=== PATIENT | female | born 1995 | race Caucasian/White ===

== ENCOUNTER → 2019-05-01 09:00 | Outpatient (BNVA) | payer MEDICAID, SELFPAY | PROVIDERS: Family Provider Family Medicine; PCP Family Medicine; Visit Provider Obstetrics & Gynecology | DX: O23.40 Unspecified infection of urinary tract in pregnancy, unspecified trimester (principal) | CPT/HCPCS: 36415; 81000; 82950; 87491; 87591 ==

== ENCOUNTER 2019-05-19 13:45 | Emergency (ER) | payer MEDICAID, SELFPAY ==
[2019-05-19 13:57] VITALS: BP 114/57; RESP 16; TEMP 36.9; O2SAT 99; BMI 22.6
--- NOTE | 2019-05-19 14:04 | ED_ITS ---
Entered by Donna Somers, acting as scribe for May 19, 2019 13:45 HPI - General: Chief complaint: OB/Uterine Contractions Stated complaint: 13 weeks preg and cramping Time Seen by Provider: 05/19/19 14:04 History of Present Illness: HPI Narrative: 23 yo female presents with abdomen cramping. Pt states that she has some discharge but nothing out of the normal. Pt states that she isn't really sure how far along she is. Pt states that she saw Dr. Darling about 2 weeks ago. Complaint: abdominal pain Onset (ago): day(s) Pain Consistency: constant Location: abdomen Severity: moderate Quality: Cramping Relieving factors: none Exacerbating factors: none Vaginal bleeding: none Date of Last Menstrual Period: 02/03/19 Associated symptoms: Reports abdominal pain; Deny dysuria, headache(s), malaise or syncope Review of Systems Const: Denies: fever, chills, body aches, fatigue, malaise or night sweats Eyes: Denies: change in vision or blurry vision ENMT: Denies: throat pain, oral sores/lesions, dental pain, nasal discharge or nasal congestion Card: Denies: chest pain, palpitations, irregular heart rhythm, edema, syncope, shortness of breath on exertion, shortness of breath when lying down or leg pain with exertion Resp: Denies: shortness of breath, productive cough, non-productive cough or wheezing GI: Reports: abdominal pain : Denies: flank pain, painful urination, urinary frequency, urinary urgency, urinary incontinence or blood in urine Musc: Denies: neck pain, back pain, extremity pain, extremity swelling, joint pain or joint swelling Skin/Breast: Denies: rash, itching or redness Neuro: Denies: headache, numbness in extremities, weakness in extremities, allison nges in sensation, lack of coordination, difficulty walking, frequent falls, dizziness, vertigo or confusion Psych: Denies: anxiety, depression, loss of interest, visual hallucinations, auditory hallucinations, suicidal ideation or homicidal ideation Endo: Denies: excessive urination, excessive thirst, tired all the time or cold intolerance Joni/Lymph: Denies: easy bruising, easy bleeding, petechiae, enlarged lymph nodes or tender lymph nodes PFSH ED PFSH: Statuses (acute, chronic, etc) shown below reflect problem list status as previously entered and may not be historically accurate Surgical History History of breast lump/mass excision (Acute) not cancer, left - 03/20/2014--patient states it was a fibroadenoma. Preformed by Dr. Bashir. Previous back surgery (Acute) 2018--Pt reports blood clot in her spine [facility] Family History Mother Diabetes Grandfather Diabetes Maternal Grandmother Diabetes Maternal Uterine cancer Maternal great grandmother Leukemia maternal grandmother Sister Thyroid condition Uterine cancer Endometriosis Family/Other Patient denies medical problems Denies history of: heart disease, diabetes, asthma, hypertension, kidney, thyroid, seizures, DVT/PE,herpes partner denies hx of herpes PCP: Cong Social History Smoking and tobacco status: former smoker Quit status (tobacco): has quit using tobacco Year quit tobacco: 04/16/2019 Alcohol intake: never Additional social history: poorly balanced diet Female Reproductive History: Date of last menstrual period: 02/03/19 Physical Exam Const: COMMON NORMALS: average body habitus, oriented x3 and alert GENERAL APPEARANCE: cooperative, comfortable, well kempt and well developed NUTRITIONAL APPEARANCE: not obese ORIENTATION/CONSCIOUSNESS: Yes awake, Yes oriented to person and Yes oriented to place HENMT: COMMON NORMALS: normocephalic, head/scalp atraumatic, EAC's normal, TM's normal bilaterally, external nose normal, moist oral mucous membranes and oropharynx normal HEAD & SCALP: normocephalic and atraumatic NOSE: external nose normal EXTERNAL AUDITORY CANAL: EAC's normal TYMPANIC MEMBRANE: TM's normal bilaterally MOUTH: oral and palatal mucosa normal, lip normal and tongue normal THROAT: posterior oropharynx normal and tonsils normal Eye: COMMON NORMALS: PERRL, EOMs intact bilaterally, conjunctivae normal and no scleral icterus CONJUNCTIVA: Yes conjunctivae normal PUPIL: Yes PERRL Neck/C-Spine: COMMON NORMALS: full ROM, no lymphadenopathy, supple, no meningeal signs and thyroid normal THYROID: thyroid normal and asymmetrical Lymph: LYMPHATIC: no lymphadenopathy noted Resp: COMMON NORMALS: normal respiratory effort, no retractions, no use of accessory muscles and clear to auscultation bilaterally AUSCULTATION: clear to auscultation bilaterally Cardio: COMMON NORMALS: regular rate and regular rhythm RATE: regular rate RHYTHM: regular rhythm HEART SOUNDS: no murmurs GI: COMMON NORMALS: normal to inspection, nondistended, normoactive bowel sounds, soft to palpation and no hepatosplenomegaly PALPATION: Yes soft and Yes no hepatosplenomegaly : COMMON NORMALS: Yes no CVA tenderness BLADDER/KIDNEY EXAM: Yes no CVA tenderness Back/Pelvis: COMMON NORMALS: no CVA tenderness LUMBAR SPINE/LOWER BACK: Yes normal to inspection Extremity: COMMON NORMALS: no clubbing, cyanosis or edema, no calf tenderness and no pedal edema Neuro: COMMON NORMALS: oriented x3 SENSORIUM/ORIENTATION: Yes alert, Yes oriented to person and Yes oriented to place MENINGEAL SIGNS: Yes no meningeal signs Psych: APPEARANCE: Yes well kempt Skin: COMMON NORMALS: no rashes or lesions noted and skin turgor normal GENERAL SKIN EXAM: no rashes or lesions noted and turgor normal Course ED course: Bedside Doppler Doppler heart tones at 163. Patient has no vaginal bleeding or discharge. Labs reviewed refer back to her [employer]PAT[facility] [employer]. Vital Signs: Vital signs: Vital Signs Temperature 98.4 F 05/19/19 13:57 Respiratory Rate 16 05/19/19 13:57 Blood Pressure 114/57 05/19/19 13:57 Pulse Oximetry 99 05/19/19 13:57 MDM - OB/Uterine Contractions Lab Data: Labs: Lab Results 05/19/19 05/19/19 05/19/19 Range/Units 13:55 14:20 14:20 WBC 9.0 (4.0-10.0) 10^3/ uL RBC 3.77 L (4.1-5.3) 10^6/u L Hgb 10.5 L (11.5-15.3) g/dL Hct 32.2 L (37.0-47.0) % MCV 85.4 (81-99) fL MCH 27.9 L (28.0-34.0) pg MCHC 32.6 (30.0-36.0) g/dL RDW 13.6 (12.1-15.1) % Plt Count 230 (130-400) 10^3/c mm MPV 10.2 (7.4-10.4) fL Neut % (Auto) 70.4 % Lymph % (Auto) 17.7 % [place] % (Auto) 10.2 % Eos % (Auto) 0.8 % Baso % (Auto) 0.2 % Neut # (Auto) 6.3 (1.8-7.7) 10^3/u L Lymph # (Auto) 1.6 (0.8-4.8) 10^3/u L [place] # (Auto) 0.9 (0.2-0.9) 10^3/u L Eos # (Auto) 0.1 (0.0-0.8) 10^3/u L Baso # (Auto) 0.0 (0.0-0.1) 10^3/u L Nucleated RBC % (a uto) 0 % Nucleated RBCs # 0.0 /100WBC Sodium 139 (136-145) mmol/L Potassium 3.4 L (3.5-5.1) mmol/L Chloride 105 (98-107) mmol/L Carbon Dioxide 24 (22-29) mmol/L Anion Gap 13.4 (5-19) BUN 9 (6-20) mg/dL Creatinine 0.4 L (0.5-0.9) mg/dL GFR Calculation 201.5 H (90-130) mL/min Glucose 100 (74-109) mg/dL Calcium 9.4 (8.5-10.5) mg/dL Total Bilirubin 0.2 (0.15-1.2) mg/dL AST 9 (0-32) U/L ALT 9 (0-33) U/L Alkaline Phosphata se 54 (35-105) IU/L Total Protein 6.1 L (6.6-8.7) g/dL Albumin 3.8 (3.5-5.2) g/dL Globulin 2.3 (1.3-4.6) g/dL Urine Color Yellow (Yellow) Urine Appearance Sl hazy (CLEAR) Urine pH 6.5 (5-7) Ur Specific Gravit y 1.020 (1.005-1.030) Urine Protein Neg (Negative) Urine Glucose (UA) Norm (Normal) Urine Ketones 1+ H (Negative) Urine Occult Blood Neg (Negative) Urine Nitrate Negative (Negative) Urine Bilirubin Neg (NEGATIVE) Urine Urobilinogen Norm (Negative) mg/dL Ur Leukocyte Kristin ase Negative (Negative) Urine RBC 0-4 H (0-2) /hpf Urine WBC 10-15 H (0-5) /hpf Ur Squamous Epith Cells 10-15 H (0-5) Amorphous Sediment 1+ Urine Bacteria 1+ H (NONE) Hyaline Casts Rare Urine Mucus 1+ Discharge Plan Discharge Patient Disposition: Home, Self-Care Clinical Impression: Discomfort during , First trimester Condition: Stable Prescriptions: No Action prenat.vits,jaclyn,[id number] Tablet 1 tab PO DAILY RF: 0 Referrals: Otoniel Gar MD [Primary Care Provider] - Discharge Diet: Usual diet Discharge Activity: Increase activity as tolerated Activity Restrictions/Additional Instructions: Follow up with your hairspring vibrator. Minimal exertional activity. Return if you have difficulty with urination pain with urination or vaginal bleeding. Coding Level of Care Code ED Tubing Mill Setter for Chg Fwd Exam Problem Focused The documentation recorded by the Yonis evans Kialy, accurately reflects the service I personally performed and the decisions made by , Aldo Garrison DO May 19, 2019 13:45
[2019-05-19 14:29] LABS: Basophils % 0.2 %; Eosinophils # 0.1 10^3/uL (0.0-0.8); Eosinophils % 0.8 %; Hematocrit 32.2 % (37.0-47.0); Hemoglobin 10.5 g/dL (11.5-15.3); Lymphocytes # 1.6 10^3/uL (0.8-4.8); Lymphocytes % 17.7 %; Mean Corpuscular HGB Conc 32.6 g/dL (30.0-36.0); Mean Corpuscular Hemoglobin 27.9 pg (28.0-34.0); Mean Corpuscular Volume 85.4 fL (81-99); Mean Platelet Volume 10.2 fL (7.4-10.4); Monocytes # 0.9 10^3/uL (0.2-0.9); Monocytes % 10.2 %; Neutrophils # 6.3 10^3/uL (1.8-7.7); Neutrophils % 70.4 %; Nucleated Red Blood Cells % 0 %; Platelet Count 230 10^3/cmm (130-400); Red Blood Count 3.77 10^6/uL (4.1-5.3); Red Cell Distribution Width 13.6 % (12.1-15.1)
[2019-05-19 14:48] LABS: Alanine Aminotransferase 9 U/L (0-33); Albumin Level 3.8 g/dL (3.5-5.2); Alkaline Phosphatase 54 IU/L (35-105); Anion Gap 13.4 (5-19); Aspartate Amino Transferase 9 U/L (0-32); Blood Urea Nitrogen 9 mg/dL (6-20); Calcium 9.4 mg/dL (8.5-10.5); Carbon Dioxide 24 mmol/L (22-29); Chloride 105 mmol/L (98-107); Globulin 2.3 g/dL (1.3-4.6); Glomerular Filtration Rate 201.5 mL/min (90-130); Glucose 100 mg/dL (74-109); Potassium 3.4 mmol/L (3.5-5.1); Sodium 139 mmol/L (136-145); Total Bilirubin 0.2 mg/dL (0.15-1.2); Total Protein 6.1 g/dL (6.6-8.7)
[2019-05-19 14:53] LABS: Add Urine Microscopic? YES; Bilirubin Urine Neg (NEGATIVE); Blood Urine Neg (Negative); Glucose Urine UA Norm (Normal); Ketones Urine 1+ (Negative); Leukocyte Esterase Urine Negative (Negative); Nitrate Urine Negative (Negative); Protein Urine Neg (Negative); Urine Appearance SL Hazy (CLEAR); Urine Color Yellow (Yellow); Urobilinogen Urine Norm (Negative); pH Urine 6.5 (5-7)
[2019-05-19 14:55] LABS: Hyaline Casts Urine RARE; Mucus Urine 1+
[2019-05-19 14:56] LABS: Bacteria Urine 1+; RBC Urine 0-4 /hpf (0-2)
[2019-05-19 14:57] LABS: Amorphous Sediment Urine 1+
[2019-05-19 14:58] LABS: Add Urine Culture? No
[2019-05-19 16:09] VITALS: BP 118/82; PULSE 91; RESP 16; O2SAT 96
== END 2019-05-19 16:10 | disposition home or self-care (01) ==
PROVIDERS: Emergency Provider Family Medicine; Family Provider Family Medicine; PCP Family Medicine
DX: O26.891 Other specified pregnancy related conditions, first trimester (principal); R10.9 Unspecified abdominal pain; Z3A.13 13 weeks gestation of pregnancy; Z87.891 Personal history of nicotine dependence
CPT/HCPCS: 36415; 80053; 81001; 85025; 99282

== ENCOUNTER → 2019-05-30 13:30 | Outpatient (BNVA) | payer MEDICAID, SELFPAY | PROVIDERS: Family Provider Family Medicine; PCP Family Medicine; Visit Provider Nurse Practitioner Women's Health | DX: O23.40 Unspecified infection of urinary tract in pregnancy, unspecified trimester (principal); N89.8 Other specified noninflammatory disorders of vagina; O21.9 Vomiting of pregnancy, unspecified; O99.331 Smoking (tobacco) complicating pregnancy, first trimester; Z3A.14 14 weeks gestation of pregnancy | CPT/HCPCS: 81000; 84315; 87077; 87086; 87186; 87491; 87591; 87661 ==

== ENCOUNTER 2019-05-31 21:23 | Emergency (ER) | payer MEDICAID, SELFPAY ==
[2019-05-31 21:25] VITALS: BP 133/73; PULSE 84; RESP 14; TEMP 36.9; O2SAT 100; BMI 23.0
--- NOTE | 2019-05-31 21:38 | ED_ITS ---
Entered by Ly Crowder, acting as scribe for Dennis Menchaca MD May 31, 2019 21:23 HPI - Female Genitourinary General: Chief complaint: Vaginal Bleeding Stated complaint: 14 weeks preg/poss miscarriage Time Seen by Provider: 05/31/19 21:28 Source: patient Mode of arrival: ambulatory Limitations: no limitations History of Present Illness: HPI Narrative: 23 yo f came to the er for cramping and pt is 14 weeks. Onset was today. Pt states that this is her 2nd and pt has had some light headedness, nausea and diarrhea. Pt has problems with the first . MD elicited complaint: vaginal bleeding Quality of pain: cramping Consistency: constant Vaginal discharge: none Vaginal bleeding: scant Exacerbating factors: none Relieving factors: none Associated symptoms: Reports nausea Treatment prior to arrival: none Patient : Yes Possible : other (14 weeks ) Date of Last Menstrual Period: 02/03/19 Review of Systems General: Reports: other (negative unless marked) Const: Denies: fever, chills, body aches or change in appetite Eyes: Denies: blurry vision or eye discomfort ENMT: Denies: throat pain or dental pain Card: Denies: chest pain Resp: Denies: shortness of breath GI: Reports: nausea and diarrhea : Reports: vaginal bleeding; Denies: painful urination Musc: Denies: neck pain or back pain Skin/Breast: Denies: rash Neuro: Reports: dizziness Psych: Denies: depression Joni/Lymph: Denies: easy bruising All/Imm: Denies: hives PFSH ED PFSH: Statuses (acute, chronic, etc) shown below reflect problem list status as previously entered and may not be historically accurate Medical History (Updated 05/31/19 @ 22:53 by Dennis Menchaca MD) Encounter for supervision of other normal , first trimester (Inactive) Maternal tobacco use in first trimester (Acute) Nausea and vomiting during prior to 22 weeks gestation (Acute) Surgical History (Updated 05/30/19 @ 13:39 by Miriam Harrell APN, SHAHID) History of breast lump/mass excision (Acute ~02/28/14) -patient states it was a fibroadenoma. Preformed by Dr. Bashir. Previous back surgery (Acute ~2018) 2018--Pt reports blood clot in her spine [facility] Social History Smoking and tobacco status: former smoker Quit status (tobacco): has quit using tobacco Year quit tobacco: 04/16/2019 Alcohol intake: never Additional social history: poorly balanced diet Female Reproductive History: Date of last menstrual period: 02/03/19 Physical Exam Const: COMMON NORMALS: no apparent distress, oriented x3 and healthy appearing HENMT: COMMON NORMALS: normocephalic and head/scalp atraumatic HEAD & SCALP: normocephalic and atraumatic Eye: COMMON NORMALS: PERRL and EOMs intact bilaterally PUPIL: Yes PERRL Neck/C-Spine: COMMON NORMALS: full ROM and supple Chest: COMMONS NORMALS: inspection of chest normal and palpation of chest normal Resp: COMMON NORMALS: normal respiratory effort, no retractions, no use of accessory muscles and clear to auscultation bilaterally AUSCULTATION: clear to auscultation bilaterally Cardio: COMMON NORMALS: regular rate, regular rhythm and no murmurs RATE: regular rate RHYTHM: regular rhythm GI: COMMON NORMALS: normal to inspection, nondistended, normoactive bowel sounds, soft to palpation, non-tender and no masses PALPATION: Yes soft Extremity: COMMON NORMALS: normal to inspection and full ROM Neuro: COMMON NORMALS: oriented x3, moves all extremities and no focal motor deficits Psych: COMMON NORMALS: mental status grossly normal, thought process normal and cooperative THOUGHT PROCESS: normal thought process Skin: COMMON NORMALS: no rashes or lesions noted and no wounds GENERAL SKIN EXAM: no rashes or lesions noted Course Vital Signs: Vital signs: Vital Signs Temperature 98.5 F 05/31/19 21:25 Pulse Rate 86 05/31/19 23:11 Respiratory Rate 16 05/31/19 23:11 Blood Pressure 107/49 05/31/19 23:11 Pulse Oximetry 100 05/31/19 23:11 MDM - Female MDM Narrative: Medical decision making narrative: Patient presents here with vaginal bleeding and threatened miscarriage. Patient's bedside ultrasound showed an IUP with heart rate in the 140s. Patient's blood work here is all normal. UA is normal as well. Patient has an appointment tomorrow with her OB and is to follow then. Patient is to return if worsening. Lab Data: Labs: Lab Results 05/31/19 05/31/19 05/31/19 Range/Units 21:36 21:40 22:17 WBC 9.4 (4.0-10.0) 10^3/ uL RBC 3.79 L (4.1-5.3) 10^6/u L Hgb 10.7 L (11.5-15.3) g/dL Hct 32.5 L (37.0-47.0) % MCV 85.8 (81-99) fL MCH 28.2 (28.0-34.0) pg MCHC 32.9 (30.0-36.0) g/dL RDW 13.3 (12.1-15.1) % Plt Count 213 (130-400) 10^3/c mm MPV 9.8 (7.4-10.4) fL Neut % (Auto) 67.6 % Lymph % (Auto) 20.3 % [place] % (Auto) 10.2 % Eos % (Auto) 0.9 % Baso % (Auto) 0.3 % Neut # (Auto) 6.4 (1.8-7.7) 10^3/u L Lymph # (Auto) 1.9 (0.8-4.8) 10^3/u L [place] # (Auto) 1.0 H (0.2-0.9) 10^3/u L Eos # (Auto) 0.1 (0.0-0.8) 10^3/u L Baso # (Auto) 0.0 (0.0-0.1) 10^3/u L Nucleated RBC % (a uto) 0 % Nucleated RBCs # 0.0 /100WBC POC Glucose 108 (70-110) mg/dL Urine Color Yellow (Yellow) Urine Appearance Cloudy (CLEAR) Urine pH 7 (5-7) Ur Specific Gravit y 1.020 (1.005-1.030) Urine Protein Neg (Negative) Urine Glucose (UA) Norm (Normal) Urine Ketones Negative (Negative) Urine Occult Blood Neg (Negative) Urine Nitrate Negative (Negative) Urine Bilirubin Neg (NEGATIVE) Urine Urobilinogen Norm (Negative) mg/dL Ur Leukocyte Kristin ase Negative (Negative) Urine RBC None (0-2) /hpf Urine WBC None (0-5) /hpf Ur Squamous Epith Cells 0-4 H (0-5) Amorphous Sediment 3+ Urine Bacteria Trace (NONE) Discharge Plan Discharge Patient Disposition: Home, Self-Care Clinical Impression: Threatened miscarriage Condition: Stable Prescriptions: No Action prenat.vits,jaclyn,[id number] Tablet 1 tab PO DAILY RF: 0 metronidazole 500 mg tablet 500 mg PO BID Qty: 14 RF: 0 Discharge Orders: Discharge Order (Routine); Ordered 05/31/19 Ordered By: Dennis Menchaca Referrals: Otoniel Gar MD [Primary Care Provider] - 4-7 days Discharge Diet: Advance as tolerated Discharge Activity: Resume usual activity Patient Instructions: Threatened Miscarriage (ED) Discharge Date/Time: 05/31/19 23:13 Coding Level of Care Code ED Metal Sash Setter for Chg Marie The documentation recorded by the Vel evans Stephanie Lyn, accurately reflects the service I personally performed and the decisions made by Bernarda bhandari Korby, MD May 31, 2019 21:23
[2019-05-31 21:39] LABS: Glucose Point of Care 108 mg/dL (70-110)
--- NOTE | 2019-05-31 21:41 | PC.NURSE ---
PATIENT STATES SHE STARTED HAVING CRAMPING 1 HOUR AGO PRIOR TO ARRIVAL. PATIENT STATES SHE HAS HAD LIGHT CRAMPING AND SPOTTING THROUGHOUT THE .
[2019-05-31 21:44] VITALS: BP 125/67; PULSE 83; RESP 16; O2SAT 100
[2019-05-31 21:52] LABS: Basophils % 0.3 %; Eosinophils # 0.1 10^3/uL (0.0-0.8); Eosinophils % 0.9 %; Hematocrit 32.5 % (37.0-47.0); Hemoglobin 10.7 g/dL (11.5-15.3); Lymphocytes # 1.9 10^3/uL (0.8-4.8); Lymphocytes % 20.3 %; Mean Corpuscular HGB Conc 32.9 g/dL (30.0-36.0); Mean Corpuscular Hemoglobin 28.2 pg (28.0-34.0); Mean Corpuscular Volume 85.8 fL (81-99); Mean Platelet Volume 9.8 fL (7.4-10.4); Monocytes % 10.2 %; Neutrophils # 6.4 10^3/uL (1.8-7.7); Neutrophils % 67.6 %; Nucleated Red Blood Cells % 0 %; Platelet Count 213 10^3/cmm (130-400); Red Blood Count 3.79 10^6/uL (4.1-5.3); Red Cell Distribution Width 13.3 % (12.1-15.1); White Blood Count 9.4 10^3/uL (4.0-10.0)
[2019-05-31] MEDS: sodium chloride 0.9% 1,000 ML 999 ML IV (22:00)
[2019-05-31] MEDS: diphenhydrAMINE 50 mg/mL SDV 1mL 25 MG IVP (22:00)
[2019-05-31] MEDS: metoclopramide 5 mg/mL SDV 2 mL IVP (22:00)
[2019-05-31 22:04] VITALS: BP 123/64; PULSE 92; RESP 16; O2SAT 100
[2019-05-31 22:37] LABS: Bilirubin Urine Neg (NEGATIVE); Blood Urine Neg (Negative); Glucose Urine UA Norm (Normal); Ketones Urine Negative (Negative); Leukocyte Esterase Urine Negative (Negative); Nitrate Urine Negative (Negative); Protein Urine Neg (Negative); Urine Appearance Cloudy (CLEAR); Urine Color Yellow (Yellow); Urobilinogen Urine Norm (Negative); pH Urine 7 (5-7)
[2019-05-31 22:40] VITALS: BP 112/49; PULSE 83; O2SAT 100
[2019-05-31 22:41] LABS: Add Urine Culture? No; Amorphous Sediment Urine 3+; Bacteria Urine TRACE; Squamous Epithelial Cell Urine 0-4 (0-5)
[2019-05-31 23:06] VITALS: BP 100/46; PULSE 84; O2SAT 100
[2019-05-31 23:11] VITALS: BP 107/49; PULSE 86; RESP 16; O2SAT 100
== END 2019-05-31 23:13 | disposition home or self-care (01) ==
PROVIDERS: Emergency Provider Emergency Medicine; Family Provider Family Medicine; PCP Family Medicine
DX: O20.0 Threatened abortion (principal); Z3A.14 14 weeks gestation of pregnancy; Z87.891 Personal history of nicotine dependence
CPT/HCPCS: 36416; 81001; 82962; 85025; 96361; 96374; 96375; 99283; J1200; J2765; J7030

== ENCOUNTER → 2019-06-01 09:00 | Outpatient (BNVA) | payer MEDICAID, SELFPAY | PROVIDERS: Family Provider Family Medicine; PCP Family Medicine; Visit Provider Nurse Practitioner Women's Health | DX: O23.40 Unspecified infection of urinary tract in pregnancy, unspecified trimester (principal); N89.8 Other specified noninflammatory disorders of vagina; O21.9 Vomiting of pregnancy, unspecified; O99.331 Smoking (tobacco) complicating pregnancy, first trimester; O26.92 Pregnancy related conditions, unspecified, second trimester; Z3A.14 14 weeks gestation of pregnancy | CPT/HCPCS: 82951; 82952; 87806 ==

== ENCOUNTER 2019-06-08 11:02 | Outpatient (CLI) | payer MEDICAID, SELFPAY ==
[2019-06-08 11:02] VITALS: BMI 23.0
--- NOTE | 2019-06-08 11:15 | US_ITS ---
WS: [id number] OB ultrasound, 06/08/2019 Clinical Data: Severe abdominal pain Comparison: None. Findings: There is a single intrauterine in a variable lie. The placenta is on the left posterior and grade 0. There is a normal amount of amnionic fluid. The heart rate is 147 beats per minute. Measurements of growth and development: BPD: 3.2 cm HC: 11.5 cm AC: 9.7 cm FL: 1.7 cm The estimated weight is 125 or approximately 4 ounces The estimated gestational age is 15w4d wi th an EMELIA of approximately 11/26/2019. US/ OB limited 20000 Impression: 1. Single intrauterine in a variable lie. 2. Estimated gestational age 15w4d with an EMELIA of 11/26/2019. 3. heart rate 147 beats per minute.
[2019-06-08 11:33] VITALS: BP 100/50; PULSE 68; RESP 17; TEMP 36.7
[2019-06-08 11:42] LABS: Bilirubin Urine Neg (NEGATIVE); Blood Urine Neg (Negative); Glucose Urine UA Norm (Normal); Ketones Urine Negative (Negative); Leukocyte Esterase Urine Negative (Negative); Nitrate Urine Negative (Negative); Protein Urine Neg (Negative); Urine Appearance Clear (CLEAR); Urine Color Yellow (Yellow); Urobilinogen Urine Norm (Negative)
[2019-06-08 11:57] LABS: Add Urine Culture? No; Bacteria Urine 1+; Calcium Oxalate Crystals Urine 0-4 /hpf; Mucus Urine 1+; WBC Urine 0-4 /hpf (0-5)
[2019-06-08 12:21] VITALS: BP 103/55; PULSE 70
[2019-06-08 12:36] VITALS: BP 98/54; PULSE 73
[2019-06-08 12:45] VITALS: BP 98/54; PULSE 69; RESP 16; TEMP 36.7
--- NOTE | 2019-06-08 13:20 | PC.NURSE ---
Pt here with complaints of severe abdominal pain since 729. She states that with her last she had a placental tear and this feels like that. When asked more about her pain she says that it does not feel like contractions but that it will be more constant for 2-3hours and then will go away for a day or two then will come back and that she has felt this a lot during this so far. This time was different and more severe and was making it difficult for her to get up and walk.
== END 2019-06-08 12:45 | disposition home or self-care (01) ==
LOC: OPOB 11:13 → OBGYN 12:36 → OPOB 06-11 07:38
PROVIDERS: Family Provider Family Medicine; PCP Family Medicine; Visit Provider Obstetrics & Gynecology
DX: O26.899 Other specified pregnancy related conditions, unspecified trimester (principal); Z3A.00 Weeks of gestation of pregnancy not specified; R10.9 Unspecified abdominal pain
CPT/HCPCS: 76815; 81001; 99211; A9270

== ENCOUNTER 2019-07-01 16:52 | Emergency (ER) | payer MEDICAID, SELFPAY ==
[2019-07-01] VITALS (9 sets, daily range): BP systolic 119–141; BP diastolic 47–69; PULSE 90–106; RESP 16–18; TEMP 36.9; O2SAT 94–100; BMI 23.7
--- NOTE | 2019-07-01 17:46 | PC.NURSE ---
Patient presents to OB from ER at 1657. Patient reporting that she is feeling light headed and weak, c/o left upper chest pain that is intermittent. Patient rating pain at a 5/10. Patient states this all started one hour ago. Patient reports she is having good movement and had an ultrasound over a month ago when she was having vaginal spotting earlier in the . Patient also states she had some spotting on her toilet paper when she wiped approx 10 minutes prior to arrival. Patient is also complaining of pain with urination. Patient assessed in room at 1715. EMELIA: 11/26/2019. heart tones Doppler at 150s, increases present, no decreases noted. Patient abdomen is non tender and soft. Call placed to Dr. Abbasi at 1724 and above findings discussed with Dr. Abbasi who states she would like the patient to be sent back to the ER at this time. Patient informed of Dr. Abbasi's decision and states she would like to get dressed to walk down there. Heavy Equipment Operator/Paver back to room to escort patient to ER at 1730 and patient is gone.
--- NOTE | 2019-07-01 18:07 | ED_ITS ---
Entered by Katie Schwartz, acting as scribe for Diane Norwood Renetta Jul 01, 2019 16:52 HPI - Chest Pain General: Chief Complaint: Chest Pain Stated Complaint: NOT FEELING WELL Time Seen by Provider: 07/01/19 18:06 Source: patient Mode of arrival: ambulatory Limitations: no limitations History of Present Illness: HPI narrative: 23 yo Female presents to ED with complaint of chest pain that started last night. Pt is 20 weeks and was sent to OB for evaluation and then sent back down to the ED for further evaluation. Pt states that the pain is more toward her left shoulder. Pt states that she started having pain worse today. Pt's caregiver states that the patient had an episode so bad earlier that she turned pale and thought she was going to pass out. Pt states that she has had a blood clot in her spine before. Pt states that they thought it was a tumor and found that it was a blood clot during surgery. 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 This is the patient's second and she is being see by Dr. Darling. complaint: chest pain Onset (ago): day(s) Timing of current episode: episodic and still present Prior episodes: Yes Onset: during rest Pain location: left chest Pain radiation: left shoulder Pain scale (0-10): 8 Quality: sharp Relieving factors: nothing Exacerbating factors: nothing Associated symptoms: Reports diaphoresis and nausea; Deny abdominal pain, dyspnea or vomiting Treatment prior to arrival: none Review of Systems General: Reports: other (negative unless marked) Const: Reports: diaphoresis Eyes: Denies: change in vision or blurry vision ENMT: Denies: throat pain, painful swallowing, hoarseness, ear pain, ear discharge, Change in hearing or nasal discharge Card: Reports: pre-syncope Resp: Denies: shortness of breath, productive cough, non-productive cough, wheezing, coughing up blood or chest congestion GI: Reports: nausea; Denies: abdominal pain or vomiting : Denies: flank pain, painful urination, urinary frequency, urinary urgency, decreased urine ouput, urinary incontinence or blood in urine Musc: Denies: neck pain, back pain, extremity pain, extremity swelling, joint pain, joint swelling, joint warmth or joint stiffness Skin/Breast: Denies: rash, skin tenderness or yellow skin Neuro: Denies: headache, numbness in extremities, weakness in extremities, changes in sensation, lack of coordination, difficulty walking, dizziness, vertigo or confusion Endo: Denies: excessive thirst, tired all the time, cold intolerance, excessive sweating, flushing or hot flashes Joni/Lymph: Denies: easy bruising, easy bleeding, petechiae or enlarged lymph nodes All/Imm: Denies: hives, throat swelling, tongue swelling, facial swelling or acute wheezing PFSH ED PFSH: Medical History Encounter for supervision of other normal , first trimester Maternal tobacco use in first trimester Nausea and vomiting during prior to 22 weeks gestation Surgical History History of breast lump/mass excision (~02/28/14) -patient states it was a fibroadenoma. Preformed by Dr. Bashir. Previous back surgery (~2017) 2018--Pt reports blood clot in her spine [facility] Family History Mother Diabetes Grandfather Diabetes Maternal Grandmother Diabetes Maternal Uterine cancer Maternal great grandmother Leukemia maternal grandmother Sister Thyroid condition Uterine cancer Endometriosis Family/Other Patient denies medical problems Denies history of: heart disease, diabetes, asthma, hypertension, kidney, thyroid, seizures, DVT/PE,herpes partner denies hx of herpes PCP: Cong Social History Smoking and tobacco status: former smoker Quit status (tobacco): has quit using tobacco Year quit tobacco: 04/16/2019 Alcohol intake: never Additional social history: poorly balanced diet Female Reproductive History: Date of last menstrual period: 02/03/19 Physical Exam Const: COMMON NORMALS: no apparent distress, oriented x3, no limitations, healthy appearing and well nourished EXAM LIMITATIONS: no altered mental status GENERAL APPEARANCE: cooperative, well kempt and well developed ORIENTATION/CONSCIOUSNESS: Yes awake HENMT: COMMON NORMALS: normocephalic, head/scalp atraumatic, hearing grossly normal bilaterally, external ears normal, EAC's normal, external nose normal and moist oral mucous membranes HEAD & SCALP: normal to inspection, normocephalic and atraumatic FACE & SINUS: normal facial exam and face symmetric NOSE: external nose normal and nares normal EXTERNAL EAR: Yes external ears normal EXTERNAL AUDITORY CANAL: EAC's normal MOUTH: oral and palatal mucosa normal and tongue normal Eye: COMMON NORMALS: PERRL, EOMs intact bilaterally, conjunctivae normal and no scleral icterus GENERAL EYE: normal appearance of both eyes and normal light reflex CONJUNCTIVA: Yes conjunctivae normal SCLERA: sclerae normal CORNEA: Yes corneas normal PUPIL: Yes PERRL DIRECT OPHTHALMOSCOPY: Yes normal light reflex Neck/C-Spine: COMMON NORMALS: full ROM, no lymphadenopathy, supple, no meningeal signs and no JVD GENERAL: Yes normal visual inspection and Yes trachea midline CERVICAL SPINE: Yes cervical ROM normal Chest: COMMONS NORMALS: inspection of chest normal and palpation of chest normal Resp: COMMON NORMALS: normal respiratory effort, no retractions, no use of accessory muscles and clear to auscultation bilaterally EFFORT & INSPECTION: Yes able to speak in complete sentences AUSCULTATION: clear to auscultation bilaterally Cardio: COMMON NORMALS: no JVD, regular rate, regular rhythm, S1 normal heart sound, S2 normal heart sound, no gallops, no clicks, no murmurs and no rub JUGULAR VENOUS DISTENTION: no JVD RATE: regular rate RHYTHM: regular rhythm HEART SOUNDS: S1 normal and S2 normal GI: COMMON NORMALS: soft to palpation, non-tender, no hepatosplenomegaly and no masses INSPECTION: Yes normal to inspection PALPATION: Yes soft and Yes no hepatosplenomegaly : COMMON NORMALS: Yes no CVA tenderness BLADDER/KIDNEY EXAM: Yes no CVA tenderness Back/Pelvis: COMMON NORMALS: no CVA tenderness, thoracic and lumbar spine norm al to inspection, no thoracic nor lumbar tenderness and thoraco-lumbar ROM normal Extremity: COMMON NORMALS: normal to inspection, full ROM, normal capillary refill, no joint enlargement, no clubbing, cyanosis or edema and no calf tenderness Neuro: COMMON NORMALS: oriented x3, CN's II-XII intact bilaterally, moves all extremities, no focal motor deficits and no sensory deficits noted MENINGEAL SIGNS: Yes no meningeal signs Psych: COMMON NORMALS: mental status grossly normal, thought process normal, cooperative, affect normal, speech normal and activity/motor behavior normal APPEARANCE: Yes well kempt SPEECH: Yes normal speech THOUGHT PROCESS: normal thought process Skin: COMMON NORMALS: no rashes or lesions noted, skin turgor normal, no jaundice, no petechiae and no mottling GENERAL SKIN EXAM: no rashes or lesions noted and turgor normal Course Vital Signs: Vital signs: Vital Signs Temperature 98.4 F 07/01/19 17:36 Pulse Rate 92 07/01/19 22:51 Respiratory Rate 18 07/01/19 22:51 Blood Pressure 120/47 07/01/19 22:51 Pulse Oximetry 99 07/01/19 22:51 MDM - Chest Pain MDM Narrative: Medical decision making narrative: Patient's EKGs are normal and she has had 2 normal troponins. There is no evidence of aortic dissection or pulmonary embolism by CT. She is feeling better with just rest. She agrees to return should her symptoms change or worsen but at this time she is had no chest pain in quite some time. She denies any injury she denies any other complaints. heart tones were normal at 150/min as she has no abdominal pain, vaginal discharge or bleeding. Patient agrees to return should her symptoms change or worsen but at this time she is feeling much better and she is ready to be discharged. Lab Data: Attestation: I reviewed the patient's lab results. Labs: Lab Results 07/01/19 07/01/19 07/01/19 Range/Units 18:03 18:03 18:08 WBC 9.8 (4.0-10.0) 10^3/ uL RBC 3.62 L (4.1-5.3) 10^6/u L Hgb 10.3 L (11.5-15.3) g/dL Hct 32.4 L (37.0-47.0) % MCV 89.5 (81-99) fL MCH 28.5 (28.0-34.0) pg MCHC 31.8 (30.0-36.0) g/dL RDW 13.5 (12.1-15.1) % Plt Count 218 (130-400) 10^3/c mm MPV 10.5 H (7.4-10.4) fL Neut % (Auto) 73.8 % Lymph % (Auto) 15.5 % Alexander % (Auto) 8.8 % Eos % (Auto) 0.6 % Baso % (Auto) 0.4 % Neut # (Auto) 7.2 (1.8-7.7) 10^3/u L Lymph # (Auto) 1.5 (0.8-4.8) 10^3/u L Alexander # (Auto) 0.9 (0.2-0.9) 10^3/u L Eos # (Auto) 0.1 (0.0-0.8) 10^3/u L Baso # (Auto) 0.0 (0.0-0.1) 10^3/u L Nucleated RBC % (a uto) 0 % Nucleated RBCs # 0.0 /100WBC PT 13.30 (10.5-13.3) SECO NDS INR 0.98 (0.8-1.2) APTT 28.0 (23.9-36.7) SECO NDS D-Dimer 0.97 H (0-0.59) ug/mIFE U Sodium 133 L (136-145) mmol/L Potassium 3.6 (3.5-5.1) mmol/L Chloride 99 (98-107) mmol/L Carbon Dioxide 23 (22-29) mmol/L Anion Gap 14.6 (5-19) BUN 7 (6-20) mg/dL Creatinine 0.4 L (0.5-0.9) mg/dL GFR Calculation 201.5 H (90-130) mL/min Glucose 110 (65-115) mg/dL Calculated Osmolal ity 272 L (285-295) mOsm/k g Calcium 9.4 (8.5-10.5) mg/dL Total Bilirubin 0.2 (0.15-1.2) mg/dL AST 9 (0-32) U/L ALT 9 (0-33) U/L Alkaline Phosphata se 47 (35-105) IU/L Troponin T Baselin e (0-10) ng/mL Troponin T 120 Min [place] (0-10) ng/mL Delta Troponin T (0-10) ABS# NT-Pro-B Natriuret Pep 29 (0-125) pg/mL Total Protein 6.2 L (6.6-8.7) g/dL Albumin 3.5 (3.5-5.2) g/dL Globulin 2.7 (1.3-4.6) g/dL Ser , [place] [address].00 mIU/mL Urine Color (Yellow) Urine Appearance (CLEAR) Urine pH (5-7) Ur Specific Gravit y (1.005-1.030) Urine Protein (Negative) Urine Glucose (UA) (Normal) Urine Ketones (Negative) Urine Blood (Negative) Urine Nitrate (Negative) Urine Bilirubin (NEGATIVE) Urine Urobilinogen (Negative) mg/dL Ur Leukocyte Kristin ase (Negative) Urine RBC (0-2) /hpf Urine WBC (0-5) /hpf Ur Squamous Epith Cells (0-5) Amorphous Sediment Urine Bacteria (NONE) Influenza Type A A g (Negative) POC Influenza B Ag (Negative) Blood Type Rho(D) Type 07/01/19 07/01/19 07/01/19 Range/Units 18:08 18:20 18:50 WBC (4.0-10.0) 10^3/ uL RBC (4.1-5.3) 10^6/u L Hgb (11.5-15.3) g/dL Hct (37.0-47.0) % MCV (81-99) fL MCH (28.0-34.0) pg MCHC (30.0-36.0) g/dL RDW (12.1-15.1) % Plt Count (130-400) 10^3/c mm MPV (7.4-10.4) fL Neut % (Auto) % Lymph % (Auto) % Alexander % (Auto) % Eos % (Auto) % Baso % (Auto) % Neut # (Auto) (1.8-7.7) 10^3/u L Lymph # (Auto) (0.8-4.8) 10^3/u L Alexander # (Auto) (0.2-0.9) 10^3/u L Eos # (Auto) (0.0-0.8) 10^3/u L Baso # (Auto) (0.0-0.1) 10^3/u L Nucleated RBC % (a uto) % Nucleated RBCs # /100WBC PT (10.5-13.3) SECO NDS INR (0.8-1.2) APTT (23.9-36.7) SECO NDS D-Dimer (0-0.59) ug/mIFE U Sodium (136-145) mmol/L Potassium (3.5-5.1) mmol/L Chloride (98-107) mmol/L Carbon Dioxide (22-29) mmol/L Anion Gap (5-19) BUN (6-20) mg/dL Creatinine (0.5-0.9) mg/dL GFR Calculation (90-130) mL/min Glucose (65-115) mg/dL Calculated Osmolal ity (285-295) mOsm/k g Calcium (8.5-10.5) mg/dL Total Bilirubin (0.15-1.2) mg/dL AST (0-32) U/L ALT (0-33) U/L Alkaline Phosphata se (35-105) IU/L Troponin T Baselin e 6 (0-10) ng/mL Troponin T 120 Min [place] (0-10) ng/mL Delta Troponin T (0-10) ABS# NT-Pro-B Natriuret Pep (0-125) pg/mL Total Protein (6.6-8.7) g/dL Albumin (3.5-5.2) g/dL Globulin (1.3-4.6) g/dL Ser , Meenu i-Qnt mIU/mL Urine Color (Yellow) Urine Appearance (CLEAR) Urine pH (5-7) Ur Specific Gravit y (1.005-1.030) Urine Protein (Negative) Urine Glucose (UA) (Normal) Urine Ketones (Negative) Urine Blood (Negative) Urine Nitrate (Negative) Urine Bilirubin (NEGATIVE) Urine Urobilinogen (Negative) mg/dL Ur Leukocyte Kristin ase (Negative) Urine RBC (0-2) /hpf Urine WBC (0-5) /hpf Ur Squamous Epith Cells (0-5) Amorphous Sediment Urine Bacteria (NONE) Influenza Type A A g Negative (Negative) POC Influenza B Ag Negative (Negative) Blood Type O Positive Rho(D) Type Positive 07/01/19 07/01/19 Range/Units 19:35 20:15 WBC (4.0-10.0) 10^3/ uL RBC (4.1-5.3) 10^6/u L Hgb (11.5-15.3) g/dL Hct (37.0-47.0) % MCV (81-99) fL MCH (28.0-34.0) pg MCHC (30.0-36.0) g/dL RDW (12.1-15.1) % Plt Count (130-400) 10^3/c mm MPV (7.4-10.4) fL Neut % (Auto) % Lymph % (Auto) % Alexander % (Auto) % Eos % (Auto) % Baso % (Auto) % Neut # (Auto) (1.8-7.7) 10^3/u L Lymph # (Auto) (0.8-4.8) 10^3/u L Alexander # (Auto) (0.2-0.9) 10^3/u L Eos # (Auto) (0.0-0.8) 10^3/u L Baso # (Auto) (0.0-0.1) 10^3/u L Nucleated RBC % (a uto) % Nucleated RBCs # /100WBC PT (10.5-13.3) SECO NDS INR (0.8-1.2) APTT (23.9-36.7) SECO NDS D-Dimer (0-0.59) ug/mIFE U Sodium (136-145) mmol/L Potassium (3.5-5.1) mmol/L Chloride (98-107) mmol/L Carbon Dioxide (22-29) mmol/L Anion Gap (5-19) BUN (6-20) mg/dL Creatinine (0.5-0.9) mg/dL GFR Calculation (90-130) mL/min Glucose (65-115) mg/dL Calculated Osmolal ity (285-295) mOsm/k g Calcium (8.5-10.5) mg/dL Total Bilirubin (0.15-1.2) mg/dL AST (0-32) U/L ALT (0-33) U/L Alkaline Phosphata se (35-105) IU/L Troponin T Baselin e (0-10) ng/mL Troponin T 120 Min [place] 6.00 (0-10) ng/mL Delta Troponin T 0 (0-10) ABS# NT-Pro-B Natriuret Pep (0-125) pg/mL Total Protein (6.6-8.7) g/dL Albumin (3.5-5.2) g/dL Globulin (1.3-4.6) g/dL Ser , Meenu i-Qnt mIU/mL Urine Color Yellow (Yellow) Urine Appearance Cloudy (CLEAR) Urine pH 7 (5-7) Ur Specific Gravit y 1.015 (1.005-1.030) Urine Protein Neg (Negative) Urine Glucose (UA) Norm (Normal) Urine Ketones Negative (Negative) Urine Blood Neg (Negative) Urine Nitrate Negative (Negative) Urine Bilirubin Neg (NEGATIVE) Urine Urobilinogen Norm (Negative) mg/dL Ur Leukocyte Kristin ase Negative (Negative) Urine RBC 0-4 H (0-2) /hpf Urine WBC 0-4 H (0-5) /hpf Ur Squamous Epith Cells 0-4 H (0-5) Amorphous Sediment 2+ Urine Bacteria 2+ H (NONE) Influenza Type A A g (Negative) POC Influenza B Ag (Negative) Blood Type Rho(D) Type Imaging Data^: CXR: Radiologist's impression: [place] [address] XRay Report Signed Patient: Gris Garcia #: [id number] : 1995Acct#:[id number] Age/Sex: Date: 07/01/19 Loc: ERRoom/Bed: Attending Dr: Ordering Provider/Ordering MD: Diane Norwood DO Date of Service: 07/01/19 Procedure(s): XR chest 1V portable [id number] Accession Number(s): [id number] Report Number: [id number] PROCEDURE INFORMATION: Exam: XR Chest, 1 View Exam date and time: 07/01/2019 6:46 PM Age: 23 years old Clinical indication: Type not specified; Patient HX: New onset chest pain, PT is approx 18 wks , PT was shielded TECHNIQUE: Imaging protocol: XR of the chest Views: 1 view. COMPARISON: CR Chest 2 views* [id number] 12/27/2017 4:20 AM FINDINGS: Lungs: Unremarkable. No consolidation. Pleural space: Unremarkable. No pleural effusion. No pneumothorax. Heart/Mediastinum: Unremarkable. No cardiomegaly. Bones/joints: Unremarkable. Soft tissues: Nipple rings. XR/XR chest 1V portable [id number] IMPRESSION: Nonacute. Dictated By:Akhil Resendez Signed By:Judy Resendez Date/Time:07/01/191902 DD/ 00 US Vascular: Radiologist's impression: Bilateral lower extremity venous Doppler, tech interpretation. -No evidence of DVT. [address] [address] Ultrasound Report Signed Patient: Gris Garcia #: [id number] : 1995Acct#:[id number] Age/Sex: 23 / FADM Date: 07/01/19 Loc: ERRoom/Bed: Attending Dr: Ordering Provider/Ordering MD: Diane Norwood DO Date of Service: 07/01/19 Procedure(s): [place] [id number] Accession Number(s): [id number] Report Number: [id number] PROCEDURE INFORMATION: Exam: US Duplex Lower Extremity Veins Exam date and time: 07/01/2019 6:39 PM Age: 23 years old Clinical indication: Abnormal findings; Abnormal lab test; Elevated d-dimer; Patient HX: PT states had blood clot in spine in her past. Can add no more; Additional info: Pain TECHNIQUE: Imaging protocol: Real-time duplex ultrasound of the Lower Extremities with 2-D champagne scale, color Doppler flow and spectral waveform analysis with image documentation. Complete exam focused on the bilateral lower extremity veins. COMPARISON: No relevant prior studies available. FINDINGS: Right deep veins: Unremarkable. The common femoral, femoral, proximal profunda femoral and popliteal veins are patent without thrombus. Normal Doppler waveforms. Normal compressibility and/or augmentation response. Right superficial veins: Saphenofemoral junction is patent without thrombus. Left deep veins: Unremarkable. The common femoral, femoral, proximal profunda femoral and popliteal veins are patent without thrombus. Normal Doppler waveforms. Normal compressibility and/or augmentation response. Left superficial veins: Saphenofemoral junction is patent without thrombus. Soft tissues: Unremarkable. US/[place] [address] IMPRESSION: No acute findings. No evidence of deep vein thrombosis. Dictated By:Akhil Resendez Signed By:Judy Resendez Date/Time:07/01/192051 DD/ 48 CTA Chest: Radiologist's impression: [address] [place] [address] CT Scan Report Signed Patient: Gris Garcia #: [id number] : 1995Acct#:[id number] Age/Sex: 23 / FADM Date: 07/01/19 Loc: ERRoom/Bed: Attending Dr: Ordering Provider/Ordering MD: Diane Norwood DO Date of Service: 07/01/19 Procedure(s): CT angio chest PE protcl [id number] Accession Number(s): [id number] Report Number: [id number] PROCEDURE INFORMATION: Exam: CT Angiography Chest With Contrast Exam date and time: 07/01/2019 8:40 PM Age: 23 years old Clinical indication: Left-sided chest pain; Patient HX: 20 weeks C/O intermittent L upper chest pain; Additional info: Chest pain, positive d-dimer TECHNIQUE: Imaging protocol: Computed tomographic angiography of the chest with intravenous contrast. 3D rendering: MIP and/or 3D reconstructed images were created by the technologist. Total DLP: 438.19 mGy-cm Radiation optimization: All CT scans at this facility use at least one of these dose optimization techniques: automated exposure control; mA and/or kV adjustment per patient size (includes targeted exams where dose is matched to clinical indication); or iterative reconstruction. Contrast material: VISI 320; Contrast volume: 75 ml; Contrast route: 18G; COMPARISON: CR XR chest 1V portable [id number] 07/01/2019 6:37 PM FINDINGS: Pulmonary arteries: Normal. No pulmonary emboli. Aorta: Unremarkable. No aortic aneurysm. No aortic dissection. Lungs: Unremarkable. No consolidation. No masses. Pleural space: Unremarkable. No pneumothorax. No pleural effusion. Heart: Unremarkable. No cardiomegaly. No pericardial effusion. Lymph nodes: Unremarkable. No enlarged lymph nodes. Bones/joints: Unremarkable. No acute fracture. Soft tissues: Unremarkable. CT/CT angio chest PE protcl [id number] IMPRESSION: No acute findings. Radiation Dose CTDIVOL = (mGy): DLP = 438.19 (mGy-cm) Dictated By:Akhil Resendez Signed By:Judy Resendez Date/Time:07/01/192125 DD/ 24 Discharge Plan Discharge Patient Disposition: Home, Self-Care Clinical Impression: Bacteriuria during Chest pain Qualifiers: Chest pain type: unspecified Qualified Code(s): R07.9 - Chest pain, unspecified Condition: Stable Prescriptions: New Keflex 500 mg capsule 500 mg PO QID 10 Days Qty: 40 RF: 0 No Action prenat.vits,jaclyn,yhx-dtob-geihh Tablet 1 tab PO DAILY RF: 0 Discharge Orders: Discharge Order (Routine); Ordered 07/01/19 Ordered By: Diane Norwood Referrals: Natalio Darling MD [Physician] - 1-3 days Otoniel Gra MD [Primary Care Provider] - 1-3 days Discharge Diet: Advance as tolerated Discharge Activity: Increase activity as tolerated Patient Instructions: Chest Pain (ED) Activity Restrictions/Additional Instructions: Please return to the ER immediately for any of the signs or symptoms listed on your discharge instruction sheets, worsening/changing of your symptoms, you are not getting better as quickly as expected, or for ANY other cause or concerns. Discharge Date/Time: 07/01/19 22:52 Coding Level of Care Code ED Car Dryer for Chg Fwd Exam Comprehensive The documentation recorded by the Lana evans Carmen, accurately reflects the service I personally performed and the decisions made by Enma bhandari Eli N Jul 01, 2019 16:52
--- NOTE | 2019-07-01 18:08 | ECG_ITS ---
Measurements Intervals [place] Rate: 79 P: 56 WI: 133 QRS: 57 QRSD: 94 T: 50 QT: 343 QTc: 395 SINUS RHYTHM WITH SINUS ARRHYTHMIA POSSIBLE RIGHT VENTRICULAR CONDUCTION DELAY [RSR (QR) IN V1/V2] Compared to ECG 12/16/2016 12:15:55 No significant changes Electronically Signed On 07-01-2019 19:51:17 CDT by Annetta Dan M.D. [email or web address]
[2019-07-01 18:15] LABS: Basophils % 0.4 %; Eosinophils # 0.1 10^3/uL (0.0-0.8); Eosinophils % 0.6 %; Hematocrit 32.4 % (37.0-47.0); Hemoglobin 10.3 g/dL (11.5-15.3); Lymphocytes # 1.5 10^3/uL (0.8-4.8); Lymphocytes % 15.5 %; Mean Corpuscular HGB Conc 31.8 g/dL (30.0-36.0); Mean Corpuscular Hemoglobin 28.5 pg (28.0-34.0); Mean Corpuscular Volume 89.5 fL (81-99); Mean Platelet Volume 10.5 fL (7.4-10.4); Monocytes # 0.9 10^3/uL (0.2-0.9); Monocytes % 8.8 %; Neutrophils # 7.2 10^3/uL (1.8-7.7); Neutrophils % 73.8 %; Nucleated Red Blood Cells % 0 %; Platelet Count 218 10^3/cmm (130-400); Red Blood Count 3.62 10^6/uL (4.1-5.3); Red Cell Distribution Width 13.5 % (12.1-15.1); White Blood Count 9.8 10^3/uL (4.0-10.0)
--- NOTE | 2019-07-01 18:15 | USR_ITS ---
PROCEDURE INFORMATION: Exam: US Duplex Lower Extremity Veins Exam date and time: 07/01/2019 6:39 PM Age: 23 years old Clinical indication: Abnormal findings; Abnormal lab test; Elevated d-dimer; Patient HX: PT states had blood clot in spine in her past. Can add no more; Additional info: Pain TECHNIQUE: Imaging protocol: Real-time duplex ultrasound of the Lower Extremities with 2-D champagne scale, color Doppler flow and spectral waveform analysis with image documentation. Complete exam focused on the bilateral lower extremity veins. COMPARISON: No relevant prior studies available. FINDINGS: Right deep veins: Unremarkable. The common femoral, femoral, proximal profunda femoral and popliteal veins are patent without thrombus. Normal Doppler waveforms. Normal compressibility and/or augmentation response. Right superficial veins: Saphenofemoral junction is patent without thrombus. Left deep veins: Unremarkable. The common femoral, femoral, proximal profunda femoral and popliteal veins are patent without thrombus. Normal Doppler waveforms. Normal compressibility and/or augmentation response. Left superficial veins: Saphenofemoral junction is patent without thrombus. Soft tissues: Unremarkable. US/CV venous duplex [facility] [id number] IMPRESSION: No acute findings. No evidence of deep vein thrombosis.
[2019-07-01 18:30] LABS: INR 0.98 (0.8-1.2)
[2019-07-01 18:34] LABS: D Dimer 0.97 ug/mIFEU (0-0.59)
[2019-07-01 18:45] LABS: NT Pro B Type Natriuretic Pept 29 pg/mL (0-125)
[2019-07-01 18:58] LABS: Alanine Aminotransferase 9 U/L (0-33); Albumin Level 3.5 g/dL (3.5-5.2); Alkaline Phosphatase 47 IU/L (35-105); Anion Gap 14.6 (5-19); Aspartate Amino Transferase 9 U/L (0-32); Blood Urea Nitrogen 7 mg/dL (6-20); Calcium 9.4 mg/dL (8.5-10.5); Carbon Dioxide 23 mmol/L (22-29); Chloride 99 mmol/L (98-107); Globulin 2.7 g/dL (1.3-4.6); Glomerular Filtration Rate 201.5 mL/min (90-130); Glucose 110 mg/dL (65-115); Osmolality Calculated 272 mOsm/kg (285-295); Potassium 3.6 mmol/L (3.5-5.1); Sodium 133 mmol/L (136-145); Total Bilirubin 0.2 mg/dL (0.15-1.2); Total Protein 6.2 g/dL (6.6-8.7)
[2019-07-01 19:10] LABS: Troponin(5th) Baseline 6 ng/mL (0-10)
[2019-07-01 19:46] LABS: Influenza A by IFA Negative (Negative); Influenza B by IFA Negative (Negative)
[2019-07-01 19:50] LABS: Add Urine Culture? Yes; Add Urine Microscopic? YES; Amorphous Sediment Urine 2+; Bacteria Urine 2+; Bilirubin Urine Neg (NEGATIVE); Blood Urine Neg (Negative); Glucose Urine UA Norm (Normal); Ketones Urine Negative (Negative); Leukocyte Esterase Urine Negative (Negative); Nitrate Urine Negative (Negative); Protein Urine Neg (Negative); RBC Urine 0-4 /hpf (0-2); Specific Gravity, Urine 1.015 (1.005-1.030); Squamous Epithelial Cell Urine 0-4 (0-5); Urine Appearance Cloudy (CLEAR); Urine Color Yellow (Yellow); Urobilinogen Urine Norm (Negative); WBC Urine 0-4 /hpf (0-5); pH Urine 7 (5-7)
--- NOTE | 2019-07-01 19:52 | CTR_ITS ---
PROCEDURE INFORMATION: Exam: CT Angiography Chest With Contrast Exam date and time: 07/01/2019 8:40 PM Age: 23 years old Clinical indication: Left-sided chest pain; Patient HX: 20 weeks C/O intermittent L upper chest pain; Additional info: Chest pain, positive d-dimer TECHNIQUE: Imaging protocol: Computed tomographic angiography of the chest with intravenous contrast. 3D rendering: MIP and/or 3D reconstructed images were created by the technologist. Total DLP: 438.19 mGy-cm Radiation optimization: All CT scans at this facility use at least one of these dose optimization techniques: automated exposure control; mA and/or kV adjustment per patient size (includes targeted exams where dose is matched to clinical indication); or iterative reconstruction. Contrast material: VISI 320; Contrast volume: 75 ml; Contrast route: 18G; COMPARISON: CR XR chest 1V portable [id number] 07/01/2019 6:37 PM FINDINGS: Pulmonary arteries: Normal. No pulmonary emboli. Aorta: Unremarkable. No aortic aneurysm. No aortic dissection. Lungs: Unremarkable. No consolidation. No masses. Pleural space: Unremarkable. No pneumothorax. No pleural effusion. Heart: Unremarkable. No cardiomegaly. No pericardial effusion. Lymph nodes: Unremarkable. No enlarged lymph nodes. Bones/joints: Unremarkable. No acute fracture. Soft tissues: Unremarkable. CT/CT angio chest PE protcl [id number] IMPRESSION: No acute findings. Radiation Dose CTDIVOL = (mGy): DLP = 438.19 (mGy-cm)
--- NOTE | 2019-07-01 20:08 | ECG_ITS ---
Measurements Intervals [place] Rate: 75 P: 48 WV: 136 QRS: 56 QRSD: 92 T: 43 QT: 347 QTc: 389 SINUS RHYTHM POSSIBLE RIGHT VENTRICULAR CONDUCTION DELAY [RSR (QR) IN V1/V2] Compared to ECG 12/16/2016 12:15:55 Sinus arrhythmia no longer present Electronically Signed On 07-01-2019 19:52:04 CDT by Annetta Dan M.D. [id number]
[2019-07-01 20:43] LABS: Troponin 5 2HR Delta 0 ABS# (0-10)
[2019-07-01] MEDS: iodixanol 320 mg/mL 100mL Btl IV (21:01)
[2019-07-01] MEDS: sodium chloride 0.9% 1,000 ML 999 ML IV (21:48)
[2019-07-01] MEDS: cephALEXin 500 mg Capsule PO (22:48)
--- NOTE | 2019-07-02 15:17 | DCPLANNER ---
call or contact centre manager had message to schedule a follow up appointment for patient with [facility]. call or contact centre manager called [facility], spoke with Su, gave clinic patients information. call or contact centre manager was told that patients information would be printed and reviewed. Clinic will call rehabilitation caseworker and patient with appointment information.
--- NOTE | 2019-07-03 15:36 | DCPLANNER ---
Patient has a follow up appointment scheduled for Wednesday, July 10, 2019 at 3:[address] Darling. Clinic will call patient with appointment information.
--- NOTE | 2019-07-11 10:58 | DCPLANNER ---
Appointment rescheduled for 07.17.[address] Darling.
--- NOTE | 2019-07-24 08:48 | DCPLANNER ---
Patient did not attend appointment scheduled for 07.17.19 with [facility].
== END 2019-07-01 22:52 | disposition home or self-care (01) ==
PROVIDERS: Emergency Provider Emergency Medicine; Family Provider Family Medicine; PCP Family Medicine
DX: O99.89 Other specified diseases and conditions complicating pregnancy, childbirth and the puerperium (principal); R07.9 Chest pain, unspecified; O98.812 Other maternal infectious and parasitic diseases complicating pregnancy, second trimester; R82.71 Bacteriuria; Z3A.20 20 weeks gestation of pregnancy; Z87.891 Personal history of nicotine dependence
CPT/HCPCS: 12345; 71045; 71275; 80053; 81001; 83880; 84484; 84702; 85025; 85378; 85610; 85730; 86900; 87077; 87086; 87186; 87804; 93005; 93970; 96360; 99284; A9270; J7040; Q9967

== ENCOUNTER 2019-07-01 16:57 | Outpatient (CLI) | payer MEDICAID, SELFPAY ==
[2019-07-01 17:15] VITALS: BMI 23.0
== END 2019-07-01 17:30 | disposition home or self-care (01) ==
LOC: OPOB 18:10
PROVIDERS: Family Provider Family Medicine; PCP Family Medicine; Visit Provider Obstetrics & Gynecology
DX: O26.899 Other specified pregnancy related conditions, unspecified trimester (principal); Z3A.00 Weeks of gestation of pregnancy not specified; R10.9 Unspecified abdominal pain
CPT/HCPCS: 99211

== ENCOUNTER 2019-07-05 14:11 | Emergency (ER) | payer MEDICAID, SELFPAY ==
[2019-07-05 14:26] VITALS: BP 118/54; PULSE 86; RESP 18; TEMP 36.8; O2SAT 98; BMI 23.7
== END 2019-07-05 15:00 | disposition left against medical advice (07) ==
LOC: ER 17:46
PROVIDERS: Emergency Provider Emergency Medicine; Family Provider Family Medicine; PCP Family Medicine
DX: O20.9 Hemorrhage in early pregnancy, unspecified (principal); O26.892 Other specified pregnancy related conditions, second trimester; R10.30 Lower abdominal pain, unspecified; O36.8120 Decreased fetal movements, second trimester, not applicable or unspecified; Z3A.19 19 weeks gestation of pregnancy; Z53.21 Procedure and treatment not carried out due to patient leaving prior to being seen by health care provider
CPT/HCPCS: 99281

== ENCOUNTER → 2019-07-13 10:58 | Outpatient (BNVA) | payer MEDICAID, SELFPAY | PROVIDERS: Family Provider Family Medicine; PCP Family Medicine; Visit Provider Obstetrics & Gynecology | DX: Z36.89 Encounter for other specified antenatal screening (principal); Z3A.20 20 weeks gestation of pregnancy; O32.1XX0 Maternal care for breech presentation, not applicable or unspecified | CPT/HCPCS: 76805 ==

== ENCOUNTER → 2019-07-31 12:50 | Outpatient (BNVA) | payer MEDICAID, SELFPAY | PROVIDERS: Family Provider Family Medicine; PCP Family Medicine; Visit Provider Obstetrics & Gynecology Female Pelvic Medicine and Reconstructive Surgery | DX: Z34.90 Encounter for supervision of normal pregnancy, unspecified, unspecified trimester (principal); O23.40 Unspecified infection of urinary tract in pregnancy, unspecified trimester; Z34.82 Encounter for supervision of other normal pregnancy, second trimester | CPT/HCPCS: 81000 ==

== ENCOUNTER → 2019-09-03 12:15 | Outpatient (BNVA) | payer MEDICAID, SELFPAY | PROVIDERS: Family Provider Family Medicine; PCP Family Medicine; Visit Provider Obstetrics & Gynecology | DX: Z34.83 Encounter for supervision of other normal pregnancy, third trimester (principal); N76.0 Acute vaginitis | CPT/HCPCS: 81000; 82950; 85027 ==

== ENCOUNTER 2019-09-09 18:02 | Outpatient (CLI) | payer MEDICAID, SELFPAY ==
[2019-09-09] VITALS (22 sets, daily range): BP systolic 107–131; BP diastolic 50–63; PULSE 75–115; RESP 18; TEMP 36.7; O2SAT 99–100; BMI 25.1
--- NOTE | 2019-09-09 18:43 | US_ITS ---
WS: [id number] OB ultrasound for biophysical profile, 09/09/2019 Clinical Data: Cramping, RUQ pain Comparison: OB ultrasound, 07/13/2019 Findings: There is a single intrauterine in the breech presentation. The heart rate is 144 beat s per minute. The cervical length is 4.44 cm and it is closed. The placenta is posterior. The biophysical profile is 8 of 8 with normal scores for breathing, movement, posture and tone and amniotic fluid volume. US/US OB BPP wo NST [id number] Impression: 1. Single intrauterine in breech presentation. 2. Biophysical profile 8 of 8. 3. heart rate 144 beats per minute.
[2019-09-09] MEDS: terbutaline 1 mg/mL INJ 0.25 MG SUBCUT (19:41)
[2019-09-09 20:02] LABS: Add Urine Microscopic? YES; Bilirubin Urine Neg (NEGATIVE); Blood Urine 3+ (Negative); Glucose Urine UA Norm (Normal); Ketones Urine Negative (Negative); Leukocyte Esterase Urine Trace (Negative); Nitrate Urine Positive (Negative); Protein Urine Neg (Negative); Urine Appearance Cloudy (CLEAR); Urine Color Yellow (Yellow); Urobilinogen Urine Norm (Negative); pH Urine 7 (5-7)
[2019-09-09 20:03] LABS: WBC Urine 15-25 /hpf (0-5)
--- NOTE | 2019-09-09 20:03 | PC.NURSE ---
[facility] BPP 11/30.
[2019-09-09 20:04] LABS: Add Urine Culture? Yes; Amorphous Sediment Urine 2+; Bacteria Urine 3+; Coarse Granular Casts Urine 0-4 /lpf; Mucus Urine 1+
== END 2019-09-09 20:55 | disposition home or self-care (01) ==
LOC: OPOB 18:13 → OBGYN 20:43
PROVIDERS: PCP Family Medicine; Visit Provider Obstetrics & Gynecology
DX: O26.899 Other specified pregnancy related conditions, unspecified trimester (principal); Z3A.00 Weeks of gestation of pregnancy not specified; R10.9 Unspecified abdominal pain
CPT/HCPCS: 76819; 81001; 87077; 87086; 87186; 96372; 99211; J3105

== ENCOUNTER 2019-09-11 09:33 | Inpatient (IN) | payer MEDICAID, SELFPAY ==
[2019-09-11] VITALS (83 sets, daily range): BP systolic 92–131; BP diastolic 35–73; PULSE 87–204; RESP 16–18; TEMP 36.6–37.3; O2SAT 95–99; BMI 25.3
[2019-09-11] MEDS: lactated ringers 1,000 ML 999 ML IV (10:34)
[2019-09-11] MEDS: HYDROcodone-acetaminophen 5-325 mg Tablet 1 TAB PO ×2 (10:34→15:25)
[2019-09-11 11:16] LABS: Basophils % 0.3 %; Eosinophils # 0.1 10^3/uL (0.0-0.8); Eosinophils % 0.4 %; Hematocrit 31.4 % (37.0-47.0); Hemoglobin 10.1 g/dL (11.5-15.3); Lymphocytes # 1.3 10^3/uL (0.8-4.8); Lymphocytes % 10.5 %; Mean Corpuscular HGB Conc 32.2 g/dL (30.0-36.0); Mean Corpuscular Hemoglobin 30.1 pg (28.0-34.0); Mean Corpuscular Volume 93.7 fL (81-99); Mean Platelet Volume 10.7 fL (7.4-10.4); Monocytes # 1.1 10^3/uL (0.2-0.9); Monocytes % 9.1 %; Neutrophils # 9.7 10^3/uL (1.8-7.7); Neutrophils % 78.3 %; Nucleated Red Blood Cells % 0 %; Platelet Count 211 10^3/cmm (130-400); Red Blood Count 3.35 10^6/uL (4.1-5.3); Red Cell Distribution Width 13.3 % (12.1-15.1); White Blood Count 12.5 10^3/uL (4.0-10.0)
[2019-09-11] MEDS: piperacillin-tazobactam 3.375 GM in sodium chloride 0.9% (plus) 50 ML IV ×2 (11:29→19:22)
[2019-09-11 11:33] LABS: Alanine Aminotransferase 8 U/L (0-33); Albumin Level 3.5 g/dL (3.5-5.2); Alkaline Phosphatase 61 IU/L (35-105); Anion Gap 16.6 (5-19); Aspartate Amino Transferase 12 U/L (0-32); Blood Urea Nitrogen 6 mg/dL (6-20); Calcium 8.5 mg/dL (8.5-10.5); Carbon Dioxide 21 mmol/L (22-29); Chloride 105 mmol/L (98-107); Globulin 2.3 g/dL (1.3-4.6); Glomerular Filtration Rate 199.6 mL/min (90-130); Glucose 116 mg/dL (65-115); Osmolality Calculated 285 mOsm/kg (285-295); Potassium 3.6 mmol/L (3.5-5.1); Sodium 139 mmol/L (136-145); Total Bilirubin 0.2 mg/dL (0.15-1.2); Total Protein 5.8 g/dL (6.6-8.7)
[2019-09-11] MEDS: lactated ringers 1,000 ML 150 ML IV ×2 (14:35→20:58)
--- NOTE | 2019-09-11 16:49 | P.PCN_ITS ---
Procedure/Consent Procedure Narrative: NONSTRESS TEST: Place of test: [facility] [place] Indication: 24-year-old 2 para 1-0-0-1 at 29 weeks, pyelonephritis Date and time of test: 09/11/2019, 10 AM Baseline: 135 Variability: Moderate variability Accelerations: Accelerations present Decelerations: No decelerations Tocometry: No contractions, irritability noted INTERPRETATION: NST reactive, continue kick counts, reassuring status, continue monitoring as scheduled
--- NOTE | 2019-09-11 16:52 | P.PCN_ITS ---
Procedure/Consent Procedure Narrative: NONSTRESS TEST: [place] test[place] [facility] [place] Indication: 24-year-old 2 para 1-0-0-1 at 29 weeks and 1 day, acute pyelonephritis Date and time of test: 09/11/2019, 5:30 PM Baseline: 150 Variability: Moderate Accelerations: Accelerations present, appropriate for gestational age Decelerations: None Tocometry: No contractions INTERPRETATION: NST reactive, continue kick counts
[2019-09-11] MEDS: HYDROcodone-acetaminophen 5-325 mg Tablet PO ×2 (19:25→23:25)
[2019-09-12] VITALS (17 sets, daily range): BP systolic 108–135; BP diastolic 39–65; PULSE 94–120; RESP 15–20; TEMP 36.9–37.7; O2SAT 97–98
[2019-09-12] MEDS: lactated ringers 1,000 ML 150 ML IV (02:47)
[2019-09-12] MEDS: piperacillin-tazobactam 3.375 GM in sodium chloride 0.9% (plus) 50 ML IV ×3 (03:27→20:46)
[2019-09-12] MEDS: HYDROcodone-acetaminophen 5-325 mg Tablet PO ×6 (04:29→21:03)
--- NOTE | 2019-09-12 09:27 | P.HP_ITS ---
Providers/Chief Complaint Admitting Physician: Kishor Gates MD Primary Care Provider: Otoniel Gar MD [facility] [employer] History of Present Illness Gris Garcia is a 24 year old female 2, para 1-0-0-1 with an LMP of 02/19/2019 and an EDC of 11/26/2019 based on LMP and consistent with a 15-week ultrasound, which places her at 29-2/7 weeks gestation today. Patient was seen in the office yesterday by Dr. Darling for a follow-up visit due to evaluation in L&D over the weekend with contractions. While in the office, she was noted to have CVA tenderness and had a urine culture from the weekend that was showing greater than 100,000 CFU gram-negative rods. Based upon the symptoms, she was sent to labor and delivery for presumptive diagnosis of pyelonephritis. This morning, patient reports feeling hot at times, but states she had not had a fever prior to admission to the hospital. She denied nausea or vomiting. She denies shortness of breath or chest pains. She stated that she had been having pain with urination prior to admission. She states she has been having right flank pain that prior to admission had moved into the right lower quadrant area as well. She denied any vaginal bleeding. She denied having any blood in the urine. This morning, patient reports the back pain is a little bit better, but still present. She reports having a headache this morning as well. She denied nausea or vomiting. She states the pain medication has been controlling her pain. She reports baby has been moving well. She denied vaginal bleeding or leaking of fluid. LABS 06/22/2016 Cystic fibrosis mutation screening: Negative 04/20/2019 Blood type: O Positive Antibody screen: Negative CBC: 10.7 < 11.3/35.5 > 270 Rubella: Immune Hepatitis B surface antigen: Non-Reactive Hepatitis C antibody: Non-Reactive RPR: Non-Reactive HIV: not collected Drug screen: Negative Urine culture: E.Coli >100,000. 05/01/2019 Pap smear--> 01/04/2019: NILM Gonorrhea: Negative Chlamydia: Negative 05/30/2019 Urine culture: 10-20,000 CFU E. coli 06/01/2019 HIV: non-reactive 3 Hour GTT: fasting 85 1 hour 91 2 hour 88 3 hour 89 07/01/2019 Urine culture: 10-20,000 CFU E. coli 09/03/2019 28 week CBC: WBC 8.5 Hgb 9.5 Hct 29.5 MCV 95.5 Platelet 221 GCT: 117 09/09/2019 Urine culture: >100,000 CFU gram-negative rods OB ULTRASOUND LMP--> 02/19/2019 06/08/2019- ([facility]- abdominal pain) AUA 15 47 EMELIA by sono 11/26/2019 SLIP; variable lie, placenta is left posterior grade 0; normal LUIS FERNANDO; FHR 147 bpm; EFW 125 or 4 oz 07/13/2019 ([facility]- anatomy) [id number] EMELIA by sono 11/27/2019 SLIP; breech; placenta is posterior and fundal grade 0; normal LUIS FERNANDO; EFW 359 or 13 oz; normal anatomy Review of Systems Const: Denies: fever(s), chills or fatigue ENMT: Denies: throat pain or nasal congestion Card: Denies: chest pain, palpitations or lightheadedness Resp: Denies: dyspnea, productive cough, non-productive cough or wheezing GI: Denies: abdominal pain, nausea, vomiting, diarrhea or constipation : Reports: dysuria and urinary frequency; Denies: difficulty voiding, hematuria, genital pruritis, vaginal bleeding or vaginal discharge Musc: Reports: back pain (right) Neuro: Reports: headache(s); Denies: dizziness or seizure-like activity Psych: Denies: anxiety or depression Endo: Denies: polyuria, polydipsia or cold intolerance Joni/Lymph: Denies: easy bruising or easy bleeding Medications/Allergies Home Medications Medication Instructions Recorded Confirmed Last Taken Type prenat.vits,jaclyn,dod-juvo-jtjdp 1 tab PO DAILY tab 04/27/19 09/03/19 07/01/19 History acetaminophen 500 mg tablet 1,000 mg PO Q6H PRN tab 09/11/19 09/11/19 Unknown History Allergies Allergy/AdvReac Type Severity Reaction Status Date / Time No Known Allergies Allergy Verified 09/11/19 08:36 PFSH [employer] V[employer]OR 2 PFSH: Medical History Encounter for supervision of other normal , first trimester Maternal tobacco use in first trimester Nausea and vomiting during prior to 22 weeks gestation Surgical History History of breast lump/mass excision (~02/28/14) -patient states it was a fibroadenoma. Preformed by Dr. Bashir. Previous back surgery (~2017) 2018--Pt reports blood clot in her spine [place] Family History Mother Diabetes Grandfather Diabetes Maternal Grandmother Diabetes Maternal Uterine cancer Maternal great grandmother Leukemia maternal grandmother Sister Thyroid condition Uterine cancer Endometriosis Family/Other Patient denies medical problems Denies history of: heart disease, diabetes, asthma, hypertension, kidney, thyroid, seizures, DVT/PE,herpes partner denies hx of herpes PCP: Cong Social History Smoking and tobacco status: former smoker Quit status (tobacco): has quit using tobacco Year quit tobacco: 04/16/2019 Alcohol intake: never Substance/Drug Use: never Other Female Reproductive History: Hx Age of Menarche: 14 Duration of menses: 3-5 days Date of Last Menstrual Period: 02/19/19 Cycle Length: regular, monthly Menstrual flow: normal/abnormal: heavy History History History 2 Term 1 Miscarriages/Ectopic 0 0 Living Children 1 Past Pregnancies Del. Date GA/Weeks Outcome Route Wt Inf Gender Labor Lgth Comp. Anesth esia Location 01/13/17 39 live - full term Vaginal 9 lb Male Third degree laceration Shoulder dystocia [facility]- Dr. Clau kumar Delivery Date: 01/13/17 [facility] EMELIA Calculator Estimated Delivery Date Method Current WG Current Estimate 11/26/19 LMP (Certain) 29w 2d OB Visit Log Initial Weight: 126 lb Date -?-?-?-?-?-?-?-?-?-?-?-?- EGA Weight BP Albumin -?-?-?-?-?-?-?-?-?-?-?-?- Glucose Nitrate -?-?-?-?-?-?-?-?-?-?-?-?- Blood Fun Ht PRES HR MVMT -?-?-?-?-?-?-?-?-?-?-?-?- Edema Dilation Effacement -?-?-?-?-?-?-?-?-?-?-?-?- Station 05/01/19 -?-?-?-?-?-?-?-?-?-?-?-?- 10w 1d 127 lb (+16 oz) 118/76 Neg (Negative ) -?-?-?-?-?-?-?-?-?-?-?-?- Norm (Normal) Negative (Negat joaquin) -?--?-?-?-?-?-?-?-?-?-?-?- 10 154 -?-?-?-?-?-?-?-?-?-?-?-?- absent -?-?-?-?-?-?-?-?-?-?-?-?- 05/30/19 -?-?-?-?-?-?-?-?-?-?-?-?- 14w 2d 130 lb (+4 lb) 110/70 Neg (Negative ) -?-?-?-?-?-?-?-?-?-?-?-?- Norm (Normal) Negative (Negat joaquin) -?-?-?-?-?-?-?-?-?-?-?-?- 160 -?-?-?-?-?-?-?-?-?-?-?-?- absent -?-?-?-?-?-?-?-?-?-?-?-?- 07/17/19 -?-?-?-?-?-?-?-?-?-?-?-?- 21w 1d -?-?-?-?-?-?-?-?-?-?-?-?- -?-?-?-?-?-?-?-?-?-?-?-?- -?-?-?-?-?-?-?-?-?-?-?-?- -?-?-?-?-?-?-?-?-?-?-?-?- 07/24/19 -?-?-?-?-?-?-?-?-?-?-?-?- 22w 1d -?-?-?-?-?-?-?-?-?-?-?-?- -?-?-?-?-?-?-?-?-?-?-?-?- -?-?-?-?-?-?-?-?-?-?-?-?- -?-?-?-?-?-?-?-?-?-?-?-?- 07/31/19 -?-?-?-?-?-?-?-?-?-?-?-?- 23w 1d 138 lb 6 oz (+12 lb 6 oz) 118/62 Neg (Negat joaquin) -?-?-?-?-?-?-?-?-?-?-?-?- Norm (Normal) Negative (Negat joaquin) -?-?-?-?-?-?-?-?-?-?-?-?- Neg (Negative) 24 Variable 156 active -?-?-?-?-?-?-?-?-?-?-?-?- absent -?-?-?-?-?-?--?-?-?-?-?-?- 09/03/19 -?-?-?-?-?-?-?-?-?-?-?-?- 28w 0d 144 lb (+18 lb) 116/76 Neg (Negative ) -?-?-?-?-?-?-?-?-?-?-?-?- Norm (Normal) Negative (Negat joaquin) -?-?-?-?-?-?-?-?-?-?-?-?- Neg (Negative) 27 148 act joaquin -?-?-?-?-?-?-?-?-?-?-?-?- absent -?-?-?-?-?-?-?-?-?-?-?-?- 09/11/19 -?-?-?-?-?-?-?-?-?-?-?-?- 29w 1d 143 lb (+17 lb) 118/74 1+ (Negative) H -?-?-?-?-?-?-?-?-?-?-?-?- Norm (Normal) Positive (Negat joaquin) H -?-?-?-?-?-?-?-?-?-?-?-?- Trace-inta (Negative) H 142 -?-?-?-?-?-?-?-?-?-?-?-?- -?-?-?-?-?-?-?-?-?-?-?-?- 09/11/19 -?-?-?-?-?-?-?-?-?-?-?-?- 29w 1d 143 lb (+17 lb) 5.044 oz (-125 lb 10.956 oz) 143 lb (+17 lb) 116/73 113/56 121/63 103/46 93/37 104/41 92/35 95/44 110/46 96/36 131/55 131/55 121/64 121/64 125/54 125/54 108/39 -?-?-?-?-?-?-?-?-?-?-?-?- -?-?-?-?-?-?-?-?-?--?-?-?- 135 135 140 135 140 150 150 -?-?-?-?-?-?-?-?-?-?-?-?- -?-?-?-?-?-?-?-?-?-?-?-?- Notes Visit Date: 09/11/19 No visit notes to display Visit Date: 09/11/19 No visit notes to display Visit Date: 09/03/19 JO at 28 week. No complains Natalio Darling MD Visit Date: 07/31/19 Patient presents today 24+ weeks gestation doing well ultrasound reviewed labs reviewed. Recommend follow-up in approximately 4 weeks for 28-week labs. Patient did not do panorama screening and did not do AFP quad marker screen she now is passed gestation for 6 screening. Silas Mulligan DO on 07/31/19 Visit Date: 07/24/19 No visit notes to display Visit Date: 07/17/19 No visit notes to display Visit Date: 05/30/19 No visit notes to display Visit Date: 05/01/19 No visit notes to display Vitals/I&O/Wt Last Vital Signs Temp 99.8 F H 09/12/19 04:50 Pulse 115 H 09/12/19 04:50 Resp 16 09/12/19 04:50 BP 125/54 09/12/19 04:50 Pulse Ox 98 09/12/19 05:04 09/11/19 09/12/19 09/12/19 22:59 06:59 14:59 Intake Total 1583.083 / 3383.083 942.917 / 4326.000 200 / 200 Output Total 1100 / 1550 650 / 2200 Balance 483.083 / 1833.083 292.917 / 2126.000 200 / 200 Weight last 48 hrs Weight 143 lb Weight 5.044 oz Weight 143 lb Physical Exam Const: COMMON NORMALS: no acute distress, average body habitus, alert and well nourished GENERAL APPEARANCE: well developed ORIENTATION/CONSCIOUSNESS: Yes oriented to person, Yes oriented to place and Yes oriented to time Neck/C-Spine: COMMON NORMALS: Thyroid normal GENERAL: Yes trachea midline THYROID: Thyroid normal Resp: COMMON NORMALS: normal respiratory effort and clear to auscultation bilaterally AUSCULTATION: clear to auscultation bilaterally Cardio: COMMON NORMALS: No gallops present (Cardio) and No rub (Cardio) RATE: tachycardic RHYTHM: regular rhythm HEART SOUNDS: Murmur heart sound present (2 out of 6 systolic murmur) GI: COMMON NORMALS: Soft to palpation, non-tender (Except for right flank.), No hepatosplenomegaly present and no masses (Except for nontender gravid uterus) INSPECTION: Yes gravid abdomen AUSCULTATION: Yes normoactive bowel sounds PALPATION: Yes Soft to palpation, No Guarding due to palpation present (GI), Yes No hepatosplenomegaly present and No Hernia present : OTHER: Uterus: Nontender, gravid Back/Pelvis: GENERAL BACK: Yes CVA tenderness CVA tenderness: right Neuro: SENSORIUM/ORIENTATION: Yes alert, Yes oriented to person, Yes oriented to place and Yes oriented to time Psych: COMMON NORMALS: normal affect MOOD & AFFECT: Yes euthymic mood Skin: COMMON NORMALS: no rashes or lesions noted GENERAL SKIN EXAM: no rashes or lesions noted (damp skin) OTHER: Data : 09/11/19 10:15 09/11/19 10:15 Other Labs: 09/09/2019: UA with micro: 3+ blood, positive nitrates, 5-10 RBCs 15- 25 WBCs, 5-10 squamous cells, 3+ bacteria 09/11/2019: Urine dip in office: Trace blood, positive nitrates, 2+ leukocyte esterase Micro: Microbiology 09/11/19 11:00 Urine Culture - Preliminary Urine Catheterized Gram Negative Rods A&P Assessment and plan (1) Pyelonephritis affecting in third trimester: Status: Acute (2) Ureterolithiasis during in third trimester: Status: Acute Additional A&P Information at 29-2/7 weeks gestation today. Patient admitted yesterday with suspected pyelonephritis based upon preliminary urine culture from 09/09/2019 showing greater than 100,000 gram-negative rods and CVA tenderness. She was started on Zosyn and IV hydration yesterday. She had also been treated with oral pain medications as needed. Yesterday evening, patient reported not have CVA pain but was having right flank pain. On my exam I could not elicit any CVA pain either at that time. As a result, I was questioning whether she may actually have ureteral stones. I had instructed the urines to strain her urine and that her next voided sample, multiple large crystals/stones were identified. As a result, I was questioning whether she truly had pyelonephritis and may actually be looking at ureterolithiasis with a simple cystitis. This morning she has definite right CVA pain which I did not elicit yesterday. She has continued to require narcotic pain medications through the night. She reports only mild improvement in her pain since admission. She has not had an actual fever, but did have temperature elevations with a maximum temperature of 99.8. She is also mildly tachycardic. Based upon these findings, I am questioning whether she may have a ureteral obstruction with possible developing pyelonephritis as well. As a result, I am ordering a renal ultrasound to evaluate for evidence of obstruction. Depending upon ultrasound findings, she may require a limited view IVP. Depending upon these findings and how she does through the day, urology consultation may be needed. Continue with IV hydration. Continue with IV Zosyn (antibiotic day 2). Antibiotics was chosen based upon sensitivities related to her prior E. coli bacteriuria. Catheterized urine culture obtained with this admission is showing greater than 100,000 gram-negative rods. monitoring has been reassuring at this time with reactive NSTs. Attestations Medical Necessity Statement*: at 29 weeks with possible pyelonephrit is and/or ureteral lithiasis. Coding Level of Care Code Acute Silica Spray Mixer for g Fwd Exam Comprehensive Diagnoses Pyelonephritis affecting in third trimester O23.03 Ureterolithiasis during in third trimester O99.89; N20.1 NST (Non-Stress Test) NST : 2 Para: 1 Due date: 11/26/19 Gestational age (weeks): 29 Indications: Pyelonephritis and in third trimester at 29-3/7 weeks gestation Test: NST Time: 04:34 Length of test in Minutes: 39 Contractions: None Fetus Fetus 1: Baseline FHR BMP:: 145 Variability: Moderate Accelerations: Present Decelerations: None Reacticity: Reactive Interpretation/Plan Interpretation by: Crescencio Hunter Comments: Reactive NST. Baseline heart rate started in the mid 140s and ended in the mid 150s. No decelerations noted. No contractions noted.
--- NOTE | 2019-09-12 09:43 | US_ITS ---
WS: [id number] ULTRASOUND RENAL TECHNIQUE: Ultrasound examination of both kidneys. CLINICAL INFORMATION: Right CVA pain COMPARISON: None. FINDINGS: RIGHT: Moderate right hydronephrosis which persists post void. Echogenicity: Normal. Hydronephrosis: Moderate Perinephric fluid: None. Right kidney measures: 12.9 cm x 8.4 cm x 7.1 cm. LEFT: Dilated left renal pelvis. Echogenicity: Normal. Hydronephrosis: Mild Perinephric fluid: None. Left kidney measures: 11.8 cm x 5.0 cm x 5.7 cm. Normal visualized aorta. Normal bladder. Left ureteral jet is normal. Right ureteral jet not visualiz ed. US/US renal BI* [id number] IMPRESSION: 1. Moderate right hydronephrosis which persists post void. Right ureteral jet not visualized. 2. Mild left hydronephrosis with dilated renal pelvis. 3. Normal bladder.
[2019-09-12] MEDS: HYDROcodone-acetaminophen 5-325 mg Tablet 1 TAB PO (09:59)
[2019-09-12 12:12] LABS: Basophils % 0.3 %; Eosinophils % 0.1 %; Hematocrit 28.2 % (37.0-47.0); Hemoglobin 9.1 g/dL (11.5-15.3); Lymphocytes # 1.1 10^3/uL (0.8-4.8); Lymphocytes % 9.7 %; Mean Corpuscular HGB Conc 32.3 g/dL (30.0-36.0); Mean Corpuscular Hemoglobin 30.3 pg (28.0-34.0); Mean Platelet Volume 10.6 fL (7.4-10.4); Monocytes # 1.5 10^3/uL (0.2-0.9); Monocytes % 13.3 %; Neutrophils # 8.3 10^3/uL (1.8-7.7); Neutrophils % 75.2 %; Nucleated Red Blood Cells % 0 %; Platelet Count 171 10^3/cmm (130-400); Red Cell Distribution Width 13.2 % (12.1-15.1)
[2019-09-13] VITALS (22 sets, daily range): BP systolic 93–118; BP diastolic 40–70; PULSE 60–124; RESP 16–18; TEMP 36.7–37.4; O2SAT 94–98
[2019-09-13] MEDS: piperacillin-tazobactam 3.375 GM in sodium chloride 0.9% (plus) 50 ML IV ×3 (04:56→20:04)
[2019-09-13] MEDS: HYDROcodone-acetaminophen 5-325 mg Tablet PO ×4 (04:58→21:57)
--- NOTE | 2019-09-13 12:53 | PM.PN ---
Subjective Subjective: Interval history: patient reports the back pain is a little bit better, but still present. She reports having a headache this morning as well. She denied nausea or vomiting. She states the pain medication has been controlling her pain. She reports baby has been moving well. She denied vaginal bleeding or leaking of fluid. Vitals/I&O/Wt Last Vital Signs Temp 97.7 F 09/14/19 03:50 Pulse 82 09/14/19 08:22 Resp 17 09/14/19 03:50 BP 103/54 09/14/19 08:22 Pulse Ox 97 09/14/19 04:06 Physical Exam Const: COMMON NORMALS: no acute distress, average body habitus, alert and well nourished GENERAL APPEARANCE: well developed ORIENTATION/CONSCIOUSNESS: Yes oriented to person, Yes oriented to place and Yes oriented to time GI: COMMON NORMALS: Soft to palpation, non-tender, No hepatosplenomegaly present and no masses (except for nontender gravid uterus) AUSCULTATION: Yes normoactive bowel sounds PALPATION: Yes Soft to palpation, Yes No hepatosplenomegaly present and No Hernia present : COMMON NORMALS: Yes no CVA tenderness BLADDER/KIDNEY EXAM: Yes no CVA tenderness EXTERNAL FEMALE EXAM: No Hernia present Back/Pelvis: COMMON NORMALS: no CVA tenderness Neuro: SENSORIUM/ORIENTATION: Yes alert, Yes oriented to person, Yes oriented to place and Yes oriented to time Psych: COMMON NORMALS: normal affect MOOD & AFFECT: Yes euthymic mood Data : 09/14/19 08:08 09/11/19 10:15 A&P Additional A&P Information at 29-2/7 weeks gestation today. Patient admitted yesterday with suspected pyelonephritis based upon preliminary urine culture from 09/09/2019 showing greater than 100,000 gram-negative rods and CVA tenderness. She was started on Zosyn and IV hydration yesterday. She had also been treated with oral pain medications as needed. Continue with IV hydration. Continue with IV Zosyn (antibiotic day 3). Antibiotics was chosen based upon sensitivities related to her prior E. coli bacteriuria. Catheterized urine culture obtained with this admission is showing greater than 100,000 gram-negative rods. monitoring has been reassuring at this time with reactive NSTs. Attestations Medical Necessity Statement*: In my professional opinion per admitting diagnosis Coding Level of Care Code Acute Inventory Coordinator for Yajaira Salazar
[2019-09-13] MEDS: polyethylene glycol 3350 Pkt 17 gm PO (18:11)
[2019-09-14] VITALS (8 sets, daily range): BP systolic 98–104; BP diastolic 46–65; PULSE 82–96; RESP 17–20; TEMP 36.4–36.5; O2SAT 97–98
[2019-09-14] MEDS: piperacillin-tazobactam 3.375 GM in sodium chloride 0.9% (plus) 50 ML IV (03:48)
--- NOTE | 2019-09-14 07:24 | PM.DCS ---
Discharge Providers Date of Admission: 09/11/19 10:07 Date of Discharge: September 14, 2019 Attending Provider at Admission: Kishor Gates MD Attending Provider at Discharge: Kishor Gates MD Primary Care Provider: Otoniel Gar MD Diagnoses at Discharge Discharge Diagnosis (1) Pyelonephritis affecting in third trimester: Status: Acute (2) Ureterolithiasis during in third trimester: Status: Acute Hospital Course Hospital Course: Patient is a 24-year-old white female 2, para 1-0-0-1 with an LMP of 02/19/2019 and an EDC of 11/26/2019 based on LMP and consistent with a 15-week ultrasound. She was at 29-1/7 weeks gestation at the time of admission. She presented to L&D on 09/11/2019 after being seen in the office by Dr. Darling. She was found in the office to have CVA tenderness and a urine culture from over the weekend showing greater than 100,000 gram-negative rods. Based upon her pain in the urine findings Dr. Darling sent her to the hospital for suspected pyelonephritis. In the hospital she was reporting pain with urination, right flank pain that had moved into the right lower quadrant. She denied any fevers. She had been started on Zosyn for suspected pyelonephritis. Because of other symptoms, urine was strained and stones were found as well. This was raising the question of whether she truly had pyelonephritis or if she had ureteral stones with a cystitis. In either situation, she was continued on IV antibiotics and fluid hydration. Pain medication was given as needed. 09/12/2019 (hospital day 2) Patient continues to require pain medication. She has significant right CVA pain. She has continued to pass stones through the night and during the day. She remains afebrile with stable vital signs. Antibiotics and pain medications continued. 09/13/2019 (hospital day 3) Patient reports feeling a little better, but still requiring pain medication. 09/14/2019 (hospital day 4) Reports pain has improved since passing more stones last night. Denies nausea or vomiting. Denies pain with urination. Reports baby has been moving well. Physical Exam: See below Plan: Switch to oral antibiotic (Cephalexin) based on culture sensitivities. Final Culture result showed E. Coli. Discharge to home. Patient instructed to continue with increased fluid intake to continue to flush kidneys in case there are more stones remaining. She is to keep her next scheduled appointment in the office. Physical Exam Const: COMMON NORMALS: no acute distress, average body habitus, alert and well nourished GENERAL APPEARANCE: well developed ORIENTATION/CONSCIOUSNESS: Yes oriented to person, Yes oriented to place and Yes oriented to time GI: COMMON NORMALS: Soft to palpation, non-tender, No hepatosplenomegaly present and no masses (except for nontender gravid uterus) AUSCULTATION: Yes normoactive bowel sounds PALPATION: Yes Soft to palpation, Yes No hepatosplenomegaly present and No Hernia present : COMMON NORMALS: Yes no CVA tenderness BLADDER/KIDNEY EXAM: Yes no CVA tenderness EXTERNAL FEMALE EXAM: No Hernia present Back/Pelvis: COMMON NORMALS: no CVA tenderness Neuro: SENSORIUM/ORIENTATION: Yes alert, Yes oriented to person, Yes oriented to place and Yes oriented to time Psych: COMMON NORMALS: normal affect MOOD & AFFECT: Yes euthymic mood Discharge Data Data Completed and Pending: Completed Studies During Hospitalization Category Date Time Status US renal BI* [id number] Urgent Ultrasound 09/12/19 09:43 Completed Pending at discharge Category Date Time Status Complete Blood Co unt w/Auto Routine Lab 09/14/19 06:00 Ordered Stone Analysis Ro utine Lab 09/12/19 09:00 Received Vitals: Last Vital Signs Temp 97.7 F 09/14/19 03:50 Pulse 94 09/14/19 04:02 Resp 17 09/14/19 03:50 BP 104/54 09/14/19 04:02 Pulse Ox 97 09/14/19 04:06 Discharge Plan Discharge Patient Disposition: Home, Self-Care Condition: Stable Prescriptions: New hydrocodone-acetaminophen 5-325 mg Tablet 1 - 2 tab PO Q6H PRN (Reason: Moderate To Severe Pain) Qty: 30 RF: 0 Continued prenat.vits,jaclyn,[id number] Tablet 1 tab PO DAILY RF: 0 acetaminophen [Tylenol Extra Strength] 500 mg tablet 1,000 mg PO Q6H PRNRF: 0 No Action ferrous sulfate 325 mg (65 mg iron) tablet,delayed release (DR/EC) 325 mg PO DAILY Qty: 30 RF: 2 Discharge Orders: Discharge Order (Routine); Ordered 09/14/19 Ordered By: Crescencio Hunter Referrals: Natalio Darling MD [Physician] - 09/25/19 (Keep next scheduled appointment in the office) Discharge Diet: Advance as tolerated Discharge Activity: Resume usual activity Patient Instructions: Cephalexin (By mouth), Acetaminophen (By mouth), Hydrocodone/Acetaminophen (By mouth), Vitamins (By mouth), Kidney Stones, OB Discharge Report, OB Undelivered Discharge Discharge Date/Time: 09/14/19 09:50 Discharge Attestations Time Spent in Discharge Care*: less than 30 min Quality Metrics Clinical Quality Measures During this hospital stay, did patient experience: None Coding Level of Care Code Acute Transformation Analyst for Chg Fwd Exam Expanded Problem Focused Diagnoses Pyelonephritis affecting in third trimester O23.03 Ureterolithiasis during in third trimester O99.89; N20.1
[2019-09-14 08:20] LABS: Basophils % 0.4 %; Eosinophils # 0.1 10^3/uL (0.0-0.8); Eosinophils % 0.9 %; Hematocrit 27.9 % (37.0-47.0); Hemoglobin 8.8 g/dL (11.5-15.3); Lymphocytes # 1.4 10^3/uL (0.8-4.8); Lymphocytes % 16.8 %; Mean Corpuscular HGB Conc 31.5 g/dL (30.0-36.0); Mean Corpuscular Hemoglobin 29.9 pg (28.0-34.0); Mean Corpuscular Volume 94.9 fL (81-99); Mean Platelet Volume 10.2 fL (7.4-10.4); Monocytes # 1.4 10^3/uL (0.2-0.9); Monocytes % 16.9 %; Neutrophils # 5.4 10^3/uL (1.8-7.7); Neutrophils % 63.3 %; Nucleated Red Blood Cells % 0 %; Platelet Count 156 10^3/cmm (130-400); Red Blood Count 2.94 10^6/uL (4.1-5.3); Red Cell Distribution Width 13.3 % (12.1-15.1); White Blood Count 8.5 10^3/uL (4.0-10.0)
[2019-09-20 20:01] LABS: Stone Source URINE
== END 2019-09-14 09:50 | disposition home or self-care (01) | DRG 832 ==
PROVIDERS: Obstetrics & Gynecology; Admitting Provider Obstetrics & Gynecology; PCP Family Medicine; Visit Provider Obstetrics & Gynecology
DX: O23.03 Infections of kidney in pregnancy, third trimester (principal); N20.1 Calculus of ureter; Z3A.29 29 weeks gestation of pregnancy; B96.20 Unspecified Escherichia coli [E. coli] as the cause of diseases classified elsewhere
CPT/HCPCS: 12345; 36415; 59025; 76770; 80053; 81000; 82365; 85025; 87077; 87086; 87186; G0378; G0379; J2543

== ENCOUNTER → 2019-09-25 14:41 | Outpatient (BNVA) | payer MEDICAID, SELFPAY | PROVIDERS: PCP Family Medicine; Visit Provider Obstetrics & Gynecology | DX: O99.019 Anemia complicating pregnancy, unspecified trimester (principal) | CPT/HCPCS: 81000 ==

== ENCOUNTER → 2019-10-05 12:50 | Outpatient (BNVA) | payer MEDICAID, SELFPAY | PROVIDERS: PCP Family Medicine; Visit Provider Obstetrics & Gynecology | DX: N20.1 Calculus of ureter (principal); O99.89 Other specified diseases and conditions complicating pregnancy, childbirth and the puerperium | CPT/HCPCS: 81000 ==

== ENCOUNTER → 2019-10-15 13:29 | Outpatient (BNVA) | payer MEDICAID, SELFPAY | PROVIDERS: PCP Family Medicine; Visit Provider Obstetrics & Gynecology | DX: O23.40 Unspecified infection of urinary tract in pregnancy, unspecified trimester (principal); O99.89 Other specified diseases and conditions complicating pregnancy, childbirth and the puerperium; N20.1 Calculus of ureter; Z3A.34 34 weeks gestation of pregnancy | CPT/HCPCS: 80053; 81000; 87077; 87086; 87186 ==

== ENCOUNTER → 2019-10-29 11:47 | Outpatient (BNVA) | payer MEDICAID, SELFPAY | PROVIDERS: PCP Family Medicine; Visit Provider Obstetrics & Gynecology | DX: Z34.83 Encounter for supervision of other normal pregnancy, third trimester (principal) | CPT/HCPCS: 81000; 87081 ==

== ENCOUNTER 2019-11-01 14:15 | Observation (INO) | payer MEDICAID, SELFPAY ==
[2019-11-01 14:27] VITALS: BP 124/69; PULSE 105
[2019-11-01 14:30] VITALS: BP 124/69; TEMP 36.9; BMI 25.4
[2019-11-01 14:53] LABS: Nitrazine Paper, PH Negative
[2019-11-01 15:23] VITALS: TEMP 36.9
== END 2019-11-01 15:20 | disposition home or self-care (01) ==
LOC: OBGYN 14:23
PROVIDERS: Admitting Provider Obstetrics & Gynecology; PCP Family Medicine; Visit Provider Obstetrics & Gynecology
DX: O26.899 Other specified pregnancy related conditions, unspecified trimester (principal); Z3A.00 Weeks of gestation of pregnancy not specified; N89.8 Other specified noninflammatory disorders of vagina
CPT/HCPCS: 59025; 83986; 99211; G0378; G0379

== ENCOUNTER → 2019-11-05 11:10 | Outpatient (BNVA) | payer MEDICAID, SELFPAY | PROVIDERS: PCP Family Medicine; Visit Provider Obstetrics & Gynecology | DX: O99.89 Other specified diseases and conditions complicating pregnancy, childbirth and the puerperium; N20.1 Calculus of ureter; O99.013 Anemia complicating pregnancy, third trimester; O99.333 Smoking (tobacco) complicating pregnancy, third trimester; O23.43 Unspecified infection of urinary tract in pregnancy, third trimester; Z3A.37 37 weeks gestation of pregnancy | CPT/HCPCS: 81000 ==

== ENCOUNTER → 2019-11-12 13:24 | Outpatient (BNVA) | payer MEDICAID, SELFPAY | PROVIDERS: PCP Family Medicine; Visit Provider Obstetrics & Gynecology | DX: O23.03 Infections of kidney in pregnancy, third trimester (principal); O99.89 Other specified diseases and conditions complicating pregnancy, childbirth and the puerperium; O99.013 Anemia complicating pregnancy, third trimester; N20.1 Calculus of ureter; Z3A.38 38 weeks gestation of pregnancy | CPT/HCPCS: 81000 ==

== ENCOUNTER 2019-11-14 13:05 | Outpatient (CLI) | payer MEDICAID, SELFPAY ==
[2019-11-14 13:19] VITALS: BP 134/60; PULSE 124
[2019-11-14 13:28] VITALS: RESP 18; TEMP 37
[2019-11-14 13:29] VITALS: BMI 26.9
[2019-11-14 13:47] VITALS: BP 109/59; PULSE 110
[2019-11-14 14:05] VITALS: BP 109/59; PULSE 110; RESP 18
== END 2019-11-14 14:05 | disposition home or self-care (01) ==
LOC: OPOB 13:15 → OBGYN 13:53
PROVIDERS: PCP Family Medicine; Visit Provider Obstetrics & Gynecology
DX: O46.90 Antepartum hemorrhage, unspecified, unspecified trimester (principal); Z3A.00 Weeks of gestation of pregnancy not specified; M54.9 Dorsalgia, unspecified
CPT/HCPCS: 59025; 99211

== ENCOUNTER → 2019-11-19 13:17 | Outpatient (BNVA) | payer MEDICAID, SELFPAY | PROVIDERS: PCP Family Medicine; Visit Provider Obstetrics & Gynecology | DX: Z34.90 Encounter for supervision of normal pregnancy, unspecified, unspecified trimester (principal) | CPT/HCPCS: 81000 ==

== ENCOUNTER 2019-11-24 22:15 | Inpatient (IN) | payer MEDICAID, SELFPAY ==
[2019-11-24 22:37] VITALS: BP 124/73; PULSE 94
[2019-11-24 22:58] VITALS: BMI 26.9
[2019-11-25] VITALS (89 sets, daily range): BP systolic 0–164; BP diastolic 0–81; PULSE 70–135; RESP 16–22; TEMP 36.6–37.1
[2019-11-25 00:35] LABS: Basophils # 0.1 10^3/uL (0.0-0.1); Basophils % 0.4 %; Eosinophils # 0.1 10^3/uL (0.0-0.8); Eosinophils % 0.5 %; Hematocrit 33.8 % (37.0-47.0); Hemoglobin 10.8 g/dL (11.5-15.3); Lymphocytes # 2.5 10^3/uL (0.8-4.8); Lymphocytes % 19.8 %; Mean Corpuscular Volume 93.9 fL (81-99); Mean Platelet Volume 10.9 fL (7.4-10.4); Monocytes # 1.6 10^3/uL (0.2-0.9); Neutrophils # 7.76 10^3/uL (1.8-7.7); Neutrophils % 61.3 %; Nucleated Red Blood Cells % 0 %; Platelet Count 247 10^3/cmm (130-400); Red Cell Distribution Width 14.4 % (12.1-15.1); White Blood Count 12.7 10^3/uL (4.0-10.0)
[2019-11-25] MEDS: miSOPROStol 100 mcg tablet 25 MCG VAGINAL (05:13)
[2019-11-25] MEDS: dextrose 5%-lactated ringers 1,000 ML 125 ML IV ×2 (09:49→17:36)
[2019-11-25] MEDS: oxytocin 30 UNIT/500 ML BAG IV (11:22)
[2019-11-25] MEDS: fentaNYL 50 mcg/mL INJ 2mL IVP ×5 (14:30→18:40)
--- NOTE | 2019-11-25 21:27 | P.PCNOB_ITS ---
Delivery Note: Date of delivery: November 25, 2019 Pre-delivery diagnoses: 1. at 39-6/7 weeks gestation 2. Anemia in in third trimester Post-delivery diagnoses: 1. Term at 39-6/7 weeks gestation - delivered 2. Anemia complicating - delivered Procedure: Spontaneous vaginal delivery Op report anesthesia: None Delivering Physician: Dr. Crescencio Hunter Estimated blood loss (mL): 150 Pre-Delivery Course: Patient is a 24-year-old white female 2, para 1-0-0-1 with an LMP of 02/19/2019 and an EDC of 11/26/2019 based on LMP and consistent with a 15-week ultrasound, which placed her at 39-5/7 weeks gestation at time of admission. care has been mainly provided by Dr. Darling at [facility]. Her was complicated by anemia during , pyelonephritis, and kidney stones. Patient presented to labor and delivery at 22:10 on 11/24/2019 for induction of labor due to term . Her cervix was initially 50% effaced, 3 cm dilated, and a -3 station. She received 1 dose of Cytotec 25 mcg vaginally. She contracted regularly afterwards. By 11:19 she was 65% effaced and 4 to 5 cm dilated. She had made minimal mold insert changer the previous couple of hours. As a result Pitocin was started. She slowly progressed over the afternoon and early evening and was eventually complete at 20:45. Baby was reassuring during the labor course. Delivery: Patient started pushing at 20:53. Just prior to the delivery, as the head was , the head rotated from a occiput posterior to a left occiput anterior presentation. She then delivered at 21:12 as a spontaneous vaginal delivery of a left occiput anterior male infant over an intact perineum under no anesthesia. Following delivery of the infant's head, no loops of nuchal cord were noted. She did have one loop of shoulder cord. The rest the infant delivered atraumatically with the right shoulder anterior. The baby was placed on the mother's abdomen where it was spontaneously crying. It was left in the care of the waiting nurses. Cord was clamped and then cut. Cord blood was obtained. Pitocin bolus was started. Placenta delivered intact by simple expression at 21:17. The cervix and vagina were palpated and noted to be intact. The labia were inspected and noted be intact except for superficial abrasions which required no repair. FINDINGS 1. Viable male infant weighing 8 lbs 15 oz (4060 g) with a length of 22 inches and Apgars of 8 at 1 minute and 9 at 5 minutes. 2. Three-vessel cord with no loops of nuchal cord noted. One loop of shoulder cord was present. 3. Normal-appearing placenta with an eccentric cord insertion. Post-Delivery Status: Mother and infant were left to recover in satisfactory condition. A&P Assessment and plan (1) Term delivered: Status: Acute (2) Anemia during , delivered, current hospitalization: Status: Acute Coding Level of Care Code Acute Direct Service Professional for Chg Fwd Diagnoses Term delivered O80 Anemia during , delivered, current hospitalization O99.02
[2019-11-25] MEDS: ketorolac 30 mg/mL INJ IVP (21:49)
[2019-11-25] MEDS: miSOPROStol 200 mcg Tablet 800 MCG PR (22:28)
[2019-11-26] VITALS (11 sets, daily range): BP systolic 0–122; BP diastolic 0–77; PULSE 82–103; RESP 16–17; TEMP 36.7–37.2; O2SAT 97–99
[2019-11-26] MEDS: lanolin oint 7 gm 1 APPLIC TOPICAL (00:05)
[2019-11-26] MEDS: benzocaine-menthol 78 gm Canister 1 SPRAY TOPICAL (00:05)
[2019-11-26] MEDS: docusate sodium 100 mg Capsule PO ×2 (09:02→17:55)
[2019-11-26] MEDS: prenatal vitamin Capsule 1 CAP PO (09:02)
[2019-11-26 10:55] LABS: Hematocrit 31.2 % (37.0-47.0); Hemoglobin 9.9 g/dL (11.5-15.3); Mean Corpuscular HGB Conc 31.7 g/dL (30.0-36.0); Mean Corpuscular Hemoglobin 29.6 pg (28.0-34.0); Mean Corpuscular Volume 93.4 fL (81-99); Mean Platelet Volume 10.9 fL (7.4-10.4); Platelet Count 227 10^3/cmm (130-400); Red Blood Count 3.34 10^6/uL (4.1-5.3); Red Cell Distribution Width 14.3 % (12.1-15.1); White Blood Count 27.2 10^3/uL (4.0-10.0)
--- NOTE | 2019-11-26 18:49 | PM.OBGYDC ---
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 This placed her at 39-5/7 weeks gestation at the time of admission. Patient presented to labor and delivery on 11/24/2019 at 22:10 for induction of labor due to term . She had a 3 cm dilated cervix at 50% effacement. She received 1 dose of Cytotec 25 mcg vaginally and contracted through the night. By the following morning she was started on Pitocin. She progressed slowly through the afternoon and was eventually found to be completely dilated at 20:45 on 11/24. She started pushing at 20:53 and delivered at 21:12 as a spontaneous vaginal delivery of an left occiput anterior male over an intact perineum under no anesthesia. The baby weighed 8 lbs 15 oz (4060 g) with a length of 22 inches and Apgars of 8 at 1 minute and 9 at 5 minutes. Patient had minimal superficial abrasions which required no repair. Patient did have initially increased bleeding following delivery and received 800 mcg of Cytotec rectally in addition to IV Pitocin which controlled bleeding adequately. Day 1. Patient denies complaints at this time. She reports her pain is been well controlled. She denied any lightheadedness or dizziness with ambulation. She denied any shortness of breath or chest pains. She reported tolerating regular diet without nausea or vomiting. She denied problems with urination. She stated that her bleeding had slowed. She was requesting to go home this evening. Physical exam: See below. Plan Patient had been found to be anemic during and was still anemic following delivery. She was instructed to continue with the oral iron at home as well as vitamins. Discharge to home. Discharge instructions discussed with patient. Patient to follow-up in the office in approximately [address] Darling. Information Peripartum Data: Infant Delivery Method: Vaginal Physical Exam Const: COMMON NORMALS: no acute distress, average body habitus, alert and well nourished GENERAL APPEARANCE: well developed ORIENTATION/CONSCIOUSNESS: Yes oriented to person, Yes oriented to place and Yes oriented to time Resp: COMMON NORMALS: normal respiratory effort and clear to auscultation bilaterally AUSCULTATION: clear to auscultation bilaterally Cardio: COMMON NORMALS: regular rate, regular rhythm, No gallops present (Cardio) and No rub (Cardio) RATE: regular rate RHYTHM: regular rhythm GI: COMMON NORMALS: Soft to palpation, non-tender, No hepatosplenomegaly present and no masses (Except for nontender uterus, approximately 2 fingerbreadths below umbilicus) AUSCULTATION: Yes normoactive bowel sounds PALPATION: Yes Soft to palpation, Yes No hepatosplenomegaly present and No Hernia present : EXTERNAL FEMALE EXAM: No Hernia present Extremity: COMMON NORMALS: no calf tenderness NARRATIVE EXTREMITY EXAM: Trace lower extremity edema bilaterally Neuro: SENSORIUM/ORIENTATION: Yes alert, Yes oriented to person, Yes oriented to place and Yes oriented to time Psych: COMMON NORMALS: normal affect MOOD & AFFECT: Yes euthymic mood Discharge Data Data Completed and Pending: Labs from last 24 hours 11/26/19 10:32 WBC 27.2 H RBC 3.34 L Hgb 9.9 L Hct 31.2 L MCV 93.4 MCH 29.6 MCHC 31.7 RDW 14.3 Plt Count 227 MPV 10.9 H Vitals: Last Vital Signs Temp 98.1 F 11/26/19 15:43 Pulse 103 H 11/26/19 15:43 Resp 17 11/26/19 15:43 BP 103/63 11/26/19 15:43 Pulse Ox 98 11/26/19 15:43 Discharge Plan Discharge Patient Disposition: Home Condition: Stable Prescriptions: Continued prenat.vits,jaclyn,[id number] Tablet 1 tab PO DAILY RF: 0 ferrous sulfate 325 mg (65 mg iron) tablet,delayed release (DR/EC) 325 mg PO DAILY Qty: 30 RF: 2 amoxicillin-pot clavulanate [Augmentin] 875-125 mg tablet 1 tab PO BID 7 Days Qty: 14 RF: 0 acetaminophen [Tylenol Extra Strength] 500 mg tablet 1,000 mg PO Q6H PRNRF: 0 Discontinued nitrofurantoin macrocrystal 100 mg capsule 100 mg PO BID Qty: 60 RF: 1 Discharge Orders: Discharge Order (Routine); Ordered 11/26/19 Ordered By: Crescencio Hunter Referrals: Natalio Darling MD [Physician] - 6 Weeks Discharge Diet: Regular Discharge Activity: Resume usual activity Patient Instructions: OB Vaginal Deliveries - [facility] Activity Restrictions/Additional Instructions: May use [id number] ibuprofen 200 mg, 3 tablets 4 times a day or 4 tablets 3 times a day, as needed for pain Discharge Attestations WIRELESS COMMUNICATIONS ENGINEER Time Spent in Discharge Care*: less than 30 min Coding Level of Care Code Acute Vacation Sales Advisor for Chg Fwd Diagnoses Term delivered O80 Anemia during , delivered, current hospitalization O99.02
--- NOTE | 2019-11-26 22:19 | PC.NURSE ---
Pt. ambulated to private vehicle.
== END 2019-11-26 21:55 | disposition home or self-care (01) | DRG 807 ==
LOC: OPOB 22:18 → OBGYN 22:19 → OPOB 11-25 11:01 → OBGYN 11-25 11:01
PROVIDERS: Admitting Provider Obstetrics & Gynecology; PCP Family Medicine; Visit Provider Obstetrics & Gynecology
DX: O99.02 Anemia complicating childbirth (principal); Z37.0 Single live birth; Z3A.39 39 weeks gestation of pregnancy; D64.9 Anemia, unspecified
CPT/HCPCS: 12345; 36415; 59025; 59409; 85025; 85027; 96374; 96375; 99211; J1885; J3010

== ENCOUNTER 2020-01-17 04:00 | Emergency (ER) | payer MEDICAID, SELFPAY ==
[2020-01-17 04:20] VITALS: BP 137/88; PULSE 100; RESP 16; TEMP 36.6; O2SAT 100; BMI 23.0
--- NOTE | 2020-01-17 04:31 | W.ED.GENADLT ---
Documented by User: Diane Norwood 01/17/20 17:04 HPI - General Adult General: Chief complaint: General Medical Stated complaint: head pain/weakness Time Seen by Provider: 01/17/20 04:23 Source: patient Mode of arrival: ambulatory Limitations: no limitations History of Present Illness: HPI narrative: Pretty is a nice 24-year-old female who comes in complaining of right facial numbness. Patient also states she feels strange throughout her body. She has a mild headache. She states she is had similar symptoms in the past that was due to some type of problem with her spinal cord and spine. Patient denies any injury. Patient denies any ejection drug use, fever, chills or other injuries. Associated symptoms: Deny chest pain, dyspnea, headache(s), nausea, rash, palpitations, syncope or vomiting Review of Systems Const: Denies: fever(s) Eyes: Denies: change in vision or blurry vision ENMT: Denies: throat pain, hoarseness or swelling of lips/tongue Card: Denies: chest pain, palpitations, syncope, pre-syncope or dyspnea on exertion Resp: Denies: dyspnea, productive cough, non-productive cough, wheezing, change in phlegm color or hemoptysis GI: Denies: abdominal pain, nausea, vomiting or diarrhea : Denies: flank pain, dysuria, urinary frequency or urinary urgency Musc: Denies: neck pain, back pain or extremity pain Skin/Breast: Denies: rash or pruritus Neuro: Denies: headache(s), numbness in extremities, weakness in extremities or dizziness Joni/Lymph: Denies: easy bruising, easy bleeding, petechiae or purpura All/Imm: Denies: urticaria or throat swelling PFSH ED PFSH: Medical History No pertinent past medical history Denies diabetes, asthma, hypertension, seizures, DVT/PE. Surgical History History of breast lump/mass excision (~02/28/14) -patient states it was a fibroadenoma. Preformed by Dr. Bashir. Previous back surgery (~2017) 2018--Pt reports blood clot in her spine [facility] Family History Mother Diabetes Grandfather Diabetes Maternal Grandmother Diabetes Maternal Uterine cancer Maternal great grandmother Leukemia maternal grandmother Sister Thyroid condition Uterine cancer Endometriosis Social History Smoking and tobacco status: former smoker Quit status (tobacco): has quit using tobacco Year quit tobacco: 04/16/2019 Alcohol intake: never Physical Exam Const: COMMON NORMALS: no acute distress, patient oriented x3, no limitations and alert GENERAL APPEARANCE: cooperative HENMT: COMMON NORMALS: normocephalic, atraumatic, external ears normal, EAC's normal and Normal external nose present HEAD & SCALP: normal to inspection, normocephalic and atraumatic FACE & SINUS: normal facial exam and face symmetric NOSE: Normal external nose present and Normal nares present EXTERNAL EAR: Yes external ears normal EXTERNAL AUDITORY CANAL: EAC's normal MOUTH: Normal oral and palatal mucosa present, lip normal and tongue normal Eye: COMMON NORMALS: Equal, round and reactive pupils present and conjunctivae normal GENERAL EYE: appearance normal, both eyes and all related structures ALIGNMENT: Yes alignment normal PERIORBITAL: periorbital findings normal EYELID: eyelids normal CONJUNCTIVA: Yes conjunctivae normal SCLERA: sclerae normal PUPIL: Yes Equal, round and reactive pupils present Neck/C-Spine: COMMON NORMALS: full ROM, no lymphadenopathy, supple, no meningeal signs and no JVD GENERAL: Yes normal visual inspection and Yes trachea midline Chest: COMMONS NORMALS: normal inspection of the chest and normal palpation of entire chest wall Resp: COMMON NORMALS: normal respiratory effort, No retractions, No use of accessory muscles and clear to auscultation bilaterally EFFORT & INSPECTION: Yes able to speak in complete sentences and Yes symmetric chest movement AUSCULTATION: clear to auscultation bilaterally, no crackles, no rales, no rhonchi and no wheezes Cardio: COMMON NORMALS: no JVD, regular rate, regular rhythm, S1 normal heart sound present and S2 normal heart sound present RATE: regular rate RHYTHM: regular rhythm HEART SOUNDS: S1 normal heart sound present, S2 normal heart sound present, no click, no gallops, no murmurs and no rubs GI: COMMON NORMALS: Soft to palpation and No hepatosplenomegaly present PALPATION: Yes Soft to palpation, No Tenderness to palpation present (GI), No Guarding due to palpation present (GI), No Rigid due to palpation, Yes No hepatosplenomegaly present, No Hernia present, No Palpable mass present and No Pulsatile mass present : COMMON NORMALS: Yes no CVA tenderness BLADDER/KIDNEY EXAM: Yes no CVA tenderness EXTERNAL FEMALE EXAM: No Hernia present Back/Pelvis: COMMON NORMALS: no CVA tenderness, thoracic and lumbar spine normal to inspection, no thoracic nor lumbar tenderness and thoraco-lumbar ROM normal Extremity: COMMON NORMALS: normal to inspection, full ROM, capillary refill normal, no joint enlargement, no clubbing, cyanosis or edema and no calf tenderness Neuro: COMMON NORMALS: patient oriented x3, CN's II-XII intact bilaterally, moves all extremities, no focal motor deficits and no sensory deficits noted SENSORIUM/ORIENTATION: Yes alert MENINGEAL SIGNS: Yes no meningeal signs SPEECH: speech normal SENSORY EXAM: Yes other (Mild decrease sensation to the right side of the face.) MOTOR EXAM: 5/5 motor strength present throughout Psych: COMMON NORMALS: mental status grossly normal, Normal thought process present, cooperative, normal affect, speech normal and activity/motor behavior normal SPEECH: Yes normal speech THOUGHT PROCESS: Normal thought process present Skin: COMMON NORMALS: no rashes or lesions noted, turgor normal, no jaundice, no petechiae and no mottling GENERAL SKIN EXAM: no rashes or lesions noted and turgor normal Course Vital Signs: Vital signs: Vital Signs Temperature 97.9 F 01/17/20 04:20 Pulse Rate 55 L 01/17/20 10:12 Respiratory Rate 14 01/17/20 10:12 Blood Pressure 95/56 01/17/20 10:12 Pulse Oximetry 98 01/17/20 10:12 MDM - General Adult MDM Narrative: Medical decision making narrative: Per review of the chart 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 CTs and labs are pending and the patient very well may need MRI. There is no definitive sign of neurologic deficit at this time. Case was turned over to Dr. Menchaca at change of shift. Lab Data: Labs: Lab Results 01/17/20 01/17/20 01/17/20 Range/Units 04:46 04:46 04:46 WBC 9.6 (4.0-10.0) 10^3/ uL RBC 4.40 (4.1-5.3) 10^6/u L Hgb 12.6 (11.5-15.3) g/dL Hct 39.7 (37.0-47.0) % MCV 90.2 (81-99) fL MCH 28.6 (28.0-34.0) pg MCHC 31.7 (30.0-36.0) g/dL RDW 13.4 (12.1-15.1) % Plt Count 381 (130-400) 10^3/c mm MPV 10.3 (7.4-10.4) fL Neut % (Auto) 52.6 % Lymph % (Auto) 34.3 % [place] % (Auto) 10.7 % Eos % (Auto) 1.5 % Baso % (Auto) 0.6 % Neut # (Auto) 5.05 (1.8-7.7) 10^3/u L Lymph # (Auto) 3.3 (0.8-4.8) 10^3/u L [place] # (Auto) 1.0 H (0.2-0.9) 10^3/u L Eos # (Auto) 0.1 (0.0-0.8) 10^3/u L Baso # (Auto) 0.1 (0.0-0.1) 10^3/u L Nucleated RBC % (a uto) 0 % Nucleated RBCs # 0.0 /100WBC PT 12.30 (12.1-14.9) SECO NDS INR 0.89 (0.8-1.2) APTT 26.9 (23.9-36.7) SECO NDS Sodium 139 (136-145) mmol/L Potassium 3.1 L (3.5-5.1) mmol/L Chloride 104 (98-107) mmol/L Carbon Dioxide 24 (22-29) mmol/L Anion Gap 14.1 (5-19) BUN 13 (6-20) mg/dL Creatinine 0.6 (0.5-0.9) mg/dL GFR Calculation 125.0 (90-130) mL/min Glucose 116 H (65-115) mg/dL Calculated Osmolal ity 289 (285-295) mOsm/k g Calcium 9.8 (8.5-10.5) mg/dL Total Bilirubin 0.3 (0.15-1.2) mg/dL AST 11 (0-32) U/L ALT 9 (0-33) U/L Alkaline Phosphata se 81 (35-105) IU/L Total Protein 6.9 (6.6-8.7) g/dL Albumin 4.4 (3.5-5.2) g/dL Globulin 2.5 (1.3-4.6) g/dL HCG, Qual (Negative) Urine Color (Yellow) Urine Appearance (CLEAR) Urine pH (5-7) Ur Specific Gravit y (1.005-1.030) Urine Protein (Negative) Urine Glucose (UA) (Normal) Urine Ketones (Negative) Urine Blood (Negative) Urine Nitrate (Negative) Urine Bilirubin (Negative) Urine Urobilinogen (Negative) mg/dL Ur Leukocyte Kristin ase (Negative) Urine RBC (0-2) /hpf Urine WBC (0-5) /hpf Ur Squamous Epith Cells (0-5) /hpf Amorphous Sediment Urine Bacteria (NONE) /hpf 01/17/20 01/17/20 Range/Units 04:46 04:46 WBC (4.0-10.0) 10^3/ uL RBC (4.1-5.3) 10^6/u L Hgb (11.5-15.3) g/dL Hct (37.0-47.0) % MCV (81-99) fL MCH (28.0-34.0) pg MCHC (30.0-36.0) g/dL RDW (12.1-15.1) % Plt Count (130-400) 10^3/c mm MPV (7.4-10.4) fL Neut % (Auto) % Lymph % (Auto) % [place] % (Auto) % Eos % (Auto) % Baso % (Auto) % Neut # (Auto) (1.8-7.7) 10^3/u L Lymph # (Auto) (0.8-4.8) 10^3/u L [place] # (Auto) (0.2-0.9) 10^3/u L Eos # (Auto) (0.0-0.8) 10^3/u L Baso # (Auto) (0.0-0.1) 10^3/u L Nucleated RBC % (a uto) % Nucleated RBCs # /100WBC PT (12.1-14.9) SECO NDS INR (0.8-1.2) APTT (23.9-36.7) SECO NDS Sodium (136-145) mmol/L Potassium (3.5-5.1) mmol/L Chloride (98-107) mmol/L Carbon Dioxide (22-29) mmol/L Anion Gap (5-19) BUN (6-20) mg/dL Creatinine (0.5-0.9) mg/dL GFR Calculation (90-130) mL/min Glucose (65-115) mg/dL Calculated Osmolal ity (285-295) mOsm/k g Calcium (8.5-10.5) mg/dL Total Bilirubin (0.15-1.2) mg/dL AST (0-32) U/L ALT (0-33) U/L Alkaline Phosphata se (35-105) IU/L Total Protein (6.6-8.7) g/dL Albumin (3.5-5.2) g/dL Globulin (1.3-4.6) g/dL HCG, Qual Negative (Negative) Urine Color Yellow (Yellow) Urine Appearance Cloudy (CLEAR) Urine pH 6.5 (5-7) Ur Specific Gravit y 1.010 (1.005-1.030) Urine Protein Neg (Negative) Urine Glucose (UA) Norm (Normal) Urine Ketones Negative (Negative) Urine Blood Neg (Negative) Urine Nitrate Negative (Negative) Urine Bilirubin Neg (Negative) Urine Urobilinogen Norm (Negative) mg/dL Ur Leukocyte Kristin ase 1+ H (Negative) Urine RBC 0-4 H (0-2) /hpf Urine WBC 25-40 H (0-5) /hpf Ur Squamous Epith Cells 0-4 H (0-5) /hpf Amorphous Sediment Not Reportable Urine Bacteria 1+ H (NONE) /hpf Discharge Plan Discharge Patient Disposition: Home Clinical Impression: Paresthesia Headache Qualifiers: Headache type: unspecified Headache chronicity pattern: acute headache Intractability: not intractable Qualified Code(s): R51 - Headache Condition: Stable Prescriptions: New Naprosyn 500 mg tablet 500 mg PO BID PRN (Reason: pain) Qty: 20 RF: 0 No Action prenat.vits,jaclyn,[id number] Tablet 1 tab PO DAILY RF: 0 ferrous sulfate 325 mg (65 mg iron) tablet,delayed release (DR/EC) 325 mg PO DAILY Qty: 30 RF: 2 amoxicillin-pot clavulanate [Augmentin] 875-125 mg tablet 1 tab PO BID 7 Days Qty: 14 RF: 0 acetaminophen [Tylenol Extra Strength] 500 mg tablet 1,000 mg PO Q6H PRNRF: 0 Discharge Orders: Discharge Order (Routine); Ordered 01/17/20 Ordered By: Dennis Menchaca Referrals: Otoniel Gar MD [Primary Care Provider] - 1-3 days Discharge Diet: Advance as tolerated Discharge Activity: Resume usual activity Patient Instructions: Acute Headache (ED) Discharge Date/Time: 01/17/20 10:13 Coding Level of Care Code 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 Documented by User: Dennis Menchaca MD 01/17/20 10:09 HPI - General Adult General: Chief complaint: General Medical Stated complaint: head pain/weakness Time Seen by Provider: 01/17/20 04:23 PFSH ED PFSH: Medical History No pertinent past medical history Denies diabetes, asthma, hypertension, seizures, DVT/PE. Surgical History History of breast lump/mass excision (~02/28/14) -patient states it was a fibroadenoma. Preformed by Dr. Bashir. Previous back surgery (~2017) 2018--Pt reports blood clot in her spine [facility] Family History Mother Diabetes Grandfather Diabetes Maternal Grandmother Diabetes Maternal Uterine cancer Maternal great grandmother Leukemia maternal grandmother Sister Thyroid condition Uterine cancer Endometriosis Social History (Reviewed 01/17/20 @ 04:58 by Diane Ross Smoking and tobacco status: former smoker Quit status (tobacco): has quit using tobacco Year quit tobacco: 04/16/2019 Alcohol intake: never Course Vital Signs: Vital signs: Vital Signs Temperature 97.9 F 01/17/20 04:20 Pulse Rate 55 L 01/17/20 10:12 Respiratory Rate 14 01/17/20 10:12 Blood Pressure 95/56 01/17/20 10:12 Pulse Oximetry 98 01/17/20 10:12 MDM - General Adult MDM Narrative: Medical decision making narrative: Patient presents here with headache along with paresthesias. Patient's MRI here is negative and CTs are normal as well. Patient likely having a migraine. She is well-appearing here and is stable for discharge. Her headache has resolved. Lab Data: Labs: Lab Results 01/17/20 01/17/20 01/17/20 Range/Units 04:46 04:46 04:46 WBC 9.6 (4.0-10.0) 10^3/ uL RBC 4.40 (4.1-5.3) 10^6/u L Hgb 12.6 (11.5-15.3) g/dL Hct 39.7 (37.0-47.0) % MCV 90.2 (81-99) fL MCH 28.6 (28.0-34.0) pg MCHC 31.7 (30.0-36.0) g/dL RDW 13.4 (12.1-15.1) % Plt Count 381 (130-400) 10^3/c mm MPV 10.3 (7.4-10.4) fL Neut % (Auto) 52.6 % Lymph % (Auto) 34.3 % [place] % (Auto) 10.7 % Eos % (Auto) 1.5 % Baso % (Auto) 0.6 % Neut # (Auto) 5.05 (1.8-7.7) 10^3/u L Lymph # (Auto) 3.3 (0.8-4.8) 10^3/u L [place] # (Auto) 1.0 H (0.2-0.9) 10^3/u L Eos # (Auto) 0.1 (0.0-0.8) 10^3/u L Baso # (Auto) 0.1 (0.0-0.1) 10^3/u L Nucleated RBC % (a uto) 0 % Nucleated RBCs # 0.0 /100WBC PT 12.30 (12.1-14.9) SECO NDS INR 0.89 (0.8-1.2) APTT 26.9 (23.9-36.7) SECO NDS Sodium 139 (136-145) mmol/L Potassium 3.1 L (3.5-5.1) mmol/L Chloride 104 (98-107) mmol/L Carbon Dioxide 24 (22-29) mmol/L Anion Gap 14.1 (5-19) BUN 13 (6-20) mg/dL Creatinine 0.6 (0.5-0.9) mg/dL GFR Calculation 125.0 (90-130) mL/min Glucose 116 H (65-115) mg/dL Calculated Osmolal ity 289 (285-295) mOsm/k g Calcium 9.8 (8.5-10.5) mg/dL Total Bilirubin 0.3 (0.15-1.2) mg/dL AST 11 (0-32) U/L ALT 9 (0-33) U/L Alkaline Phosphata se 81 (35-105) IU/L Total Protein 6.9 (6.6-8.7) g/dL Albumin 4.4 (3.5-5.2) g/dL Globulin 2.5 (1.3-4.6) g/dL HCG, Qual (Negative) Urine Color (Yellow) Urine Appearance (CLEAR) Urine pH (5-7) Ur Specific Gravit y (1.005-1.030) Urine Protein (Negative) Urine Glucose (UA) (Normal) Urine Ketones (Negative) Urine Blood (Negative) Urine Nitrate (Negative) Urine Bilirubin (Negative) Urine Urobilinogen (Negative) mg/dL Ur Leukocyte Kristin ase (Negative) Urine RBC (0-2) /hpf Urine WBC (0-5) /hpf Ur Squamous Epith Cells (0-5) /hpf Amorphous Sediment Urine Bacteria (NONE) /hpf 01/17/20 01/17/20 Range/Units 04:46 04:46 WBC (4.0-10.0) 10^3/ uL RBC (4.1-5.3) 10^6/u L Hgb (11.5-15.3) g/dL Hct (37.0-47.0) % MCV (81-99) fL MCH (28.0-34.0) pg MCHC (30.0-36.0) g/dL RDW (12.1-15.1) % Plt Count (130-400) 10^3/c mm MPV (7.4-10.4) fL Neut % (Auto) % Lymph % (Auto) % [place] % (Auto) % Eos % (Auto) % Baso % (Auto) % Neut # (Auto) (1.8-7.7) 10^3/u L Lymph # (Auto) (0.8-4.8) 10^3/u L [place] # (Auto) (0.2-0.9) 10^3/u L Eos # (Auto) (0.0-0.8) 10^3/u L Baso # (Auto) (0.0-0.1) 10^3/u L Nucleated RBC % (a uto) % Nucleated RBCs # /100WBC PT (12.1-14.9) SECO NDS INR (0.8-1.2) APTT (23.9-36.7) SECO NDS Sodium (136-145) mmol/L Potassium (3.5-5.1) mmol/L Chloride (98-107) mmol/L Carbon Dioxide (22-29) mmol/L Anion Gap (5-19) BUN (6-20) mg/dL Creatinine (0.5-0.9) mg/dL GFR Calculation (90-130) mL/min Glucose (65-115) mg/dL Calculated Osmolal ity (285-295) mOsm/k g Calcium (8.5-10.5) mg/dL Total Bilirubin (0.15-1.2) mg/dL AST (0-32) U/L ALT (0-33) U/L Alkaline Phosphata se (35-105) IU/L Total Protein (6.6-8.7) g/dL Albumin (3.5-5.2) g/dL Globulin (1.3-4.6) g/dL HCG, Qual Negative (Negative) Urine Color Yellow (Yellow) Urine Appearance Cloudy (CLEAR) Urine pH 6.5 (5-7) Ur Specific Gravit y 1.010 (1.005-1.030) Urine Protein Neg (Negative) Urine Glucose (UA) Norm (Normal) Urine Ketones Negative (Negative) Urine Blood Neg (Negative) Urine Nitrate Negative (Negative) Urine Bilirubin Neg (Negative) Urine Urobilinogen Norm (Negative) mg/dL Ur Leukocyte Kristin ase 1+ H (Negative) Urine RBC 0-4 H (0-2) /hpf Urine WBC 25-40 H (0-5) /hpf Ur Squamous Epith Cells 0-4 H (0-5) /hpf Amorphous Sediment Not Reportable Urine Bacteria 1+ H (NONE) /hpf Imaging Data^: CT Head: Radiologist's impression: [place] [address] CT Scan Report Signed Patient: Gris Garcia Unit #: [id number] : 1995 Age/Sex: 24 / F ADM Date: 01/17/20 Loc: ER Room/Bed: Attending Dr: Ordering Provider/Ordering MD: Diane Norwood DO Date of Service: 01/17/20 Procedure(s): CT head wo con* [id number] Accession Number(s): [id number] Report Number: [id number] PROCEDURE INFORMATION: Exam: CT Head Without Contrast Exam date and time: 01/17/2020 4:37 AM Age: 24 years old Clinical indication: Pain; Headache not specified; Additional info: Facial numbness TECHNIQUE: Imaging protocol: Computed tomography of the head without contrast. Radiation optimization: All CT scans at this facility use at least one of these dose optimization techniques: automated exposure control; mA and/or kV adjustment per patient size (includes targeted exams where dose is matched to clinical indication); or iterative reconstruction. COMPARISON: CT head wo con* [id number] 12/13/2018 8:00 PM RADIATION DOSE METRICS: Total DLP (mGy-cm): 819.94 FINDINGS: Brain: Normal. No hemorrhage. Unremarkable white matter. No mass effect. Cerebral ventricles: No ventriculomegaly. Bones/joints: Unremarkable. No acute fracture. Paranasal sinuses: Visualized sinuses are unremarkable. No fluid levels. Mastoid air cells: Visualized mastoid air cells are well aerated. Soft tissues: Unremarkable. CT/CT head wo con* [id number] IMPRESSION: No acute intracranial abnormality. CT cervical spine: Radiologist's impression: [place] [address] CT Scan Report Signed Patient: Gris Garcia Unit #: [id number] : 1995 Age/Sex: 24 / F ADM Date: 01/17/20 Loc: ER Room/Bed: Attending Dr: Ordering Provider/Ordering MD: Diane Norwood DO Date of Service: 01/17/20 Procedure(s): CT cervical spin wo con* [id number] Accession Number(s): [id number] Report Number: [id number] PROCEDURE INFORMATION: Exam: CT Cervical Spine Without Contrast Exam date and time: 01/17/2020 4:37 AM Age: 24 years old Clinical indication: Neck pain; Prior surgery TECHNIQUE: Imaging protocol: Computed tomography images of the cervical spine without contrast. Radiation optimization: All CT scans at this facility use at least one of these dose optimization techniques: automated exposure control; mA and/or kV adjustment per patient size (includes targeted exams where dose is matched to clinical indication); or iterative reconstruction. COMPARISON: No relevant prior studies available. RADIATION DOSE METRICS: Total DLP (mGy-cm): 687.86 FINDINGS: Vertebrae: There is straightening of the normal cervical lordosis. No acute fracture. Normal alignment. Discs/Spinal canal/Neural foramina: No significant disc protrusion. No severe spinal canal stenosis. No significant neural foraminal narrowing. Soft tissues: Unremarkable. Lungs: Lung apices are normal. CT/CT cervical spin wo con* [id number] IMPRESSION: No acute fracture or listhesis. Radiation Dose CTDIVOL = (mGy): DLP = 687.86 (mGy-cm) CT thoracic spine: Radiologist's impression: [address] [address] [address] Scan Report Signed Patient: Gris Garcia Unit #: [id number] : 1995 Age/Sex: 24 / F ADM Date: 01/17/20 Loc: ER Room/Bed: Attending Dr: Ordering Provider/Ordering MD: Diane Norwood DO Date of Service: 01/17/20 Procedure(s): CT thoracic spin wo con* [id number] Accession Number(s): [id number] Report Number: [id number] PROCEDURE INFORMATION: Exam: CT Thoracic Spine Without Contrast Exam date and time: 01/17/2020 4:37 AM Age: 24 years old Clinical indication: Pain in thoracic spine; Prior surgery TECHNIQUE: Imaging protocol: Computed tomography images of the thoracic spine without contrast. Radiation optimization: All CT scans at this facility use at least one of these dose optimization techniques: automated exposure control; mA and/or kV adjustment per patient size (includes targeted exams where dose is matched to clinical indication); or iterative reconstruction. COMPARISON: No relevant prior studies available. RADIATION DOSE METRICS: Total DLP (mGy-cm): 824.88 FINDINGS: Vertebrae: There are right hemilaminectomy changes at T2. No acute fracture. Normal alignment. Discs/Spinal canal/Neural foramina: No significant disc protrusion. No severe spinal canal stenosis. No significant neural foraminal narrowing. Soft tissues: Unremarkable. Kidneys and ureters: There is a nonobstructing left renal calculus. CT/CT thoracic spin wo con* [id number] IMPRESSION: No acute abnormality or advanced degenerative change. MRI C-spine: Radiologist's impression: [place] [address] Magnetic Resonance Report Signed Patient: Gris Garcia Unit #: [id number] : 1995 Age/Sex: 24 / F ADM Date: 01/17/20 Loc: ER Room/Bed: Attending Dr: Ordering Provider/Ordering MD: Dennis Menchaca MD Date of Service: 01/17/20 Procedure(s): MR cervical spin wo con* [id number] Accession Number(s): [id number] Report Number: [id number] WS: [id number] MRI CERVICAL SPINE NONCONTRAST TECHNIQUE: Sagittal T1, T2 and STIR imaging. Axial T2, gradient, and fiesta imaging. CLINICAL INFORMATION: paresthesia COMPARISON: Multiple prior examinations including CT February 16, 2020 MRI . FINDINGS: Straightening of the normal cervical lordosis. Cord signal is normal. 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 Cord signal is normal today. Evidence of postoperative changes in the dorsal subcutaneous soft tissues. C2-C3: Normal. C3-C4: Normal. C4-C5: No significant disc bulging. Spinal canal and foramen are patent. C5-C6: No significant disc bulging. Mild facet arthropathy. Spinal canal and foramen are patent. C6-C7: No significant disc bulging. Mild facet arthropathy. Spinal canal and foramen are patent. C7-T1: Normal. T1-T2: Normal. Visualized brain stem structures: Normal. Prevertebral soft tissues: Normal. MR/MR cervical spin wo con* [id number] IMPRESSION: 1. 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 Dorsal subcutaneous postoperative changes. 2. Cord signal is normal. 3. No significant spinal canal or foraminal narrowing. MRI T-spine: Radiologist's impression: [address] [address] Magnetic Resonance Report Signed Patient: Gris Garcia Unit #: [id number] : 1995 Age/Sex: 24 / F ADM Date: 01/17/20 Loc: ER Room/Bed: Attending Dr: Ordering Provider/Ordering MD: Dennis Menchaca MD Date of Service: 01/17/20 Procedure(s): MR thoracic spin wo con* [id number] Accession Number(s): [id number] Report Number: [id number] WS: [id number] MRI THORACIC SPINE WITHOUT CONTRAST TECHNIQUE: Sagittal T1, T2 and STIR imaging. Axial T2 imaging. Noncontrast imaging obtained. CLINICAL INFORMATION: paresthesia COMPARISON: MRI FINDINGS: Previously described T2 hyperintense lesion at the T1-2 level has been resected in the interim. No evidence of residual or recurrent tumor considering lack of IV contrast. Cord signal is normal. No significant central canal stenosis. Disc space heights and vertebral body heights well-preserved. No acute compression fractures. No significant spinal canal narrowing. Normal visualized thoracic aorta. Adrenal glands are normal. MR/MR thoracic spin wo con* [id number] IMPRESSION: 1. 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 2. Cord signal is normal. 3. Postoperative changes in the dorsal subcutaneous soft tissues T1-2 4. Thoracic spine is otherwise normal. Discharge Plan Discharge Patient Disposition: Home Clinical Impression: Paresthesia Headache Qualifiers: Headache type: unspecified Headache chronicity pattern: acute headache Intractability: not intractable Qualified Code(s): R51 - Headache Condition: Stable Prescriptions: New Naprosyn 500 mg tablet 500 mg PO BID PRN (Reason: pain) Qty: 20 RF: 0 No Action prenat.vits,jaclyn,[id number] Tablet 1 tab PO DAILY RF: 0 ferrous sulfate 325 mg (65 mg iron) tablet,delayed release (DR/EC) 325 mg PO DAILY Qty: 30 RF: 2 amoxicillin-pot clavulanate [Augmentin] 875-125 mg tablet 1 tab PO BID 7 Days Qty: 14 RF: 0 acetaminophen [Tylenol Extra Strength] 500 mg tablet 1,000 mg PO Q6H PRNRF: 0 Discharge Orders: Discharge Order (Routine); Ordered 01/17/20 Ordered By: Dennis Menchaca Referrals: Otoniel Gar MD [Primary Care Provider] - 1-3 days Discharge Diet: Advance as tolerated Discharge Activity: Resume usual activity Patient Instructions: Acute Headache (ED) Discharge Date/Time: 01/17/20 10:13 Coding Level of Care Code 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
[2020-01-17 05:15] LABS: Basophils # 0.1 10^3/uL (0.0-0.1); Basophils % 0.6 %; Eosinophils # 0.1 10^3/uL (0.0-0.8); Eosinophils % 1.5 %; Hematocrit 39.7 % (37.0-47.0); Hemoglobin 12.6 g/dL (11.5-15.3); Lymphocytes # 3.3 10^3/uL (0.8-4.8); Lymphocytes % 34.3 %; Mean Corpuscular HGB Conc 31.7 g/dL (30.0-36.0); Mean Corpuscular Hemoglobin 28.6 pg (28.0-34.0); Mean Corpuscular Volume 90.2 fL (81-99); Mean Platelet Volume 10.3 fL (7.4-10.4); Monocytes % 10.7 %; Neutrophils # 5.05 10^3/uL (1.8-7.7); Neutrophils % 52.6 %; Nucleated Red Blood Cells % 0 %; Platelet Count 381 10^3/cmm (130-400); Red Cell Distribution Width 13.4 % (12.1-15.1); White Blood Count 9.6 10^3/uL (4.0-10.0)
[2020-01-17 05:22] LABS: HCG, Serum Qual Negative (Negative)
[2020-01-17] MEDS: sodium chloride 0.9% 1,000 ML 100 ML IV (05:22)
[2020-01-17 05:27] LABS: INR 0.89 (0.8-1.2)
[2020-01-17 05:28] LABS: Partial Thromboplastin Time 26.9 SECONDS (23.9-36.7)
[2020-01-17 05:29] LABS: Alanine Aminotransferase 9 U/L (0-33); Albumin Level 4.4 g/dL (3.5-5.2); Alkaline Phosphatase 81 IU/L (35-105); Anion Gap 14.1 (5-19); Aspartate Amino Transferase 11 U/L (0-32); Blood Urea Nitrogen 13 mg/dL (6-20); Calcium 9.8 mg/dL (8.5-10.5); Carbon Dioxide 24 mmol/L (22-29); Chloride 104 mmol/L (98-107); Globulin 2.5 g/dL (1.3-4.6); Glucose 116 mg/dL (65-115); Osmolality Calculated 289 mOsm/kg (285-295); Potassium 3.1 mmol/L (3.5-5.1); Sodium 139 mmol/L (136-145); Total Bilirubin 0.3 mg/dL (0.15-1.2); Total Protein 6.9 g/dL (6.6-8.7)
[2020-01-17 05:44] VITALS: BP 108/54; PULSE 60; RESP 16; O2SAT 100; O2SAT 98
[2020-01-17 06:00] LABS: Add Urine Culture? Yes; Add Urine Microscopic? YES; Bacteria Urine 1+ /hpf; Bilirubin Urine Neg (Negative); Blood Urine Neg (Negative); Glucose Urine UA Norm (Normal); Ketones Urine Negative (Negative); Leukocyte Esterase Urine 1+ (Negative); Nitrate Urine Negative (Negative); Protein Urine Neg (Negative); RBC Urine 0-4 /hpf (0-2); Squamous Epithelial Cell Urine 0-4 /hpf (0-5); Urine Appearance Cloudy (CLEAR); Urine Color Yellow (Yellow); Urobilinogen Urine Norm (Negative); WBC Urine 25-40 /hpf (0-5); pH Urine 6.5 (5-7)
[2020-01-17] MEDS: ondansetron 2 mg/ML SDV 2 mL 4 MG IVP (06:16)
[2020-01-17] MEDS: ketorolac 30 mg/mL INJ IVP (06:16)
--- NOTE | 2020-01-17 06:31 | MR_ITS ---
WS: [id number] MRI THORACIC SPINE WITHOUT CONTRAST TECHNIQUE: Sagittal T1, T2 and STIR imaging. Axial T2 imaging. Noncontrast imaging obtained. CLINICAL INFORMATION: paresthesia COMPARISON: MRI 9 FINDINGS: Previously described T2 hyperintense lesion at the T1-2 level has been resected in the interim. No ev idence of residual or recurrent tumor considering lack of IV contrast. Cord signal is normal. No sign ificant central canal stenosis. Disc space heights and vertebral body heights well-preserved. No acute compression fractures. No sign ificant spinal canal narrowing. Normal visualized thoracic aorta. Adrenal glands are normal. MR/MR thoracic spin wo con* [id number] IMPRESSION: 1. 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 2. Cord signal is normal. 3. Postoperative changes in the dorsal subcutaneous soft tissues T1-2 4. Thoracic spine is otherwise normal.
--- NOTE | 2020-01-17 06:31 | MR_ITS ---
WS: [id number] MRI CERVICAL SPINE NONCONTRAST TECHNIQUE: Sagittal T1, T2 and STIR imaging. Axial T2, gradient, and fiesta imaging. CLINICAL INFORMATION: paresthesia COMPARISON: Multiple prior examinations including CT February 16, 2020 MRI . FINDINGS: Straightening of the normal cervical lordosis. Cord signal is normal. Previously described extra medu llary intraspinal lesion at T1-T2 previously described has been resected. Cord signal is normal today . Evidence of postoperative changes in the dorsal subcutaneous soft tissues. C2-C3: Normal. C3-C4: Normal. C4-C5: No significant disc bulging. Spinal canal and foramen are patent. C5-C6: No significant disc bulging. Mild facet arthropathy. Spinal canal and foramen are patent. C6-C7: No significant disc bulging. Mild facet arthropathy. Spinal canal and foramen are patent. C7-T1: Normal. T1-T2: Normal. Visualized brain stem structures: Normal. Prevertebral soft tissues: Normal. MR/MR cervical spin wo con* [id number] IMPRESSION: 1. 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 Dorsal subcutaneous postoperative changes. 2. Cord signal is normal. 3. No significant spinal canal or foraminal narrowing.
[2020-01-17 07:00] VITALS: BP 124/78; PULSE 88; RESP 18; O2SAT 99
--- NOTE | 2020-01-17 07:28 | PC.NURSE ---
Pt to MRI
--- NOTE | 2020-01-17 07:45 | PC.NURSE ---
Pt is at [facility], [place] for MRI.
--- NOTE | 2020-01-17 08:38 | PC.NURSE ---
Pt back in room from MRI.
[2020-01-17 09:00] VITALS: BP 130/81; PULSE 58; RESP 14; O2SAT 98
[2020-01-17 10:12] VITALS: BP 95/56; PULSE 55; RESP 14; O2SAT 98
== END 2020-01-17 10:13 | disposition home or self-care (01) ==
PROVIDERS: Emergency Medicine; Emergency Provider Emergency Medicine; PCP Family Medicine
DX: R20.2 Paresthesia of skin (principal); R51 Headache; Z87.891 Personal history of nicotine dependence
CPT/HCPCS: 12345; 70450; 72125; 72128; 72141; 72146; 80053; 81001; 84703; 85025; 85610; 85730; 87077; 87086; 87186; 96361; 96374; 96375; 99283; 99284; J1885; J2405; J7030

== ENCOUNTER 2020-04-30 01:49 | Emergency (ER) | payer MEDICAID, SELFPAY ==
[2020-04-30 01:55] VITALS: BP 117/76; PULSE 96; RESP 16; TEMP 36.8; O2SAT 98; BMI 22.3
--- NOTE | 2020-04-30 02:22 | ED_ITS ---
HPI - General Adult General: Chief complaint: General Medical Stated complaint: Lower abdominal and leg pain Time Seen by Provider: 04/30/20 02:18 Source: patient Mode of arrival: ambulatory Limitations: no limitations History of Present Illness: HPI narrative: Pretty is a 24-year-old female states she been having right-sided flank pain over the last 4 to 5 days. She states she had a history of kidney stones along with kidney infections. States his pain is been episodic in nature currently is a 3 out of 10. States she also has a knot on her anterior left hill. She denies any fever. Denies dysuria. Denies any vaginal bleeding. Associated symptoms: Deny chest pain, dyspnea, headache(s), nausea, rash or vo miting Review of Systems Const: Denies: fever(s), chills, body aches or change in appetite Eyes: Denies: blurry vision or eye discomfort ENMT: Denies: throat pain or dental pain Card: Denies: chest pain Resp: Denies: dyspnea GI: Denies: abdominal pain, nausea, vomiting or diarrhea : Reports: flank pain Musc: Denies: neck pain or back pain Skin/Breast: Denies: rash Neuro: Denies: headache(s) Psych: Denies: depression Joni/Lymph: Denies: easy bruising All/Imm: Denies: urticaria PFSH ED PFSH: Medical History (Updated 04/30/20 @ 03:23 by Dennis Menchaca MD) No pertinent past medical history Denies diabetes, asthma, hypertension, seizures, DVT/PE. Surgical History History of breast lump/mass excision (~02/28/14) -patient states it was a fibroadenoma. Preformed by Dr. Bashir. Previous back surgery (~2017) 2018--Pt reports blood clot in her spine [facility] Family History Mother Diabetes Grandfather Diabetes Maternal Grandmother Diabetes Maternal Uterine cancer Maternal great grandmother Leukemia maternal grandmother Sister Thyroid condition Uterine cancer Endometriosis Social History Smoking and tobacco status: former smoker Quit status (tobacco): has quit using tobacco Year quit tobacco: 04/16/2019 Alcohol intake: never Physical Exam Const: COMMON NORMALS: no acute distress, patient oriented x3 and healthy appearing HENMT: COMMON NORMALS: normocephalic and atraumatic HEAD & SCALP: normocephalic and atraumatic Eye: COMMON NORMALS: Equal, round and reactive pupils present and EOMs intact bilaterally PUPIL: Yes Equal, round and reactive pupils present Neck/C-Spine: COMMON NORMALS: full ROM and supple Chest: COMMONS NORMALS: normal inspection of the chest and normal palpation of entire chest wall Resp: COMMON NORMALS: normal respiratory effort, No retractions, No use of accessory muscles and clear to auscultation bilaterally AUSCULTATION: clear to auscultation bilaterally Cardio: COMMON NORMALS: regular rate, regular rhythm and No murmurs present (Cardio) RATE: regular rate RHYTHM: regular rhythm GI: COMMON NORMALS: Normal to inspection, nondistended, normoactive bowel sounds present, Soft to palpation, non-tender and no masses PALPATION: Yes Soft to palpation OTHER: No abdominal or flank tenderness Extremity: COMMON NORMALS: normal to inspection and full ROM OTHER: Small knot over left anterior hill nontender no signs of blood clot Neuro: COMMON NORMALS: patient oriented x3, moves all extremities and no focal motor deficits Psych: COMMON NORMALS: mental status grossly normal, Normal thought process present and cooperative THOUGHT PROCESS: Normal thought process present Skin: COMMON NORMALS: no rashes or lesions noted and no wounds GENERAL SKIN EXAM: no rashes or lesions noted Course Vital Signs: Vital signs: Vital Signs Temperature 98.2 F 04/30/20 01:55 Pulse Rate 96 04/30/20 01:55 Respiratory Rate 16 04/30/20 01:55 Blood Pressure 117/76 04/30/20 01:55 Pulse Oximetry 98 04/30/20 01:55 MDM - General Adult MDM Narrative: Medical decision making narrative: Patient presents with flank pain along with abdominal pain is since resolved. Her initial repeat abdominal exam here is benign and she has no tenderness on exam. She has no tenderness in the right lower quadrant no signs of appendicitis. She has no signs of acute surgical cause of her pain. Patient's blood work here is all normal and she has no signs of kidney stone urinary tract infection. Patient stable for discharge and return in 1 to 2 days for repeat exam if she has any pain. She is to follow-up with PCP. She understands and agrees to plan. Lab Data: Labs: Lab Results 04/30/20 04/30/20 04/30/20 Range/Units 02:38 02:38 02:51 WBC 6.5 (4.0-10.0) 10^3/ uL RBC 4.46 (4.1-5.3) 10^6/u L Hgb 12.4 (11.5-15.3) g/dL Hct 39.3 (37.0-47.0) % MCV 88.1 (81-99) fL MCH 27.8 L (28.0-34.0) pg MCHC 31.6 (30.0-36.0) g/dL RDW 12.6 (12.1-15.1) % Plt Count 322 (130-400) 10^3/c mm MPV 10.5 H (7.4-10.4) fL Neut % (Auto) 52.0 % Lymph % (Auto) 34.8 % [place] % (Auto) 11.2 % Eos % (Auto) 1.2 % Baso % (Auto) 0.6 % Neut # (Auto) 3.40 (1.8-7.7) 10^3/u L Lymph # (Auto) 2.3 (0.8-4.8) 10^3/u L [place] # (Auto) 0.7 (0.2-0.9) 10^3/u L Eos # (Auto) 0.1 (0.0-0.8) 10^3/u L Baso # (Auto) 0.0 (0.0-0.1) 10^3/u L Nucleated RBC % (a uto) 0 % Nucleated RBCs # 0.0 /100WBC Sodium 136 (136-145) mmol/L Potassium 3.4 L (3.5-5.1) mmol/L Chloride 103 (98-107) mmol/L Carbon Dioxide 26 (22-29) mmol/L Anion Gap 10.4 (5-19) BUN 13 (6-20) mg/dL Creatinine 0.5 (0.5-0.9) mg/dL GFR Calculation 154.3 H (90-130) mL/min Glucose 131 H (65-115) mg/dL Calculated Osmolal ity 284 L (285-295) mOsm/k g Calcium 9.2 (8.5-10.5) mg/dL Total Bilirubin 0.2 (0.15-1.2) mg/dL AST 10 (0-32) U/L ALT 9 (0-33) U/L Alkaline Phosphata se 68 (35-105) IU/L Total Protein 6.6 (6.6-8.7) g/dL Albumin 4.2 (3.5-5.2) g/dL Globulin 2.4 (1.3-4.6) g/dL Lipase 28 (13-60) U/L HCG, Qual Negative (Negative) Urine Color (Yellow) Urine Appearance (CLEAR) Urine pH (5-7) Ur Specific Gravit y (1.005-1.030) Urine Protein (Negative) Urine Glucose (UA) (Normal) Urine Ketones (Negative) Urine Blood (Negative) Urine Nitrate (Negative) Urine Bilirubin (Negative) Urine Urobilinogen (Negative) mg/dL Ur Leukocyte Kristin ase (Negative) 04/30/20 Range/Units 02:51 WBC (4.0-10.0) 10^3/ uL RBC (4.1-5.3) 10^6/u L Hgb (11.5-15.3) g/dL Hct (37.0-47.0) % MCV (81-99) fL MCH (28.0-34.0) pg MCHC (30.0-36.0) g/dL RDW (12.1-15.1) % Plt Count (130-400) 10^3/c mm MPV (7.4-10.4) fL Neut % (Auto) % Lymph % (Auto) % [place] % (Auto) % Eos % (Auto) % Baso % (Auto) % Neut # (Auto) (1.8-7.7) 10^3/u L Lymph # (Auto) (0.8-4.8) 10^3/u L [place] # (Auto) (0.2-0.9) 10^3/u L Eos # (Auto) (0.0-0.8) 10^3/u L Baso # (Auto) (0.0-0.1) 10^3/u L Nucleated RBC % (a uto) % Nucleated RBCs # /100WBC Sodium (136-145) mmol/L Potassium (3.5-5.1) mmol/L Chloride (98-107) mmol/L Carbon Dioxide (22-29) mmol/L Anion Gap (5-19) BUN (6-20) mg/dL Creatinine (0.5-0.9) mg/dL GFR Calculation (90-130) mL/min Glucose (65-115) mg/dL Calculated Osmolal ity (285-295) mOsm/k g Calcium (8.5-10.5) mg/dL Total Bilirubin (0.15-1.2) mg/dL AST (0-32) U/L ALT (0-33) U/L Alkaline Phosphata se (35-105) IU/L Total Protein (6.6-8.7) g/dL Albumin (3.5-5.2) g/dL Globulin (1.3-4.6) g/dL Lipase (13-60) U/L HCG, Qual (Negative) Urine Color Yellow (Yellow) Urine Appearance Clear (CLEAR) Urine pH 6.0 (5-7) Ur Specific Gravit y 1.020 (1.005-1.030) Urine Protein Neg (Negative) Urine Glucose (UA) Norm (Normal) Urine Ketones Negative (Negative) Urine Blood Neg (Negative) Urine Nitrate Negative (Negative) Urine Bilirubin Neg (Negative) Urine Urobilinogen Norm (Negative) mg/dL Ur Leukocyte Kristin ase Negative (Negative) Discharge Plan Discharge Patient Disposition: Home Clinical Impression: Abdominal pain Condition: Stable Prescriptions: New ondansetron 4 mg tablet,disintegrating 4 mg PO Q6H PRN (Reason: nausea and vomiting) Qty: 14 RF: 0 Naprosyn 500 mg tablet 500 mg PO BID PRN (Reason: pain) Qty: 20 RF: 0 No Action prenat.vits,jaclyn,[id number] Tablet 1 tab PO DAILY RF: 0 acetaminophen [Tylenol Extra Strength] 500 mg tablet 1,000 mg PO Q6H PRNRF: 0 mupirocin 2 % ointment 1 applic TOPICAL TID 7 Days Qty: 15 RF: 0 Naprosyn 500 mg tablet 500 mg PO BID PRN (Reason: pain) Qty: 20 RF: 0 Discharge Orders: Discharge ED (Routine); Ordered 04/30/20 Ordered By: Dennis Menchaca Referrals: Otoniel Gar MD [Primary Care Provider] - 1-3 days Discharge Diet: Advance as tolerated Discharge Activity: Resume usual activity Patient Instructions: Abdominal Pain (ED) Coding Level of Care Code 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
[2020-04-30 02:52] LABS: Basophils % 0.6 %; Eosinophils # 0.1 10^3/uL (0.0-0.8); Eosinophils % 1.2 %; Hematocrit 39.3 % (37.0-47.0); Hemoglobin 12.4 g/dL (11.5-15.3); Lymphocytes # 2.3 10^3/uL (0.8-4.8); Lymphocytes % 34.8 %; Mean Corpuscular HGB Conc 31.6 g/dL (30.0-36.0); Mean Corpuscular Hemoglobin 27.8 pg (28.0-34.0); Mean Corpuscular Volume 88.1 fL (81-99); Mean Platelet Volume 10.5 fL (7.4-10.4); Monocytes # 0.7 10^3/uL (0.2-0.9); Monocytes % 11.2 %; Nucleated Red Blood Cells % 0 %; Platelet Count 322 10^3/cmm (130-400); Red Blood Count 4.46 10^6/uL (4.1-5.3); Red Cell Distribution Width 12.6 % (12.1-15.1); White Blood Count 6.5 10^3/uL (4.0-10.0)
[2020-04-30 03:06] LABS: Add Urine Microscopic? NO; Bilirubin Urine Neg (Negative); Blood Urine Neg (Negative); Glucose Urine UA Norm (Normal); Ketones Urine Negative (Negative); Leukocyte Esterase Urine Negative (Negative); Nitrate Urine Negative (Negative); Protein Urine Neg (Negative); Urine Appearance Clear (CLEAR); Urine Color Yellow (Yellow); Urobilinogen Urine Norm (Negative)
[2020-04-30 03:09] LABS: HCG Qualitative Urine. Negative (Negative)
[2020-04-30 03:09] LABS: Alanine Aminotransferase 9 U/L (0-33); Albumin Level 4.2 g/dL (3.5-5.2); Alkaline Phosphatase 68 IU/L (35-105); Anion Gap 10.4 (5-19); Aspartate Amino Transferase 10 U/L (0-32); Blood Urea Nitrogen 13 mg/dL (6-20); Calcium 9.2 mg/dL (8.5-10.5); Carbon Dioxide 26 mmol/L (22-29); Chloride 103 mmol/L (98-107); Creatinine Clr Calc Pharmacy 151.2892; Globulin 2.4 g/dL (1.3-4.6); Glomerular Filtration Rate 154.3 mL/min (90-130); Glucose 131 mg/dL (65-115); Lipase 28 U/L (13-60); Osmolality Calculated 284 mOsm/kg (285-295); Potassium 3.4 mmol/L (3.5-5.1); Sodium 136 mmol/L (136-145); Total Bilirubin 0.2 mg/dL (0.15-1.2); Total Protein 6.6 g/dL (6.6-8.7)
[2020-04-30 03:44] VITALS: BP 115/71; PULSE 94; RESP 16; TEMP 36.6; O2SAT 98
== END 2020-04-30 03:44 | disposition home or self-care (01) ==
PROVIDERS: Emergency Provider Emergency Medicine; PCP Family Medicine
DX: R10.9 Unspecified abdominal pain (principal); Z87.891 Personal history of nicotine dependence
CPT/HCPCS: 12345; 80053; 81003; 81025; 83690; 85025; 99282

== ENCOUNTER 2020-06-03 18:06 | Emergency (ER) | payer MEDICAID, OTHER, SELFPAY ==
[2020-06-03 18:11] VITALS: TEMP 36.4; BMI 22.3
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
[2020-06-03 18:21] VITALS: BP 136/72; PULSE 76; RESP 18; O2SAT 96
[2020-06-03] MEDS: HYDROcodone-acetaminophen 5-325 mg Tablet 1 TAB PO (18:27)
[2020-06-03] MEDS: ondansetron 4 MG Tablet PO (18:28)
[2020-06-03 19:11] LABS: HCG Qualitative Urine. Negative (Negative)
[2020-06-03 19:24] VITALS: BP 130/74; PULSE 72; RESP 18; O2SAT 96
== END 2020-06-03 19:25 | disposition home or self-care (01) ==
PROVIDERS: Emergency Provider Emergency Medicine; PCP Family Medicine
DX: S13.4XXA Sprain of ligaments of cervical spine, initial encounter (principal); V89.2XXA Person injured in unspecified motor-vehicle accident, traffic, initial encounter
CPT/HCPCS: 12345; 70450; 72125; 81025; 99281; 99283; Q0162

== ENCOUNTER 2020-07-16 15:02 | Emergency (ER) | payer MEDICAID, SELFPAY ==
[2020-07-16 15:23] VITALS: BP 119/77; PULSE 90; RESP 16; TEMP 36.7; O2SAT 98; BMI 24.4
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
[2020-07-16 16:27] VITALS: BP 114/77; RESP 16; O2SAT 98
== END 2020-07-16 16:34 | disposition home or self-care (01) ==
PROVIDERS: Emergency Provider Physician Assistant; PCP Family Medicine
DX: S16.1XXA Strain of muscle, fascia and tendon at neck level, initial encounter (principal); Z87.891 Personal history of nicotine dependence; X58.XXXA Exposure to other specified factors, initial encounter
CPT/HCPCS: 99282

== ENCOUNTER 2020-08-08 15:03 | Emergency (ER) | payer MEDICAID, SELFPAY ==
[2020-08-08 15:27] VITALS: BP 112/72; PULSE 83; RESP 16; TEMP 36.7; O2SAT 99; BMI 24.7
--- NOTE | 2020-08-08 16:09 | XRR_ITS ---
PROCEDURE INFORMATION: Exam: XR Abdomen Exam date and time: 08/08/2020 4:24 PM Age: 25 years old Clinical indication: Abdominal pain; Localized; Left; Additional info: Rule out kidney stone TECHNIQUE: Imaging protocol: XR of the abdomen. Views: Frontal supine view of the abdomen. 1 View. COMPARISON: CT abdomen pelvis w con* [id number] 12/24/2014 10:51 AM FINDINGS: Gastrointestinal tract: Normal. No bowel dilation. Bones/joints: Unremarkable. XR/XR KUB [id number] IMPRESSION: No acute findings.
[2020-08-08 16:17] LABS: Add Urine Microscopic? NO; Charge for UA Resulting for Rev
[2020-08-08 16:29] LABS: Bilirubin Urine Neg (Negative); Blood Urine Neg (Negative); Glucose Urine UA Norm (Normal); HCG Qualitative Urine. Negative (Negative); Ketones Urine Negative (Negative); Leukocyte Esterase Urine Negative (Negative); Nitrate Urine Negative (Negative); Protein Urine Neg (Negative); Sulfosalicylic Acid Urine Negative (Negative); Urine Appearance Clear (CLEAR); Urine Color Yellow (Yellow); Urobilinogen Urine Norm (Negative); pH Urine 8 (5-7)
[2020-08-08] MEDS: ketorolac 30 mg/mL INJ IVP (16:31)
[2020-08-08] MEDS: sodium chloride 0.9% 500 ML IV (16:32)
--- NOTE | 2020-08-08 16:32 | ED_ITS ---
HPI - Female Genitourinary General: Chief complaint: Urogenital-Female Stated complaint: suspects kidney stone, back pain Time Seen by Provider: 08/08/20 16:09 Source: patient Mode of arrival: ambulatory Limitations: no limitations History of Present Illness: HPI Narrative: left flank pain since this am, hx of kidney stones Female Urogenital Radiation: L Flank Severity scale (1-10): 5 Quality of pain: cramping, stabbing and aching Consistency: intermittent Vaginal discharge: none Associated symptoms: Deny abdominal pain or nausea Date of Last Menstrual Period: 07/09/20 Review of Systems General: Reports: 10 or more systems reviewed and unremarkable except in HPI and below Const: Denies: fever(s), chills or body aches GI: Denies: abdominal pain, nausea or vomiting : Reports: flank pain; Denies: difficulty voiding or dysuria PFS ED PFSH: Medical History No pertinent past medical history Denies diabetes, asthma, hypertension, seizures, DVT/PE. Surgical History History of breast lump/mass excision (~02/28/14) -patient states it was a fibroadenoma. Preformed by Dr. Bashir. Previous back surgery (~2017) 2018--Pt reports blood clot in her spine [facility] Family History Mother Diabetes Grandfather Diabetes Maternal Grandmother Diabetes Maternal Uterine cancer Maternal great grandmother Leukemia maternal grandmother Sister Thyroid condition Uterine cancer Endometriosis Social History Smoking and tobacco status: former smoker Quit status (tobacco): has quit using tobacco Year quit tobacco: 04/16/2019 Alcohol intake: never Female Reproductive History: Date of last menstrual period: 07/09/20 Physical Exam Const: COMMON NORMALS: no acute distress, patient oriented x3, no limitations and alert GENERAL APPEARANCE: cooperative and comfortable ORIENTATION/CONSCIOUSNESS: Yes awake, Yes oriented to person, Yes oriented to place and Yes oriented to time HENMT: COMMON NORMALS: normocephalic, atraumatic, external ears normal, EAC's normal, TM's normal bilaterally and Normal external nose present HEAD & SCALP: normal to inspection, normocephalic and atraumatic FACE & SINUS: normal facial exam, sinuses nontender and face symmetric NOSE: Normal external nose present, Normal nares present and No nasal discharge present EXTERNAL EAR: Yes external ears normal EXTERNAL AUDITORY CANAL: EAC's normal TYMPANIC MEMBRANE: TM's normal bilaterally MOUTH: Normal oral and palatal mucosa present, lip normal and tongue normal THROAT: posterior oropharynx normal, tonsils normal and uvula midline Eye: COMMON NORMALS: Equal, round and reactive pupils present, EOMs intact bilaterally and conjunctivae normal GENERAL EYE: appearance normal, both eyes and all related structures and normal light reflex EYELID: eyelids normal CONJUNCTIVA: Yes conjunctivae normal PUPIL: Yes Equal, round and reactive pupils present EOM: Yes EOM abnormal DIRECT OPHTHALMOSCOPY: Yes normal lig ht reflex Neck/C-Spine: COMMON NORMALS: full ROM, no lymphadenopathy, supple, no meningeal signs, no JVD and Thyroid normal GENERAL: Yes normal visual inspection THYROID: Thyroid normal CERVICAL SPINE: Yes cervical ROM normal and Yes normal cervical lordosis Lymph: LYMPHATIC: no lymphadenopathy noted Chest: COMMONS NORMALS: normal inspection of the chest and normal palpation of entire chest wall Resp: COMMON NORMALS: normal respiratory effort, No retractions and clear to auscultation bilaterally AUSCULTATION: clear to auscultation bilaterally Cardio: COMMON NORMALS: no JVD, regular rate, regular rhythm, S1 normal heart sound present, S2 normal heart sound present, No gallops present (Cardio), No clicks present (Cardio), No murmurs present (Cardio), No rub (Cardio) and Peripheral pulses 2+ throughout RATE: regular rate RHYTHM: regular rhythm HEART SOUNDS: S1 normal heart sound present and S2 normal heart sound present PERIPHERAL PULSES: Peripheral pulses 2+ throughout GI: COMMON NORMALS: Normal to inspection, nondistended, normoactive bowel sounds present, Soft to palpation, non-tender and no masses PALPATION: Yes Soft to palpation : COMMON NORMALS: Yes no CVA tenderness and Yes normal external appearance BLADDER/KIDNEY EXAM: Yes no CVA tenderness Back/Pelvis: COMMON NORMALS: no CVA tenderness, thoracic and lumbar spine normal to inspection, no thoracic nor lumbar tenderness and thoraco-lumbar ROM normal Extremity: COMMON NORMALS: normal to inspection, full ROM, capillary refill normal, no joint enlargement, no clubbing, cyanosis or edema, no calf tenderness and no pedal edema GENERAL: Yes normal exam except as noted Neuro: COMMON NORMALS: patient oriented x3, moves all extremities, no focal motor deficits, no sensory deficits noted and gait normal SENSORIUM/ORIENTATION: Yes alert, Yes oriented to person, Yes oriented to place and Yes oriented to time MENINGEAL SIGNS: Yes no meningeal signs Psych: COMMON NORMALS: mental status grossly normal, Normal thought process present, cooperative, normal affect, speech normal and activity/motor behavior normal SPEECH: Yes normal speech THOUGHT PROCESS: Normal thought process present Skin: COMMON NORMALS: no rashes or lesions noted, no wounds and turgor normal GENERAL SKIN EXAM: no rashes or lesions noted and turgor normal Course ED course: Pt presents with left flank pain that is non reproducible. She awoke this morning with discomfort that appears to be somewhat positional per her explanation. She has a hx of kidney stones and kidney infection and was hospitalized for this. UA and hcg ordered. Labs and IV ns and toradol. KUB pending negative hcg. Vital Signs: Vital signs: Vital Signs Temperature 98.1 F 08/08/20 15:27 Pulse Rate 83 08/08/20 15:27 Respiratory Rate 16 08/08/20 15:27 Blood Pressure 112/72 08/08/20 15:27 Pulse Oximetry 99 08/08/20 15:27 MDM - Female Lab Data: Labs: Lab Results 08/08/20 08/08/20 Range/Units 16:10 16:10 HCG, Qual Negative (Negative) Urine Color Yellow (Yellow) Urine Appearance Clear (CLEAR) Urine pH 8 H (5-7) Ur Specific Gravit y 1.020 (1.005-1.030) Urine Protein Neg (Negative) Urine Glucose (UA) Norm (Normal) Urine Ketones Negative (Negative) Urine Blood Neg (Negative) Urine Nitrate Negative (Negative) Urine Bilirubin Neg (Negative) Prot Sulfosalicyli c Acd Negative (Negative) Urine Urobilinogen Norm (Negative) mg/dL Ur Leukocyte Kristin ase Negative (Negative) Discharge Plan Discharge Prescriptions: No Action No Known Home Medications RF: 0 Coding Level of Care Code ED Disulfurizer Tender for Uzairg Marie
[2020-08-08 16:33] VITALS: BP 116/73; PULSE 88; RESP 18; O2SAT 99
[2020-08-08 16:45] LABS: Basophils # 0.1 10^3/uL (0.0-0.1); Basophils % 0.7 %; Eosinophils # 0.1 10^3/uL (0.0-0.8); Eosinophils % 1.4 %; Hematocrit 40.6 % (37.0-47.0); Hemoglobin 12.2 g/dL (11.5-15.3); Lymphocytes % 22.6 %; Mean Corpuscular Hemoglobin 27.5 pg (28.0-34.0); Mean Corpuscular Volume 91.6 fL (81-99); Mean Platelet Volume 10.3 fL (7.4-10.4); Monocytes % 11.3 %; Neutrophils % 63.6 %; Nucleated Red Blood Cells % 0 %; Platelet Count 324 10^3/cmm (130-400); Red Blood Count 4.43 10^6/uL (4.1-5.3); Red Cell Distribution Width 14.3 % (12.1-15.1)
[2020-08-08 17:05] LABS: Alanine Aminotransferase 9 U/L (0-33); Albumin Level 4.4 g/dL (3.5-5.2); Alkaline Phosphatase 70 IU/L (35-105); Anion Gap 16.2 (5-19); Aspartate Amino Transferase 11 U/L (0-32); Blood Urea Nitrogen 12 mg/dL (6-20); Calcium 8.7 mg/dL (8.5-10.5); Carbon Dioxide 22 mmol/L (22-29); Chloride 105 mmol/L (98-107); Globulin 2.3 g/dL (1.3-4.6); Glomerular Filtration Rate 152.9 mL/min (90-130); Glucose 84 mg/dL (65-115); Osmolality Calculated 287 mOsm/kg (285-295); Potassium 4.2 mmol/L (3.5-5.1); Sodium 139 mmol/L (136-145); Total Bilirubin 0.3 mg/dL (0.15-1.2); Total Protein 6.7 g/dL (6.6-8.7)
--- NOTE | 2020-08-08 17:28 | ED_ITS ---
HPI - Female Genitourinary General: Chief complaint: Urogenital-Female Stated complaint: suspects kidney stone, back pain Time Seen by Provider: 08/08/20 16:09 Source: patient Mode of arrival: ambulatory Limitations: no limitations History of Present Illness: HPI Narrative: Assumed care of this patient on Pretty Velazco, nurse practitioner, end of shift. Date of Last Menstrual Period: 07/09/20 Review of Systems General: Reports: 10 or more systems reviewed and unremarkable except in HPI and below Musc: Reports: other (Low back pain) PFS ED PFSH: Medical History (Updated 08/08/20 @ 17:27 by KIAN Minor) No pertinent past medical history Denies diabetes, asthma, hypertension, seizures, DVT/PE. Surgical History History of breast lump/mass excision (~02/28/14) -patient states it was a fibroadenoma. Preformed by Dr. Bashir. Previous back surgery (~2017) 2018--Pt reports blood clot in her spine [place] Family History Mother Diabetes Grandfather Diabetes Maternal Grandmother Diabetes Maternal Uterine cancer Maternal great grandmother Leukemia maternal grandmother Sister Thyroid condition Uterine cancer Endometriosis Social History Smoking and tobacco status: former smoker Quit status (tobacco): has quit using tobacco Year quit tobacco: 04/16/2019 Alcohol intake: never Female Reproductive History: Date of last menstrual period: 07/09/20 Physical Exam Const: COMMON NORMALS: no acute distress and patient oriented x3 GENERAL APPEARANCE: cooperative HENMT: COMMON NORMALS: normocephalic and Normal external nose present HEAD & SCALP: normal to inspection and normocephalic NOSE: Normal external nose present Eye: GENERAL EYE: appearance normal, both eyes and all related structures Neck/C-Spine: COMMON NORMALS: full ROM Chest: COMMONS NORMALS: normal inspection of the chest Resp: COMMON NORMALS: normal respiratory effort EFFORT & INSPECTION: Yes able to speak in complete sentences Cardio: COMMON NORMALS: regular rate and regular rhythm RATE: regular rate RHYTHM: regular rhythm GI: COMMON NORMALS: non-tender : COMMON NORMALS: Yes no CVA tenderness BLADDER/KIDNEY EXAM: Yes no CVA tenderness Back/Pelvis: COMMON NORMALS: no CVA tenderness LUMBAR SPINE/LOWER BACK: Yes paraspinal muscle spasm Lumbar paraspinal muscle spasm: left Extremity: COMMON NORMALS: normal to inspection Neuro: COMMON NORMALS: patient oriented x3 and moves all extremities Psych: COMMON NORMALS: mental status grossly normal and cooperative Skin: COMMON NORMALS: no rashes or lesions noted GENERAL SKIN EXAM: no rashes or lesions noted Course Vital Signs: Vital signs: Vital Signs Temperature 98.1 F 08/08/20 15:27 Pulse Rate 88 08/08/20 16:33 Respiratory Rate 18 08/08/20 16:33 Blood Pressure 116/73 08/08/20 16:33 Pulse Oximetry 99 08/08/20 16:33 MDM - Female MDM Narrative: Medical decision making narrative: Patient comes in today with complaints of low back pain and concern for possible kidney stone. Patient has had a history of kidney stone before in the past and although the pain today was not similar she was worried that she may have another stone. Exam notes some muscle tenderness in the left low back. Differential diagnosis includes renal calculi, muscle strain, intervertebral disc disease, facet arthropathy. KUB noted no stone. Urinalysis CBC and CMP were all unremarkable. Reviewed exam with patient recommendations for treatment for back pain. Patient reported understanding agreed to plan. Lab Data: Labs: Lab Results 08/08/20 08/08/20 08/08/20 Range/Units 16:10 16:10 16:35 WBC 9.0 (4.0-10.0) 10^3/ uL RBC 4.43 (4.1-5.3) 10^6/u L Hgb 12.2 (11.5-15.3) g/dL Hct 40.6 (37.0-47.0) % MCV 91.6 (81-99) fL MCH 27.5 L (28.0-34.0) pg MCHC 30.0 (30.0-36.0) g/dL RDW 14.3 (12.1-15.1) % Plt Count 324 (130-400) 10^3/c mm MPV 10.3 (7.4-10.4) fL Neut % (Auto) 63.6 % Lymph % (Auto) 22.6 % Levy % (Auto) 11.3 % Eos % (Auto) 1.4 % Baso % (Auto) 0.7 % Neut # (Auto) 5.70 (1.8-7.7) 10^3/u L Lymph # (Auto) 2.0 (0.8-4.8) 10^3/u L Levy # (Auto) 1.0 H (0.2-0.9) 10^3/u L Eos # (Auto) 0.1 (0.0-0.8) 10^3/u L Baso # (Auto) 0.1 (0.0-0.1) 10^3/u L Nucleated RBC % (a uto) 0 % Nucleated RBCs # 0.0 /100WBC Sodium (136-145) mmol/L Potassium (3.5-5.1) mmol/L Chloride (98-107) mmol/L Carbon Dioxide (22-29) mmol/L Anion Gap (5-19) BUN (6-20) mg/dL Creatinine (0.5-0.9) mg/dL GFR Calculation (90-130) mL/min Glucose (65-115) mg/dL Calculated Osmolal ity (285-295) mOsm/k g Calcium (8.5-10.5) mg/dL Total Bilirubin (0.15-1.2) mg/dL AST (0-32) U/L ALT (0-33) U/L Alkaline Phosphata se (35-105) IU/L Total Protein (6.6-8.7) g/dL Albumin (3.5-5.2) g/dL Globulin (1.3-4.6) g/dL HCG, Qual Negative (Negative) Urine Color Yellow (Yellow) Urine Appearance Clear (CLEAR) Urine pH 8 H (5-7) Ur Specific Gravit y 1.020 (1.005-1.030) Urine Protein Neg (Negative) Urine Glucose (UA) Norm (Normal) Urine Ketones Negative (Negative) Urine Blood Neg (Negative) Urine Nitrate Negative (Negative) Urine Bilirubin Neg (Negative) Prot Sulfosalicyli c Acd Negative (Negative) Urine Urobilinogen Norm (Negative) mg/dL Ur Leukocyte Kristin ase Negative (Negative) 08/08/20 Range/Units 16:35 WBC (4.0-10.0) 10^3/ uL RBC (4.1-5.3) 10^6/u L Hgb (11.5-15.3) g/dL Hct (37.0-47.0) % MCV (81-99) fL MCH (28.0-34.0) pg MCHC (30.0-36.0) g/dL RDW (12.1-15.1) % Plt Count (130-400) 10^3/c mm MPV (7.4-10.4) fL Neut % (Auto) % Lymph % (Auto) % Levy % (Auto) % Eos % (Auto) % Baso % (Auto) % Neut # (Auto) (1.8-7.7) 10^3/u L Lymph # (Auto) (0.8-4.8) 10^3/u L Levy # (Auto) (0.2-0.9) 10^3/u L Eos # (Auto) (0.0-0.8) 10^3/u L Baso # (Auto) (0.0-0.1) 10^3/u L Nucleated RBC % (a uto) % Nucleated RBCs # /100WBC Sodium 139 (136-145) mmol/L Potassium 4.2 (3.5-5.1) mmol/L Chloride 105 (98-107) mmol/L Carbon Dioxide 22 (22-29) mmol/L Anion Gap 16.2 (5-19) BUN 12 (6-20) mg/dL Creatinine 0.5 (0.5-0.9) mg/dL GFR Calculation 152.9 H (90-130) mL/min Glucose 84 (65-115) mg/dL Calculated Osmolal ity 287 (285-295) mOsm/k g Calcium 8.7 (8.5-10.5) mg/dL Total Bilirubin 0.3 (0.15-1.2) mg/dL AST 11 (0-32) U/L ALT 9 (0-33) U/L Alkaline Phosphata se 70 (35-105) IU/L Total Protein 6.7 (6.6-8.7) g/dL Albumin 4.4 (3.5-5.2) g/dL Globulin 2.3 (1.3-4.6) g/dL HCG, Qual (Negative) Urine Color (Yellow) Urine Appearance (CLEAR) Urine pH (5-7) Ur Specific Gravit y (1.005-1.030) Urine Protein (Negative) Urine Glucose (UA) (Normal) Urine Ketones (Negative) Urine Blood (Negative) Urine Nitrate (Negative) Urine Bilirubin (Negative) Prot Sulfosalicyli c Acd (Negative) Urine Urobilinogen (Negative) mg/dL Ur Leukocyte Kristin ase (Negative) Discharge Plan Discharge Patient Disposition: Home Clinical Impression: Low back pain Qualifiers: Chronicity: acute Back pain laterality: left Sciatica presence: without sciatica Qualified Code(s): M54.5 - Low back pain Condition: Stable Prescriptions: New diclofenac potassium 50 mg tablet 50 mg PO Q8H PRN (Reason: pain) Qty: 12 RF: 0 tizanidine 4 mg tablet 4 mg PO Q8H PRN (Reason: muscle spasticity) Qty: 12 RF: 0 Discharge Orders: Discharge ED (Routine); Ordered 08/08/20 Ordered By: Srini Miller Referrals: Otoniel Gar MD [Primary Care Provider] - Discharge Diet: Usual diet Discharge Activity: Increase activity as tolerated Patient Instructions: Acute Low Back Pain (ED), Opioid Safety Activity Restrictions/Additional Instructions: Gentle stretching and range of motion exercises. Drink plenty of water with medication. Use medications as directed. Most back pain recover within 7 days. Follow-up with primary care as needed for recheck. Return to the emergency department for blood in urine, high fever, or uncontrolled pain. Sign Out Sign Out Data: Patient Sign Out occurred on 08/08/20 at 17:02. Patient's care was discussed, and care was transferred from to Srini Miller. Coding Level of Care Code ED Wood Heel Flap Inserter for Yajaira Salazar
[2020-08-08 17:35] VITALS: BP 116/73; PULSE 88; RESP 18; O2SAT 99
== END 2020-08-08 17:35 | disposition home or self-care (01) ==
PROVIDERS: Nurse Practitioner Family; Emergency Provider Nurse Practitioner Family; PCP Family Medicine
DX: M54.5 Low back pain (principal); Z87.891 Personal history of nicotine dependence
CPT/HCPCS: 74018; 80053; 81003; 81025; 85025; 96361; 96374; 99283; J1885; J7040

== ENCOUNTER 2020-10-11 23:03 | Emergency (ER) | payer MEDICAID, SELFPAY ==
[2020-10-11 23:08] VITALS: BP 127/78; PULSE 94; RESP 16; TEMP 36.8; O2SAT 99; BMI 24.7
--- NOTE | 2020-10-11 23:18 | XRR_ITS ---
PROCEDURE INFORMATION: Exam: XR Chest Exam date and time: 10/11/2020 11:18 PM Age: 25 years old Clinical indication: Sternal or substernal pain; Additional info: Cp TECHNIQUE: Imaging protocol: XR of the chest. Views: 1 view. COMPARISON: CR XR chest 1V portable [id number] 07/01/2019 6:37 PM FINDINGS: Lungs: Unremarkable. No consolidation. Pleural spaces: Unremarkable. No pleural effusion. No pneumothorax. Heart/Mediastinum: Unremarkable. No cardiomegaly. Bones/joints: Unremarkable. XR/XR chest 1V portable [id number] IMPRESSION: No acute findings.
--- NOTE | 2020-10-11 23:18 | W.ED.GENADLT ---
HPI - General Adult General: Chief complaint: General Medical Stated complaint: feels faint, confused, dizzy, CP, vision blurry Time Seen by Provider: 10/11/20 23:18 History of Present Illness: HPI narrative: 25-year-old female here with multiple complaints consisting of chest discomfort, dizziness, generalized weakness, and muscle aches. Onset 1 to 2 days ago. Onset (ago): day(s) Location: head, chest and lower extremity Radiation: non-radiation Severity: moderate Pain Consistency: intermittent Relieving factors: none Exacerbating factors: none Associated symptoms: Reports chest pain, confusion (??), cough, dyspnea, headache(s), nausea, short of breath and weakness (Generalized); Deny diaphoresis, fevers/chills or vomiting Review of Systems Const: Reports: body aches; Denies: fever(s), chills or diaphoresis Eyes: Reports: blurry vision (Intermittent) Card: Reports: chest pain Resp: Reports: dyspnea GI: Reports: nausea; Denies: vomiting : Denies: flank pain or difficulty voiding Neuro: Reports: headache(s) and confusion (??) PFSH ED PFSH: Medical History (Updated 10/12/20 @ 03:39 by Pablo Urbina DO) No pertinent past medical history Denies diabetes, asthma, hypertension, seizures, DVT/PE. Surgical History History of breast lump/mass excision (~02/28/14) -patient states it was a fibroadenoma. Preformed by Dr. Bashir. Previous back surgery (~2017) 2018--Pt reports blood clot in her spine [facility] Family History Mother Diabetes Grandfather Diabetes Maternal Grandmother Diabetes Maternal Uterine cancer Maternal great grandmother Leukemia maternal grandmother Sister Thyroid condition Uterine cancer Endometriosis Social History Smoking and tobacco status: former smoker Quit status (tobacco): has quit using tobacco Year quit tobacco: 04/16/2019 Alcohol intake: never Female Reproductive History: Date of last menstrual period: 09/11/20 Physical Exam Const: GENERAL APPEARANCE: well developed ORIENTATION/CONSCIOUSNESS: Yes oriented to person, Yes oriented to place and Yes oriented to time HENMT: COMMON NORMALS: normocephalic, external ears normal and Normal external nose present HEAD & SCALP: normocephalic FACE & SINUS: normal facial exam NOSE: Normal external nose present and No nasal discharge present EXTERNAL EAR: Yes external ears normal TYMPANIC MEMBRANE: TM abnormal TM laterality: left Details: bulging, dull and fluid behind TM MOUTH: Normal oral and palatal mucosa present THROAT: posterior oropharynx normal; no peritonsillar mass Eye: COMMON NORMALS: Equal, round and reactive pupils present, EOMs intact bilaterally and conjunctivae normal EYELID: eyelids normal CONJUNCTIVA: Yes conjunctivae normal PUPIL: Yes Equal, round and reactive pupils present Neck/C-Spine: COMMON NORMALS: full ROM GENERAL: No tracheal deviation CERVICAL SPINE: Yes normal cervical lordosis and No Cervical spine tenderness Chest: COMMONS NORMALS: normal inspection of the chest CHEST: No tenderness Resp: COMMON NORMALS: clear to auscultation bilaterally EFFORT & INSPECTION: No tachypneic, No respiratory distress, No retractions, No uses accessory muscles and No tracheal deviation AUSCULTATION: clear to auscultation bilaterally, no rhonchi, no wheezes and lung sounds not diminished Cardio: COMMON NORMALS: regular rate and regular rhythm RATE: regular rate RHYTHM: regular rhythm HEART SOUNDS: no murmurs PERIPHERAL PULSES: radial pulses present GI: INSPECTION: No abdominal distension AUSCULTATION: No Hyperactive bowel sounds present and No Hypoactive bowel sounds present PALPATION: No Guarding due to palpation present (GI) and No Rigid due to palpation PERCUSSION: no dullness to percussion and no tympanic to percussion Neuro: SENSORIUM/ORIENTATION: Yes oriented to person, Yes oriented to place and Yes oriented to time Psych: COMMON NORMALS: mental status grossly normal Skin: COMMON NORMALS: no rashes or lesions noted GENERAL SKIN EXAM: no rashes or lesions noted Course Vital Signs: Vital signs: Vital Signs Temperature 98.2 F 10/11/20 23:08 Pulse Rate 94 10/11/20 23:08 Respiratory Rate 16 10/11/20 23:08 Blood Pressure 127/78 10/11/20 23:08 Pulse Oximetry 99 10/11/20 23:08 MDM - General Adult MDM Narrative: Medical decision making narrative: Laboratory is benign including urine. She feels better after IV fluids. Her troponin is 6. Her EKG is normal. She will be allowed home. She is not tachycardic, not hypoxic. Lab Data: Labs: Lab Results 10/12/20 10/12/20 10/12/20 Range/Units 00:05 01:39 01:39 WBC 7.3 (4.0-10.0) 10^3/ uL RBC 4.22 (4.1-5.3) 10^6/u L Hgb 11.7 (11.5-15.3) g/dL Hct 37.1 (37.0-47.0) % MCV 87.9 (81-99) fL MCH 27.7 L (28.0-34.0) pg MCHC 31.5 (30.0-36.0) g/dL RDW 14.2 (12.1-15.1) % Plt Count 214 (130-400) 10^3/c mm MPV 10.6 H (7.4-10.4) fL Neut % (Auto) 67.7 % Lymph % (Auto) 19.0 % [place] % (Auto) 11.0 % Eos % (Auto) 1.4 % Baso % (Auto) 0.6 % Neut # (Auto) 4.91 (1.8-7.7) 10^3/u L Lymph # (Auto) 1.4 (0.8-4.8) 10^3/u L [place] # (Auto) 0.8 (0.2-0.9) 10^3/u L Eos # (Auto) 0.1 (0.0-0.8) 10^3/u L Baso # (Auto) 0.0 (0.0-0.1) 10^3/u L Nucleated RBC % (a uto) 0 % Nucleated RBCs # 0.0 /100WBC Sodium 138 (136-145) mmol/L Potassium 3.6 (3.5-5.1) mmol/L Chloride 106 (98-107) mmol/L Carbon Dioxide 24 (22-29) mmol/L Anion Gap 11.6 (5-19) BUN 11 (6-20) mg/dL Creatinine 0.5 (0.5-0.9) mg/dL GFR Calculation 152.9 H (90-130) mL/min Glucose 92 (65-115) mg/dL Calculated Osmolal ity 285 (285-295) mOsm/k g Calcium 8.4 L (8.5-10.5) mg/dL Total Bilirubin 0.2 (0.15-1.2) mg/dL AST 11 (0-32) U/L ALT 10 (0-33) U/L Alkaline Phosphata se 61 (35-105) IU/L Creatine Kinase 43 (26-192) U/L Troponin T Gen 5 n g/L (0-10) ng/L Total Protein 6.3 L (6.6-8.7) g/dL Albumin 4.0 (3.5-5.2) g/dL Globulin 2.3 (1.3-4.6) g/dL HCG, Qual (Negative) Urine Color Yellow (Yellow) Urine Appearance Sl hazy (CLEAR) Urine pH 6 (5-7) Ur Specific Gravit y 1.020 (1.005-1.030) Urine Protein Neg (Negative) Urine Glucose (UA) Norm (Normal) Urine Ketones Negative (Negative) Urine Blood Neg (Negative) Urine Nitrate Positive H (Negative) Urine Bilirubin Neg (Negative) Urine Urobilinogen Norm (Negative) mg/dL Ur Leukocyte Kristin ase Negative (Negative) Urine RBC 0-4 H (0-2) /hpf Urine WBC 0-4 H (0-5) /hpf Ur Squamous Epith Cells 15-25 H (0-5) /hpf Amorphous Sediment Not Reportable Urine Bacteria 4+ H (NONE) /hpf SARS-CoV-2 Ag (Rap id) (Negative) 10/12/20 10/12/20 10/12/20 Range/Units 01:39 01:39 01:55 WBC (4.0-10.0) 10^3/ uL RBC (4.1-5.3) 10^6/u L Hgb (11.5-15.3) g/dL Hct (37.0-47.0) % MCV (81-99) fL MCH (28.0-34.0) pg MCHC (30.0-36.0) g/dL RDW (12.1-15.1) % Plt Count (130-400) 10^3/c mm MPV (7.4-10.4) fL Neut % (Auto) % Lymph % (Auto) % [place] % (Auto) % Eos % (Auto) % Baso % (Auto) % Neut # (Auto) (1.8-7.7) 10^3/u L Lymph # (Auto) (0.8-4.8) 10^3/u L [place] # (Auto) (0.2-0.9) 10^3/u L Eos # (Auto) (0.0-0.8) 10^3/u L Baso # (Auto) (0.0-0.1) 10^3/u L Nucleated RBC % (a uto) % Nucleated RBCs # /100WBC Sodium (136-145) mmol/L Potassium (3.5-5.1) mmol/L Chloride (98-107) mmol/L Carbon Dioxide (22-29) mmol/L Anion Gap (5-19) BUN (6-20) mg/dL Creatinine (0.5-0.9) mg/dL GFR Calculation (90-130) mL/min Glucose (65-115) mg/dL Calculated Osmolal ity (285-295) mOsm/k g Calcium (8.5-10.5) mg/dL Total Bilirubin (0.15-1.2) mg/dL AST (0-32) U/L ALT (0-33) U/L Alkaline Phosphata se (35-105) IU/L Creatine Kinase (26-192) U/L Troponin T Gen 5 n g/L 6 (0-10) ng/L Total Protein (6.6-8.7) g/dL Albumin (3.5-5.2) g/dL Globulin (1.3-4.6) g/dL HCG, Qual Negative (Negative) Urine Color (Yellow) Urine Appearance (CLEAR) Urine pH (5-7) Ur Specific Gravit y (1.005-1.030) Urine Protein (Negative) Urine Glucose (UA) (Normal) Urine Ketones (Negative) Urine Blood (Negative) Urine Nitrate (Negative) Urine Bilirubin (Negative) Urine Urobilinogen (Negative) mg/dL Ur Leukocyte Kristin ase (Negative) Urine RBC (0-2) /hpf Urine WBC (0-5) /hpf Ur Squamous Epith Cells (0-5) /hpf Amorphous Sediment Urine Bacteria (NONE) /hpf SARS-CoV-2 Ag (Rap id) Negative (Negative) Discharge Plan Discharge Patient Disposition: Home Clinical Impression: Chest pain Qualifiers: Chest pain type: unspecified Qualified Code(s): R07.9 - Chest pain, unspecified Condition: Stable Prescriptions: No Action diclofenac potassium 50 mg tablet 50 mg PO Q8H PRN (Reason: pain) Qty: 12 RF: 0 tizanidine 4 mg tablet 4 mg PO Q8H PRN (Reason: muscle spasticity) Qty: 12 RF: 0 Discharge Orders: Discharge ED (Routine); Ordered 10/12/20 Ordered By: Pablo Urbina Referrals: Otoniel Gar MD [Primary Care Provider] - 4-7 days Activity Restrictions/Additional Instructions: Return for repeated episodes of chest pain, inability to control fever, worsening cough, shortness of breath, any other concerning symptoms. Coding Level of Care Code ED Soil Conservation Teacher for Yajaira Salazar
--- NOTE | 2020-10-11 23:19 | ECG_ITS ---
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 Measurements Intervals [place] Rate: 74 P: 58 AK: 159 QRS: 45 QRSD: 96 T: 26 QT: 340 QTc: 378 Interpretive Statements SINUS RHYTHM WARNING: DATA QUALITY MAY AFFECT INTERPRETATION Compared to ECG 07/01/2019 18:39:27 No significant changes Electronically Signed On 10-12-2020 19:08:33 CDT by Kallie Chaudhari M.D. [email or web address] mentor [id number]
[2020-10-12 01:13] LABS: Add Urine Microscopic? YES; Bilirubin Urine Neg (Negative); Blood Urine Neg (Negative); Glucose Urine UA Norm (Normal); Ketones Urine Negative (Negative); Leukocyte Esterase Urine Negative (Negative); Nitrate Urine Positive (Negative); Protein Urine Neg (Negative); Urine Appearance SL Hazy (CLEAR); Urine Color Yellow (Yellow); Urobilinogen Urine Norm (Negative); pH Urine 6 (5-7)
[2020-10-12 01:14] LABS: Add Urine Culture? No; Bacteria Urine 4+ /hpf; RBC Urine 0-4 /hpf (0-2); Squamous Epithelial Cell Urine 15-25 /hpf (0-5); WBC Urine 0-4 /hpf (0-5)
[2020-10-12 01:51] LABS: Basophils % 0.6 %; Eosinophils # 0.1 10^3/uL (0.0-0.8); Eosinophils % 1.4 %; Hematocrit 37.1 % (37.0-47.0); Hemoglobin 11.7 g/dL (11.5-15.3); Lymphocytes # 1.4 10^3/uL (0.8-4.8); Mean Corpuscular HGB Conc 31.5 g/dL (30.0-36.0); Mean Corpuscular Hemoglobin 27.7 pg (28.0-34.0); Mean Corpuscular Volume 87.9 fL (81-99); Mean Platelet Volume 10.6 fL (7.4-10.4); Monocytes # 0.8 10^3/uL (0.2-0.9); Neutrophils # 4.91 10^3/uL (1.8-7.7); Neutrophils % 67.7 %; Nucleated Red Blood Cells % 0 %; Platelet Count 214 10^3/cmm (130-400); Red Blood Count 4.22 10^6/uL (4.1-5.3); Red Cell Distribution Width 14.2 % (12.1-15.1); White Blood Count 7.3 10^3/uL (4.0-10.0)
[2020-10-12] MEDS: sodium chloride 0.9% 1,000 ML 999 ML IV (01:57)
[2020-10-12 02:01] LABS: HCG, Serum Qual Negative (Negative)
[2020-10-12 02:09] LABS: Troponin T (5th) Once 6 ng/L (0-10)
[2020-10-12 02:11] LABS: Alanine Aminotransferase 10 U/L (0-33); Alkaline Phosphatase 61 IU/L (35-105); Anion Gap 11.6 (5-19); Aspartate Amino Transferase 11 U/L (0-32); Blood Urea Nitrogen 11 mg/dL (6-20); Calcium 8.4 mg/dL (8.5-10.5); Carbon Dioxide 24 mmol/L (22-29); Chloride 106 mmol/L (98-107); Creatine Phosphokinase 43 U/L (26-192); Globulin 2.3 g/dL (1.3-4.6); Glomerular Filtration Rate 152.9 mL/min (90-130); Glucose 92 mg/dL (65-115); Osmolality Calculated 285 mOsm/kg (285-295); Potassium 3.6 mmol/L (3.5-5.1); Sodium 138 mmol/L (136-145); Total Bilirubin 0.2 mg/dL (0.15-1.2); Total Protein 6.3 g/dL (6.6-8.7)
[2020-10-12 02:42] LABS: SARS Covid-2 Antigen Negative (Negative)
[2020-10-12 04:21] VITALS: BP 126/84; PULSE 84; RESP 16; TEMP 37; O2SAT 98
== END 2020-10-12 04:24 | disposition home or self-care (01) ==
PROVIDERS: Emergency Provider Emergency Medicine; PCP Family Medicine
DX: R07.9 Chest pain, unspecified (principal); Z87.891 Personal history of nicotine dependence
CPT/HCPCS: 71045; 80053; 81001; 82550; 84484; 84703; 85025; 87426; 93005; 96360; 99283; J7030

== ENCOUNTER 2020-10-17 21:52 | Emergency (ER) | payer MEDICAID, SELFPAY ==
[2020-10-17 22:11] VITALS: BP 115/74; PULSE 81; RESP 14; TEMP 36.2; O2SAT 96; BMI 23.0
--- NOTE | 2020-10-17 23:11 | ED_ITS ---
HPI - Headache General: Chief Complaint: Headache Stated Complaint: migraine Time Seen by Provider: 10/17/20 23:04 History of Present Illness: HPI Narrative: 25-year-old female who says she has had a headache for a week. She gets migraines often. She says when they come they last about a week. She vomited a couple of times today, and was not feeling well, so came to the emergency room. She denies vision changes, auras, seizures, syncope, etc. MD elicited complaint: headache and migraine Pertinent past history: other Onset (ago): day(s) Onset description: gradually Location: right, frontal and temporal Quality & Timing: aching and throbbing Exacerbating factors: exertion and light Relieving factors: nothing Context: occurred at rest Associated symptoms: Reports nausea and vomiting; Deny chest pain, confusion, cough, eye pain, fever(s), loss of vision, neck stiffness, rash or short of breath Treatments prior to arrival: acetaminophen Review of Systems Const: Denies: fever(s) Card: Denies: chest pain Resp: Denies: dyspnea, productive cough or non-productive cough GI: Reports: nausea and vomiting Skin/Breast: Denies: rash Neuro: Denies: confusion PFSH ED PFSH: Medical History (Updated 10/18/20 @ 00:40 by Pablo Urbina DO) No pertinent past medical history Denies diabetes, asthma, hypertension, seizures, DVT/PE. Surgical History History of breast lump/mass excision (~02/28/14) -patient states it was a fibroadenoma. Preformed by Dr. Bashir. Previous back surgery (~2017) 2018--[facility] Family [facility] Mother Diabetes Grandfather Diabetes Maternal Grandmother Diabetes Maternal Uterine cancer Maternal great grandmother Leukemia maternal grandmother Sister Thyroid condition Uterine cancer Endometriosis Social History Smoking and tobacco status: former smoker Quit status (tobacco): has quit using tobacco Year quit tobacco: 04/16/2019 Alcohol intake: never Female Reproductive History: Date of last menstrual period: 10/17/20 Physical Exam Const: GENERAL APPEARANCE: well developed ORIENTATION/CONSCIOUSNESS: Yes oriented to person, Yes oriented to place and Yes oriented to time HENMT: COMMON NORMALS: Normal external nose present FACE & SINUS: normal facial exam NOSE: Normal external nose present and No nasal discharge present TEETH & GINGIVA: no abnormal tooth and associated gingiva THROAT: posterior oropharynx normal; no peritonsillar mass Eye: COMMON NORMALS: Equal, round and reactive pupils present, EOMs intact bilaterally and conjunctivae normal EYELID: eyelids normal CONJUNCTIVA: Yes conjunctivae normal PUPIL: Yes Equal, round and reactive pupils present Neck/C-Spine: GENERAL: No tracheal deviation Chest: COMMONS NORMALS: normal inspection of the chest CHEST: No tenderness Resp: COMMON NORMALS: clear to auscultation bilaterally EFFORT & INSPECTION: No tachypneic, No respiratory distress, No retractions, No uses accessory muscles and No tracheal deviation AUSCULTATION: clear to auscultation bilaterally, no rhonchi, no wheezes and lung sounds not diminished Cardio: COMMON NORMALS: regular rate and regular rhythm RATE: regular rate RHYTHM: regular rhythm HEART SOUNDS: no murmurs PERIPHERAL PULSES: radial pulses present Neuro: COMMON NORMALS: CN's II-XII intact bilaterally SENSORIUM/ORIENTATION: Yes oriented to person, Yes oriented to place and Yes oriented to time COORDINATION/BALANCE: [id number] test normal SPEECH: speech normal GAIT: Yes Unable to assess gait SENSORY EXAM: Yes extremities (intact) MOTOR EXAM: Pronator motor function not present and Normal motor muscle tone present throughout COORDINATION: [id number] test normal Psych: COMMON NORMALS: mental status grossly normal Skin: COMMON NORMALS: no rashes or lesions noted GENERAL SKIN EXAM: no rashes or lesions noted Course Vital Signs: Vital signs: Vital Signs Temperature 97.2 F L 10/17/20 22:11 Pulse Rate 81 10/17/20 22:11 Respiratory Rate 14 10/17/20 22:11 Blood Pressure 115/74 10/17/20 22:11 Pulse Oximetry 96 10/17/20 22:11 MDM - Headache MDM Narrative: Medical decision making narrative: Headache improved after Toradol and Zofran. The patient declined valproic acid. Discharge Plan Discharge Patient Disposition: Home Clinical Impression: Migraine Qualifiers: Migraine type: without aura Status migrainosus presence: with status migrainosus Intractability: not intractable Qualified Code(s): G43.001 - Migraine without aura, not intractable, with status migrainosus Condition: Stable Prescriptions: No Action diclofenac potassium 50 mg tablet 50 mg PO Q8H PRN (Reason: pain) Qty: 12 RF: 0 tizanidine 4 mg tablet 4 mg PO Q8H PRN (Reason: muscle spasticity) Qty: 12 RF: 0 Discharge Orders: Discharge ED (Routine); Ordered 10/18/20 Ordered By: Pablo Urbina Referrals: Otoniel Gar MD [Primary Care Provider] - 4-7 days Patient Instructions: Headache - Migraine (Adult) Activity Restrictions/Additional Instructions: Return for worsening headache, mental status changes, vomiting liquids or medications, fever greater than 100, any other concerning symptoms. Coding Level of Care Code ED Credit Risk Review Officer for Yajaira Fwd Exam Comprehensive
[2020-10-17] MEDS: ketorolac 30 mg/mL INJ 15 MG IVP (23:45)
[2020-10-17] MEDS: ondansetron 2 mg/ML SDV 2 mL 4 MG IVP (23:45)
--- NOTE | 2020-10-18 00:02 | PC.NURSE ---
Pt refused order for Valporic Acid
[2020-10-18 00:47] VITALS: BP 120/72; PULSE 88; RESP 16; O2SAT 98
== END 2020-10-18 00:48 | disposition home or self-care (01) ==
PROVIDERS: Emergency Provider Emergency Medicine; PCP Family Medicine
DX: G43.001 Migraine without aura, not intractable, with status migrainosus (principal); Z87.891 Personal history of nicotine dependence
CPT/HCPCS: 96374; 96375; 99284; J1885; J2405

== ENCOUNTER 2020-11-08 22:12 | Emergency (ER) | payer MEDICAID, SELFPAY ==
[2020-11-08 22:29] VITALS: BP 124/80; PULSE 107; RESP 18; TEMP 36.7; O2SAT 98; BMI 23.0
--- NOTE | 2020-11-08 22:41 | XRR_ITS ---
PROCEDURE INFORMATION: Exam: XR Chest Exam date and time: 11/08/2020 10:41 PM Age: 25 years old Clinical indication: Cough TECHNIQUE: Imaging protocol: XR of the chest. Views: 1 view. COMPARISON: CR (CHEST, ) 10/12/2020 12:04 AM FINDINGS: Lungs: Unremarkable. No consolidation. Pleural spaces: Unremarkable. No pleural effusion. No pneumothorax. Heart/Mediastinum: Unremarkable. No cardiomegaly. Bones/joints: Unremarkable. XR/XR chest 1V portable [id number] IMPRESSION: No acute findings.
--- NOTE | 2020-11-08 23:10 | W.ED.ABDPA2 ---
HPI - Abdominal Pain General: Chief Complaint: Abdominal Pain Stated Complaint: Chest Pains Shortness of Breath Time Seen by Provider: 11/08/20 22:37 History of Present Illness: HPI narrative: Patient complains about upper GI pain the last couple weeks. Also says pain goes into her neck at times. Has had lots of problems with reflux recently. MD elicited complaint: abdominal pain Pertinent past history: other (Reflux) Onset (ago): week(s) Pain Consistency: intermittent Location: Epigastric Severity: mild Quality: aching and burning Radiation: other (Right side of neck) Exacerbating factors: eating and other (Breathing and deep) Associated Symptoms: Reports no associated symptoms and heartburn; Denies chills, fever(s), nausea and vomiting Related Data: Date of Last Menstrual Period: 11/08/20 Review of Systems Const: Denies: fever(s), chills or body aches Eyes: Denies: change in vision or blurry vision ENMT: Denies: throat pain or nasal congestion Card: Denies: chest pain or dyspnea on exertion Resp: Reports: other (Pain with inspiration GI area); Denies: dyspnea, productive cough or non-productive cough GI: Reports: heartburn; Denies: abdominal pain, nausea or vomiting Musc: Denies: extremity pain Skin/Breast: Denies: rash Neuro: Denies: headache(s) Psych: Denies: anxiety or depression Joni/Lymph: Denies: easy bruising PFS ED PFSH: Medical History (Updated 11/08/20 @ 23:52 by KIAN Howell) No pertinent past medical history Denies diabetes, asthma, hypertension, seizures, DVT/PE. Surgical History History of breast lump/mass excision (~02/28/14) -patient states it was a fibroadenoma. Preformed by Dr. Bashir. Previous back surgery (~2017) 2018--Pt reports blood clot in her spine [facility] Family History Mother Diabetes Grandfather Diabetes Maternal Grandmother Diabetes Maternal Uterine cancer Maternal great grandmother Leukemia maternal grandmother Sister Thyroid condition Uterine cancer Endometriosis Social History Smoking and tobacco status: former smoker Quit status (tobacco): has quit using tobacco Year quit tobacco: 04/16/2019 Alcohol intake: never Female Reproductive History: Date of last menstrual period: 11/08/20 Physical Exam Const: COMMON NORMALS: no acute distress, average body habitus and patient oriented x3 HENMT: COMMON NORMALS: normocephalic HEAD & SCALP: normal to inspection and normocephalic FACE & SINUS: normal facial exam Eye: COMMON NORMALS: conjunctivae normal GENERAL EYE: appearance normal, both eyes and all related structures CONJUNCTIVA: Yes conjunctivae normal Neck/C-Spine: COMMON NORMALS: no JVD Chest: COMMONS NORMALS: normal inspection of the chest Resp: COMMON NORMALS: normal respiratory effort and clear to auscultation bilaterally AUSCULTATION: clear to auscultation bilaterally Cardio: COMMON NORMALS: no JVD, regular rate and regular rhythm RATE: regular rate RHYTHM: regular rhythm GI: COMMON NORMALS: Normal to inspection, nondistended, normoactive bowel sounds present PALPATION: Yes Tenderness to palpation present (GI) Details: other (Epigastric) Extremity: COMMON NORMALS: normal to inspection and full ROM Neuro: COMMON NORMALS: patient oriented x3 Course Vital Signs: Vital signs: Vital Signs Temperature 98.1 F 11/08/20 22:29 Pulse Rate 107 H 11/08/20 22:29 Respiratory Rate 18 11/08/20 22:29 Blood Pressure 124/80 11/08/20 22:29 Pulse Oximetry 98 11/08/20 22:29 MDM - Abdominal Pain MDM Narrative: Medical decision making narrative: GI cocktail worked well for her chest pain. It was gone after administration.. Patient did relate me she is on a lot of stress and had a lot of muscle tightness in her neck and would like something for anxiety and stress. Labs did show hypokalemia 3.1 potassium. Encourage her to follow-up primary care provider and discuss this with them and also get a recheck potassium. Did discuss stress management, massage, other environmental factors affecting her. I cannot get EKG to go in a section needs to but sinus rhythm normal EKG ventricular rate 91 bpm ME interval 150 ms QRS duration 90 ms QT is 327 ms Lab Data: Labs: Lab Results 11/08/20 11/08/20 11/08/20 Range/Units 23:00 23:00 23:00 WBC 8.7 (4.0-10.0) 10^3/ uL RBC 4.59 (4.1-5.3) 10^6/u L Hgb 13.0 (11.5-15.3) g/dL Hct 39.7 (37.0-47.0) % MCV 86.5 (81-99) fL MCH 28.3 (28.0-34.0) pg MCHC 32.7 (30.0-36.0) g/dL RDW 13.8 (12.1-15.1) % Plt Count 275 (130-400) 10^3/c mm MPV 10.2 (7.4-10.4) fL Neut % (Auto) 69.2 % Lymph % (Auto) 18.8 % [place] % (Auto) 10.9 % Eos % (Auto) 0.3 % Baso % (Auto) 0.5 % Neut # (Auto) 6.05 (1.8-7.7) 10^3/u L Lymph # (Auto) 1.6 (0.8-4.8) 10^3/u L [place] # (Auto) 1.0 H (0.2-0.9) 10^3/u L Eos # (Auto) 0.0 (0.0-0.8) 10^3/u L Baso # (Auto) 0.0 (0.0-0.1) 10^3/u L Nucleated RBC % (a uto) 0 % Nucleated RBCs # 0.0 /100WBC Sodium 135 L (136-145) mmol/L Potassium 3.1 L (3.5-5.1) mmol/L Chloride 102 (98-107) mmol/L Carbon Dioxide 23 (22-29) mmol/L Anion Gap 13.1 (5-19) BUN 11 (6-20) mg/dL Creatinine 0.6 (0.5-0.9) mg/dL GFR Calculation 123.9 (90-130) mL/min Glucose 104 (65-115) mg/dL Calculated Osmolal ity 280 L (285-295) mOsm/k g Calcium 9.4 (8.5-10.5) mg/dL Troponin T Gen 5 n g/L 6 (0-10) ng/L Discharge Plan Discharge Patient Disposition: Home Clinical Impression: Stress, Hypokalemia, Chest pain due to GERD Condition: Stable Prescriptions: New Prilosec OTC 20 mg tablet,delayed release (DR/EC) 20 mg PO DAILY Qty: 20 RF: 0 Vistaril 25 mg capsule 25 mg PO TID PRN (Reason: anxiety) Qty: 14 RF: 0 No Action diclofenac potassium 50 mg tablet 50 mg PO Q8H PRN (Reason: pain) Qty: 12 RF: 0 tizanidine 4 mg tablet 4 mg PO Q8H PRN (Reason: muscle spasticity) Qty: 12 RF: 0 Discharge Orders: Discharge ED (Routine); Ordered 11/09/20 Ordered By: Alejo Swenson Referrals: Otoniel Gar MD [Primary Care Provider] - Discharge Diet: As Directed Discharge Activity: Increase activity as tolerated Patient Instructions: Hypokalemia (ED), Stress (ED), Gastroesophageal Reflux Disease (ED), Opioid Safety Activity Restrictions/Additional Instructions: Follow-up with medical provider as directed. Take medications as prescribed. Return to the ER or your medical provider if condition worsens. Please read and understand discharge instructions. If any questions ask please. Follow-up your primary care provider this coming week and get potassium rechecked. Coding Level of Care Code ED Quartz Mounter for Yajaira Fwsharon Exam Comprehensive
[2020-11-08 23:11] LABS: Basophils % 0.5 %; Eosinophils % 0.3 %; Hematocrit 39.7 % (37.0-47.0); Lymphocytes # 1.6 10^3/uL (0.8-4.8); Lymphocytes % 18.8 %; Mean Corpuscular HGB Conc 32.7 g/dL (30.0-36.0); Mean Corpuscular Hemoglobin 28.3 pg (28.0-34.0); Mean Corpuscular Volume 86.5 fL (81-99); Mean Platelet Volume 10.2 fL (7.4-10.4); Monocytes % 10.9 %; Neutrophils # 6.05 10^3/uL (1.8-7.7); Neutrophils % 69.2 %; Nucleated Red Blood Cells % 0 %; Platelet Count 275 10^3/cmm (130-400); Red Blood Count 4.59 10^6/uL (4.1-5.3); Red Cell Distribution Width 13.8 % (12.1-15.1); White Blood Count 8.7 10^3/uL (4.0-10.0)
[2020-11-08 23:27] LABS: Troponin T (5th) Once 6 ng/L (0-10)
[2020-11-08] MEDS: lidocaine 2% viscous 15 ML, aluminum-mag hydrox-simethicon 30 ML, sucralfate oral liq 1 GM PO (23:28)
[2020-11-08 23:30] LABS: Anion Gap 13.1 (5-19); Blood Urea Nitrogen 11 mg/dL (6-20); Calcium 9.4 mg/dL (8.5-10.5); Carbon Dioxide 23 mmol/L (22-29); Chloride 102 mmol/L (98-107); Creatinine Clr Calc Pharmacy 126.6763; Glomerular Filtration Rate 123.9 mL/min (90-130); Glucose 104 mg/dL (65-115); Osmolality Calculated 280 mOsm/kg (285-295); Potassium 3.1 mmol/L (3.5-5.1); Sodium 135 mmol/L (136-145)
[2020-11-08] MEDS: potassium chloride ER 20 mEq Tablet PO (23:59)
[2020-11-08] MEDS: pantoprazole DR 40 mg Tablet PO (23:59)
[2020-11-09] MEDS: hyDROXYzine 25 mg Capsule PO (00:29)
[2020-11-09 00:44] VITALS: BP 118/69; PULSE 98; RESP 16; TEMP 37; O2SAT 99
== END 2020-11-09 00:47 | disposition home or self-care (01) ==
PROVIDERS: Emergency Provider Nurse Practitioner Family; PCP Family Medicine
DX: K21.9 Gastro-esophageal reflux disease without esophagitis (principal); E87.6 Hypokalemia; F43.9 Reaction to severe stress, unspecified; Z87.891 Personal history of nicotine dependence
CPT/HCPCS: 71045; 80048; 84484; 85025; 99283

== ENCOUNTER 2020-11-19 05:02 | Emergency (ER) | payer MEDICAID, SELFPAY ==
[2020-11-19 05:27] VITALS: PULSE 100; RESP 16; TEMP 36.8; O2SAT 99; BMI 21.2
--- NOTE | 2020-11-19 06:51 | CT_ITS ---
WS: [id number] CT cervical spin wo con* [id number] REASON FOR EXAM: PAIN IV CONTRAST ADMINISTERED: Noncontrast TOTAL EXAM DLP: 748.[address] scans at [facility] use at least one of these dose optimization techniques: automat ed exposure control; mA and/or kV adjustment per patient size (includes targeted exams where dose is matched to clinical indication); or iterative reconstruction. FINDINGS: Normal odontoid and atlantoaxial articulations. Mild straightening of the normal lordosis of cervical spine. No vertebral body abnormality. Intervertebral disc spaces are well preserved. Facet joints are in normal alignment. No focal bony abnormality. CT/CT cervical spin wo con* [id number] IMPRESSION: No significant abnormality.
--- NOTE | 2020-11-19 06:51 | CT_ITS ---
WS: [id number] CT head wo con* [id number] REASON FOR EXAM: Headache IV CONTRAST ADMINISTERED: Noncontrast TOTAL EXAM DLP: 819.[address] scans at [facility] use at least one of these dose optimization techniques: automat ed exposure control; mA and/or kV adjustment per patient size (includes targeted exams where dose is matched to clinical indication); or iterative reconstruction. FINDINGS: No midline shift or other significant mass effect. No findings of intracranial hemorrhage and no extra-axial fluid collection. No acute focal brain parenchymal abnormality in the cerebral hemispheres, brainstem, and cerebellar h emispheres. The ventricular system is normal. The base of the skull and the calvarium are normal. CT/CT head wo con* [id number] IMPRESSION: No acute intracranial abnormality
--- NOTE | 2020-11-19 06:53 | W.ED.HA ---
HPI - Headache General: Chief Complaint: Headache Stated Complaint: Numbness in Neck\Arm Dizzy Time Seen by Provider: 11/19/20 06:35 Source: patient Mode of arrival: ambulatory Limitations: no limitations History of Present Illness: HPI Narrative: Pretty is a very nice 25-year-old female who comes in complaining of headache and left-sided neck pain. Patient states that she had some type of surgery on her spine done at [facility] by Dr. Bernstein 2 years ago. This is her third episode of recurrent pain and headache since that time. She has been seen in the ER both times prior but no definitive diagnosis was made. Patient denies any fevers, chills, visual symptoms, global head pain, left-sided neck pain or upper extremity pain. She states her pain is in the right side of her neck, right side of her head and goes down to her right shoulder and arm. She denies any focal neurologic deficits. She denies any fevers or chills. She had no nausea or vomiting. She states this pain feels the same as the pain that she is had in the past. She is unaware of anything that makes her symptoms better or worse and she is not tried anything yet for this headache prior to arrival today. Associated symptoms: Deny chest pain, confusion, diaphoresis, fever(s), lightheadedness, malaise, nausea, pre-syncope, rash, syncope or vomiting Review of Systems Const: Denies: fever(s), chills, body aches, fatigue, malaise or diaphoresis Eyes: Denies: change in vision, blurry vision, photophobia, eye discomfort, eye discharge, eye redness or yellow eyes ENMT: Denies: throat pain, odynophagia, hoarseness, swelling of lips/tongue, ear or mastoid pain, ear discharge, change in hearing or nasal discharge Card: Denies: chest pain, palpitations, irregular heart rhythm, edema, lightheadedness, syncope, pre-syncope, dyspnea on exertion or orthopnea Resp: Denies: dyspnea, productive cough, non-productive cough, wheezing, hemoptysis or chest congestion GI: Denies: abdominal pain, nausea, vomiting, hematemesis, coffee ground emesis, heartburn, diarrhea, constipation, GI cramping, hematochezia or melena : Denies: flank pain, dysuria, urinary frequency, urinary urgency or hematuria Musc: Reports: neck pain; Denies: back pain, extremity pain, extremity swelling, joint pain, joint swelling, joint redness, joint warmth or joint stiffness Skin/Breast: Denies: rash, pruritus, erythema, skin pain or skin tenderness Neuro: Reports: headache(s); Denies: numbness in extremities, weakness in extremities, sensory changes, lack of coordination, difficulty walking, dizziness, vertigo, confusion, Slurred speech present or seizure-like activity Joni/Lymph: Denies: easy bruising, easy bleeding, petechiae, purpura or enlarged lymph nodes All/Imm: Denies: urticaria, throat swelling, tongue swelling, facial swelling or acute wheezing PFSH ED PFSH: Medical History (Updated 11/19/20 @ 08:24 by Diane Norwood) No pertinent past medical history Denies diabetes, asthma, hypertension, seizures, DVT/PE. Surgical History History of breast lump/mass excision (~02/28/14) -patient states it was a fibroadenoma. Preformed by Dr. Bashir. Previous back surgery (~2017) 2018--Pt reports blood clot in her spine [facility] Family History Mother Diabetes Grandfather Diabetes Maternal Grandmother Diabetes Maternal Uterine cancer Maternal great grandmother Leukemia maternal grandmother Sister Thyroid condition Uterine cancer Endometriosis Social History Smoking and tobacco status: former smoker Quit status (tobacco): has quit using tobacco Year quit tobacco: 04/16/2019 Alcohol intake: never Female Reproductive History: Date of last menstrual period: 10/12/20 Physical Exam Const: COMMON NORMALS: no acute distress, patient oriented x3, no limitations and alert GENERAL APPEARANCE: cooperative HENMT: COMMON NORMALS: normocephalic, atraumatic, external ears normal, EAC's normal and Normal external nose present HEAD & SCALP: normal to inspection, normocephalic and atraumatic FACE & SINUS: normal facial exam and face symmetric NOSE: Normal external nose present and Normal nares present EXTERNAL EAR: Yes external ears normal EXTERNAL AUDITORY CANAL: EAC's normal MOUTH: Normal oral and palatal mucosa present, lip normal and tongue normal Eye: COMMON NORMALS: Equal, round and reactive pupils present and conjunctivae normal GENERAL EYE: appearance normal, both eyes and all related structures ALIGNMENT: Yes alignment normal PERIORBITAL: periorbital findings normal EYELID: eyelids normal CONJUNCTIVA: Yes conjunctivae normal SCLERA: sclerae normal PUPIL: Yes Equal, round and reactive pupils present Neck/C-Spine: COMMON NORMALS: full ROM, no lymphadenopathy, supple, no meningeal signs and no JVD GENERAL: Yes normal visual inspection and Yes trachea midline Chest: COMMONS NORMALS: normal inspection of the chest and normal palpation of entire chest wall Resp: COMMON NORMALS: normal respiratory effort, No retractions, No use of accessory muscles and clear to auscultation bilaterally EFFORT & INSPECTION: Yes able to speak in complete sentences and Yes symmetric chest movement AUSCULTATION: clear to auscultation bilaterally, no crackles, no rales, no rhonchi and no wheezes Cardio: COMMON NORMALS: no JVD, regular rate, regular rhythm, S1 normal heart sound present and S2 normal heart sound present RATE: regular rate RHYTHM: regular rhythm HEART SOUNDS: S1 normal heart sound present, S2 normal heart sound present, no click, no gallops, no murmurs and no rubs GI: COMMON NORMALS: Soft to palpation and No hepatosplenomegaly present PALPATION: Yes Soft to palpation, No Tenderness to palpation present (GI), No Guarding due to palpation present (GI), No Rigid due to palpation, Yes No hepatosplenomegaly present, No Hernia present, No Palpable mass present and No Pulsatile mass present : COMMON NORMALS: Yes no CVA tenderness BLADDER/KIDNEY EXAM: Yes no CVA tenderness EXTERNAL FEMALE EXAM: No Hernia present Back/Pelvis: COMMON NORMALS: no CVA tenderness, thoracic and lumbar spine normal to inspection, no thoracic nor lumbar tenderness and thoraco-lumbar ROM normal Extremity: COMMON NORMALS: normal to inspection, full ROM, capillary refill normal, no joint enlargement, no clubbing, cyanosis or edema and no calf tenderness Neuro: COMMON NORMALS: patient oriented x3, CN's II-XII intact bilaterally, moves all extremities, no focal motor deficits and no sensory deficits noted SENSORIUM/ORIENTATION: Yes alert MENINGEAL SIGNS: Yes no meningeal signs SPEECH: speech normal Psych: COMMON NORMALS: mental status grossly normal, Normal thought process present, cooperative, normal affect, speech normal and activity/motor behavior normal SPEECH: Yes normal speech THOUGHT PROCESS: Normal thought process present Skin: COMMON NORMALS: no rashes or lesions noted, turgor normal, no jaundice, no petechiae and no mottling GENERAL SKIN EXAM: no rashes or lesions noted and turgor normal Course Vital Signs: Vital signs: Vital Signs Temperature 98.2 F 11/19/20 07:05 Pulse Rate 85 11/19/20 07:05 Respiratory Rate 13 11/19/20 07:05 Blood Pressure 149/92 11/19/20 07:05 Pulse Oximetry 100 11/19/20 07:05 MDM - Headache MDM Narrative: Medical decision making narrative: 821 -the patient is feeling much better and her headache is gone. She would like to go home. I have encouraged her to follow-up with her neurosurgeon which performed for surgery to 3 years ago and she does recognize and admit this is important. She agrees to follow-up with that doctor for further evaluation and recheck. This time I see no focal neurologic abnormalities. Patient's primary complaint is headache and neck pain and those have resolved. This problems been recurrent 1 see no acute focal issues. Lab Data: Attestation: I reviewed the patient's lab results. Labs: Lab Results 11/19/20 11/19/20 Range/Units 07:36 07:36 WBC 6.9 (4.0-10.0) 10^3/ uL RBC 4.76 (4.1-5.3) 10^6/u L Hgb 13.2 (11.5-15.3) g/dL Hct 41.2 (37.0-47.0) % MCV 86.6 (81-99) fL MCH 27.7 L (28.0-34.0) pg MCHC 32.0 (30.0-36.0) g/dL RDW 13.3 (12.1-15.1) % Plt Count 322 (130-400) 10^3/c mm MPV 10.4 (7.4-10.4) fL Neut % (Auto) 56.9 % Lymph % (Auto) 32.1 % Mckinley % (Auto) 9.6 % Eos % (Auto) 0.1 % Baso % (Auto) 0.9 % Neut # (Auto) 3.93 (1.8-7.7) 10^3/u L Lymph # (Auto) 2.2 (0.8-4.8) 10^3/u L Mckinley # (Auto) 0.7 (0.2-0.9) 10^3/u L Eos # (Auto) 0.0 (0.0-0.8) 10^3/u L Baso # (Auto) 0.1 (0.0-0.1) 10^3/u L Nucleated RBC % (a uto) 0 % Nucleated RBCs # 0.0 /100WBC Sodium 140 (136-145) mmol/L Potassium 3.4 L (3.5-5.1) mmol/L Chloride 103 (98-107) mmol/L Carbon Dioxide 25 (22-29) mmol/L Anion Gap 15.4 (5-19) BUN 4 L (6-20) mg/dL Creatinine 0.5 (0.5-0.9) mg/dL GFR Calculation 152.9 H (90-130) mL/min Glucose 95 (65-115) mg/dL Calculated Osmolal ity 287 (285-295) mOsm/k g Calcium 9.4 (8.5-10.5) mg/dL Total Bilirubin 0.4 (0.15-1.2) mg/dL AST 12 (0-32) U/L ALT 11 (0-33) U/L Alkaline Phosphata se 70 (35-105) IU/L Total Protein 7.1 (6.6-8.7) g/dL Albumin 4.6 (3.5-5.2) g/dL Globulin 2.5 (1.3-4.6) g/dL Imaging Data^: CT Head: Radiologist's impression: [facility] [address] [place] [address] CT Scan Report Signed Patient: Gris Garcia Unit #: [id number] : 1995 Age/Sex: 25 / F ADM Date: 11/19/20 Loc: ER Room/Bed: Attending Dr: Ordering Provider/Ordering MD: Diane Norwood DO Date of Service: 11/19/20 Procedure(s): CT head wo con* [id number] Accession Number(s): [id number] Report Number: [id number] WS: [id number] CT head wo con* [id number] REASON FOR EXAM: Headache IV CONTRAST ADMINISTERED: Noncontrast TOTAL EXAM DLP: 819.[address] scans at [facility] use at least one of these dose optimization techniques: automated exposure control; mA and/or kV adjustment per patient size (includes targeted exams where dose is matched to clinical indication); or iterative reconstruction. FINDINGS: No midline shift or other significant mass effect. No findings of intracranial hemorrhage and no extra-axial fluid collection. No acute focal brain parenchymal abnormality in the cerebral hemispheres, brainstem, and cerebellar hemispheres. The ventricular system is normal. The base of the skull and the calvarium are normal. CT/CT head wo con* [id number] IMPRESSION: No acute intracranial abnormality Dictated By: Karson Yao Jr, MD Signed By: Karson Yao Jr, MD Signed Date/Time: 11/19/20733 DD/ 0 CT Cervical Spine: Radiologist's impression: [facility] [address] [address] Scan Report Signed Patient: Gris Garcia Unit #: [id number] : 1995 Age/Sex: 25 / F ADM Date: 11/19/20 Loc: ER Room/Bed: Attending Dr: Ordering Provider/Ordering MD: Diane Norwood DO Date of Service: 11/19/20 Procedure(s): CT cervical spin wo con* [id number] Accession Number(s): [id number] Report Number: [id number] WS: [id number] CT cervical spin wo con* [id number] REASON FOR EXAM: PAIN IV CONTRAST ADMINISTERED: Noncontrast TOTAL EXAM DLP: 748.[address] scans at [facility] use at least one of these dose optimization techniques: automated exposure control; mA and/or kV adjustment per patient size (includes targeted exams where dose is matched to clinical indication); or iterative reconstruction. FINDINGS: Normal odontoid and atlantoaxial articulations. Mild straightening of the normal lordosis of cervical spine. No vertebral body abnormality. Intervertebral disc spaces are well preserved. Facet joints are in normal alignment. No focal bony abnormality. CT/CT cervical spin wo con* [id number] IMPRESSION: No significant abnormality. Dictated By: Karson Yao Jr, MD Signed By: Karson Yao Jr, MD Signed Date/Time: 11/19/20 0802 DD/ 0800 Discharge Plan Discharge Patient Disposition: Home Clinical Impression: Migraine Condition: Stable Prescriptions: No Action diclofenac potassium 50 mg tablet 50 mg PO Q8H PRN (Reason: pain) Qty: 12 RF: 0 tizanidine 4 mg tablet 4 mg PO Q8H PRN (Reason: muscle spasticity) Qty: 12 RF: 0 Prilosec OTC 20 mg tablet,delayed release (DR/EC) 20 mg PO DAILY Qty: 20 RF: 0 Vistaril 25 mg capsule 25 mg PO TID PRN (Reason: anxiety) Qty: 14 RF: 0 Discharge Orders: Discharge ED (Routine); Ordered 11/19/20 Ordered By: Diane Norwood Referrals: Otoniel Gar MD [Primary Care Provider] - (1-3) Discharge Diet: Advance as tolerated Discharge Activity: Resume usual activity Patient Instructions: Migraine Headache (ED), Opioid Safety Activity Restrictions/Additional Instructions: Please return to the ER immediately for any of the signs or symptoms listed on your discharge instruction sheets, worsening/changing of your symptoms, you are not getting better as quickly as expected, or for ANY other cause or concerns. Coding Level of Care Code ED Dining Services Manager for Chg Fwd Exam Comprehensive
[2020-11-19 07:05] VITALS: BP 149/92; PULSE 85; RESP 13; TEMP 36.8; O2SAT 100
[2020-11-19] MEDS: metoclopramide 5 mg/mL SDV 2 mL 10 MG IV (07:32)
[2020-11-19] MEDS: sodium chloride 0.9% 1,000 ML 999 ML IV (07:34)
[2020-11-19 07:48] LABS: Basophils # 0.1 10^3/uL (0.0-0.1); Basophils % 0.9 %; Eosinophils % 0.1 %; Hematocrit 41.2 % (37.0-47.0); Hemoglobin 13.2 g/dL (11.5-15.3); Lymphocytes # 2.2 10^3/uL (0.8-4.8); Lymphocytes % 32.1 %; Mean Corpuscular Hemoglobin 27.7 pg (28.0-34.0); Mean Corpuscular Volume 86.6 fL (81-99); Mean Platelet Volume 10.4 fL (7.4-10.4); Monocytes # 0.7 10^3/uL (0.2-0.9); Monocytes % 9.6 %; Neutrophils # 3.93 10^3/uL (1.8-7.7); Neutrophils % 56.9 %; Nucleated Red Blood Cells % 0 %; Platelet Count 322 10^3/cmm (130-400); Red Blood Count 4.76 10^6/uL (4.1-5.3); Red Cell Distribution Width 13.3 % (12.1-15.1); White Blood Count 6.9 10^3/uL (4.0-10.0)
[2020-11-19 08:18] LABS: Alanine Aminotransferase 11 U/L (0-33); Albumin Level 4.6 g/dL (3.5-5.2); Alkaline Phosphatase 70 IU/L (35-105); Anion Gap 15.4 (5-19); Aspartate Amino Transferase 12 U/L (0-32); Blood Urea Nitrogen 4 mg/dL (6-20); Calcium 9.4 mg/dL (8.5-10.5); Carbon Dioxide 25 mmol/L (22-29); Chloride 103 mmol/L (98-107); Globulin 2.5 g/dL (1.3-4.6); Glomerular Filtration Rate 152.9 mL/min (90-130); Glucose 95 mg/dL (65-115); Osmolality Calculated 287 mOsm/kg (285-295); Potassium 3.4 mmol/L (3.5-5.1); Sodium 140 mmol/L (136-145); Total Bilirubin 0.4 mg/dL (0.15-1.2); Total Protein 7.1 g/dL (6.6-8.7)
[2020-11-19] MEDS: potassium chloride ER 20 mEq Tablet PO (08:46)
== END 2020-11-19 08:49 | disposition home or self-care (01) ==
PROVIDERS: Emergency Provider Emergency Medicine; PCP Family Medicine
DX: G43.909 Migraine, unspecified, not intractable, without status migrainosus (principal); Z87.891 Personal history of nicotine dependence
CPT/HCPCS: 70450; 72125; 80053; 85025; 96361; 96374; 99283; J2765; J7030

== ENCOUNTER 2020-11-26 03:58 | Emergency (ER) | payer MEDICAID, SELFPAY ==
[2020-11-26 04:38] VITALS: BP 138/108; PULSE 103; RESP 16; TEMP 36.6; O2SAT 98; BMI 22.4
--- NOTE | 2020-11-26 04:58 | CTR_ITS ---
PROCEDURE INFORMATION: Exam: CT Angiography Head With Contrast, Arteriography Exam date and time: 11/26/2020 4:58 AM Age: 25 years old Clinical indication: Pain; Prior surgery; Surgery type: Patient states hemangioma excised from cervical spine. ; Patient HX: Persistent headaches for last three months. ; Additional info: ALMANZA TECHNIQUE: Imaging protocol: Computed tomography angiography of the head with contrast. Exam focused on the arteries. 3D rendering (Not supervised by radiologist): MIP and/or 3D reconstructed images were created by the technologist. Radiation optimization: All CT scans at this facility use at least one of these dose optimization techniques: automated exposure control; mA and/or kV adjustment per patient size (includes targeted exams where dose is matched to clinical indication); or iterative reconstruction. Contrast material: OMNI 350; Contrast volume: 95 ml; Contrast route: INTRAVENOUS (IV); COMPARISON: CT head wo con* [id number] 11/19/2020 7:07 AM RADIATION DOSE METRICS: Total DLP (mGy-cm): 2470.4 FINDINGS: ANTERIOR CIRCULATION: Right internal carotid artery: Unremarkable. Intracranial segment is patent with no significant stenosis. No aneurysm. Right middle cerebral artery: Unremarkable. No occlusion or significant stenosis. No aneurysm. Right anterior cerebral artery: Unremarkable. No occlusion or significant stenosis. No aneurysm. Left internal carotid artery: Unremarkable. Intracranial segment is patent with no significant stenosis. No aneurysm. Left middle cerebral artery: Unremarkable. No occlusion or significant stenosis. No aneurysm. Left anterior cerebral artery: Unremarkable. No occlusion or significant stenosis. No aneurysm. POSTERIOR CIRCULATION: Right vertebral artery: Unremarkable. No occlusion or significant stenosis. No aneurysm. Left vertebral artery: Unremarkable. No occlusion or significant stenosis. No aneurysm. Basilar artery: Unremarkable. No occlusion or significant stenosis. No aneurysm. Right posterior cerebral artery: Unremarkable. No occlusion or significant stenosis. No aneurysm. Left posterior cerebral artery: Unremarkable. No occlusion or significant stenosis. No aneurysm. Brain: No definite mass, mass effect, or midline shift. Cerebral ventricles: No ventriculomegaly. Bones/joints: Unremarkable. No acute fracture. Soft tissues: Unremarkable. IMPRESSION: No large vessel stenosis or occlusion. PROCEDURE INFORMATION: Exam: CT Angiography Neck With Contrast Exam date and time: 11/26/2020 4:58 AM Age: 25 years old Clinical indication: Pain; Prior surgery; Surgery type: Patient states hemangioma excised from cervical spine. ; Patient HX: Persistent headaches for last three months. ; Additional info: ALMANZA TECHNIQUE: Imaging protocol: Computed tomography angiography of the neck with contrast. 3D rendering (Not supervised by radiologist): MIP and/or 3D reconstructed images were created by the technologist. Radiation optimization: All CT scans at this facility use at least one of these dose optimization techniques: automated exposure control; mA and/or kV adjustment per patient size (includes targeted exams where dose is matched to clinical indication); or iterative reconstruction. Contrast material: OMNI 350; Contrast volume: 95 ml; Contrast route: INTRAVENOUS (IV); COMPARISON: CT head wo con* [id number] 11/19/2020 7:07 AM RADIATION DOSE METRICS: Total DLP (mGy-cm): 2470.4 FINDINGS: Right common carotid artery: No stenosis. No dissection or occlusion. Right internal carotid artery: No stenosis of the extracranial segment. No dissection or occlusion. Right external carotid artery: No occlusion or stenosis of the origin. Left common carotid artery: No stenosis. No dissection or occlusion. Left internal carotid artery: No stenosis of the extracranial segment. No dissection or occlusion. Left external carotid artery: No occlusion or stenosis of the origin. Right vertebral artery: No stenosis. No dissection or occlusion. Left vertebral artery: No stenosis. No dissection or occlusion. Soft tissues: Normal. No significant soft tissue swelling. Bones/joints: No acute fracture. CT/CT angio headneck* [id number] IMPRESSION: No stenosis or occlusion. REFERENCES: NASCET CRITERIA. The degree of internal carotid artery stenosis is based on NASCET criteria. Normal is no stenosis. Mild is less than 50% stenosis. Moderate is 50-69% stenosis. Severe is 70% to 99% stenosis. Total occlusion is no detectable patent lumen. Radiation Dose CTDIVOL = (mGy): DLP = 2470.4~2470.4 (mGy-cm)
--- NOTE | 2020-11-26 04:59 | ED_ITS ---
Documented by User: Dennis Menchaca MD 11/26/20 05:02 HPI - Headache General: Chief Complaint: Headache Stated Complaint: headache/facial numbness Time Seen by Provider: 11/26/20 04:51 Source: patient Mode of arrival: ambulatory Limitations: no limitations History of Present Illness: HPI Narrative: 25-year-old female who has been having headaches for the last 2 to 3 months. Patient has been seen here multiple times for these headaches. She had an unknown neck surgery done at [facility] years ago. States the headache is a pressure type headache on the right side states she has had some slight neck pain as well. Patient was seen here a week ago and had normal blood work with a normal head CT. Denies any photophobia or phonophobia. Denies any vomiting or diarrhea. She rates her headache a 4 out of 10 currently. Associated symptoms: Deny chest pain, fever(s), nausea, rash or vomiting Review of Systems Const: Denies: fever(s), chills, body aches or change in appetite Eyes: Denies: blurry vision or eye discomfort ENMT: Denies: throat pain or dental pain Card: Denies: chest pain Resp: Denies: dyspnea GI: Denies: abdominal pain, nausea, vomiting or diarrhea : Denies: dysuria Musc: Denies: neck pain or back pain Skin/Breast: Denies: rash Neuro: Reports: headache(s) and numbness in extremities Psych: Denies: depression Joni/Lymph: Denies: easy bruising All/Imm: Denies: urticaria PFSH ED PFSH: Medical History (Updated 11/27/20 @ 02:17 by ANTONIO Manuel) No pertinent past medical history Denies diabetes, asthma, hypertension, seizures, DVT/PE. Surgical History History of breast lump/mass excision (~02/28/14) -patient states it was a fibroadenoma. Preformed by Dr. Bashir. Previous back surgery (~2017) 2018--Pt reports blood clot in her spine [place] Family History Mother Diabetes Grandfather Diabetes Maternal Grandmother Diabetes Maternal Uterine cancer Maternal great grandmother Leukemia maternal grandmother Sister Thyroid condition Uterine cancer Endometriosis Social History Smoking and tobacco status: former smoker Quit status (tobacco): has quit using tobacco Year quit tobacco: 04/16/2019 Alcohol intake: never Female Reproductive History: Date of last menstrual period: 11/11/20 Physical Exam Const: COMMON NORMALS: no acute distress, patient oriented x3 and healthy appearing HENMT: COMMON NORMALS: normocephalic and atraumatic HEAD & SCALP: normocephalic and atraumatic Eye: COMMON NORMALS: Equal, round and reactive pupils present and EOMs intact bilaterally PUPIL: Yes Equal, round and reactive pupils present Neck/C-Spine: COMMON NORMALS: full ROM and supple Chest: COMMONS NORMALS: normal inspection of the chest and normal palpation of entire chest wall Resp: COMMON NORMALS: normal respiratory effort, No retractions, No use of accessory muscles and clear to auscultation bilaterally AUSCULTATION: clear to auscultation bilaterally Cardio: COMMON NORMALS: regular rate, regular rhythm and No murmurs present (Cardio) RATE: regular rate RHYTHM: regular rhythm GI: COMMON NORMALS: Normal to inspection, nondistended, normoactive bowel sounds present, Soft to palpation, non-tender and no masses PALPATION: Yes Soft to palpation Extremity: COMMON NORMALS: normal to inspection and full ROM Neuro: COMMON NORMALS: patient oriented x3, moves all extremities and no focal motor deficits Psych: COMMON NORMALS: mental status grossly normal, Normal thought process present and cooperative THOUGHT PROCESS: Normal thought process present Skin: COMMON NORMALS: no rashes or lesions noted and no wounds GENERAL SKIN EXAM: no rashes or lesions noted Course Vital Signs: Vital signs: Vital Signs Temperature 97.9 F 11/26/20 04:38 Pulse Rate 90 11/26/20 08:49 Respiratory Rate 16 11/26/20 08:49 Blood Pressure 112/79 11/26/20 08:49 Pulse Oximetry 100 11/26/20 08:49 Discharge Plan Discharge Patient Disposition: Home Clinical Impression: Migraine Condition: Stable Prescriptions: New Topamax 25 mg tablet 25 mg PO DAILY Qty: 30 RF: 0 promethazine 25 mg tablet 25 mg PO Q6H PRN (Reason: nausea and vomiting, migraine) Qty: 20 RF: 0 Imitrex 50 mg tablet See Rx Instructions .ROUTE .COMPLEX Qty: 20 RF: 0 No Action diclofenac potassium 50 mg tablet 50 mg PO Q8H PRN (Reason: pain) Qty: 12 RF: 0 tizanidine 4 mg tablet 4 mg PO Q8H PRN (Reason: muscle spasticity) Qty: 12 RF: 0 Prilosec OTC 20 mg tablet,delayed release (DR/EC) 20 mg PO DAILY Qty: 20 RF: 0 Vistaril 25 mg capsule 25 mg PO TID PRN (Reason: anxiety) Qty: 14 RF: 0 Discharge Orders: Discharge ED (Routine); Ordered 11/26/20 Ordered By: Aldo Garrison Referrals: Otoniel Gar MD [Primary Care Provider] - Discharge Diet: Usual diet Discharge Activity: Resume usual activity Patient Instructions: Opioid Safety Activity Restrictions/Additional Instructions: Case management will call with an appointment to neurology Sign Out Sign Out Data: Patient Sign Out occurred on 11/26/20 at 06:23. Patient's care was discussed, and care was transferred from to Aldo Garrison DO. Coding Level of Care Code ED Conference Center Manager for Chg Fwd Exam Comprehensive Documented by User: Aldo Garrison DO 11/29/20 07:50 HPI - Headache General: Chief Complaint: Headache Stated Complaint: headache/facial numbness Time Seen by Provider: 11/26/20 04:51 PFSH ED PFSH: Medical History (Updated 11/27/20 @ 02:17 by ANTONIO Manuel) No pertinent past medical history Denies diabetes, asthma, hypertension, seizures, DVT/PE. Surgical History History of breast lump/mass excision (~02/28/14) -patient states it was a fibroadenoma. Preformed by Dr. Bashir. Previous back surgery (~2017) 2018--Pt reports blood clot in her spine [place] Family History Mother Diabetes Grandfather Diabetes Maternal Grandmother Diabetes Maternal Uterine cancer Maternal great grandmother Leukemia maternal grandmother Sister Thyroid condition Uterine cancer Endometriosis Social History Smoking and tobacco status: former smoker Quit status (tobacco): has quit using tobacco Year quit tobacco: 04/16/2019 Alcohol intake: never Course Vital Signs: Vital signs: Vital Signs Temperature 97.9 F 11/26/20 04:38 Pulse Rate 90 11/26/20 08:49 Respiratory Rate 16 11/26/20 08:49 Blood Pressure 112/79 11/26/20 08:49 Pulse Oximetry 100 11/26/20 08:49 MDM - Headache MDM Narrative: Medical decision making narrative: Assumed a change of shift imaging unremarkable. Will discharge patient home on Topamax promethazine and Imitrex to use as needed and follow-up with primary care for possible referral if not improving Discharge Plan Discharge Patient Disposition: Home Clinical Impression: Migraine Condition: Stable Prescriptions: New Topamax 25 mg tablet 25 mg PO DAILY Qty: 30 RF: 0 promethazine 25 mg tablet 25 mg PO Q6H PRN (Reason: nausea and vomiting, migraine) Qty: 20 RF: 0 Imitrex 50 mg tablet See Rx Instructions .ROUTE .COMPLEX Qty: 20 RF: 0 No Action diclofenac potassium 50 mg tablet 50 mg PO Q8H PRN (Reason: pain) Qty: 12 RF: 0 tizanidine 4 mg tablet 4 mg PO Q8H PRN (Reason: muscle spasticity) Qty: 12 RF: 0 Prilosec OTC 20 mg tablet,delayed release (DR/EC) 20 mg PO DAILY Qty: 20 RF: 0 Vistaril 25 mg capsule 25 mg PO TID PRN (Reason: anxiety) Qty: 14 RF: 0 Discharge Orders: Discharge ED (Routine); Ordered 11/26/20 Ordered By: Aldo Garrison Referrals: Otoniel Gar MD [Primary Care Provider] - Discharge Diet: Usual diet Discharge Activity: Resume usual activity Patient Instructions: Opioid Safety Activity Restrictions/Additional Instructions: Case management will call with an appointment to neurology Sign Out Sign Out Data: Patient Sign Out occurred on 11/26/20 at 06:23. Patient's care was discussed, and care was transferred from to Aldo Garrison DO. Coding Level of Care Code ED Conference Center Manager for [employer] Fwd Exam Comprehensive
[2020-11-26] MEDS: iohexol 350 mg/mL 100 mL Btl IV (05:37)
[2020-11-26 05:52] VITALS: BP 134/93
[2020-11-26] MEDS: sodium chloride 0.9% 1,000 ML 999 ML IV (05:52)
[2020-11-26 07:06] VITALS: BP 128/88; PULSE 95; RESP 18; O2SAT 100
--- NOTE | 2020-11-26 07:12 | PC.NURSE ---
patient denied any headache at this time. no acute distress noted.
[2020-11-26 08:49] VITALS: BP 112/79; PULSE 90; RESP 16; O2SAT 100
== END 2020-11-26 08:51 | disposition home or self-care (01) ==
PROVIDERS: Emergency Provider Family Medicine; PCP Family Medicine
DX: G43.909 Migraine, unspecified, not intractable, without status migrainosus (principal); Z87.891 Personal history of nicotine dependence
CPT/HCPCS: 70496; 70498; 96360; 99284; J7030; Q9967

== ENCOUNTER 2020-11-26 22:48 | Emergency (ER) | payer MEDICAID, SELFPAY ==
[2020-11-26 22:59] VITALS: BP 137/86; PULSE 117; RESP 18; TEMP 36.7; O2SAT 99; BMI 22.4
--- NOTE | 2020-11-27 00:15 | ED_ITS ---
HPI - Neuro Symptoms/Deficit General: Chief Complaint: Neuro Symptoms/Deficit Stated Complaint: dizziness, numbness head down Time Seen by Provider: 11/26/20 23:43 Source: patient Mode of arrival: ambulatory Limitations: no limitations History of Present Illness: HPI Narrative: Patient is a 25-year-old female who presents to ED today for complaints of a headache and spinal pain . She tells me she is having pain from her neck all the way down into her back. She is complaining of feeling numb all over . She does seem to be anxious and hyperventilating during assessment. She tells me she is having numbness and loss of sensation to her bilateral legs. She states she feels confused. Patient was just seen here in the ED earlier today and had negative CTA imaging of her head and neck. She has been seen here several times with complaints of migraine headaches as well as neck and back pains. Reports subjective fevers but these have never been documented. States she feels confused. Associated symptoms: Reports chest pain and headache(s); Deny malaise, nausea, syncope or vomiting Review of Systems Const: Reports: fever(s) (subjective); Denies: chills, body aches, fatigue or malaise Eyes: Denies: change in vision, blurry vision, photophobia, floaters or seeing flashes ENMT: Denies: throat pain, odynophagia, nasal discharge or nasal congestion Card: Reports: chest pain, palpitations and lightheadedness; Denies: irregular heart rhythm, edema, swelling of feet/ankles, syncope or pre- syncope Resp: Denies: dyspnea GI: Denies: abdominal pain, nausea, vomiting or diarrhea : Denies: flank pain or dysuria Musc: Reports: neck pain and back pain; Denies: extremity pain or joint pain Skin/Breast: Denies: rash Neuro: Reports: headache(s), numbness in extremities (bilateral legs), difficulty walking and confusion; Denies: dizziness, behavioral changes, Slurred speech present or seizure-like activity [facility], [facility] ED PFSH: Medical History (Updated 11/27/20 @ 02:17 by ANTONIO Manuel) No pertinent past medical history Denies diabetes, asthma, hypertension, seizures, DVT/PE. Surgical History History of breast lump/mass excision (~02/28/14) -patient states it was a fibroadenoma. Preformed by Dr. Bashir. Previous back surgery (~2017) 2018--Pt reports blood clot in her spine [place] Family History Mother Diabetes Grandfather Diabetes Maternal Grandmother Diabetes Maternal Uterine cancer Maternal great grandmother Leukemia maternal grandmother Sister Thyroid condition Uterine cancer Endometriosis Social History Smoking and tobacco status: former smoker Quit status (tobacco): has quit using tobacco Year quit tobacco: 04/16/2019 Alcohol intake: never Female Reproductive History: Date of last menstrual period: 11/11/20 Physical Exam Const: COMMON NORMALS: average body habitus, patient oriented x3, no limitations, healthy appearing, alert and well nourished GENERAL APPEARANCE: cooperative and anxious ORIENTATION/CONSCIOUSNESS: Yes awake, Yes oriented to person, Yes oriented to place and Yes oriented to time HENMT: COMMON NORMALS: normocephalic and atraumatic HEAD & SCALP: normocephalic and atraumatic Eye: COMMON NORMALS: Equal, round and reactive pupils present and EOMs intact bilaterally GENERAL EYE: appearance normal, both eyes and all related structures PUPIL: Yes Equal, round and reactive pupils present Neck/C-Spine: COMMON NORMALS: no lymphadenopathy OTHER: pt does not cooperate with meningeal specialized testing; refuses to even attempt moving neck Resp: COMMON NORMALS: normal respiratory effort and clear to auscultation bilaterally AUSCULTATION: clear to auscultation bilaterally Cardio: COMMON NORMALS: regular rhythm RATE: tachycardic RHYTHM: regular rhythm Back/Pelvis: OTHER: pt reports tenderness throughout spine Extremity: COMMON NORMALS: normal to inspection, full ROM, capillary refill normal, no joint enlargement, no clubbing, cyanosis or edema, no calf tenderness and no pedal edema GENERAL: Yes normal exam except as noted Neuro: KODY COMA SCALE: document GCS findings Kody coma scale eye opening: Spontaneous [place] coma scale verbal response: Orientated Kody coma scale motor response: Obey commands Kody coma scale total score: 15 COMMON NORMALS: patient oriented x3 SENSORIUM/ORIENTATION: Yes alert, Yes oriented to person, Yes oriented to place and Yes oriented to time SPEECH: Other neuro speech findings (reports decreased sensation to bilateral LE) GAIT: Yes Unable to assess gait MOTOR EXAM: Other motor observations present (decreased strength to bilateral LEs) Skin: COMMON NORMALS: no rashes or lesions noted GENERAL SKIN EXAM: no rashes or lesions noted TRAUMA: no lacerations or abrasions Course Vital Signs: Vital signs: Vital Signs Temperature 98.1 F 11/26/20 22:59 Pulse Rate 84 11/27/20 01:37 Respiratory Rate 22 H 11/27/20 01:37 Blood Pressure 106/80 11/27/20 01:37 Pulse Oximetry 22 L 11/27/20 01:37 MDM - Neuro Symptoms/Deficit MDM Narrative: Medical decision making narrative: Patient was seen at our facility on 11/[address] head and CT cervical spine imaging. She was seen again on 11/26 and had negative CTA head/neck imaging. There is no need for these to be repeated today. She has had [address]/MRIs of head/neck/back over the past year. Patient was given IV Ativan as I think there was/is an anxiety component to her symptoms. Upon re-examination she is much more comfortable. Vital signs have improved. She is moving her neck while speaking and looking at her significant other who is in the room. She was able to ambulate without difficulty. Patient's labs including white count, ESR, lactate, CRP are all unremarkable. I discussed with the patient the possibility of performing an LP to definitively rule out other causes for her symptoms but she adamantly refuses this. At this time patient will be discharged home with strict return to ED precautions. Lab Data: Labs: Lab Results 11/27/20 11/27/20 11/27/20 Range/Units 00:55 00:55 00:55 WBC 6.5 (4.0-10.0) 10^3/ uL RBC 4.69 (4.1-5.3) 10^6/u L Hgb 13.1 (11.5-15.3) g/dL Hct 41.3 (37.0-47.0) % MCV 88.1 (81-99) fL MCH 27.9 L (28.0-34.0) pg MCHC 31.7 (30.0-36.0) g/dL RDW 13.2 (12.1-15.1) % Plt Count 404 H (130-400) 10^3/c mm MPV 10.1 (7.4-10.4) fL Neut % (Auto) 58.8 % Lymph % (Auto) 27.0 % [place] % (Auto) 12.7 % Eos % (Auto) 0.2 % Baso % (Auto) 0.8 % Neut # (Auto) 3.85 (1.8-7.7) 10^3/u L Lymph # (Auto) 1.8 (0.8-4.8) 10^3/u L [place] # (Auto) 0.8 (0.2-0.9) 10^3/u L Eos # (Auto) 0.0 (0.0-0.8) 10^3/u L Baso # (Auto) 0.1 (0.0-0.1) 10^3/u L Nucleated RBC % (a uto) 0 % Nucleated RBCs # 0.0 /100WBC Sodium 138 (136-145) mmol/L Potassium 3.7 (3.5-5.1) mmol/L Chloride 104 (98-107) mmol/L Carbon Dioxide 23 (22-29) mmol/L Anion Gap 14.7 (5-19) BUN 4 L (6-20) mg/dL Creatinine 0.5 (0.5-0.9) mg/dL GFR Calculation 152.9 H (90-130) mL/min Glucose 85 (65-115) mg/dL Calculated Osmolal ity 282 L (285-295) mOsm/k g Lactic Acid 0.7 (0.5-2.2) mmol/L Calcium 9.5 (8.5-10.5) mg/dL Total Bilirubin 0.3 (0.15-1.2) mg/dL AST 11 (0-32) U/L ALT 9 (0-33) U/L Alkaline Phosphata se 64 (35-105) IU/L C-Reactive Protein 0.5 (0.0-4.9) mg/L Total Protein 6.6 (6.6-8.7) g/dL Albumin 4.6 (3.5-5.2) g/dL Globulin 2.0 (1.3-4.6) g/dL Discharge Plan Discharge Patient Disposition: Home Clinical Impression: Anxiety, Spinal column pain Condition: Stable Prescriptions: No Action diclofenac potassium 50 mg tablet 50 mg PO Q8H PRN (Reason: pain) Qty: 12 RF: 0 tizanidine 4 mg tablet 4 mg PO Q8H PRN (Reason: muscle spasticity) Qty: 12 RF: 0 Prilosec OTC 20 mg tablet,delayed release (DR/EC) 20 mg PO DAILY Qty: 20 RF: 0 Vistaril 25 mg capsule 25 mg PO TID PRN (Reason: anxiety) Qty: 14 RF: 0 Topamax 25 mg tablet 25 mg PO DAILY Qty: 30 RF: 0 promethazine 25 mg tablet 25 mg PO Q6H PRN (Reason: nausea and vomiting, migraine) Qty: 20 RF: 0 Imitrex 50 mg tablet See Rx Instructions .ROUTE .COMPLEX Qty: 20 RF: 0 Discharge Orders: Discharge ED (Routine); Ordered 11/27/20 Ordered By: Esperanza Cortez Referrals: Otoniel Gar MD [Primary Care Provider] - Coding Level of Care Code ED Revenue Investigator for Chg Fwd Exam Comprehensive
[2020-11-27] MEDS: LORazepam 2 mg/mL INJ 1 mL 1 MG IVP (01:15)
[2020-11-27 01:26] LABS: Basophils # 0.1 10^3/uL (0.0-0.1); Basophils % 0.8 %; Eosinophils % 0.2 %; Hematocrit 41.3 % (37.0-47.0); Hemoglobin 13.1 g/dL (11.5-15.3); Lymphocytes # 1.8 10^3/uL (0.8-4.8); Mean Corpuscular HGB Conc 31.7 g/dL (30.0-36.0); Mean Corpuscular Hemoglobin 27.9 pg (28.0-34.0); Mean Corpuscular Volume 88.1 fL (81-99); Mean Platelet Volume 10.1 fL (7.4-10.4); Monocytes # 0.8 10^3/uL (0.2-0.9); Monocytes % 12.7 %; Neutrophils # 3.85 10^3/uL (1.8-7.7); Neutrophils % 58.8 %; Nucleated Red Blood Cells % 0 %; Platelet Count 404 10^3/cmm (130-400); Red Blood Count 4.69 10^6/uL (4.1-5.3); Red Cell Distribution Width 13.2 % (12.1-15.1); White Blood Count 6.5 10^3/uL (4.0-10.0)
[2020-11-27 01:37] VITALS: BP 106/80; PULSE 84; RESP 22; O2SAT 22
[2020-11-27 01:43] LABS: Alanine Aminotransferase 9 U/L (0-33); Albumin Level 4.6 g/dL (3.5-5.2); Alkaline Phosphatase 64 IU/L (35-105); Anion Gap 14.7 (5-19); Aspartate Amino Transferase 11 U/L (0-32); Blood Urea Nitrogen 4 mg/dL (6-20); C Reactive Protein 0.5 mg/L (0.0-4.9); Calcium 9.5 mg/dL (8.5-10.5); Carbon Dioxide 23 mmol/L (22-29); Chloride 104 mmol/L (98-107); Creatinine Clr Calc Pharmacy 150.5076; Glomerular Filtration Rate 152.9 mL/min (90-130); Glucose 85 mg/dL (65-115); Osmolality Calculated 282 mOsm/kg (285-295); Potassium 3.7 mmol/L (3.5-5.1); Sodium 138 mmol/L (136-145); Total Bilirubin 0.3 mg/dL (0.15-1.2); Total Protein 6.6 g/dL (6.6-8.7)
[2020-11-27 02:15] LABS: Lactic Sepsis W/Reflex 0.7 mmol/L (0.5-2.2)
[2020-11-27 02:43] VITALS: BP 122/78; PULSE 97; RESP 18; O2SAT 100
[2020-11-27 02:50] LABS: Erythrocyte Sedimentation Rate 11 mm/hr (0-15)
== END 2020-11-27 02:35 | disposition home or self-care (01) ==
PROVIDERS: Emergency Provider Physician Assistant; PCP Family Medicine
DX: F41.9 Anxiety disorder, unspecified (principal); M54.9 Dorsalgia, unspecified; Z87.891 Personal history of nicotine dependence
CPT/HCPCS: 80053; 83605; 85025; 85651; 86140; 87040; 96374; 99283; J2060

== ENCOUNTER 2020-12-13 01:26 | Emergency (ER) | payer MEDICAID, SELFPAY ==
[2020-12-13 01:38] VITALS: BP 142/84; PULSE 112; RESP 18; TEMP 36.3; O2SAT 98; BMI 22.1
[2020-12-13 02:16] VITALS: BP 132/81; PULSE 114; TEMP 36.9; O2SAT 100
--- NOTE | 2020-12-13 02:32 | W.ED.HA ---
HPI - Headache General: Chief Complaint: Headache Stated Complaint: headache Time Seen by Provider: 12/13/20 01:54 History of Present Illness: HPI Narrative: 25-year-old female with a history of chronic headaches. She presents with right-sided head pain, neck pain, and shoulder pain for the past several days. She also notes that she has right ear drainage. She relates these 2 things. She has a history of a lower cervical surgery for a blood clot in her spine . MD elicited complaint: headache Pertinent past history: other Onset description: gradually Location: right, frontal, temporal and other Quality & Timing: aching and throbbing Exacerbating factors: movement of head/neck Relieving factors: nothing Context: occurred at rest Associated symptoms: Reports neck stiffness (On the right only ); Deny chest pain, confusion, cough, diaphoresis, eye pain, eye redness, fever(s), loss of vision, nausea, rash or vomiting Review of Systems Const: Denies: fever(s) or diaphoresis Eyes: Denies: change in vision ENMT: Denies: odynophagia, swelling of lips/tongue or post nasal drip Card: Denies: chest pain Resp: Denies: dyspnea, productive cough, non-productive cough or wheezing GI: Denies: abdominal pain, nausea or vomiting : Denies: dysuria or hematuria Musc: Reports: neck pain; Denies: back pain Skin/Breast: Denies: rash or erythema Neuro: Denies: confusion Psych: Denies: anxiety PFS ED PFSH: Medical History (Updated 12/13/20 @ 04:20 by Pablo Urbina DO) No pertinent past medical history Denies diabetes, asthma, hypertension, seizures, DVT/PE. Surgical History History of breast lump/mass excision (~02/28/14) -patient states it was a fibroadenoma. Preformed by Dr. Bashir. Previous back surgery (~2017) 2018--Pt reports blood clot in her spine See [place] Family History Mother Diabetes Grandfather Diabetes Maternal Grandmother Diabetes Maternal Uterine cancer Maternal great grandmother Leukemia maternal grandmother Sister Thyroid condition Uterine cancer Endometriosis Social History Smoking and tobacco status: former smoker Quit status (tobacco): has quit using tobacco Year quit tobacco: 04/16/2019 Alcohol intake: never Female Reproductive History: Date of last menstrual period: 11/11/20 Physical Exam Const: COMMON NORMALS: no acute distress and alert GENERAL APPEARANCE: not ill appearing HENMT: COMMON NORMALS: normocephalic, atraumatic, EAC's normal, TM's normal bilaterally, Normal external nose present and Normal nasal mucous membranes and turbinates present HEAD & SCALP: normocephalic and atraumatic FACE & SINUS: normal facial exam NOSE: Normal external nose present and Normal nasal mucous membranes and turbinates present EXTERNAL AUDITORY CANAL: EAC's normal TYMPANIC MEMBRANE: TM's normal bilaterally MOUTH: Normal oral and palatal mucosa present and tongue normal THROAT: posterior oropharynx normal Chest: COMMONS NORMALS: normal inspection of the chest Resp: COMMON NORMALS: normal respiratory effort, No use of accessory muscles and clear to auscultation bilaterally AUSCULTATION: clear to auscultation bilaterally Cardio: COMMON NORMALS: regular rate and regular rhythm RATE: regular rate RHYTHM: regular rhythm GI: COMMON NORMALS: Normal to inspection, nondistended, normoactive bowel sounds present Neuro: KODY COMA SCALE: document GCS findings [place] coma scale eye opening: Spontaneous [place] coma scale verbal response: Orientated Kody coma scale motor response: Obey commands [place] coma scale total score: 15 COMMON NORMALS: CN's II-XII intact bilaterally SENSORIUM/ORIENTATION: Yes alert CRANIAL NERVES: Yes CN normal except as noted SPEECH: speech normal Course Vital Signs: Vital signs: Vital Signs Temperature 98.4 F 12/13/20 02:16 Pulse Rate 111 H 12/13/20 04:47 Respiratory Rate 18 12/13/20 04:47 Blood Pressure 132/81 12/13/20 02:16 Pulse Oximetry 98 12/13/20 04:47 MDM - Headache MDM Narrative: Medical decision making narrative: Patient has a benign exam. The wrist tightness, and tenderness to her right upper and middle trapezius. I see no signs of otitis externa. I do not palpate any specific lymphadenopathy. Her laboratory including inflammatory markers like CRP and pro calcitonin is not remarkable. Headache improved after medication. She will be discharged on drops for the ear drainage. Lab Data: Labs: Lab Results 12/13/20 12/13/20 Range/Units 02:30 02:30 WBC 8.3 (4.0-10.0) 10^3/ uL RBC 4.57 (4.1-5.3) 10^6/u L Hgb 12.7 (11.5-15.3) g/dL Hct 39.2 (37.0-47.0) % MCV 85.8 (81-99) fl MCH 27.8 L (28.0-34.0) pg MCHC 32.4 (30.0-36.0) g/dL RDW 13.1 (12.1-15.1) % Plt Count 359 (130-400) 10^3/c mm MPV 10.1 (7.4-10.4) fL Neut % (Auto) 67.5 % Lymph % (Auto) 20.4 % [place] % (Auto) 10.9 % Eos % (Auto) 0.5 % Baso % (Auto) 0.5 % Neut # (Auto) 5.61 (1.8-7.7) 10^3/u L Lymph # (Auto) 1.7 (0.8-4.8) 10^3/u L [place] # (Auto) 0.9 (0.2-0.9) 10^3/u L Eos # (Auto) 0.0 (0.0-0.8) 10^3/u L Baso # (Auto) 0.0 (0.0-0.1) 10^3/u L Nucleated RBC % (a uto) 0 % Nucleated RBCs # 0.0 /100WBC Sodium 138 (136-145) mmol/L Potassium 3.4 L (3.5-5.1) mmol/L Chloride 103 (98-107) mmol/L Carbon Dioxide 24 (22-29) mmol/L Anion Gap 14.4 (5-19) BUN 9 (6-20) mg/dL Creatinine 0.4 L (0.5-0.9) mg/dL GFR Calculation 197.8 H (90-130) mL/min Glucose 95 (65-115) mg/dL Calculated Osmolal ity 284 L (285-295) mOsm/k g Calcium 9.4 (8.5-10.5) mg/dL Total Bilirubin 0.4 (0.15-1.2) mg/dL AST 11 (0-32) U/L ALT 10 (0-33) U/L Alkaline Phosphata se 73 (35-105) IU/L C-Reactive Protein 0.7 (0.0-4.9) mg/L Total Protein 7.5 (6.6-8.7) g/dL Albumin 4.5 (3.5-5.2) g/dL Globulin 3.0 (1.3-4.6) g/dL Procalcitonin 0.04 (0-0.5) ng/mL Discharge Plan Discharge Patient Disposition: Home Clinical Impression: Otitis externa Headache Qualifiers: Headache chronicity pattern: acute headache Intractability: not intractable Condition: Stable Prescriptions: New Cortisporin-TC 3.3-3-10-0.5 mg/mL drops,suspension 4 drp otic (ear) QID Qty: 10 RF: 0 No Action diclofenac potassium 50 mg tablet 50 mg PO Q8H PRN (Reason: pain) Qty: 12 RF: 0 tizanidine 4 mg tablet 4 mg PO Q8H PRN (Reason: muscle spasticity) Qty: 12 RF: 0 Prilosec OTC 20 mg tablet,delayed release (DR/EC) 20 mg PO DAILY Qty: 20 RF: 0 Vistaril 25 mg capsule 25 mg PO TID PRN (Reason: anxiety) Qty: 14 RF: 0 Topamax 25 mg tablet 25 mg PO DAILY Qty: 30 RF: 0 promethazine 25 mg tablet 25 mg PO Q6H PRN (Reason: nausea and vomiting, migraine) Qty: 20 RF: 0 Imitrex 50 mg tablet See Rx Instructions .ROUTE .COMPLEX Qty: 20 RF: 0 Discharge Orders: Discharge ED (Routine); Ordered 12/13/20 Ordered By: Pablo Urbina Referrals: Otoniel Gar MD [Primary Care Provider] - 4-7 days Discharge Diet: Advance as tolerated Discharge Activity: Increase activity as tolerated Patient Instructions: Otitis Externa (ED), Acute Headache (ED) Activity Restrictions/Additional Instructions: Please did not have any blood per stain, worsening drainage to the ear despite treatment, any other concerning symptoms. Coding Level of Care Code ED Marine Chronometer Assembler for Chg Fwd Exam Detailed
[2020-12-13] MEDS: ketorolac 30 mg/mL INJ 15 MG IVP (02:40)
[2020-12-13 02:43] LABS: Basophils % 0.5 %; Eosinophils % 0.5 %; Hematocrit 39.2 % (37.0-47.0); Hemoglobin 12.7 g/dL (11.5-15.3); Lymphocytes # 1.7 10^3/uL (0.8-4.8); Lymphocytes % 20.4 %; Mean Corpuscular HGB Conc 32.4 g/dL (30.0-36.0); Mean Corpuscular Hemoglobin 27.8 pg (28.0-34.0); Mean Corpuscular Volume 85.8 fl (81-99); Mean Platelet Volume 10.1 fL (7.4-10.4); Monocytes # 0.9 10^3/uL (0.2-0.9); Monocytes % 10.9 %; Neutrophils # 5.61 10^3/uL (1.8-7.7); Neutrophils % 67.5 %; Nucleated Red Blood Cells % 0 %; Platelet Count 359 10^3/cmm (130-400); Red Blood Count 4.57 10^6/uL (4.1-5.3); Red Cell Distribution Width 13.1 % (12.1-15.1); White Blood Count 8.3 10^3/uL (4.0-10.0)
[2020-12-13] MEDS: dexamethasone 4 mg/mL INJ 8 MG IVP (02:43)
[2020-12-13] MEDS: ondansetron 2 mg/ML SDV 2 mL 4 MG IVP (02:53)
[2020-12-13] MEDS: sodium chloride 0.9% 1,000 ML 999 ML IV (03:09)
[2020-12-13 03:17] LABS: Alanine Aminotransferase 10 U/L (0-33); Albumin Level 4.5 g/dL (3.5-5.2); Alkaline Phosphatase 73 IU/L (35-105); Anion Gap 14.4 (5-19); Aspartate Amino Transferase 11 U/L (0-32); Blood Urea Nitrogen 9 mg/dL (6-20); C Reactive Protein 0.7 mg/L (0.0-4.9); Calcium 9.4 mg/dL (8.5-10.5); Carbon Dioxide 24 mmol/L (22-29); Chloride 103 mmol/L (98-107); Creatinine Clr Calc Pharmacy 186.8817; Glomerular Filtration Rate 197.8 mL/min (90-130); Glucose 95 mg/dL (65-115); Osmolality Calculated 284 mOsm/kg (285-295); Potassium 3.4 mmol/L (3.5-5.1); Sodium 138 mmol/L (136-145); Total Bilirubin 0.4 mg/dL (0.15-1.2); Total Protein 7.5 g/dL (6.6-8.7)
[2020-12-13 03:22] LABS: Procalcitonin 0.04 ng/mL (0-0.5)
[2020-12-13 04:46] VITALS: PULSE 104; RESP 18; O2SAT 98
[2020-12-13 04:47] VITALS: PULSE 111; RESP 18; O2SAT 98
== END 2020-12-13 04:49 | disposition home or self-care (01) ==
PROVIDERS: Emergency Provider Emergency Medicine; PCP Family Medicine
DX: R51.9 Headache, unspecified (principal); H60.90 Unspecified otitis externa, unspecified ear; Z87.891 Personal history of nicotine dependence
CPT/HCPCS: 80053; 84145; 85025; 86140; 96361; 96374; 96375; 99284; J1100; J1885; J2405; J7030

== ENCOUNTER 2021-01-07 03:23 | Emergency (ER) | payer MEDICAID, SELFPAY ==
--- NOTE | 2021-01-07 03:28 | W.ED.GENADLT ---
HPI - General Adult General: Chief complaint: Back Pain/Injury Stated complaint: Pain in Kidney's\Swollen Legs Time Seen by Provider: 01/07/21 03:25 History of Present Illness: HPI narrative: Ms. Garcia is a 25-year-old lady who presents to the emergency department with 2 primary concerns. She had subacute onset of right flank pain starting yesterday. She did note mild associated urinary urgency but no other significant symptoms. Additionally today she noticed bruising and subjective swelling of her right lower extremity. The intensity of symptoms is moderate. The course has persisted. The patient denies abnormal vaginal bleeding or discharge, she is currently on her menstrual period which is normal for her. No other signs of systemic illness or respiratory infectious symptoms. Review of Systems General: Reports: 10 or more systems reviewed and unremarkable except in HPI and below Narrative: CONSTITUTIONAL: denies fever, fatigue, weakness EYES - denies pain, denies loss of vision EARS - denies ear issues. NOSE - denies congestion or rhinorrhea. THROAT - denies sore throat or difficulty swallowing. CARDIOVASCULAR - denies chest pain and palpitations RESPIRATORY - denies shortness of breath and cough GASTROINTESTINAL -see HPI GENITOURINARY - denies dysuria or urinary frequency MUSCULOSKELETAL-see HPI SKIN - denies rashes or new changed skin lesions NEUROLOGIC - denies focal weakness or sensory changes HEMATOLOGIC/LYMPHATIC - denies easy bruising or lymphadenopathy. [facility] ED PFSH: Medical History Anemia affecting in third trimester Anemia during , delivered, current hospitalization Chronic headache with normal neurologic examination Supervision of normal Term delivered Surgical History History of breast lump/mass excision (~02/28/14) -patient states it was a fibroadenoma. Preformed by Dr. Bashir. Previous back surgery (~2018) 2018--Pt reports blood clot in her spine [place] [facility] Family History Mother Diabetes Grandfather Diabetes Maternal Grandmother Diabetes Maternal Uterine cancer Maternal great grandmother Leukemia maternal grandmother Sister Thyroid condition Uterine cancer Endometriosis Social History Smoking and tobacco status: former smoker Quit status (tobacco): has quit using tobacco Year quit tobacco: 04/16/2019 Alcohol intake: never Female Reproductive History: Date of last menstrual period: 11/11/20 Physical Exam Narrative: EXAM NARRATIVE: GENERAL/CONSTITUTIONAL -mildly ill-appearing. No acute distress. Eyes - PERRL, no conjunctival injection ENMT - Atraumatic external nose and ears. Moist mucous membranes NECK - supple. trachea midline CARDIOVASCULAR -tachycardic regular rate and rhythm. Peripheral pulses 2+ and equal RESPIRATORY -clear to auscultation bilaterally. No retractions or accessory muscle use. ABDOMEN/GI - Nontender, Nondistended. No CVA tenderness. MSK - Extremities without obvious deformity or tenderness to palpation. No significant tenderness to palpation of midline lumbar spine. Lower extremities appear symmetric without obvious edema noted on either lower extremity. SKIN - Warm, Dry. Scattered bruising on the right lower extremity NEURO - alert and appropriately oriented. strength and sensation intact. Moves all extremities equally. PSYCH - Appropriate mood and affect Course ED course: - Patient was seen and evaluated by me at bedside - Patient placed on cardiac monitors, IV access obtained - Initial evaluation notable for no acute distress, nontoxic appearance - Labs notable for no evidence of urinary tract infection or hematuria. Normal labs otherwise. - Imaging notable for normal KUB, no calcifications concerning for kidney stones identified. - Upon serial reexamination after treatment the patient was improved with improvement of heart rate. - Based on patient history, evaluation, labs, and imaging as interpreted the most likely cause of the patient's condition is nonspecific back pain - The results of ED evaluation were discussed with the patient including prescriptions and/or symptomatic cares (if applicable) including appropriate and responsible use, followup plan, and return precautions. The patient verbalized understanding and felt safe for discharge. - Patient discharged in satisfactory condition. Vital Signs: Vital signs: Vital Signs Temperature 98.3 F 01/07/21 03:29 Pulse Rate 86 01/07/21 05:45 Respiratory Rate 16 01/07/21 05:45 Blood Pressure 116/61 01/07/21 05:45 Pulse Oximetry 100 01/07/21 05:45 [facility] - General Adult Medical Records: Attestation: I reviewed the patient's medical records. Lab Data: Attestation: I reviewed the patient's lab results. Labs: Lab Results 01/07/21 01/07/21 01/07/21 Range/Units 03:32 03:32 03:35 WBC 7.5 (4.0-10.0) 10^3/ uL RBC 4.83 (4.1-5.3) 10^6/u L Hgb 13.4 (11.5-15.3) g/dL Hct 41.5 (37.0-47.0) % MCV 85.9 (81-99) fl MCH 27.7 L (28.0-34.0) pg MCHC 32.3 (30.0-36.0) g/dL RDW 13.0 (12.1-15.1) % Plt Count 394 (130-400) 10^3/c mm MPV 10.3 (7.4-10.4) fL Neut % (Auto) 58.4 % Lymph % (Auto) 30.1 % [place] % (Auto) 10.2 % Eos % (Auto) 0.5 % Baso % (Auto) 0.5 % Neut # (Auto) 4.36 (1.8-7.7) 10^3/u L Lymph # (Auto) 2.3 (0.8-4.8) 10^3/u L [place] # (Auto) 0.8 (0.2-0.9) 10^3/u L Eos # (Auto) 0.0 (0.0-0.8) 10^3/u L Baso # (Auto) 0.0 (0.0-0.1) 10^3/u L Nucleated RBC % (a uto) 0 % Nucleated RBCs # 0.0 /100WBC Sodium (136-145) mmol/L Potassium (3.5-5.1) mmol/L Chloride (98-107) mmol/L Carbon Dioxide (22-29) mmol/L Anion Gap (5-19) BUN (6-20) mg/dL Creatinine (0.5-0.9) mg/dL GFR Calculation (90-130) mL/min Glucose (65-115) mg/dL Calculated Osmolal ity (285-295) mOsm/k g Calcium (8.5-10.5) mg/dL HCG, Qual Negative (Negative) Urine Color Yellow (Yellow) Urine Appearance Clear (CLEAR) Urine pH 5 (5-7) Ur Specific Gravit y 1.010 (1.005-1.030) Urine Protein Neg (Negative) Urine Glucose (UA) Norm (Normal) Urine Ketones Negative (Negative) Urine Blood Neg (Negative) Urine Nitrate Negative (Negative) Urine Bilirubin Neg (Negative) Urine Urobilinogen Norm (Negative) mg/dL Ur Leukocyte Kristin ase Negative (Negative) 01/07/21 Range/Units 03:35 WBC (4.0-10.0) 10^3/ uL RBC (4.1-5.3) 10^6/u L Hgb (11.5-15.3) g/dL Hct (37.0-47.0) % MCV (81-99) fl MCH (28.0-34.0) pg MCHC (30.0-36.0) g/dL RDW (12.1-15.1) % Plt Count (130-400) 10^3/c mm MPV (7.4-10.4) fL Neut % (Auto) % Lymph % (Auto) % [place] % (Auto) % Eos % (Auto) % Baso % (Auto) % Neut # (Auto) (1.8-7.7) 10^3/u L Lymph # (Auto) (0.8-4.8) 10^3/u L [place] # (Auto) (0.2-0.9) 10^3/u L Eos # (Auto) (0.0-0.8) 10^3/u L Baso # (Auto) (0.0-0.1) 10^3/u L Nucleated RBC % (a uto) % Nucleated RBCs # /100WBC Sodium 137 (136-145) mmol/L Potassium 3.6 (3.5-5.1) mmol/L Chloride 101 (98-107) mmol/L Carbon Dioxide 23 (22-29) mmol/L Anion Gap 16.6 (5-19) BUN 10 (6-20) mg/dL Creatinine 0.5 (0.5-0.9) mg/dL GFR Calculation 152.9 H (90-130) mL/min Glucose 91 (65-115) mg/dL Calculated Osmolal ity 283 L (285-295) mOsm/k g Calcium 9.1 (8.5-10.5) mg/dL HCG, Qual (Negative) Urine Color (Yellow) Urine Appearance (CLEAR) Urine pH (5-7) Ur Specific Gravit y (1.005-1.030) Urine Protein (Negative) Urine Glucose (UA) (Normal) Urine Ketones (Negative) Urine Blood (Negative) Urine Nitrate (Negative) Urine Bilirubin (Negative) Urine Urobilinogen (Negative) mg/dL Ur Leukocyte Kristin ase (Negative) Discharge Plan Discharge Patient Disposition: Home Clinical Impression: Back pain Condition: Stable Prescriptions: No Action diclofenac potassium 50 mg tablet 50 mg PO Q8H PRN (Reason: pain) Qty: 12 RF: 0 tizanidine 4 mg tablet 4 mg PO Q8H PRN (Reason: muscle spasticity) Qty: 12 RF: 0 Cortisporin-TC 3.3-3-10-0.5 mg/mL drops,suspension 4 drp otic (ear) QID Qty: 10 RF: 0 Prilosec OTC 20 mg tablet,delayed release (DR/EC) 20 mg PO DAILY Qty: 20 RF: 0 Vistaril 25 mg capsule 25 mg PO TID PRN (Reason: anxiety) Qty: 14 RF: 0 Topamax 25 mg tablet 25 mg PO DAILY Qty: 30 RF: 0 promethazine 25 mg tablet 25 mg PO Q6H PRN (Reason: nausea and vomiting, migraine) Qty: 20 RF: 0 Imitrex 50 mg tablet See Rx Instructions .ROUTE .COMPLEX Qty: 20 RF: 0 Discharge Orders: Discharge ED (Routine); Ordered 01/07/21 Ordered By: Darrion Flores Discharge Diet: Usual diet Discharge Activity: Resume usual activity Patient Instructions: Flank Pain (ED), Back Pain (ED) Activity Restrictions/Additional Instructions: Thank you for visiting the emergency department. You were seen and evaluated for back and side pain. Your evaluation was unremarkable. You may use [id number] medications for your symptoms. Please follow-up with your primary care provider. Please return the emergency department for anything that you are concerned about and feel needs emergency department evaluation. Coding Level of Care Code ED Product Accountant for Yajaira Salazar
[2021-01-07 03:29] VITALS: BP 137/87; PULSE 117; RESP 18; TEMP 36.8; O2SAT 100; BMI 23.0
[2021-01-07 03:49] LABS: HCG Qualitative Urine. Negative (Negative)
[2021-01-07 04:09] LABS: Add Urine Microscopic? NO; Bilirubin Urine Neg (Negative); Blood Urine Neg (Negative); Charge for UA Resulting for Rev; Glucose Urine UA Norm (Normal); Ketones Urine Negative (Negative); Leukocyte Esterase Urine Negative (Negative); Nitrate Urine Negative (Negative); Protein Urine Neg (Negative); Urine Appearance Clear (CLEAR); Urine Color Yellow (Yellow); Urobilinogen Urine Norm (Negative); pH Urine 5 (5-7)
--- NOTE | 2021-01-07 04:21 | XRR_ITS ---
PROCEDURE INFORMATION: Exam: XR Abdomen Exam date and time: 01/07/2021 4:21 AM Age: 25 years old Clinical indication: Abdominal pain; Right; Patient HX: RT flank pain. History of nephrolithiasis. ; Additional info: Abd pain TECHNIQUE: Imaging protocol: XR of the abdomen. Views: Frontal supine view of the abdomen. 1 View. COMPARISON: CR XR KUB [id number] 08/08/2020 4:40 PM FINDINGS: Gastrointestinal tract: Normal. No bowel dilation. Bones/joints: Unremarkable. XR/XR KUB [id number] IMPRESSION: No acute findings.
[2021-01-07] MEDS: sodium chloride 0.9% 1,000 ML 999 ML IV (04:23)
[2021-01-07] MEDS: ketorolac 30 mg/mL INJ 15 MG IVP (04:33)
[2021-01-07 04:40] LABS: Basophils % 0.5 %; Eosinophils % 0.5 %; Hematocrit 41.5 % (37.0-47.0); Hemoglobin 13.4 g/dL (11.5-15.3); Lymphocytes # 2.3 10^3/uL (0.8-4.8); Lymphocytes % 30.1 %; Mean Corpuscular HGB Conc 32.3 g/dL (30.0-36.0); Mean Corpuscular Hemoglobin 27.7 pg (28.0-34.0); Mean Corpuscular Volume 85.9 fl (81-99); Mean Platelet Volume 10.3 fL (7.4-10.4); Monocytes # 0.8 10^3/uL (0.2-0.9); Monocytes % 10.2 %; Neutrophils # 4.36 10^3/uL (1.8-7.7); Neutrophils % 58.4 %; Nucleated Red Blood Cells % 0 %; Platelet Count 394 10^3/cmm (130-400); Red Blood Count 4.83 10^6/uL (4.1-5.3); White Blood Count 7.5 10^3/uL (4.0-10.0)
[2021-01-07 04:54] LABS: Anion Gap 16.6 (5-19); Blood Urea Nitrogen 10 mg/dL (6-20); Calcium 9.1 mg/dL (8.5-10.5); Carbon Dioxide 23 mmol/L (22-29); Chloride 101 mmol/L (98-107); Creatinine Clr Calc Pharmacy 152.0115; Glomerular Filtration Rate 152.9 mL/min (90-130); Glucose 91 mg/dL (65-115); Osmolality Calculated 283 mOsm/kg (285-295); Potassium 3.6 mmol/L (3.5-5.1); Sodium 137 mmol/L (136-145)
[2021-01-07 05:45] VITALS: BP 116/61; PULSE 86; RESP 16; O2SAT 100
== END 2021-01-07 06:04 | disposition home or self-care (01) ==
PROVIDERS: Emergency Provider Emergency Medicine
DX: M54.9 Dorsalgia, unspecified (principal); Z87.891 Personal history of nicotine dependence
CPT/HCPCS: 74018; 80048; 81003; 81025; 85025; 96361; 96374; 99283; J1885; J7030

== ENCOUNTER 2021-01-08 23:12 | Emergency (ER) | payer MEDICAID, SELFPAY ==
[2021-01-08 23:17] VITALS: BP 136/96; PULSE 104; RESP 18; TEMP 36.2; O2SAT 100; BMI 22.3
--- NOTE | 2021-01-08 23:30 | ED_ITS ---
HPI - General Adult General: Chief complaint: General Medical Stated complaint: Chest Pains\Shaking Throat Dry\Dizzy\Numb Arm Time Seen by Provider: 01/08/21 23:25 History of Present Illness: HPI narrative: 25-year-old female comes in today with complaints of right flank pain radiating to her abdomen. Patient was seen yesterday with similar complaints but was diagnosed with low back pain. Patient thinks that she may have a kidney stone. Urine yesterday did not show any blood but patient reported wiping and noticing blood in her urine today. Patient is alert oriented. Patient appears well. Patient appears in mild to no pain. Patient also expresses concerns of body aches and bruising to her lower extremities. Review of Systems General: Reports: 10 or more systems reviewed and unremarkable except in HPI and below : Reports: flank pain PFSH ED PFSH: Medical History Anemia affecting in third trimester Anemia during , delivered, current hospitalization Chronic headache with normal neurologic examination Supervision of normal Term delivered Surgical History History of breast lump/mass excision (~02/28/14) -patient states it was a fibroadenoma. Preformed by Dr. Bashir. Previous back surgery (~2017) 2018--Pt reports blood clot in her spine [place] [facility] Family History Mother Diabetes Grandfather Diabetes Maternal Grandmother Diabetes Maternal Uterine cancer Maternal great grandmother Leukemia maternal grandmother Sister Thyroid condition Uterine cancer Endometriosis Social History Smoking and tobacco status: former smoker Quit status (tobacco): has quit using tobacco Year quit tobacco: 04/16/2019 Alcohol intake: never Female Reproductive History: Date of last menstrual period: 01/07/21 Physical Exam Const: COMMON NORMALS: no acute distress and patient oriented x3 GENERAL APPEARANCE: cooperative HENMT: COMMON NORMALS: normocephalic and Normal external nose present HEAD & SCALP: normal to inspection and normocephalic NOSE: Normal external nose present Eye: GENERAL EYE: appearance normal, both eyes and all related structures Neck/C-Spine: COMMON NORMALS: full ROM Chest: COMMONS NORMALS: normal inspection of the chest Resp: COMMON NORMALS: normal respiratory effort EFFORT & INSPECTION: Yes able to speak in complete sentences Cardio: COMMON NORMALS: regular rate and regular rhythm RATE: regular rate RHYTHM: regular rhythm GI: COMMON NORMALS: non-tender : BLADDER/KIDNEY EXAM: Yes CVA tenderness on the right Back/Pelvis: COMMON NORMALS: thoracic and lumbar spine normal to inspection GENERAL BACK: Yes CVA tenderness Extremity: NARRATIVE EXTREMITY EXAM: There is a 8 cm ovoid bruise to the anterior right lower leg with extension of bruising down to the medial ankle. Patient cannot recall injury. Neuro: COMMON NORMALS: patient oriented x3 and moves all extremities Psych: COMMON NORMALS: mental status grossly normal and cooperative Skin: COMMON NORMALS: no rashes or lesions noted GENERAL SKIN EXAM: no rashes or lesions noted Course 2 Vital Signs: Vital signs: Vital Signs Temperature 97.1 F L 01/08/21 23:17 Pulse Rate 74 01/09/21 01:42 Respiratory Rate 18 01/09/21 01:42 Blood Pressure 120/72 01/09/21 01:42 Pulse Oximetry 96 01/09/21 01:42 MDM - General Adult MDM Narrative: Medical decision making narrative: Patient presents with complaints of right flank pain radiating into her abdomen. Patient is concerned that she may be having a kidney stone again. Patient reports she was evaluated yesterday and was told that it was a muscle strain. Patient came back today due to persistent worsening pain. On exam patient has CVA tenderness in the right flank. Abdomen soft. Bowel sounds are present. Differential diagnosis includes but not limited to UTI, cystitis, pyelonephritis, renal calculi. Urinalysis noted positive nitrates and some increased number of white blood cells in the urine. CBC was unremarkable. CRP and CPK were negative. Lipase was negative. I reviewed the labs from yesterday which showed no significant abnormalities in the CMP. CT scan of the abdomen and pelvis showed a renal calculi in the left kidney but no hydronephrosis, and a small ovarian cyst in the left ovary. I reviewed the exam with patient with recommendations for treatment of urinary tract infection. With recommendations for follow-up with primary care in 1 week. Lab Data: Labs: Lab Results 01/08/21 01/08/21 01/09/21 Range/Units 23:50 23:50 00:45 WBC 7.4 (4.0-10.0) 10^3/ uL RBC 4.29 (4.1-5.3) 10^6/u L Hgb 11.7 (11.5-15.3) g/dL Hct 36.9 L (37.0-47.0) % MCV 86.0 (81-99) fl MCH 27.3 L (28.0-34.0) pg MCHC 31.7 (30.0-36.0) g/dL RDW 13.0 (12.1-15.1) % Plt Count 337 (130-400) 10^3/c mm MPV 10.1 (7.4-10.4) fL Neut % (Auto) 61.1 % Lymph % (Auto) 26.7 % [place] % (Auto) 10.9 % Eos % (Auto) 0.4 % Baso % (Auto) 0.8 % Neut # (Auto) 4.49 (1.8-7.7) 10^3/u L Lymph # (Auto) 2.0 (0.8-4.8) 10^3/u L [place] # (Auto) 0.8 (0.2-0.9) 10^3/u L Eos # (Auto) 0.0 (0.0-0.8) 10^3/u L Baso # (Auto) 0.1 (0.0-0.1) 10^3/u L Nucleated RBC % (a uto) 0 % Nucleated RBCs # 0.0 /100WBC Creatine Kinase 42 (26-192) U/L C-Reactive Protein 0.8 (0.0-4.9) mg/L Lipase 11 L (13-60) U/L Urine Color (Yellow) Urine Appearance (CLEAR) Urine pH (5-7) Ur Specific Gravit y (1.005-1.030) Urine Protein (Negative) Urine Glucose (UA) (Normal) Urine Ketones (Negative) Urine Blood (Negative) Urine Nitrate (Negative) Urine Bilirubin (Negative) Urine Urobilinogen (Negative) mg/dL Ur Leukocyte Kristin ase (Negative) Urine RBC (0-2) /hpf Urine WBC (0-5) /hpf Ur Squamous Epith Cells (0-5) /hpf Amorphous Sediment Urine Bacteria (NONE) /hpf Urine HCG, Qual Negative (Negative) 01/09/21 Range/Units 00:45 WBC (4.0-10.0) 10^3/ uL RBC (4.1-5.3) 10^6/u L Hgb (11.5-15.3) g/dL Hct (37.0-47.0) % MCV (81-99) fl MCH (28.0-34.0) pg MCHC (30.0-36.0) g/dL RDW (12.1-15.1) % Plt Count (130-400) 10^3/c mm MPV (7.4-10.4) fL Neut % (Auto) % Lymph % (Auto) % [place] % (Auto) % Eos % (Auto) % Baso % (Auto) % Neut # (Auto) (1.8-7.7) 10^3/u L Lymph # (Auto) (0.8-4.8) 10^3/u L [place] # (Auto) (0.2-0.9) 10^3/u L Eos # (Auto) (0.0-0.8) 10^3/u L Baso # (Auto) (0.0-0.1) 10^3/u L Nucleated RBC % (a uto) % Nucleated RBCs # /100WBC Creatine Kinase (26-192) U/L C-Reactive Protein (0.0-4.9) mg/L Lipase (13-60) U/L Urine Color Yellow (Yellow) Urine Appearance Clear (CLEAR) Urine pH 6.5 (5-7) Ur Specific Gravit y 1.005 (1.005-1.030) Urine Protein Neg (Negative) Urine Glucose (UA) Norm (Normal) Urine Ketones 1+ H (Negative) Urine Blood 3+ H (Negative) Urine Nitrate Positive H (Negative) Urine Bilirubin Neg (Negative) Urine Urobilinogen Norm (Negative) mg/dL Ur Leukocyte Kristin ase Negative (Negative) Urine RBC 0-4 H (0-2) /hpf Urine WBC 0-4 H (0-5) /hpf Ur Squamous Epith Cells 0-4 H (0-5) /hpf Amorphous Sediment Not Reportable Urine Bacteria 2+ H (NONE) /hpf Urine HCG, Qual (Negative) Discharge Plan Discharge Patient Disposition: Home Clinical Impression: UTI (urinary tract infection) due to Enterococcus Condition: Stable Prescriptions: New cephalexin 500 mg capsule 500 mg PO BID 7 Days Qty: 14 RF: 0 No Action diclofenac potassium 50 mg tablet 50 mg PO Q8H PRN (Reason: pain) Qty: 12 RF: 0 tizanidine 4 mg tablet 4 mg PO Q8H PRN (Reason: muscle spasticity) Qty: 12 RF: 0 Cortisporin-TC 3.3-3-10-0.5 mg/mL drops,suspension 4 drp otic (ear) QID Qty: 10 RF: 0 Prilosec OTC 20 mg tablet,delayed release (DR/EC) 20 mg PO DAILY Qty: 20 RF: 0 Vistaril 25 mg capsule 25 mg PO TID PRN (Reason: anxiety) Qty: 14 RF: 0 Topamax 25 mg tablet 25 mg PO DAILY Qty: 30 RF: 0 promethazine 25 mg tablet 25 mg PO Q6H PRN (Reason: nausea and vomiting, migraine) Qty: 20 RF: 0 Imitrex 50 mg tablet See Rx Instructions .ROUTE .COMPLEX Qty: 20 RF: 0 Discharge Orders: Discharge ED (Routine); Ordered 01/09/21 Ordered By: Srini Miller Discharge Diet: Usual diet Discharge Activity: Increase activity as tolerated Patient Instructions: Urinary Tract Infection in Women (ED), Opioid Safety Activity Restrictions/Additional Instructions: Home and rest. Drink plenty of fluids. Activity as tolerated. Take antibiotic, cephalexin 500 mg, 1 capsule twice a day for the next 7 days. Follow-up with primary care in 1 week for recheck of urine. Return to the ER for new concerns. Coding Level of Care Code ED Operator/Assistant Foreman for [employer] Fwd Exam Comprehensive
--- NOTE | 2021-01-08 23:39 | CTR_ITS ---
PROCEDURE INFORMATION: Exam: CT Abdomen And Pelvis Without Contrast Exam date and time: 01/08/2021 11:39 PM Age: 25 years old Clinical indication: Abdominal pain; Right; Patient HX: RT flank pain; Additional info: Right flank pain TECHNIQUE: Imaging protocol: Computed tomography of the abdomen and pelvis without contrast. Radiation optimization: All CT scans at this facility use at least one of these dose optimization techniques: automated exposure control; mA and/or kV adjustment per patient size (includes targeted exams where dose is matched to clinical indication); or iterative reconstruction. COMPARISON: CT abdomen pelvis w con* [id number] 12/24/2014 10:51 AM RADIATION DOSE METRICS: Total DLP (mGy-cm): 628.93 FINDINGS: Lungs: The lung bases are clear. Liver: Unremarkable. Gallbladder and bile ducts: No visible gallstones or other the definite gallbladder abnormality by CT. Ultrasound would be more sensitive for detecting gallstones, if clinically needed. No biliary tree dilation. Pancreas: Unremarkable. Spleen: Unremarkable. Adrenal glands: Unremarkable. Kidneys and ureters: 3-4 mm left lower pole intrarenal calculus. No hydronephrosis of either kidney. No visible ureteral calculus. No perinephric fluid. Stomach and bowel: There are no CT findings to strongly suggest diverticulitis. Appendix: The appendix is visualized and appears normal. Intraperitoneal space: No free air, ascites, or bowel distention. Vasculature: No evidence for abdominal aortic aneurysm. Lymph nodes: No retroperitoneal adenopathy. Urinary bladder: Unremarkable as visualized. Reproductive: There is a 3.1 cm left adnexal/ovarian cyst. A physiologic cyst is likely in this young age group, other etiologies not excluded. Ultrasound could further evaluate these ovarian findings if felt clinically indicated, and could also be used for appropriate follow-up, to insure against a persistent or enlarging lesion. No significant cul-de-sac fluid. Bones/joints: No significant acute finding. Soft tissues: Very small umbilical hernia, containing only fat. CT/CT kidney stone [id number] IMPRESSION: 1. 3.1 cm left adnexal/ovarian cyst, see above discussion. 2. Small left lower pole intrarenal calculus. No hydronephrosis of either kidney. No visible ureteral calculus. 3. Normal appendix. 4. No visible gallstones by CT. 5. No free air or bowel distention. 6. Other findings discussed above. Radiation Dose CTDIVOL = (mGy): DLP = 628.93 (mGy-cm)
[2021-01-09 00:03] LABS: Basophils # 0.1 10^3/uL (0.0-0.1); Basophils % 0.8 %; Eosinophils % 0.4 %; Hematocrit 36.9 % (37.0-47.0); Hemoglobin 11.7 g/dL (11.5-15.3); Lymphocytes % 26.7 %; Mean Corpuscular HGB Conc 31.7 g/dL (30.0-36.0); Mean Corpuscular Hemoglobin 27.3 pg (28.0-34.0); Mean Platelet Volume 10.1 fL (7.4-10.4); Monocytes # 0.8 10^3/uL (0.2-0.9); Monocytes % 10.9 %; Neutrophils # 4.49 10^3/uL (1.8-7.7); Neutrophils % 61.1 %; Nucleated Red Blood Cells % 0 %; Platelet Count 337 10^3/cmm (130-400); Red Blood Count 4.29 10^6/uL (4.1-5.3); White Blood Count 7.4 10^3/uL (4.0-10.0)
[2021-01-09 00:22] LABS: C Reactive Protein 0.8 mg/L (0.0-4.9); Creatine Phosphokinase 42 U/L (26-192); Lipase 11 U/L (13-60)
[2021-01-09 00:46] VITALS: BP 128/72; PULSE 72; RESP 16; O2SAT 99
[2021-01-09 00:54] LABS: Glucose Urine UA Norm (Normal); Ketones Urine 1+ (Negative); Protein Urine Neg (Negative); Specific Gravity, Urine 1.005 (1.005-1.030); Urine Appearance Clear (CLEAR); Urine Color Yellow (Yellow); pH Urine 6.5 (5-7)
[2021-01-09 00:55] LABS: Add Urine Culture? Yes; Add Urine Microscopic? YES; Bacteria Urine 2+ /hpf; Bilirubin Urine Neg (Negative); Blood Urine 3+ (Negative); Leukocyte Esterase Urine Negative (Negative); Nitrate Urine Positive (Negative); RBC Urine 0-4 /hpf (0-2); Squamous Epithelial Cell Urine 0-4 /hpf (0-5); Urobilinogen Urine Norm (Negative); WBC Urine 0-4 /hpf (0-5)
[2021-01-09 01:42] VITALS: BP 120/72; PULSE 74; RESP 18; O2SAT 96
[2021-01-09] MEDS: cephALEXin 500 mg Capsule PO (02:28)
[2021-01-09 02:30] VITALS: BP 120/72; PULSE 74; RESP 18; TEMP 36.2; O2SAT 96
[2021-01-09 14:12] LABS: Coronavirus Test Green County Not Detected
--- NOTE | 2021-01-09 18:41 | PC.NURSE ---
notified pt's father of her negative COVID results
== END 2021-01-09 02:32 | disposition home or self-care (01) ==
PROVIDERS: Emergency Provider Nurse Practitioner Family
DX: N39.0 Urinary tract infection, site not specified (principal); B95.2 Enterococcus as the cause of diseases classified elsewhere; Z87.891 Personal history of nicotine dependence; Z20.822 Contact with and (suspected) exposure to COVID-19
CPT/HCPCS: 36415; 74176; 81001; 81025; 82550; 83690; 85025; 86140; 87077; 87086; 87186; 87635; 99283

== ENCOUNTER 2021-02-10 17:42 | Emergency (ER) | payer MEDICAID, SELFPAY ==
[2021-02-10 18:13] VITALS: BP 134/81; PULSE 107; RESP 18; TEMP 36.9; O2SAT 100; BMI 22.3
[2021-02-10 18:46] LABS: HCG Qualitative Urine. Negative (Negative)
== END 2021-02-10 20:28 | disposition left against medical advice (07) ==
LOC: ER 17:48
PROVIDERS: Emergency Medicine; Emergency Provider Family Medicine
DX: Z53.21 Procedure and treatment not carried out due to patient leaving prior to being seen by health care provider (principal)
CPT/HCPCS: 81025; 99281

== ENCOUNTER 2021-02-13 04:13 | Emergency (ER) | payer MEDICAID, SELFPAY ==
[2021-02-13 04:19] VITALS: BP 138/91; PULSE 114; RESP 18; TEMP 36.5; O2SAT 100; BMI 22.1
--- NOTE | 2021-02-13 04:32 | W.ED.GENADLT ---
HPI - General Adult General: Chief complaint: General Medical Stated complaint: Rash on Arms\Legs top of hands Time Seen by Provider: 02/13/21 04:14 Source: patient Limitations: no limitations History of Present Illness: HPI narrative: 25-year-old female states that she has had a rash to her arms and hands over the last 3 days states she has had some swelling to her right upper leg. States she has had kidney infections the past and concerned she may have a kidney infection. Denies any fever denies any abdominal pain. Denies any cough or shortness of breath denies any swelling of her throat. Associated symptoms: Reports rash; Deny chest pain, dyspnea, headache(s), nausea or vomiting Review of Systems Const: Denies: fever(s), chills, body aches or change in appetite Eyes: Denies: blurry vision or eye discomfort ENMT: Denies: throat pain or dental pain Card: Denies: chest pain Resp: Denies: dyspnea GI: Denies: abdominal pain, nausea, vomiting or diarrhea : Denies: dysuria Musc: Denies: neck pain or back pain Skin/Breast: Reports: rash Neuro: Denies: headache(s) Psych: Denies: depression Joni/Lymph: Denies: easy bruising All/Imm: Denies: urticaria PFSH ED PFSH: Medical History Anemia affecting in third trimester Anemia during , delivered, current hospitalization Chronic headache with normal neurologic examination Supervision of normal Term delivered Surgical History History of breast lump/mass excision (~02/28/14) -patient states it was a fibroadenoma. Preformed by Dr. Bashir. Previous back surgery (~2018) 2018--Pt reports blood clot in her spine [facility] Family History Mother Diabetes Grandfather Diabetes Maternal Grandmother Diabetes Maternal Uterine cancer Maternal great grandmother Leukemia maternal grandmother Sister Thyroid condition Uterine cancer Endometriosis Social History Smoking and tobacco status: former smoker Quit status (tobacco): has quit using tobacco Year quit tobacco: 04/16/2019 Alcohol intake: never Female Reproductive History: Date of last menstrual period: 02/03/21 Physical Exam Const: COMMON NORMALS: no acute distress, patient oriented x3 and healthy appearing HENMT: COMMON NORMALS: normocephalic and atraumatic HEAD & SCALP: normocephalic and atraumatic Eye: COMMON NORMALS: Equal, round and reactive pupils present and EOMs intact bilaterally PUPIL: Yes Equal, round and reactive pupils present Neck/C-Spine: COMMON NORMALS: full ROM and supple Chest: COMMONS NORMALS: normal inspection of the chest and normal palpation of entire chest wall Resp: COMMON NORMALS: normal respiratory effort, No retractions, No use of accessory muscles and clear to auscultation bilaterally AUSCULTATION: clear to auscultation bilaterally Cardio: COMMON NORMALS: regular rate, regular rhythm and No murmurs present (Cardio) RATE: regular rate RHYTHM: regular rhythm GI: COMMON NORMALS: Normal to inspection, nondistended, normoactive bowel sounds present, Soft to palpation, non-tender and no masses PALPATION: Yes Soft to palpation Extremity: COMMON NORMALS: normal to inspection and full ROM Neuro: COMMON NORMALS: patient oriented x3, moves all extremities and no focal motor deficits Psych: COMMON NORMALS: mental status grossly normal, Normal thought process present and cooperative THOUGHT PROCESS: Normal thought process present Skin: COMMON NORMALS: no wounds NARRATIVE SKIN EXAM: Slight rash to arms and hands maculopapular Course Vital Signs: Vital signs: Vital Signs Temperature 97.7 F 02/13/21 04:19 Pulse Rate 114 H 02/13/21 04:19 Respiratory Rate 18 02/13/21 04:19 Blood Pressure 138/91 02/13/21 04:19 Pulse Oximetry 100 02/13/21 04:19 MDM - General Adult MDM Narrative: Medical decision making narrative: Patient presents here with a rash to her arms and hands could be dry skin versus allergic reaction here and here is normal we will place her on steroids she is stable for discharge she is to follow-up with PCP and return if worsening. Lab Data: Labs: Lab Results 02/13/21 02/13/21 04:38 04:38 HCG, Qual Negative (Negative) Urine Color Yellow (Yellow) Urine Appearance Clear (CLEAR) Urine pH 7 (5-7) Ur Specific Gravit y 1.015 (1.005-1.030) Urine Protein Neg (Negative) Urine Glucose (UA) Norm (Normal) Urine Ketones 2+ H (Negative) Urine Blood Neg (Negative) Urine Nitrate Negative (Negative) Urine Bilirubin Neg (Negative) Urine Urobilinogen Norm mg/dL mg/dL (Negative) Ur Leukocyte Kristin ase Negative (Negative) Discharge Plan Discharge Patient Disposition: Home Clinical Impression: Rash Condition: Stable Prescriptions: New prednisone 50 mg tablet 50 mg PO DAILY Qty: 5 RF: 0 No Action diclofenac potassium 50 mg tablet 50 mg PO Q8H PRN (Reason: pain) Qty: 12 RF: 0 tizanidine 4 mg tablet 4 mg PO Q8H PRN (Reason: muscle spasticity) Qty: 12 RF: 0 Cortisporin-TC 3.3-3-10-0.5 mg/mL drops,suspension 4 drp otic (ear) QID Qty: 10 RF: 0 Prilosec OTC 20 mg tablet,delayed release (DR/EC) 20 mg PO DAILY Qty: 20 RF: 0 Vistaril 25 mg capsule 25 mg PO TID PRN (Reason: anxiety) Qty: 14 RF: 0 Topamax 25 mg tablet 25 mg PO DAILY Qty: 30 RF: 0 promethazine 25 mg tablet 25 mg PO Q6H PRN (Reason: nausea and vomiting, migraine) Qty: 20 RF: 0 Imitrex 50 mg tablet See Rx Instructions .ROUTE .COMPLEX Qty: 20 RF: 0 Discharge Orders: Discharge ED (Routine); Ordered 02/13/21 Ordered By: Dennis Menchaca Discharge Diet: Advance as tolerated Discharge Activity: Resume usual activity Patient Instructions: Acute Rash (ED) Coding Level of Care Code ED Industrial Relations Commissioner for Chg Fwd Exam Comprehensive
[2021-02-13] MEDS: diphenhydrAMINE 50 mg Capsule PO (04:35)
[2021-02-13] MEDS: predniSONE 20 mg Tablet 60 MG PO (04:35)
[2021-02-13 04:44] LABS: HCG Qualitative Urine. Negative (Negative)
[2021-02-13 04:45] LABS: Add Urine Microscopic? NO; Charge for UA Resulting for Rev
[2021-02-13 05:05] LABS: Bilirubin Urine Neg (Negative); Blood Urine Neg (Negative); Glucose Urine UA Norm (Normal); Ketones Urine 2+ (Negative); Leukocyte Esterase Urine Negative (Negative); Nitrate Urine Negative (Negative); Protein Urine Neg (Negative); Specific Gravity, Urine 1.015 (1.005-1.030); Urine Appearance Clear (CLEAR); Urine Color Yellow (Yellow); Urobilinogen Urine Norm (Negative); pH Urine 7 (5-7)
[2021-02-13 05:15] VITALS: BP 125/82; RESP 18
== END 2021-02-13 05:16 | disposition home or self-care (01) ==
PROVIDERS: Emergency Provider Emergency Medicine
DX: R21 Rash and other nonspecific skin eruption (principal); Z87.891 Personal history of nicotine dependence
CPT/HCPCS: 81003; 81025; 99283; J7512; Q0163

== ENCOUNTER 2021-02-17 04:39 | Emergency (ER) | payer MEDICAID, SELFPAY ==
[2021-02-17 04:48] VITALS: BP 131/83; PULSE 110; RESP 18; TEMP 36.4; O2SAT 100; BMI 22.4
--- NOTE | 2021-02-17 04:57 | W.ED.GENADLT ---
HPI - General Adult General: Chief complaint: General Medical Stated complaint: Fever\Rash\N Time Seen by Provider: 02/17/21 04:49 Source: patient Mode of arrival: ambulatory Limitations: no limitations History of Present Illness: HPI narrative: 25-year-old female states she had a rash to her hands and now going up her arms over the last week. States she also has a sore on her right neck has been open and draining but does look like abscesses draining. She is had some erythema low-grade fevers she does admit to recent methamphetamine a abuse. She states that she smokes methamphetamine denies any IV use. She denies any cough. She denies any abdominal pain. She has had some nausea. Associated symptoms: Reports rash; Deny chest pain, dyspnea, headache(s), nausea or vomiting Review of Systems Const: Denies: fever(s), chills, body aches or change in appetite Eyes: Denies: blurry vision or eye discomfort ENMT: Denies: throat pain or dental pain Card: Denies: chest pain Resp: Denies: dyspnea GI: Denies: abdominal pain, nausea, vomiting or diarrhea : Denies: dysuria Musc: Denies: neck pain or back pain Skin/Breast: Reports: rash, pruritus and erythema Neuro: Denies: headache(s) Psych: Denies: depression Joni/Lymph: Denies: easy bruising All/Imm: Denies: urticaria PFSH ED PFSH: Medical History Anemia affecting in third trimester Anemia during , delivered, current hospitalization Chronic headache with normal neurologic examination Supervision of normal Term delivered Surgical History History of breast lump/mass excision (~02/28/14) -patient states it was a fibroadenoma. Preformed by Dr. Bashir. Previous back surgery (~2017) 2018--Pt reports blood clot in her spine [facility] Family History Mother Diabetes Grandfather Diabetes Maternal Grandmother Diabetes Maternal Uterine cancer Maternal great grandmother Leukemia maternal grandmother Sister Thyroid condition Uterine cancer Endometriosis Social History Smoking and tobacco status: former smoker Quit status (tobacco): has quit using tobacco Year quit tobacco: 04/16/2019 Alcohol intake: never Female Reproductive History: Date of last menstrual period: 02/09/21 Physical Exam Const: COMMON NORMALS: no acute distress, patient oriented x3 and healthy appearing HENMT: COMMON NORMALS: normocephalic and atraumatic HEAD & SCALP: normocephalic and atraumatic Eye: COMMON NORMALS: Equal, round and reactive pupils present and EOMs intact bilaterally PUPIL: Yes Equal, round and reactive pupils present Neck/C-Spine: COMMON NORMALS: full ROM and supple Chest: COMMONS NORMALS: normal inspection of the chest and normal palpation of entire chest wall Resp: COMMON NORMALS: normal respiratory effort, No retractions, No use of accessory muscles and clear to auscultation bilaterally AUSCULTATION: clear to auscultation bilaterally Cardio: COMMON NORMALS: regular rate, regular rhythm and No murmurs present (Cardio) RATE: regular rate RHYTHM: regular rhythm GI: COMMON NORMALS: Normal to inspection, nondistended, normoactive bowel sounds present, Soft to palpation, non-tender and no masses PALPATION: Yes Soft to palpation Extremity: COMMON NORMALS: normal to inspection and full ROM Neuro: COMMON NORMALS: patient oriented x3, moves all extremities and no focal motor deficits Psych: COMMON NORMALS: mental status grossly normal, Normal thought process present and cooperative THOUGHT PROCESS: Normal thought process present Skin: COMMON NORMALS: no wounds NARRATIVE SKIN EXAM: Rash to webspaces consistent with scabies, small less than 0.5 cm abscess to right neck that is open and draining with some slight erythema Course Vital Signs: Vital signs: Vital Signs Temperature 97.5 F L 02/17/21 04:48 Pulse Rate 110 H 02/17/21 04:48 Respiratory Rate 18 02/17/21 04:48 Blood Pressure 131/83 02/17/21 04:48 Pulse Oximetry 100 02/17/21 04:48 MDM - General Adult MDM Narrative: Medical decision making narrative: Patient presents here with abscess that is draining does not need to be opened will start on Keflex she does have what appears to be scabies as well we will start her on permethrin. She is to follow-up PCP and return if worsening. Discharge Plan Discharge Patient Disposition: Home Clinical Impression: Scabies, Abscess Condition: Stable Prescriptions: New permethrin 5 % cream 1 applic topical Q14D Qty: 60 RF: 0 Bactrim DS 800-160 mg tablet 1 tab PO BID 10 Days Qty: 20 RF: 0 No Action diclofenac potassium 50 mg tablet 50 mg PO Q8H PRN (Reason: pain) Qty: 12 RF: 0 tizanidine 4 mg tablet 4 mg PO Q8H PRN (Reason: muscle spasticity) Qty: 12 RF: 0 Cortisporin-TC 3.3-3-10-0.5 mg/mL drops,suspension 4 drp otic (ear) QID Qty: 10 RF: 0 Prilosec OTC 20 mg tablet,delayed release (DR/EC) 20 mg PO DAILY Qty: 20 RF: 0 Vistaril 25 mg capsule 25 mg PO TID PRN (Reason: anxiety) Qty: 14 RF: 0 Topamax 25 mg tablet 25 mg PO DAILY Qty: 30 RF: 0 promethazine 25 mg tablet 25 mg PO Q6H PRN (Reason: nausea and vomiting, migraine) Qty: 20 RF: 0 Imitrex 50 mg tablet See Rx Instructions .ROUTE .COMPLEX Qty: 20 RF: 0 prednisone 50 mg tablet 50 mg PO DAILY Qty: 5 RF: 0 Discharge Orders: Discharge ED (Routine); Ordered 02/17/21 Ordered By: Dennis Menchaca Discharge Diet: Advance as tolerated Discharge Activity: Resume usual activity Patient Instructions: Scabies (ED) Coding Level of Care Code ED News Assignment Editor for Yajaira Salazar
[2021-02-17 05:00] VITALS: BP 126/83; PULSE 86; RESP 15; O2SAT 100
[2021-02-17] MEDS: HYDROcodone-acetaminophen 5-325 mg Tablet 1 TAB PO (05:06)
[2021-02-17] MEDS: ondansetron 4 MG Tablet PO (05:06)
[2021-02-17 05:10] VITALS: BP 126/83; PULSE 86; RESP 15; O2SAT 100
== END 2021-02-17 05:15 | disposition home or self-care (01) ==
PROVIDERS: Emergency Provider Emergency Medicine
DX: B86 Scabies (principal); L02.11 Cutaneous abscess of neck; Z87.891 Personal history of nicotine dependence; F15.19 Other stimulant abuse with unspecified stimulant-induced disorder
CPT/HCPCS: 99283; Q0162

== ENCOUNTER 2021-02-20 23:50 | Emergency (ER) | payer MEDICAID, SELFPAY ==
[2021-02-21] VITALS: BP 133/81; PULSE 80; RESP 18; TEMP 35.7; O2SAT 97; BMI 22.3
--- NOTE | 2021-02-21 00:18 | W.ED.ABDPA2 ---
Documented by User: KIAN Minor 02/21/21 02:41 HPI - Abdominal Pain General: Chief Complaint: Abdominal Pain Stated Complaint: Swelling rt body \rt face numb\n CHEST Pain Time Seen by Provider: 02/21/21 00:11 History of Present Illness: HPI narrative: 25-year-old female comes in today with multiple complaints. Patient states that she has numbness in her extremities, soreness in her right lower leg, back pain, sweating of her scalp at times, abdominal discomfort. Patient has a history of chronic headaches, renal calculi, and recent abscess. 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 Related Data: Date of Last Menstrual Period: 02/09/21 Review of Systems General: Reports: 10 or more systems reviewed and unremarkable except in HPI and below Const: Reports: body aches GI: Reports: abdominal pain Neuro: Reports: numbness in extremities Endo: Reports: other (Sweating of scalp) PFSH ED PFSH: Medical History Anemia affecting in third trimester Anemia during , delivered, current hospitalization Chronic headache with normal neurologic examination Supervision of normal Term delivered Surgical History History of breast lump/mass excision (~02/28/14) -patient states it was a fibroadenoma. Preformed by Dr. Bashir. Previous back surgery (~2017) 2018--Pt reports blood clot in her spine [facility] Family History Mother Diabetes Grandfather Diabetes Maternal Grandmother Diabetes Maternal Uterine cancer Maternal great grandmother Leukemia maternal grandmother Sister Thyroid condition Uterine cancer Endometriosis Social History Smoking and tobacco status: former smoker Quit status (tobacco): has quit using tobacco Year quit tobacco: 04/16/2019 Alcohol intake: never Female Reproductive History: Date of last menstrual period: 02/09/21 Physical Exam Const: COMMON NORMALS: no acute distress and patient oriented x3 GENERAL APPEARANCE: cooperative HENMT: COMMON NORMALS: normocephalic, TM's normal bilaterally and Normal external nose present HEAD & SCALP: normal to inspection and normocephalic NOSE: Normal external nose present TYMPANIC MEMBRANE: TM's normal bilaterally MOUTH: Normal oral and palatal mucosa present THROAT: posterior oropharynx normal Eye: GENERAL EYE: appearance normal, both eyes and all related structures Neck/C-Spine: COMMON NORMALS: full ROM Lymph: LYMPHATIC: no lymphadenopathy noted Chest: COMMONS NORMALS: normal inspection of the chest Resp: COMMON NORMALS: normal respiratory effort and clear to auscultation bilaterally EFFORT & INSPECTION: Yes able to speak in complete sentences AUSCULTATION: clear to auscultation bilaterally Cardio: COMMON NORMALS: regular rate and regular rhythm RATE: regular rate RHYTHM: regular rhythm GI: COMMON NORMALS: Soft to palpation and non-tender PALPATION: Yes Soft to palpation : COMMON NORMALS: Yes no CVA tenderness BLADDER/KIDNEY EXAM: Yes no CVA tenderness Back/Pelvis: COMMON NORMALS: no CVA tenderness and thoracic and lumbar spine normal to inspection Extremity: COMMON NORMALS: normal to inspection Neuro: COMMON NORMALS: patient oriented x3 and moves all extremities Psych: COMMON NORMALS: mental status grossly normal and cooperative Skin: NARRATIVE SKIN EXAM: Light follicular rash to face, neck, and extremities. Course Vital Signs: Vital signs: Vital Signs Temperature 96.3 F L 02/21/21 00:00 Pulse Rate 74 02/21/21 02:51 Respiratory Rate 18 02/21/21 02:51 Blood Pressure 112/64 02/21/21 02:51 Pulse Oximetry 97 02/21/21 02:51 MDM - Abdominal Pain MDM Narrative: Medical decision making narrative: Patient comes in today with complaints of fatigue and swelling. On exam there is no noticeable edema in the extremities or arms of the patient. Patient is slightly pale. Vital signs are normal. Abdomen soft nontender. Skin is warm and dry. Differential diagnosis includes but not limited to anemia, urinary tract infection, renal insufficiency, DVT. D-dimer was negative. Blood count did note some elevation of white blood cells at 10,000 and platelets at 404. Hemoglobin hematocrit was unremarkable. CMP was unremarkable. Abdomen and chest films was negative for any obstruction or significant abnormality. I think the patient may have some fatigue due to dealing with 2 young children at home. Although there is concerned that it may be of vitamin deficiency or other malnutrition. Patient was not today. Urine was contaminated with a large number of skin cells. I recommended follow-up in 1 week with primary care for repeat urine and for further evaluation of other differentials for fatigue. Lab Data: Labs: Lab Results 02/21/21 02/21/21 02/21/21 00:50 00:50 00:50 WBC 10.1 10^3/uL H 10 ^3/uL (4.0-10.0) RBC 4.71 10^6/uL 10^6 /uL (4.1-5.3) Hgb 12.9 g/dL g/dL (11.5-15.3) Hct 40.9 % % (37.0-47.0) MCV 86.8 fl fl (81-99) MCH 27.4 pg L pg (28.0-34.0) MCHC 31.5 g/dL g/dL (30.0-36.0) RDW 13.0 % % (12.1-15.1) Plt Count 404 10^3/cmm H 10 ^3/cmm (130-400) MPV 10.6 fL H fL (7.4-10.4) Neut % (Auto) 59.3 % % Lymph % (Auto) 28.4 % % Richardson % (Auto) 10.8 % % Eos % (Auto) 0.6 % % Baso % (Auto) 0.7 % % Neut # (Auto) 6.01 10^3/uL 10^3 /uL (1.8-7.7) Lymph # (Auto) 2.9 10^3/uL 10^3/ uL (0.8-4.8) Richardson # (Auto) 1.1 10^3/uL H 10^ 3/uL (0.2-0.9) Eos # (Auto) 0.1 10^3/uL 10^3/ uL (0.0-0.8) Baso # (Auto) 0.1 10^3/uL 10^3/ uL (0.0-0.1) Nucleated RBC % (a uto) 0 % % Nucleated RBCs # 0.0 /100WBC /100W BC D-Dimer Cancelled Sodium Potassium Chloride Carbon Dioxide Anion Gap BUN Creatinine GFR Calculation Glucose Calculated Osmolal ity Calcium Total Bilirubin AST ALT Alkaline Phosphata se C-Reactive Protein Total Protein Albumin Globulin Urine Color Urine Appearance Urine pH Ur Specific Gravit y Urine Protein Urine Glucose (UA) Urine Ketones Urine Blood Urine Nitrate Urine Bilirubin Urine Urobilinogen Ur Leukocyte Kristin ase Urine RBC Urine WBC Ur Squamous Epith Cells Amorphous Sediment Urine Bacteria Urine Mucus Urine HCG, Qual Negative (Negative) 02/21/21 02/21/21 02/21/21 00:50 00:50 01:54 WBC RBC Hgb Hct MCV MCH MCHC RDW Plt Count MPV Neut % (Auto) Lymph % (Auto) Richardson % (Auto) Eos % (Auto) Baso % (Auto) Neut # (Auto) Lymph # (Auto) Richardson # (Auto) Eos # (Auto) Baso # (Auto) Nucleated RBC % (a uto) Nucleated RBCs # D-Dimer 0.38 ug/mIFEU ug/ mIFEU (0-0.59) Sodium 140 mmol/L mmol/L (136-145) Potassium 3.9 mmol/L mmol/L (3.5-5.1) Chloride 105 mmol/L mmol/L (98-107) Carbon Dioxide 23 mmol/L mmol/L (22-29) Anion Gap 15.9 (5-19) BUN 15 mg/dL mg/dL (6-20) Creatinine 0.5 mg/dL mg/dL (0.5-0.9) GFR Calculation 152.9 mL/min H mL /min (90-130) Glucose 95 mg/dL mg/dL (65-115) Calculated Osmolal ity 291 mOsm/kg mOsm/ kg (285-295) Calcium 9.2 mg/dL mg/dL (8.5-10.5) Total Bilirubin 0.3 mg/dL mg/dL (0.15-1.2) AST 8 U/L U/L (0-32) ALT 8 U/L U/L (0-33) Alkaline Phosphata se 67 IU/L IU/L (35-105) C-Reactive Protein 0.3 mg/L mg/L (0.0-4.9) Total Protein 7.1 g/dL g/dL (6.6-8.7) Albumin 4.5 g/dL g/dL (3.5-5.2) Globulin 2.6 g/dL g/dL (1.3-4.6) Urine Color Yellow (Yellow) Urine Appearance Sl hazy (CLEAR) Urine pH 6 (5-7) Ur Specific Gravit y 1.020 (1.005-1.030) Urine Protein Neg (Negative) Urine Glucose (UA) Norm (Normal) Urine Ketones 1+ H (Negative) Urine Blood Neg (Negative) Urine Nitrate Negative (Negative) Urine Bilirubin Neg (Negative) Urine Urobilinogen Norm mg/dL mg/dL (Negative) Ur Leukocyte Kristin ase 1+ H (Negative) Urine RBC 0-4 /hpf H /hpf (0-2) Urine WBC 10-15 /hpf H /hpf (0-5) Ur Squamous Epith Cells 25-40 /hpf H /hpf (0-5) Amorphous Sediment Not Reportable Urine Bacteria 2+ /hpf H /hpf (NONE) Urine Mucus 1+ /hpf /hpf Urine HCG, Qual EKG Data ^: EKG 1: Attestation: I personally reviewed and interpreted this EKG as follows: (00 30, EKG shows sinus tachycardia with a regular rate at 112 bpm, no ST elevation or ectopy is noted. No prior exam is available for me to compare.) Discharge Plan Discharge Patient Disposition: Home Clinical Impression: Fatigue Qualifiers: Fatigue type: unspecified Qualified Code(s): R53.83 - Other fatigue Condition: Stable Prescriptions: No Action diclofenac potassium 50 mg tablet 50 mg PO Q8H PRN (Reason: pain) Qty: 12 RF: 0 tizanidine 4 mg tablet 4 mg PO Q8H PRN (Reason: muscle spasticity) Qty: 12 RF: 0 Cortisporin-TC 3.3-3-10-0.5 mg/mL drops,suspension 4 drp otic (ear) QID Qty: 10 RF: 0 Prilosec OTC 20 mg tablet,delayed release (DR/EC) 20 mg PO DAILY Qty: 20 RF: 0 Vistaril 25 mg capsule 25 mg PO TID PRN (Reason: anxiety) Qty: 14 RF: 0 Topamax 25 mg tablet 25 mg PO DAILY Qty: 30 RF: 0 promethazine 25 mg tablet 25 mg PO Q6H PRN (Reason: nausea and vomiting, migraine) Qty: 20 RF: 0 Imitrex 50 mg tablet See Rx Instructions .ROUTE .COMPLEX Qty: 20 RF: 0 prednisone 50 mg tablet 50 mg PO DAILY Qty: 5 RF: 0 permethrin 5 % cream 1 applic topical Q14D Qty: 60 RF: 0 Bactrim DS 800-160 mg tablet 1 tab PO BID 10 Days Qty: 20 RF: 0 Discharge Orders: Discharge ED (Routine); Ordered 02/21/21 Ordered By: Srini Miller Discharge Diet: Low Salt Discharge Activity: Increase activity as tolerated Patient Instructions: Heart Healthy Diet (ED), Opioid Safety Activity Restrictions/Additional Instructions: Healthy diet and activity. Drink plenty of water. Follow-up with primary care for further instructions. Return to the ED for new concerns. Coding Level of Care Code ED Exec. Creative Director for Chg Fwd Exam Comprehensive Documented by User: Pablo Urbina, 02/21/21 02:57 HPI - Abdominal Pain General: Chief Complaint: Abdominal Pain Stated Complaint: Swelling rt body \rt face numb\n CHEST Pain Time Seen by Provider: 02/21/21 00:11 PFS ED PFSH: Medical History Anemia affecting in third trimester Anemia during , delivered, current hospitalization Chronic headache with normal neurologic examination Supervision of normal Term delivered Surgical History History of breast lump/mass excision (~02/28/14) -patient states it was a fibroadenoma. Preformed by Dr. Bashir. Previous back surgery (~2018) 2018--Pt reports blood clot in her spine [place] [facility] Family History Mother Diabetes Grandfather Diabetes Maternal Grandmother Diabetes Maternal Uterine cancer Maternal great grandmother Leukemia maternal grandmother Sister Thyroid condition Uterine cancer Endometriosis Social History Smoking and tobacco status: former smoker Quit status (tobacco): has quit using tobacco Year quit tobacco: 04/16/2019 Alcohol intake: never Course Vital Signs: Vital signs: Vital Signs Temperature 96.3 F L 02/21/21 00:00 Pulse Rate 74 02/21/21 02:51 Respiratory Rate 18 02/21/21 02:51 Blood Pressure 112/64 02/21/21 02:51 Pulse Oximetry 97 02/21/21 02:51 MDM - Abdominal Pain MDM Narrative: Medical decision making narrative: This patient was originally seen by KIAN Montejo. I agree with his history, evaluation, and treatment. Lab Data: Labs: Lab Results 02/21/21 02/21/21 02/21/21 00:50 00:50 00:50 WBC 10.1 10^3/uL H 10 ^3/uL (4.0-10.0) RBC 4.71 10^6/uL 10^6 /uL (4.1-5.3) Hgb 12.9 g/dL g/dL (11.5-15.3) Hct 40.9 % % (37.0-47.0) MCV 86.8 fl fl (81-99) MCH 27.4 pg L pg (28.0-34.0) MCHC 31.5 g/dL g/dL (30.0-36.0) RDW 13.0 % % (12.1-15.1) Plt Count 404 10^3/cmm H 10 ^3/cmm (130-400) MPV 10.6 fL H fL (7.4-10.4) Neut % (Auto) 59.3 % % Lymph % (Auto) 28.4 % % Richardson % (Auto) 10.8 % % Eos % (Auto) 0.6 % % Baso % (Auto) 0.7 % % Neut # (Auto) 6.01 10^3/uL 10^3 /uL (1.8-7.7) Lymph # (Auto) 2.9 10^3/uL 10^3/ uL (0.8-4.8) Richardson # (Auto) 1.1 10^3/uL H 10^ 3/uL (0.2-0.9) Eos # (Auto) 0.1 10^3/uL 10^3/ uL (0.0-0.8) Baso # (Auto) 0.1 10^3/uL 10^3/ uL (0.0-0.1) Nucleated RBC % (a uto) 0 % % Nucleated RBCs # 0.0 /100WBC /100W BC D-Dimer Cancelled Sodium Potassium Chloride Carbon Dioxide Anion Gap BUN Creatinine GFR Calculation Glucose Calculated Osmolal ity Calcium Total Bilirubin AST ALT Alkaline Phosphata se C-Reactive Protein Total Protein Albumin Globulin Urine Color Urine Appearance Urine pH Ur Specific Gravit y Urine Protein Urine Glucose (UA) Urine Ketones Urine Blood Urine Nitrate Urine Bilirubin Urine Urobilinogen Ur Leukocyte Kristin ase Urine RBC Urine WBC Ur Squamous Epith Cells Amorphous Sediment Urine Bacteria Urine Mucus Urine HCG, Qual Negative (Negative) 02/21/21 02/21/21 02/21/21 00:50 00:50 01:54 WBC RBC Hgb Hct MCV MCH MCHC RDW Plt Count MPV Neut % (Auto) Lymph % (Auto) Richardson % (Auto) Eos % (Auto) Baso % (Auto) Neut # (Auto) Lymph # (Auto) Richardson # (Auto) Eos # (Auto) Baso # (Auto) Nucleated RBC % (a uto) Nucleated RBCs # D-Dimer 0.38 ug/mIFEU ug/ mIFEU (0-0.59) Sodium 140 mmol/L mmol/L (136-145) Potassium 3.9 mmol/L mmol/L (3.5-5.1) Chloride 105 mmol/L mmol/L (98-107) Carbon Dioxide 23 mmol/L mmol/L (22-29) Anion Gap 15.9 (5-19) BUN 15 mg/dL mg/dL (6-20) Creatinine 0.5 mg/dL mg/dL (0.5-0.9) GFR Calculation 152.9 mL/min H mL /min (90-130) Glucose 95 mg/dL mg/dL (65-115) Calculated Osmolal ity 291 mOsm/kg mOsm/ kg (285-295) Calcium 9.2 mg/dL mg/dL (8.5-10.5) Total Bilirubin 0.3 mg/dL mg/dL (0.15-1.2) AST 8 U/L U/L (0-32) ALT 8 U/L U/L (0-33) Alkaline Phosphata se 67 IU/L IU/L (35-105) C-Reactive Protein 0.3 mg/L mg/L (0.0-4.9) Total Protein 7.1 g/dL g/dL (6.6-8.7) Albumin 4.5 g/dL g/dL (3.5-5.2) Globulin 2.6 g/dL g/dL (1.3-4.6) Urine Color Yellow (Yellow) Urine Appearance Sl hazy (CLEAR) Urine pH 6 (5-7) Ur Specific Gravit y 1.020 (1.005-1.030) Urine Protein Neg (Negative) Urine Glucose (UA) Norm (Normal) Urine Ketones 1+ H (Negative) Urine Blood Neg (Negative) Urine Nitrate Negative (Negative) Urine Bilirubin Neg (Negative) Urine Urobilinogen Norm mg/dL mg/dL (Negative) Ur Leukocyte Kristin ase 1+ H (Negative) Urine RBC 0-4 /hpf H /hpf (0-2) Urine WBC 10-15 /hpf H /hpf (0-5) Ur Squamous Epith Cells 25-40 /hpf H /hpf (0-5) Amorphous Sediment Not Reportable Urine Bacteria 2+ /hpf H /hpf (NONE) Urine Mucus 1+ /hpf /hpf Urine HCG, Qual Discharge Plan Discharge Patient Disposition: Home Clinical Impression: Fatigue Qualifiers: Fatigue type: unspecified Qualified Code(s): R53.83 - Other fatigue Condition: Stable Prescriptions: No Action diclofenac potassium 50 mg tablet 50 mg PO Q8H PRN (Reason: pain) Qty: 12 RF: 0 tizanidine 4 mg tablet 4 mg PO Q8H PRN (Reason: muscle spasticity) Qty: 12 RF: 0 Cortisporin-TC 3.3-3-10-0.5 mg/mL drops,suspension 4 drp otic (ear) QID Qty: 10 RF: 0 Prilosec OTC 20 mg tablet,delayed release (DR/EC) 20 mg PO DAILY Qty: 20 RF: 0 Vistaril 25 mg capsule 25 mg PO TID PRN (Reason: anxiety) Qty: 14 RF: 0 Topamax 25 mg tablet 25 mg PO DAILY Qty: 30 RF: 0 promethazine 25 mg tablet 25 mg PO Q6H PRN (Reason: nausea and vomiting, migraine) Qty: 20 RF: 0 Imitrex 50 mg tablet See Rx Instructions .ROUTE .COMPLEX Qty: 20 RF: 0 prednisone 50 mg tablet 50 mg PO DAILY Qty: 5 RF: 0 permethrin 5 % cream 1 applic topical Q14D Qty: 60 RF: 0 Bactrim DS 800-160 mg tablet 1 tab PO BID 10 Days Qty: 20 RF: 0 Discharge Orders: Discharge ED (Routine); Ordered 02/21/21 Ordered By: Srini Miller Discharge Diet: Low Salt Discharge Activity: Increase activity as tolerated Patient Instructions: Heart Healthy Diet (ED), Opioid Safety Activity Restrictions/Additional Instructions: Healthy diet and activity. Drink plenty of water. Follow-up with primary care for further instructions. Return to the ED for new concerns. Coding Level of Care Code ED Exec. Creative Director for [employer] Fwd Exam Comprehensive
--- NOTE | 2021-02-21 01:10 | XRR_ITS ---
PROCEDURE INFORMATION: Exam: XR Complete Acute Abdomen Series Including Chest Exam date and time: 02/21/2021 1:10 AM Age: 25 years old Clinical indication: Abdominal pain; Periumbilical; Prior surgery; Surgery type: Breast lumpectomy; Patient HX: Cough with periumbilcal discomfort. ; Additional info: Abd pain, cough TECHNIQUE: Imaging protocol: XR complete acute abdomen series, including 2 or more views of the abdomen and a single view chest. COMPARISON: CT kidney stone [id number] 01/09/2021 12:20 AM FINDINGS: Lungs: Normal. No consolidation. Pleural spaces: Normal. No pleural effusions. No pneumothorax. Heart/Mediastinum: Normal. No cardiomegaly. Gastrointestinal tract: Normal. No bowel dilation. Intraperitoneal space: Normal. No free air. Bones/joints: Normal. No acute fracture. Soft tissues: Normal. XR/XR acute abdomen series [id number] IMPRESSION: No acute findings. Radiation Dose CTDIVOL = (mGy): DLP = (mGy-cm)
[2021-02-21 01:45] LABS: Basophils # 0.1 10^3/uL (0.0-0.1); Basophils % 0.7 %; Eosinophils # 0.1 10^3/uL (0.0-0.8); Eosinophils % 0.6 %; Hematocrit 40.9 % (37.0-47.0); Hemoglobin 12.9 g/dL (11.5-15.3); Lymphocytes # 2.9 10^3/uL (0.8-4.8); Lymphocytes % 28.4 %; Mean Corpuscular HGB Conc 31.5 g/dL (30.0-36.0); Mean Corpuscular Hemoglobin 27.4 pg (28.0-34.0); Mean Corpuscular Volume 86.8 fl (81-99); Mean Platelet Volume 10.6 fL (7.4-10.4); Monocytes # 1.1 10^3/uL (0.2-0.9); Monocytes % 10.8 %; Neutrophils # 6.01 10^3/uL (1.8-7.7); Neutrophils % 59.3 %; Nucleated Red Blood Cells % 0 %; Platelet Count 404 10^3/cmm (130-400); Red Blood Count 4.71 10^6/uL (4.1-5.3); White Blood Count 10.1 10^3/uL (4.0-10.0)
[2021-02-21 01:52] LABS: Add Urine Microscopic? YES; Bilirubin Urine Neg (Negative); Blood Urine Neg (Negative); Glucose Urine UA Norm (Normal); Ketones Urine 1+ (Negative); Leukocyte Esterase Urine 1+ (Negative); Nitrate Urine Negative (Negative); Protein Urine Neg (Negative); Urine Appearance SL Hazy (CLEAR); Urine Color Yellow (Yellow); Urobilinogen Urine Norm (Negative); pH Urine 6 (5-7)
[2021-02-21 01:54] LABS: Add Urine Culture? No; Bacteria Urine 2+ /hpf; Mucus Urine 1+ /hpf; RBC Urine 0-4 /hpf (0-2); Squamous Epithelial Cell Urine 25-40 /hpf (0-5)
[2021-02-21 02:03] LABS: Alanine Aminotransferase 8 U/L (0-33); Albumin Level 4.5 g/dL (3.5-5.2); Alkaline Phosphatase 67 IU/L (35-105); Anion Gap 15.9 (5-19); Aspartate Amino Transferase 8 U/L (0-32); Blood Urea Nitrogen 15 mg/dL (6-20); C Reactive Protein 0.3 mg/L (0.0-4.9); Calcium 9.2 mg/dL (8.5-10.5); Carbon Dioxide 23 mmol/L (22-29); Chloride 105 mmol/L (98-107); Creatinine Clr Calc Pharmacy 150.0071; Globulin 2.6 g/dL (1.3-4.6); Glomerular Filtration Rate 152.9 mL/min (90-130); Glucose 95 mg/dL (65-115); Osmolality Calculated 291 mOsm/kg (285-295); Potassium 3.9 mmol/L (3.5-5.1); Sodium 140 mmol/L (136-145); Total Bilirubin 0.3 mg/dL (0.15-1.2); Total Protein 7.1 g/dL (6.6-8.7)
[2021-02-21 02:10] VITALS: BP 112/64; PULSE 74; RESP 18; O2SAT 97
[2021-02-21 02:22] LABS: D Dimer 0.38 ug/mIFEU (0-0.59)
[2021-02-21 02:51] VITALS: BP 112/64; PULSE 74; RESP 18; O2SAT 97
--- NOTE | 2021-02-21 04:38 | ECG_ITS ---
[facility] Test Date: 2021-02-21 Pat Name: Gris Garcia Department: Room: Gender: Female Board Turner: : 1995 Requested By: Srini Aquino Order Number: [id number] Elaina MD: KRISTINA LIMON Measurements Intervals [place] Rate: 112 P: 79 OK: 128 QRS: 77 QRSD: 98 T: 67 QT: 294 QTc: 402 Interpretive Statements SINUS TACHYCARDIA INCOMPLETE RIGHT BUNDLE BRANCH BLOCK [90+ ms QRS DURATION, TERMINAL R IN V1/V2, 40+ ms S IN I/aVL/V4/V5/V6] ABNORMAL RHYTHM ECG INTERPRETATION BASED ON A DEFAULT AGE OF 40 YEARS Compared to ECG 10/11/2020 23:37:08 Incomplete right bundle-branch block now present Sinus rhythm no longer present Electronically Signed On 02-23-2021 0:20:12 CDT by KRISTINA LIMON [email or web address] [email or web address] general [email or web address]/store/[id number] f
--- NOTE | 2021-02-24 15:30 | DCPLANNER ---
academic affairs manager had message to speak with patient about getting a primary care physician. academic affairs manager called phone number [phone], unable to speak with patient or leave a voicemail for patient.
== END 2021-02-21 02:52 | disposition home or self-care (01) ==
PROVIDERS: Emergency Provider Nurse Practitioner Family
DX: R53.83 Other fatigue (principal); Z87.891 Personal history of nicotine dependence; Z79.899 Other long term (current) drug therapy
CPT/HCPCS: 74022; 80053; 81001; 81025; 85025; 85378; 86140; 93005; 99283

== ENCOUNTER 2021-02-23 01:52 | Emergency (ER) | payer MEDICAID, SELFPAY ==
[2021-02-23 02:07] VITALS: BP 129/96; PULSE 141; RESP 16; TEMP 36; O2SAT 100; BMI 22.3
--- NOTE | 2021-02-23 02:17 | ECG_ITS ---
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 Cattle Farmer: : 1995 Requested By: Dennis Menchaca Order Number: [id number] Elaina MD: KRISTINA LIMON Measurements Intervals [place] Rate: 120 P: 65 NC: 131 QRS: 53 QRSD: 93 T: 38 QT: 293 QTc: 415 Interpretive Statements SINUS TACHYCARDIA INCOMPLETE RIGHT BUNDLE BRANCH BLOCK [90+ ms QRS DURATION, TERMINAL R IN V1/V2, 40+ ms S IN I/aVL/V4/V5/V6] ABNORMAL RHYTHM ECG Compared to ECG 02/21/2021 00:15:56 No significant changes Electronically Signed On 02-23-2021 21:57:02 CDT by KRISTINA LIMON [email or web address] Labsmemorial hospital at stone countyLineMetricsfayette county memorial hospital.[employer]/store/OM/[id number]
--- NOTE | 2021-02-23 02:18 | W.ED.GENADLT ---
HPI - General Adult General: Chief complaint: General Medical Stated complaint: Swollen Left Side\Dizzy Spells Time Seen by Provider: 02/23/21 02:12 Source: patient Mode of arrival: ambulatory Limitations: no limitations History of Present Illness: HPI narrative: 25-year-old female who has multiple complaints since her main complaint is that for months she gets intermittent swelling and redness to the right whole right side of her body. She states that her body on the right side will swell up the blood size and cause extreme pain and the swelling just goes back down. She has been seen here multiple times for that and has had multiple work-ups with no findings she seen her PCP as well. She denies any shortness of breath she states she does have some dizzy spells. She had a rash that was treated for scabies and its improved. She does have a history of methamphetamine abuse. Associated symptoms: Deny chest pain, dyspnea, headache(s), nausea, rash or vomiting Review of Systems Const: Denies: fever(s), chills, body aches or change in appetite Eyes: Denies: blurry vision or eye discomfort ENMT: Denies: throat pain or dental pain Card: Denies: chest pain Resp: Denies: dyspnea GI: Denies: abdominal pain, nausea, vomiting or diarrhea : Denies: dysuria Musc: Reports: extremity swelling Skin/Breast: Denies: rash Neuro: Denies: headache(s) Psych: Denies: depression Joni/Lymph: Denies: easy bruising All/Imm: Denies: urticaria PFSH ED PFSH: Medical History Anemia affecting in third trimester Anemia during , delivered, current hospitalization Chronic headache with normal neurologic examination Supervision of normal Term delivered Surgical History History of breast lump/mass excision (~02/28/14) -patient states it was a fibroadenoma. Preformed by Dr. Bashir. Previous back surgery (~2017) 2018--Pt reports blood clot in her spine [facility] Family History Mother Diabetes Grandfather Diabetes Maternal Grandmother Diabetes Maternal Uterine cancer Maternal great grandmother Leukemia maternal grandmother Sister Thyroid condition Uterine cancer Endometriosis Social History Smoking and tobacco status: former smoker Quit status (tobacco): has quit using tobacco Year quit tobacco: 04/16/2019 Alcohol intake: never Female Reproductive History: Date of last menstrual period: 02/09/21 Physical Exam Const: COMMON NORMALS: no acute distress, patient oriented x3 and healthy appearing HENMT: COMMON NORMALS: normocephalic and atraumatic HEAD & SCALP: normocephalic and atraumatic Eye: COMMON NORMALS: Equal, round and reactive pupils present and EOMs intact bilaterally PUPIL: Yes Equal, round and reactive pupils present Neck/C-Spine: COMMON NORMALS: full ROM and supple Chest: COMMONS NORMALS: normal inspection of the chest and normal palpation of entire chest wall Resp: COMMON NORMALS: normal respiratory effort, No retractions, No use of accessory muscles and clear to auscultation bilaterally AUSCULTATION: clear to auscultation bilaterally Cardio: COMMON NORMALS: regular rate, regular rhythm and No murmurs present (Cardio) RATE: regular rate RHYTHM: regular rhythm GI: COMMON NORMALS: Normal to inspection, nondistended, normoactive bowel sounds present, Soft to palpation, non-tender and no masses PALPATION: Yes Soft to palpation Extremity: COMMON NORMALS: normal to inspection and full ROM Neuro: COMMON NORMALS: patient oriented x3, moves all extremities and no focal motor deficits Psych: COMMON NORMALS: mental status grossly normal, Normal thought process present and cooperative THOUGHT PROCESS: Normal thought process present Skin: COMMON NORMALS: no rashes or lesions noted and no wounds GENERAL SKIN EXAM: no rashes or lesions noted Course Vital Signs: Vital signs: Vital Signs Temperature 96.8 F L 02/23/21 02:07 Pulse Rate 141 H 02/23/21 02:07 Respiratory Rate 16 02/23/21 02:07 Blood Pressure 129/96 02/23/21 02:07 Pulse Oximetry 100 02/23/21 02:07 MDM - General Adult MDM Narrative: Medical decision making narrative: Patient presents with a complaint of intermittent swelling she has no swelling here blood work here is all normal she had a D-dimer yesterday no signs of blood clots or pulmonary embolism she does have methamphetamine abuse likely causing her tachycardia her tachycardia is improved after Ativan she is stable for discharge is to follow-up with PCP and return if worsening. Lab Data: Labs: Lab Results 02/23/21 02/23/21 02/23/21 02:50 02:50 02:50 WBC 10.0 10^3/uL 10^3 /uL (4.0-10.0) RBC 4.68 10^6/uL 10^6 /uL (4.1-5.3) Hgb 13.0 g/dL g/dL (11.5-15.3) Hct 40.5 % % (37.0-47.0) MCV 86.5 fl fl (81-99) MCH 27.8 pg L pg (28.0-34.0) MCHC 32.1 g/dL g/dL (30.0-36.0) RDW 13.2 % % (12.1-15.1) Plt Count 375 10^3/cmm 10^3 /cmm (130-400) MPV 10.3 fL fL (7.4-10.4) Neut % (Auto) 92.2 % % Lymph % (Auto) 6.5 % % [place] % (Auto) 0.8 % % Eos % (Auto) 0.0 % % Baso % (Auto) 0.1 % % Neut # (Auto) 9.21 10^3/uL H 10 ^3/uL (1.8-7.7) Lymph # (Auto) 0.7 10^3/uL L 10^ 3/uL (0.8-4.8) Imperial # (Auto) 0.1 10^3/uL L 10^ 3/uL (0.2-0.9) Eos # (Auto) 0.0 10^3/uL 10^3/ uL (0.0-0.8) Baso # (Auto) 0.0 10^3/uL 10^3/ uL (0.0-0.1) Nucleated RBC % (a uto) 0 % % Nucleated RBCs # 0.0 /100WBC /100W BC Sodium 135 mmol/L L mmol /L (136-145) Potassium 3.5 mmol/L mmol/L (3.5-5.1) Chloride 102 mmol/L mmol/L (98-107) Carbon Dioxide 20 mmol/L L mmol/ L (22-29) Anion Gap 16.5 (5-19) BUN 9 mg/dL mg/dL (6-20) Creatinine 0.5 mg/dL mg/dL (0.5-0.9) GFR Calculation 152.9 mL/min H mL /min (90-130) Glucose 124 mg/dL H mg/dL (65-115) Calculated Osmolal ity 280 mOsm/kg L mOs m/kg (285-295) Calcium 9.6 mg/dL mg/dL (8.5-10.5) Total Bilirubin 0.5 mg/dL mg/dL (0.15-1.2) AST 9 U/L U/L (0-32) ALT 9 U/L U/L (0-33) Alkaline Phosphata se 69 IU/L IU/L (35-105) Total Protein 6.9 g/dL g/dL (6.6-8.7) Albumin 4.3 g/dL g/dL (3.5-5.2) Globulin 2.6 g/dL g/dL (1.3-4.6) HCG, Qual Negative (Negative) EKG Data^: EKG 1: Attestation: I personally reviewed and interpreted this EKG as follows: EKG interpretation date: 02/23/21 EKG interpretation time: 02:39 Interpretation: sinus tach hr [address] or t wave abnormalities qrs 93 qtc 364 Discharge Plan Discharge Patient Disposition: Home Clinical Impression: Dizziness Condition: Stable Prescriptions: No Action diclofenac potassium 50 mg tablet 50 mg PO Q8H PRN (Reason: pain) Qty: 12 RF: 0 tizanidine 4 mg tablet 4 mg PO Q8H PRN (Reason: muscle spasticity) Qty: 12 RF: 0 Cortisporin-TC 3.3-3-10-0.5 mg/mL drops,suspension 4 drp otic (ear) QID Qty: 10 RF: 0 Prilosec OTC 20 mg tablet,delayed release (DR/EC) 20 mg PO DAILY Qty: 20 RF: 0 Vistaril 25 mg capsule 25 mg PO TID PRN (Reason: anxiety) Qty: 14 RF: 0 Topamax 25 mg tablet 25 mg PO DAILY Qty: 30 RF: 0 promethazine 25 mg tablet 25 mg PO Q6H PRN (Reason: nausea and vomiting, migraine) Qty: 20 RF: 0 Imitrex 50 mg tablet See Rx Instructions .ROUTE .COMPLEX Qty: 20 RF: 0 prednisone 50 mg tablet 50 mg PO DAILY Qty: 5 RF: 0 permethrin 5 % cream 1 applic topical Q14D Qty: 60 RF: 0 Bactrim DS 800-160 mg tablet 1 tab PO BID 10 Days Qty: 20 RF: 0 Discharge Orders: Discharge ED (Routine); Ordered 02/23/21 Ordered By: Dennis Menchaca Discharge Diet: Advance as tolerated Discharge Activity: Resume usual activity Patient Instructions: Dizziness (ED) Coding Level of Care Code ED Motor Equipment Sergeant for Yajaira Fwd Exam Comprehensive
[2021-02-23] MEDS: sodium chloride 0.9% 1,000 ML 999 ML IV (02:51)
[2021-02-23] MEDS: LORazepam 2 mg/mL INJ 1 mL IVP (02:51)
[2021-02-23 02:58] LABS: Basophils % 0.1 %; Hematocrit 40.5 % (37.0-47.0); Lymphocytes # 0.7 10^3/uL (0.8-4.8); Lymphocytes % 6.5 %; Mean Corpuscular HGB Conc 32.1 g/dL (30.0-36.0); Mean Corpuscular Hemoglobin 27.8 pg (28.0-34.0); Mean Corpuscular Volume 86.5 fl (81-99); Mean Platelet Volume 10.3 fL (7.4-10.4); Monocytes # 0.1 10^3/uL (0.2-0.9); Monocytes % 0.8 %; Neutrophils # 9.21 10^3/uL (1.8-7.7); Neutrophils % 92.2 %; Nucleated Red Blood Cells % 0 %; Platelet Count 375 10^3/cmm (130-400); Red Blood Count 4.68 10^6/uL (4.1-5.3); Red Cell Distribution Width 13.2 % (12.1-15.1)
[2021-02-23 03:12] LABS: HCG, Serum Qual Negative (Negative)
[2021-02-23 03:23] LABS: Alanine Aminotransferase 9 U/L (0-33); Albumin Level 4.3 g/dL (3.5-5.2); Alkaline Phosphatase 69 IU/L (35-105); Anion Gap 16.5 (5-19); Aspartate Amino Transferase 9 U/L (0-32); Blood Urea Nitrogen 9 mg/dL (6-20); Calcium 9.6 mg/dL (8.5-10.5); Carbon Dioxide 20 mmol/L (22-29); Chloride 102 mmol/L (98-107); Creatinine Clr Calc Pharmacy 150.0071; Globulin 2.6 g/dL (1.3-4.6); Glomerular Filtration Rate 152.9 mL/min (90-130); Glucose 124 mg/dL (65-115); Osmolality Calculated 280 mOsm/kg (285-295); Potassium 3.5 mmol/L (3.5-5.1); Sodium 135 mmol/L (136-145); Total Bilirubin 0.5 mg/dL (0.15-1.2); Total Protein 6.9 g/dL (6.6-8.7)
[2021-02-23 03:40] VITALS: BP 126/78; PULSE 105; RESP 18; O2SAT 99
[2021-02-23 04:06] VITALS: BP 121/78; PULSE 104; RESP 18; O2SAT 99
== END 2021-02-23 04:07 | disposition home or self-care (01) ==
PROVIDERS: Emergency Provider Emergency Medicine
DX: R42 Dizziness and giddiness (principal); F15.10 Other stimulant abuse, uncomplicated; Z87.891 Personal history of nicotine dependence
CPT/HCPCS: 80053; 84703; 85025; 93005; 96361; 96374; 99284; J2060; J7030

== ENCOUNTER 2021-04-02 04:10 | Emergency (ER) | payer MEDICAID, SELFPAY ==
[2021-04-02 04:14] VITALS: BP 118/71; PULSE 104; RESP 18; TEMP 36.3; O2SAT 100; BMI 22.3
[2021-04-02] MEDS: ondansetron 2 mg/ML SDV 2 mL 4 MG IVP (04:32)
--- NOTE | 2021-04-02 04:34 | XRR_ITS ---
PROCEDURE INFORMATION: Exam: XR Chest Exam date and time: 04/02/2021 4:34 AM Age: 25 years old Clinical indication: Patient HX: Fever with nasal congestion. TECHNIQUE: Imaging protocol: XR of the chest. Views: 1 view. COMPARISON: CR (ABDOMEN, ) 02/21/2021 1:37 AM FINDINGS: Lungs: No acute airspace disease. Pleural spaces: No pleural effusion. Heart/Mediastinum: Normal configuration of the heart. Bones/joints: Unremarkable. XR/XR chest 1V portable [id number] IMPRESSION: No acute airspace disease.
[2021-04-02] MEDS: sodium chloride 0.9% 1,000 ML 999 ML IV (04:35)
[2021-04-02 04:36] LABS: Add Urine Microscopic? NO; Charge for UA Resulting for Rev
--- NOTE | 2021-04-02 04:40 | W.ED.NAVMDI ---
HPI - Nausea/Vomiting/Diarrhea General: Chief complaint: Nausea/Vomiting/Diarrhea Stated complaint: N/V,aches,fever,chills Time Seen by Provider: 04/02/21 04:14 Source: patient Mode of arrival: ambulatory Limitations: no limitations History of Present Illness: HPI Narrative: 25-year-old female states that over the last day she has been having nausea vomiting body aches and subjective fevers at home. States she had some nasal congestion denies any cough denies any vomiting today states her last vomiting episode was yesterday denies any diarrhea she denies any abdominal pain she denies any worsening improving factors states she has been her people with flulike illnesses no known Covid exposure Associated nausea: Yes Associated symtoms: Reports nausea; Denies chest pain, dysuria or headache(s) Review of Systems Const: Reports: chills and body aches Eyes: Denies: blurry vision or eye discomfort ENMT: Denies: throat pain or dental pain Card: Denies: chest pain Resp: Denies: dyspnea GI: Reports: nausea and vomiting : Denies: dysuria Musc: Denies: neck pain or back pain Skin/Breast: Denies: rash Neuro: Denies: headache(s) Psych: Denies: depression Joni/Lymph: Denies: easy bruising All/Imm: Denies: urticaria PFSH ED PFSH: Medical History Anemia affecting in third trimester Anemia during , delivered, current hospitalization Chronic headache with normal neurologic examination Supervision of normal Term delivered Surgical History History of breast lump/mass excision (~02/28/14) -patient states it was a fibroadenoma. Preformed by Dr. Bashir. Previous back surgery (~2018) 2018--Pt reports blood clot in her spine [facility] Family History Mother Diabetes Grandfather Diabetes Maternal Grandmother Diabetes Maternal Uterine cancer Maternal great grandmother Leukemia maternal grandmother Sister Thyroid condition Uterine cancer Endometriosis Social History Smoking and tobacco status: former smoker Quit status (tobacco): has quit using tobacco Year quit tobacco: 04/16/2019 Alcohol intake: never Female Reproductive History: Date of last menstrual period: 03/25/21 Physical Exam Const: COMMON NORMALS: no acute distress, patient oriented x3 and healthy appearing HENMT: COMMON NORMALS: normocephalic and atraumatic HEAD & SCALP: normocephalic and atraumatic Eye: COMMON NORMALS: Equal, round and reactive pupils present and EOMs intact bilaterally PUPIL: Yes Equal, round and reactive pupils present Neck/C-Spine: COMMON NORMALS: full ROM and supple Chest: COMMONS NORMALS: normal inspection of the chest and normal palpation of entire chest wall Resp: COMMON NORMALS: normal respiratory effort, No retractions, No use of accessory muscles and clear to auscultation bilaterally AUSCULTATION: clear to auscultation bilaterally Cardio: COMMON NORMALS: regular rate, regular rhythm and No murmurs present (Cardio) RATE: regular rate RHYTHM: regular rhythm GI: COMMON NORMALS: Normal to inspection, nondistended, normoactive bowel sounds present, Soft to palpation, non-tender and no masses PALPATION: Yes Soft to palpation Extremity: COMMON NORMALS: normal to inspection and full ROM Neuro: COMMON NORMALS: patient oriented x3, moves all extremities and no focal motor deficits Psych: COMMON NORMALS: mental status grossly normal, Normal thought process present and cooperative THOUGHT PROCESS: Normal thought process present Skin: COMMON NORMALS: no rashes or lesions noted and no wounds GENERAL SKIN EXAM: no rashes or lesions noted Course Vital Signs: Vital signs: Vital Signs Temperature 97.4 F L 04/02/21 04:14 Pulse Rate 104 H 04/02/21 04:14 Respiratory Rate 18 04/02/21 04:14 Blood Pressure 118/71 04/02/21 04:14 Pulse Oximetry 100 04/02/21 04:14 MDM - Nausea/Vomiting/Diarrhea MDM Narrative: Medical decision making narrative: Patient presents here with vomiting along with viral-like syndrome she is well-appearing here has had no vomiting here tolerated p.o. exam here is benign no abdominal tenderness or pain patient is negative for flu Covid no signs of pneumonia she is stable for discharge will prescribe her Zofran for home she is to follow-up with PCP and return if worsening. Lab Data: Labs: Lab Results 12/01/1304/02/21 04/02/21 04:29 04:29 04:34 WBC 8.9 10^3/uL 10^3/ uL (4.0-10.0) RBC 4.88 10^6/uL 10^6 /uL (4.1-5.3) Hgb 13.3 g/dL g/dL (11.5-15.3) Hct 43.2 % % (37.0-47.0) MCV 88.5 fl fl (81-99) MCH 27.3 pg L pg (28.0-34.0) MCHC 30.8 g/dL g/dL (30.0-36.0) RDW 13.2 % % (12.1-15.1) Plt Count 460 10^3/cmm H 10 ^3/cmm (130-400) MPV 9.8 fL fL (7.4-10.4) Neut % (Auto) 54.7 % % Lymph % (Auto) 32.7 % % Hartley % (Auto) 10.5 % % Eos % (Auto) 0.8 % % Baso % (Auto) 0.8 % % Neut # (Auto) 4.85 10^3/uL 10^3 /uL (1.8-7.7) Lymph # (Auto) 2.9 10^3/uL 10^3/ uL (0.8-4.8) Hartley # (Auto) 0.9 10^3/uL 10^3/ uL (0.2-0.9) Eos # (Auto) 0.1 10^3/uL 10^3/ uL (0.0-0.8) Baso # (Auto) 0.1 10^3/uL 10^3/ uL (0.0-0.1) Nucleated RBC % (a uto) 0 % % Nucleated RBCs # 0.0 /100WBC /100W BC Sodium Potassium Chloride Carbon Dioxide Anion Gap BUN Creatinine GFR Calculation Glucose Calculated Osmolal ity Calcium Total Bilirubin AST ALT Alkaline Phosphata se Total Protein Albumin Globulin Lipase HCG, Qual Urine Color Yellow (Yellow) Urine Appearance Clear (CLEAR) Urine pH 5 (5-7) Ur Specific Gravit y 1.020 (1.005-1.030) Urine Protein Neg (Negative) Urine Glucose (UA) Norm (Normal) Urine Ketones Negative (Negative) Urine Blood Neg (Negative) Urine Nitrate Negative (Negative) Urine Bilirubin Neg (Negative) Urine Urobilinogen Neg mg/dL mg/dL (Negative) Ur Leukocyte Kristin ase Negative (Negative) Influenza Type A A g Influenza Type B A g SARS-CoV-2 Ag (Rap id) Negative (Negative) 04/02/21 04/02/21 04/02/21 04:34 04:34 04:37 WBC RBC Hgb Hct MCV MCH MCHC RDW Plt Count MPV Neut % (Auto) Lymph % (Auto) Hartley % (Auto) Eos % (Auto) Baso % (Auto) Neut # (Auto) Lymph # (Auto) Hartley # (Auto) Eos # (Auto) Baso # (Auto) Nucleated RBC % (a uto) Nucleated RBCs # Sodium 140 mmol/L mmol/L (136-145) Potassium 4.2 mmol/L mmol/L (3.5-5.1) Chloride 105 mmol/L mmol/L (98-107) Carbon Dioxide 20 mmol/L L mmol/ L (22-29) Anion Gap 19.2 H (5-19) BUN 7 mg/dL mg/dL (6-20) Creatinine 0.5 mg/dL mg/dL (0.5-0.9) GFR Calculation 152.9 mL/min H mL /min (90-130) Glucose 97 mg/dL mg/dL (65-115) Calculated Osmolal ity 288 mOsm/kg mOsm/ kg (285-295) Calcium 8.6 mg/dL mg/dL (8.5-10.5) Total Bilirubin 0.3 mg/dL mg/dL (0.15-1.2) AST 10 U/L U/L (0-32) ALT 7 U/L U/L (0-33) Alkaline Phosphata se 80 IU/L IU/L (35-105) Total Protein 7.2 g/dL g/dL (6.6-8.7) Albumin 4.4 g/dL g/dL (3.5-5.2) Globulin 2.8 g/dL g/dL (1.3-4.6) Lipase 17 U/L U/L (13-60) HCG, Qual Negative (Negative) Urine Color Urine Appearance Urine pH Ur Specific Gravit y Urine Protein Urine Glucose (UA) Urine Ketones Urine Blood Urine Nitrate Urine Bilirubin Urine Urobilinogen Ur Leukocyte Kristin ase Influenza Type A A g Negative (Negative) Influenza Type B A g Negative (Negative) SARS-CoV-2 Ag (Rap id) Imaging Data^: CXR: Attestation: I personally reviewed and interpreted this imaging study as follows: My impression: no acute abnormality Discharge Plan Discharge Patient Disposition: Home Clinical Impression: Vomiting Upper respiratory infection Qualifiers: URI type: unspecified URI Qualified Code(s): J06.9 - Acute upper respiratory infection, unspecified Condition: Stable Prescriptions: New ondansetron 4 mg tablet,disintegrating 4 mg PO Q6H PRN (Reason: nausea and vomiting) Qty: 14 RF: 0 No Action diclofenac potassium 50 mg tablet 50 mg PO Q8H PRN (Reason: pain) Qty: 12 RF: 0 tizanidine 4 mg tablet 4 mg PO Q8H PRN (Reason: muscle spasticity) Qty: 12 RF: 0 Cortisporin-TC 3.3-3-10-0.5 mg/mL drops,suspension 4 drp otic (ear) QID Qty: 10 RF: 0 Prilosec OTC 20 mg tablet,delayed release (DR/EC) 20 mg PO DAILY Qty: 20 RF: 0 Vistaril 25 mg capsule 25 mg PO TID PRN (Reason: anxiety) Qty: 14 RF: 0 Topamax 25 mg tablet 25 mg PO DAILY Qty: 30 RF: 0 promethazine 25 mg tablet 25 mg PO Q6H PRN (Reason: nausea and vomiting, migraine) Qty: 20 RF: 0 Imitrex 50 mg tablet See Rx Instructions .ROUTE .COMPLEX Qty: 20 RF: 0 prednisone 50 mg tablet 50 mg PO DAILY Qty: 5 RF: 0 permethrin 5 % cream 1 applic topical Q14D Qty: 60 RF: 0 Discharge Orders: Discharge ED (Routine); Ordered 04/02/21 Ordered By: Dennis Menchaca Referrals: Otoniel Gar MD [Primary Care Provider] - 1-3 days Discharge Diet: Advance as tolerated Discharge Activity: Resume usual activity Patient Instructions: Upper Respiratory Infection (ED) Coding Level of Care Code ED Security Agent for g Fwd Exam Comprehensive
[2021-04-02 04:55] LABS: Bilirubin Urine Neg (Negative); Blood Urine Neg (Negative); Glucose Urine UA Norm (Normal); Ketones Urine Negative (Negative); Leukocyte Esterase Urine Negative (Negative); Nitrate Urine Negative (Negative); Protein Urine Neg (Negative); SARS Covid-2 Antigen Negative (Negative); Urine Appearance Clear (CLEAR); Urine Color Yellow (Yellow); Urobilinogen Urine Neg (Negative); pH Urine 5 (5-7)
[2021-04-02 05:02] LABS: Basophils # 0.1 10^3/uL (0.0-0.1); Basophils % 0.8 %; Eosinophils # 0.1 10^3/uL (0.0-0.8); Eosinophils % 0.8 %; Hematocrit 43.2 % (37.0-47.0); Hemoglobin 13.3 g/dL (11.5-15.3); Lymphocytes # 2.9 10^3/uL (0.8-4.8); Lymphocytes % 32.7 %; Mean Corpuscular HGB Conc 30.8 g/dL (30.0-36.0); Mean Corpuscular Hemoglobin 27.3 pg (28.0-34.0); Mean Corpuscular Volume 88.5 fl (81-99); Mean Platelet Volume 9.8 fL (7.4-10.4); Monocytes # 0.9 10^3/uL (0.2-0.9); Monocytes % 10.5 %; Neutrophils # 4.85 10^3/uL (1.8-7.7); Neutrophils % 54.7 %; Nucleated Red Blood Cells % 0 %; Platelet Count 460 10^3/cmm (130-400); Red Blood Count 4.88 10^6/uL (4.1-5.3); Red Cell Distribution Width 13.2 % (12.1-15.1); White Blood Count 8.9 10^3/uL (4.0-10.0)
[2021-04-02 05:06] LABS: Influenza A by IFA Negative (Negative); Influenza B by IFA Negative (Negative)
[2021-04-02 05:07] LABS: HCG, Serum Qual Negative (Negative)
[2021-04-02 05:10] LABS: Alanine Aminotransferase 7 U/L (0-33); Albumin Level 4.4 g/dL (3.5-5.2); Alkaline Phosphatase 80 IU/L (35-105); Aspartate Amino Transferase 10 U/L (0-32); Carbon Dioxide 20 mmol/L (22-29); Chloride 105 mmol/L (98-107); Globulin 2.8 g/dL (1.3-4.6); Glucose 97 mg/dL (65-115); Lipase 17 U/L (13-60); Total Protein 7.2 g/dL (6.6-8.7)
[2021-04-02 05:23] LABS: Blood Urea Nitrogen 7 mg/dL (6-20); Calcium 8.6 mg/dL (8.5-10.5); Creatinine Clr Calc Pharmacy 150.0071; Glomerular Filtration Rate 152.9 mL/min (90-130); Osmolality Calculated 288 mOsm/kg (285-295); Total Bilirubin 0.3 mg/dL (0.15-1.2)
[2021-04-02 05:27] LABS: Anion Gap 19.2 (5-19); Potassium 4.2 mmol/L (3.5-5.1); Sodium 140 mmol/L (136-145)
[2021-04-02 05:37] VITALS: BP 126/81; PULSE 116; O2SAT 98
== END 2021-04-02 05:39 | disposition home or self-care (01) ==
PROVIDERS: Emergency Provider Emergency Medicine; PCP Family Medicine
DX: J06.9 Acute upper respiratory infection, unspecified (principal); R11.11 Vomiting without nausea; Z87.891 Personal history of nicotine dependence; Z20.822 Contact with and (suspected) exposure to COVID-19
CPT/HCPCS: 71045; 80053; 81003; 83690; 84703; 85025; 87426; 87804; 96361; 96374; 96375; 99284; J2405; J7030

== ENCOUNTER 2021-06-08 06:25 | Emergency (ER) | payer MEDICAID, SELFPAY ==
[2021-06-08 06:31] VITALS: BP 115/58; PULSE 107; RESP 18; TEMP 36.8; O2SAT 100; BMI 23.0
--- NOTE | 2021-06-08 06:48 | W.ED.PREGNAN ---
Documented by User: Aldo Garrison DO 06/08/21 10:20 HPI - General: Chief complaint: OB/Uterine Contractions Stated complaint: , Cramping, Spotting Time Seen by Provider: 06/08/21 06:27 Source: patient Mode of arrival: ambulatory Limitations: no limitations History of Present Illness: 25-year-old female patient G4, P2 SAB 2. Patient presents complaining of pelvic cramping more to the right side. She also had a little bit of spotting. Several home tests that were positive couple weeks ago she is unsure of when her last normal period was states she thought it was relatively normal in March but is not entirely sure. Along with this she has had some back pain no dysuria urgency or frequency. No fever sweats chills. MD Complaint: abdominal pain and vaginal bleeding Onset (ago): hour(s) Pain Consistency: intermittent Location: pelvis (Right) Severity: mild Quality: Cramping Relieving factors: none Exacerbating factors: none Vaginal bleeding: light Date of Last Menstrual Period: 04/20/21 Patient : Yes Associated symptoms: Deny abdominal pain, dyspareunia, dysuria, headache(s), malaise, nausea, rash, seizures, short of breath, syncope, vaginal discharge, visual changes, vomiting or weakness Review of Systems Const: Denies: malaise ENMT: Denies: throat pain, ear or mastoid pain, nasal discharge or nasal congestion Card: Denies: syncope Resp: Denies: dyspnea, productive cough or non-productive cough GI: Denies: abdominal pain, nausea or vomiting : Denies: dysuria, vaginal discharge or dyspareunia Skin/Breast: Denies: rash or pruritus Neuro: Denies: headache(s) PFSH ED PFSH: Medical History Anemia affecting in third trimester Anemia during , delivered, current hospitalization Chronic headache with normal neurologic examination Supervision of normal Term delivered Surgical History History of breast lump/mass excision (~02/28/14) -patient states it was a fibroadenoma. Preformed by Dr. Bashir. Previous back surgery (~2017) 2018--Pt reports blood clot in her spine [facility] Family History Mother Diabetes Grandfather Diabetes Maternal Grandmother Diabetes Maternal Uterine cancer Maternal great grandmother Leukemia maternal grandmother Sister Thyroid condition Uterine cancer Endometriosis Social History Smoking and tobacco status: former smoker Quit status (tobacco): has quit using tobacco Year quit tobacco: 04/16/2019 Alcohol intake: never Female Reproductive History: Date of last menstrual period: 04/20/21 Physical Exam Const: COMMON NORMALS: no acute distress GENERAL APPEARANCE: cooperative and comfortable ORIENTATION/CONSCIOUSNESS: Yes awake, Yes oriented to person, Yes oriented to place and Yes oriented to time HENMT: COMMON NORMALS: normocephalic, atraumatic and hearing grossly normal bilaterally HEAD & SCALP: normocephalic and atraumatic Neck/C-Spine: COMMON NORMALS: no JVD Resp: COMMON NORMALS: normal respiratory effort, No retractions, No use of accessory muscles and clear to auscultation bilaterally AUSCULTATION: clear to auscultation bilaterally Cardio: COMMON NORMALS: no JVD, regular rate, regular rhythm and No murmurs present (Cardio) RATE: regular rate RHYTHM: regular rhythm GI: COMMON NORMALS: No hepatosplenomegaly present AUSCULTATION: Yes normoactive bowel sounds PALPATION: Yes Tenderness to palpation present (GI) Details: RLQ (Mild), No Guarding due to palpation present (GI) and Yes No hepatosplenomegaly present Extremity: COMMON NORMALS: normal to inspection, capillary refill normal, no clubbing, cyanosis or edema, no calf tenderness and no pedal edema Neuro: SENSORIUM/ORIENTATION: Yes oriented to person, Yes oriented to place and Yes oriented to time Skin: COMMON NORMALS: no rashes or lesions noted GENERAL SKIN EXAM: no rashes or lesions noted Course Vital Signs: Vital signs: Vital Signs Temperature 98.3 F 06/08/21 06:31 Pulse Rate 87 06/08/21 08:03 Respiratory Rate 16 06/08/21 08:03 Blood Pressure 125/74 06/08/21 08:03 Pulse Oximetry 100 06/08/21 08:03 MDM - OB/Uterine Contractions Medical Decision Making Labs and imaging reviewed discussed with the patient. Wet mount shows clue cells start on metronidazole twice daily for 7 days also gave her vitamins follow-up with [facility] she seen Dr. Boudreaux in the past referral sent to case management. Medical Records I reviewed the patient's medical records. Lab Data I reviewed the patient's lab results. : 06/08/21 06:49 02 06:49 Radiology Impressions Obstetrics Ultrasound 06/08/21 07:49 IMPRESSION: 1. Single intrauterine gestation of 5 weeks 5 days with an EDC of 02/03/2022. 2. LEFT ovarian corpus luteum cyst. 3. There is an additional larger LEFT adnexal cyst measuring 2.7 x 2.3 cm. This may be an exophytic ovarian cyst or paraovarian cyst. 4. cardiac rate is less than 100. This is probably due to the early gestational age of the fetus. For confirmation of a normally progressing IUP consider follow-up in 2-3 weeks. Laboratory Results WBC 11.4 10^3/uL (4.0-10.0) H 06/08/21 06:49 RBC 4.54 10^6/uL (4.1-5.3) 06/08/21 06:49 Hgb 12.2 g/dL (11.5-15.3) 06/08/21 06:49 Hct 39.5 % (37.0-47.0) 06/08/21 06:49 MCV 87.0 fl (81-99) 06/08/21 06:49 MCH 26.9 pg (28.0-34.0) L 06/08/21 06:49 MCHC 30.9 g/dL (30.0-36.0) 06/08/21 06:49 RDW 13.7 % (12.1-15.1) 06/08/21 06:49 Plt Count 452 10^3/cmm (130-400) H 06/08/21 06:49 MPV 9.8 fL (7.4-10.4) 06/08/21 06:49 Neut % (Auto) 64.8 % 06/08/21 06:49 Lymph % (Auto) 22.0 % 06/08/21 06:49 Hinds % (Auto) 10.3 % 06/08/21 06:49 Eos % (Auto) 1.7 % 06/08/21 06:49 Baso % (Auto) 0.6 % 06/08/21 06:49 Neut # (Auto) 7.39 10^3/uL (1.8-7.7) 06/08/21 06:49 Lymph # (Auto) 2.5 10^3/uL (0.8-4.8) 06/08/21 06:49 [place]s # (Auto) 1.2 10^3/uL (0.2-0.9) H 06/08/21 06:49 Eos # (Auto) 0.2 10^3/uL (0.0-0.8) 06/08/21 06:49 Baso # (Auto) 0.1 10^3/uL (0.0-0.1) 06/08/21 06:49 Nucleated RBC % (auto) 0 % 06/08/21 06:49 Nucleated RBCs # 0.0 /100WBC 06/08/21 06:49 Sodium 133 mmol/L (136-145) L 06/08/21 06:49 Potassium 4.1 mmol/L (3.5-5.1) 06/08/21 06:49 Chloride 100 mmol/L (98-107) 06/08/21 06:49 Carbon Dioxide 22 mmol/L (22-29) 06/08/21 06:49 Anion Gap 15.1 (5-19) 06/08/21 06:49 BUN 15 mg/dL (6-20) 06/08/21 06:49 Creatinine 0.3 mg/dL (0.5-0.9) L 06/08/21 06:49 GFR Calculation 275.7 mL/min (90-130) H 06/08/21 06:49 Glucose 86 mg/dL (65-115) 06/08/21 06:49 Calculated Osmolality 276 mOsm/kg (285-295) L 06/08/21 06:49 Calcium 9.4 mg/dL (8.5-10.5) 06/08/21 06:49 Total Bilirubin 0.2 mg/dL (0.15-1.2) 06/08/21 06:49 AST 8 U/L (0-32) 06/08/21 06:49 ALT 9 U/L (0-33) 06/08/21 06:49 Alkaline Phosphatase 82 IU/L (35-105) 06/08/21 06:49 Total Protein 7.1 g/dL (6.6-8.7) 06/08/21 06:49 Albumin 4.3 g/dL (3.5-5.2) 06/08/21 06:49 Globulin 2.8 g/dL (1.3-4.6) 06/08/21 06:49 Ser , Semi-Qnt 98652.00 mIU/mL 06/08/21 06:49 Urine Color Yellow (Yellow) 06/08/21 06:39 Urine Appearance Cloudy (CLEAR) 06/08/21 06:39 Urine pH 7 (5-7) 06/08/21 06:39 Ur Specific [place] 1.015 (1.005-1.030) 06/08/21 06:39 Urine Protein Neg (Negative) 06/08/21 06:39 Urine Glucose (UA) Norm (Normal) 06/08/21 06:39 Urine Ketones Negative (Negative) 06/08/21 06:39 Urine Blood Neg (Negative) 06/08/21 06:39 Urine Nitrate Negative (Negative) 06/08/21 06:39 Urine Bilirubin Neg (Negative) 06/08/21 06:39 Urine Urobilinogen Norm mg/dL (Negative) 06/08/21 06:39 Ur Leukocyte Esterase Negative (Negative) 06/08/21 06:39 Urine RBC 0-4 /hpf (0-2) H 06/08/21 06:39 Urine WBC 0-4 /hpf (0-5) H 06/08/21 06:39 Ur Squamous Epith Cells 0-4 /hpf (0-5) H 06/08/21 06:39 Amorphous Sediment 2+ /hpf 06/08/21 06:39 Urine Bacteria 1+ /hpf (NONE) H 06/08/21 06:39 Discharge Plan Discharge Patient Disposition: Home Clinical Impression: Intrauterine , Spotting affecting in first trimester Condition: Stable Prescriptions: New metronidazole 500 mg tablet 500 mg PO BID 7 Days Qty: 14 0RF PNV 29-1 29 mg iron- 1 mg tablet 1 tab PO DAILY Qty: 90 2RF No Action diclofenac potassium 50 mg tablet 50 mg PO Q8H PRN (Reason: pain) Qty: 12 0RF tizanidine 4 mg tablet 4 mg PO Q8H PRN (Reason: muscle spasticity) Qty: 12 0RF Cortisporin-TC 3.3-3-10-0.5 mg/mL drops,suspension 4 drp otic (ear) QID Qty: 10 0RF ondansetron 4 mg tablet,disintegrating 4 mg PO Q6H PRN (Reason: nausea and vomiting) Qty: 14 0RF Prilosec OTC 20 mg tablet,delayed release (DR/EC) 20 mg PO DAILY Qty: 20 0RF Vistaril 25 mg capsule 25 mg PO TID PRN (Reason: anxiety) Qty: 14 0RF Topamax 25 mg tablet 25 mg PO DAILY Qty: 30 0RF promethazine 25 mg tablet 25 mg PO Q6H PRN (Reason: nausea and vomiting, migraine) Qty: 20 0RF Imitrex 50 mg tablet See Rx Instructions .ROUTE .COMPLEX Qty: 20 0RF Rx Instructions: take 1 tab at onset of headache; if no relief may repeat 1 tab after at least 2 hrs; max = 4 tabs/24 hr prednisone 50 mg tablet 50 mg PO DAILY Qty: 5 0RF permethrin 5 % cream 1 applic topical Q14D Qty: 60 0RF Rx Instructions: apply second treatment 14 days after first treatment if live lice remain Discharge Orders: Discharge ED (Routine); Ordered 06/08/21 Ordered By: Aldo Garrison Referrals: Otoniel Gar MD [Primary Care Provider] - Patient Instructions: Opioid Safety Coding Level of Care Code ED Acoustic Warfare Analyst for Chg Fwd Exam Comprehensive Documented by User: ANTONIO Manuel 06/08/21 09:55 HPI - General: Chief complaint: OB/Uterine Contractions Stated complaint: , Cramping, Spotting Time Seen by Provider: 06/08/21 06:27 PFSH ED PFSH: Medical History Anemia affecting in third trimester Anemia during , delivered, current hospitalization Chronic headache with normal neurologic examination Supervision of normal Term delivered Surgical History History of breast lump/mass excision (~02/28/14) -patient states it was a fibroadenoma. Preformed by Dr. Bashir. Previous back surgery (~2017) 2018--Pt reports blood clot in her spine [facility] Family History Mother Diabetes Grandfather Diabetes Maternal Grandmother Diabetes Maternal Uterine cancer Maternal great grandmother Leukemia maternal grandmother Sister Thyroid condition Uterine cancer Endometriosis Social History Smoking and tobacco status: former smoker Quit status (tobacco): has quit using tobacco Year quit tobacco: 04/16/2019 Alcohol intake: never Physical Exam : COMMON NORMALS: Yes normal external appearance and Yes normal bimanual exam SPECULUM EXAM - VAGINA: Yes Vaginal discharge present (white thick clumpy discharge present) SPECULUM EXAM - CERVIX: Yes Cervical os closed, No Cervical bleeding, No mucoid cervix and Yes Other cervical findings present (cervix is closed; non-erythematous or friable; no tenderness) BIMANUAL EXAM - VAGINA & UTERUS: Yes normal bimanual exam BIMANUAL EXAM - ADNEXA, OTHER: Yes normal adnexae Course Vital Signs: Vital signs: Vital Signs Temperature 98.3 F 06/08/21 06:31 Pulse Rate 87 06/08/21 08:03 Respiratory Rate 16 06/08/21 08:03 Blood Pressure 125/74 06/08/21 08:03 Pulse Oximetry 100 06/08/21 08:03 MDM - OB/Uterine Contractions Lab Data : 06/08/21 06:49 06/08/21 06:49 Radiology Impressions Obstetrics Ultrasound 06/08/21 07:49 IMPRESSION: 1. Single intrauterine gestation of 5 weeks 5 days with an EDC of 02/03/2022. 2. LEFT ovarian corpus luteum cyst. 3. There is an additional larger LEFT adnexal cyst measuring 2.7 x 2.3 cm. This may be an exophytic ovarian cyst or paraovarian cyst. 4. cardiac rate is less than 100. This is probably due to the early gestational age of the fetus. For confirmation of a normally progressing IUP consider follow-up in 2-3 weeks. Laboratory Results WBC 11.4 10^3/uL (4.0-10.0) H 06/08/21 06:49 RBC 4.54 10^6/uL (4.1-5.3) 06/08/21 06:49 Hgb 12.2 g/dL (11.5-15.3) 06/08/21 06:49 Hct 39.5 % (37.0-47.0) 06/08/21 06:49 MCV 87.0 fl (81-99) 06/08/21 06:49 MCH 26.9 pg (28.0-34.0) L 06/08/21 06:49 MCHC 30.9 g/dL (30.0-36.0) 06/08/21 06:49 RDW 13.7 % (12.1-15.1) 06/08/21 06:49 Plt Count 452 10^3/cmm (130-400) H 06/08/21 06:49 MPV 9.8 fL (7.4-10.4) 06/08/21 06:49 Neut % (Auto) 64.8 % 06/08/21 06:49 Lymph % (Auto) 22.0 % 06/08/21 06:49 Hinds % (Auto) 10.3 % 06/08/21 06:49 Eos % (Auto) 1.7 % 06/08/21 06:49 Baso % (Auto) 0.6 % 06/08/21 06:49 Neut # (Auto) 7.39 10^3/uL (1.8-7.7) 06/08/21 06:49 Lymph # (Auto) 2.5 10^3/uL (0.8-4.8) 06/08/21 06:49 [place]s # (Auto) 1.2 10^3/uL (0.2-0.9) H 06/08/21 06:49 Eos # (Auto) 0.2 10^3/uL (0.0-0.8) 06/08/21 06:49 Baso # (Auto) 0.1 10^3/uL (0.0-0.1) 06/08/21 06:49 Nucleated RBC % (auto) 0 % 06/08/21 06:49 Nucleated RBCs # 0.0 /100WBC 06/08/21 06:49 Sodium 133 mmol/L (136-145) L 06/08/21 06:49 Potassium 4.1 mmol/L (3.5-5.1) 06/08/21 06:49 Chloride 100 mmol/L (98-107) 06/08/21 06:49 Carbon Dioxide 22 mmol/L (22-29) 06/08/21 06:49 Anion Gap 15.1 (5-19) 06/08/21 06:49 BUN 15 mg/dL (6-20) 06/08/21 06:49 Creatinine 0.3 mg/dL (0.5-0.9) L 06/08/21 06:49 GFR Calculation 275.7 mL/min (90-130) H 06/08/21 06:49 Glucose 86 mg/dL (65-115) 06/08/21 06:49 Calculated Osmolality 276 mOsm/kg (285-295) L 06/08/21 06:49 Calcium 9.4 mg/dL (8.5-10.5) 06/08/21 06:49 Total Bilirubin 0.2 mg/dL (0.15-1.2) 06/08/21 06:49 AST 8 U/L (0-32) 06/08/21 06:49 ALT 9 U/L (0-33) 06/08/21 06:49 Alkaline Phosphatase 82 IU/L (35-105) 06/08/21 06:49 Total Protein 7.1 g/dL (6.6-8.7) 06/08/21 06:49 Albumin 4.3 g/dL (3.5-5.2) 06/08/21 06:49 Globulin 2.8 g/dL (1.3-4.6) 06/08/21 06:49 Ser , Semi-Qnt 22896.00 mIU/mL 06/08/21 06:49 Urine Color Yellow (Yellow) 06/08/21 06:39 Urine Appearance Cloudy (CLEAR) 06/08/21 06:39 Urine pH 7 (5-7) 06/08/21 06:39 Ur Specific [place] 1.015 (1.005-1.030) 06/08/21 06:39 Urine Protein Neg (Negative) 06/08/21 06:39 Urine Glucose (UA) Norm (Normal) 06/08/21 06:39 Urine Ketones Negative (Negative) 06/08/21 06:39 Urine Blood Neg (Negative) 06/08/21 06:39 Urine Nitrate Negative (Negative) 06/08/21 06:39 Urine Bilirubin Neg (Negative) 06/08/21 06:39 Urine Urobilinogen Norm mg/dL (Negative) 06/08/21 06:39 Ur Leukocyte Esterase Negative (Negative) 06/08/21 06:39 Urine RBC 0-4 /hpf (0-2) H 06/08/21 06:39 Urine WBC 0-4 /hpf (0-5) H 06/08/21 06:39 Ur Squamous Epith Cells 0-4 /hpf (0-5) H 06/08/21 06:39 Amorphous Sediment 2+ /hpf 06/08/21 06:39 Urine Bacteria 1+ /hpf (NONE) H 06/08/21 06:39 Discharge Plan Discharge Patient Disposition: Home Clinical Impression: Intrauterine , Spotting affecting in first trimester Condition: Stable Prescriptions: New metronidazole 500 mg tablet 500 mg PO BID 7 Days Qty: 14 0RF PNV 29-1 29 mg iron- 1 mg tablet 1 tab PO DAILY Qty: 90 2RF No Action diclofenac potassium 50 mg tablet 50 mg PO Q8H PRN (Reason: pain) Qty: 12 0RF tizanidine 4 mg tablet 4 mg PO Q8H PRN (Reason: muscle spasticity) Qty: 12 0RF Cortisporin-TC 3.3-3-10-0.5 mg/mL drops,suspension 4 drp otic (ear) QID Qty: 10 0RF ondansetron 4 mg tablet,disintegrating 4 mg PO Q6H PRN (Reason: nausea and vomiting) Qty: 14 0RF Prilosec OTC 20 mg tablet,delayed release (DR/EC) 20 mg PO DAILY Qty: 20 0RF Vistaril 25 mg capsule 25 mg PO TID PRN (Reason: anxiety) Qty: 14 0RF Topamax 25 mg tablet 25 mg PO DAILY Qty: 30 0RF promethazine 25 mg tablet 25 mg PO Q6H PRN (Reason: nausea and vomiting, migraine) Qty: 20 0RF Imitrex 50 mg tablet See Rx Instructions .ROUTE .COMPLEX Qty: 20 0RF Rx Instructions: take 1 tab at onset of headache; if no relief may repeat 1 tab after at least 2 hrs; max = 4 tabs/24 hr prednisone 50 mg tablet 50 mg PO DAILY Qty: 5 0RF permethrin 5 % cream 1 applic topical Q14D Qty: 60 0RF Rx Instructions: apply second treatment 14 days after first treatment if live lice remain Discharge Orders: Discharge ED (Routine); Ordered 06/08/21 Ordered By: Aldo Garrison Referrals: Otoniel Gar MD [Primary Care Provider] - Patient Instructions: Opioid Safety Coding Level of Care Code ED Acoustic Warfare Analyst for [employer] Fwd Exam Comprehensive
--- NOTE | 2021-06-08 06:50 | PC.NURSE ---
report given to kathie MILLS
[2021-06-08 06:59] LABS: Add Urine Microscopic? YES; Bilirubin Urine Neg (Negative); Blood Urine Neg (Negative); Glucose Urine UA Norm (Normal); Ketones Urine Negative (Negative); Leukocyte Esterase Urine Negative (Negative); Nitrate Urine Negative (Negative); Protein Urine Neg (Negative); Specific Gravity, Urine 1.015 (1.005-1.030); Urine Appearance Cloudy (CLEAR); Urine Color Yellow (Yellow); Urobilinogen Urine Norm (Negative); pH Urine 7 (5-7)
[2021-06-08 06:59] LABS: Basophils # 0.1 10^3/uL (0.0-0.1); Basophils % 0.6 %; Eosinophils # 0.2 10^3/uL (0.0-0.8); Eosinophils % 1.7 %; Hematocrit 39.5 % (37.0-47.0); Hemoglobin 12.2 g/dL (11.5-15.3); Lymphocytes # 2.5 10^3/uL (0.8-4.8); Mean Corpuscular HGB Conc 30.9 g/dL (30.0-36.0); Mean Corpuscular Hemoglobin 26.9 pg (28.0-34.0); Mean Platelet Volume 9.8 fL (7.4-10.4); Monocytes # 1.2 10^3/uL (0.2-0.9); Monocytes % 10.3 %; Neutrophils # 7.39 10^3/uL (1.8-7.7); Neutrophils % 64.8 %; Nucleated Red Blood Cells % 0 %; Platelet Count 452 10^3/cmm (130-400); Red Blood Count 4.54 10^6/uL (4.1-5.3); Red Cell Distribution Width 13.7 % (12.1-15.1); White Blood Count 11.4 10^3/uL (4.0-10.0)
[2021-06-08 07:00] VITALS: BP 121/72; PULSE 101; RESP 18; O2SAT 100
[2021-06-08 07:04] LABS: Amorphous Sediment Urine 2+ /hpf; Bacteria Urine 1+ /hpf; RBC Urine 0-4 /hpf (0-2); Squamous Epithelial Cell Urine 0-4 /hpf (0-5); WBC Urine 0-4 /hpf (0-5)
[2021-06-08 07:05] LABS: Add Urine Culture? No
[2021-06-08 07:32] LABS: Alanine Aminotransferase 9 U/L (0-33); Albumin Level 4.3 g/dL (3.5-5.2); Alkaline Phosphatase 82 IU/L (35-105); Anion Gap 15.1 (5-19); Aspartate Amino Transferase 8 U/L (0-32); Blood Urea Nitrogen 15 mg/dL (6-20); Calcium 9.4 mg/dL (8.5-10.5); Carbon Dioxide 22 mmol/L (22-29); Chloride 100 mmol/L (98-107); Globulin 2.8 g/dL (1.3-4.6); Glomerular Filtration Rate 275.7 mL/min (90-130); Glucose 86 mg/dL (65-115); Osmolality Calculated 276 mOsm/kg (285-295); Potassium 4.1 mmol/L (3.5-5.1); Sodium 133 mmol/L (136-145); Total Bilirubin 0.2 mg/dL (0.15-1.2); Total Protein 7.1 g/dL (6.6-8.7)
--- NOTE | 2021-06-08 07:49 | US_ITS ---
WS: [id number] EARLY OBSTETRICAL ULTRASOUND (<14 WEEKS). HISTORY: pelvic pain/+ preg/spotting COMPARISON: None available. Single intrauterine gestational sac is identified. Cardiac activity at 89. [place]-rump length measures 0.2 cm which corresponds to a gestation of 5w5d. Normal-appearing yolk sac and amnion demonstrated. No subchorionic hemorrhage. Tiny amount of free fluid in the cul-de-sac. The LEFT ovary is identified measures 3.2 x 2.6 x 2.3 cm . There are several cysts in the LEFT adnexa. One of the cysts contains a ring of fire suggesting thi s is a corpus luteum of . This cyst measures 1.4 x 1.0 cm. there is a larger cyst in the LEF T adnexa measuring 2.7 x 2.3 cm closely associated with the ovary. This may be an exophytic ovarian c yst or paraovarian cyst. RIGHT ovary is normal size. No cysts within the RIGHT ovary. US/US OB limited [id number] IMPRESSION: 1. Single intrauterine gestation of 5 weeks 5 days with an EDC of 02/03/2022. 2. LEFT ovarian corpus luteum cyst. 3. There is an additional larger LEFT adnexal cyst measuring 2.7 x 2.3 cm. Thi s may be an exophytic ovarian cyst or paraovarian cyst. 4. cardiac rate is less than 100. This is probably due to the early gest ational age of the fetus. For confirmation of a normally progressing IUP consid er follow-up in 2-3 weeks.
[2021-06-08 08:03] VITALS: BP 125/74; PULSE 87; RESP 16; O2SAT 100
--- NOTE | 2021-06-09 13:44 | DCPLANNER ---
shopper marketing manager had message to refer patient to [facility]. shopper marketing manager called the [facility], spoke with Raheem, gave clinic patients information. shopper marketing manager was told that patient had been discharged from the clinic for too many no shows. shopper marketing manager called phone number [phone], phone was not taking calls at this time. shopper marketing manager was unable to speak with patient or leave a voicemail for patient.
== END 2021-06-08 10:23 | disposition home or self-care (01) ==
PROVIDERS: Emergency Provider Family Medicine; PCP Family Medicine
DX: O26.851 Spotting complicating pregnancy, first trimester (principal); Z3A.01 Less than 8 weeks gestation of pregnancy; Z87.891 Personal history of nicotine dependence
CPT/HCPCS: 76815; 80053; 81001; 84702; 85025; 87210; 87491; 87591; 87661; 99283

== ENCOUNTER 2021-08-10 00:11 | Emergency (ER) | payer MEDICAID, SELFPAY ==
[2021-08-10 00:32] VITALS: BP 107/70; PULSE 94; RESP 20; TEMP 36.6; O2SAT 99; BMI 23.9
--- NOTE | 2021-08-10 00:41 | ED_ITS ---
HPI - General: Chief complaint: Vaginal Bleeding Stated complaint: Vaginal Bleeding-16 weeks preg Time Seen by Provider: 08/10/21 00:14 Source: patient Mode of arrival: ambulatory Limitations: no limitations History of Present Illness: 26-year-old female who states that she is currently 16 weeks had some slight spotting over the last 2 days. States she had passed a small clot today. She denies any abdominal pain currently she has 2 live children no previous miscarriage states she did have a placental abruption previously. Denies worsening proving factors Date of Last Menstrual Period: 04/20/21 Associated symptoms: Deny abdominal pain, headache(s), nausea or vomiting Review of Systems Const: Denies: fever(s), chills, body aches or change in appetite Eyes: Denies: blurry vision or eye discomfort ENMT: Denies: throat pain or dental pain Card: Denies: chest pain Resp: Denies: dyspnea GI: Denies: abdominal pain, nausea, vomiting or diarrhea : Reports: vaginal bleeding Musc: Denies: neck pain or back pain Skin/Breast: Denies: rash Neuro: Denies: headache(s) Psych: Denies: depression Joni/Lymph: Denies: easy bruising All/Imm: Denies: urticaria PFSH ED PFSH: Medical History Anemia affecting in third trimester Anemia during , delivered, current hospitalization Chronic headache with normal neurologic examination Supervision of normal Term delivered Surgical History History of breast lump/mass excision (~02/28/14) -patient states it was a fibroadenoma. Preformed by Dr. Bashir. Previous back surgery (~2018) 2018--Pt reports blood clot in her spine [place] [facility] Family History Mother Diabetes Grandfather Diabetes Maternal Grandmother Diabetes Maternal Uterine cancer Maternal great grandmother Leukemia maternal grandmother Sister Thyroid condition Uterine cancer Endometriosis Social History Smoking and tobacco status: former smoker Quit status (tobacco): has quit using tobacco Year quit tobacco: 04/16/2019 Alcohol intake: never Female Reproductive History: Date of last menstrual period: 04/20/21 Physical Exam Const: COMMON NORMALS: no acute distress, patient oriented x3 and healthy appearing HENMT: COMMON NORMALS: normocephalic and atraumatic HEAD & SCALP: normocephalic and atraumatic Eye: COMMON NORMALS: Equal, round and reactive pupils present and EOMs intact bilaterally PUPIL: Yes Equal, round and reactive pupils present Neck/C-Spine: COMMON NORMALS: full ROM and supple Chest: COMMONS NORMALS: normal inspection of the chest and normal palpation of entire chest wall Resp: COMMON NORMALS: normal respiratory effort, No retractions, No use of accessory muscles and clear to auscultation bilaterally AUSCULTATION: clear to auscultation bilaterally Cardio: COMMON NORMALS: regular rate, regular rhythm and No murmurs present (Cardio) RATE: regular rate RHYTHM: regular rhythm GI: COMMON NORMALS: Normal to inspection, nondistended, normoactive bowel sounds present, Soft to palpation, non-tender and no masses PALPATION: Yes Soft to palpation Extremity: COMMON NORMALS: normal to inspection and full ROM Neuro: COMMON NORMALS: patient oriented x3, moves all extremities and no focal motor deficits Psych: COMMON NORMALS: mental status grossly normal, Normal thought process present and cooperative THOUGHT PROCESS: Normal thought process present Skin: COMMON NORMALS: no rashes or lesions noted and no wounds GENERAL SKIN EXAM: no rashes or lesions noted Course Vital Signs: Vital signs: Vital Signs Temperature 97.8 F 08/10/21 00:32 Pulse Rate 94 08/10/21 00:32 Respiratory Rate 20 H 08/10/21 00:32 Blood Pressure 107/70 08/10/21 00:32 Pulse Oximetry 99 08/10/21 00:32 MDM - OB/Uterine Contractions Medical Decision Making Patient presents here with threatened miscarriage. Patient is well-appearing here no abdominal pain on tenderness bedside ultrasound showed an IUP consistent with dates heart rate of 152 patient's blood type is O+ she is stable for discharge is to follow-up with her OB in 1 to 2 days return if worsening Discharge Plan Discharge Patient Disposition: Home Clinical Impression: Threatened miscarriage Condition: Stable Prescriptions: No Action diclofenac potassium 50 mg tablet 50 mg PO Q8H PRN (Reason: pain) Qty: 12 0RF tizanidine 4 mg tablet 4 mg PO Q8H PRN (Reason: muscle spasticity) Qty: 12 0RF Cortisporin-TC 3.3-3-10-0.5 mg/mL drops,suspension 4 drp otic (ear) QID Qty: 10 0RF ondansetron 4 mg tablet,disintegrating 4 mg PO Q6H PRN (Reason: nausea and vomiting) Qty: 14 0RF PNV 29-1 29 mg iron- 1 mg tablet 1 tab PO DAILY Qty: 90 2RF Prilosec OTC 20 mg tablet,delayed release (DR/EC) 20 mg PO DAILY Qty: 20 0RF Vistaril 25 mg capsule 25 mg PO TID PRN (Reason: anxiety) Qty: 14 0RF Topamax 25 mg tablet 25 mg PO DAILY Qty: 30 0RF promethazine 25 mg tablet 25 mg PO Q6H PRN (Reason: nausea and vomiting, migraine) Qty: 20 0RF Imitrex 50 mg tablet See Rx Instructions .ROUTE .COMPLEX Qty: 20 0RF Rx Instructions: take 1 tab at onset of headache; if no relief may repeat 1 tab after at least 2 hrs; max = 4 tabs/24 hr prednisone 50 mg tablet 50 mg PO DAILY Qty: 5 0RF permethrin 5 % cream 1 applic topical Q14D Qty: 60 0RF Rx Instructions: apply second treatment 14 days after first treatment if live lice remain Discharge Orders: Discharge ED (Routine); Ordered 08/10/21 Ordered By: Dennis Menchaca Referrals: Otoniel Gar MD [Primary Care Provider] - James Spivey MD [Physician] - 1-3 days Discharge Diet: Advance as tolerated Discharge Activity: Resume usual activity Patient Instructions: Threatened Miscarriage (ED) Coding Level of Care Code ED Aboriginal Liaison Officer for Yajaira Salazar
[2021-08-10 00:50] VITALS: RESP 16
== END 2021-08-10 00:51 | disposition home or self-care (01) ==
PROVIDERS: Emergency Provider Emergency Medicine; PCP Family Medicine
DX: O20.0 Threatened abortion (principal); Z3A.16 16 weeks gestation of pregnancy; Z87.891 Personal history of nicotine dependence
CPT/HCPCS: 99281

== ENCOUNTER 2021-09-17 09:15 | Outpatient (CLI) | payer MEDICAID, SELFPAY ==
--- NOTE | 2021-09-17 | US_ITS ---
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 FEMORAL LENGTH MEASUREMENTS: 3.4 cm, equals 20w5d. ABDOMINAL CIRCUMFERENCE: 15.1 cm, equals 20w2d. ESTIMATED WEIGHT: 356 g. ESTIMATED GESTATIONAL AGE: 20w3d The stomach, kidneys, bladder and cord insertion appear normal. Three-vessel umbilical cord was identified. The spine appears to be intact. 4 chambered heart was confirmed. The lateral ventricles, cerebellum and cisterna magna all appear normal. US/US OB >= 14 weeks fetus [id number] IMPRESSION: Viable intrauterine with single fetus estimated at 20w3d estimated da te of delivery based on ultrasound is 02/01/2022..
== END 2021-09-18 09:08 | disposition home or self-care (01) ==
PROVIDERS: PCP Family Medicine; Visit Provider Family Medicine
DX: Z34.82 Encounter for supervision of other normal pregnancy, second trimester (principal)
CPT/HCPCS: 76805

== ENCOUNTER 2021-09-20 03:38 | Outpatient (CLI) | payer MEDICAID, SELFPAY ==
[2021-09-20 03:50] VITALS: BP 113/57; PULSE 90; TEMP 36.2
[2021-09-20 03:56] VITALS: BMI 25.3
[2021-09-20] MEDS: sodium chloride 0.9% 1,000 ML 999 ML IV (04:18)
[2021-09-20] MEDS: ondansetron 2 mg/ML SDV 2 mL 4 MG IVP (04:18)
[2021-09-20] MEDS: HYDROcodone-acetaminophen 5-325 mg Tablet 2 TAB PO (04:18)
[2021-09-20 04:22] LABS: Bilirubin Urine Neg (Negative); Blood Urine Neg (Negative); Glucose Urine UA Norm (Normal); Ketones Urine Negative (Negative); Leukocyte Esterase Urine 1+ (Negative); Nitrate Urine Negative (Negative); Protein Urine Neg (Negative); Specific Gravity, Urine 1.005 (1.005-1.030); Urine Appearance Clear (CLEAR); Urine Color Yellow (Yellow); Urobilinogen Urine Norm (Negative); pH Urine 7 (5-7)
[2021-09-20 04:23] LABS: Add Urine Culture? Yes; Bacteria Urine 3+ /hpf; RBC Urine 0-4 /hpf (0-2); Squamous Epithelial Cell Urine 0-4 /hpf (0-5)
[2021-09-20 04:26] VITALS: RESP 16
[2021-09-20] MEDS: cefTRIAXone 1,000 MG in sodium chloride 0.9% (plus) 50 ML 100 MG IV (05:07)
[2021-09-20 05:35] VITALS: RESP 17
[2021-09-20 05:40] VITALS: BP 112/57; PULSE 90
== END 2021-09-20 05:50 | disposition home or self-care (01) ==
LOC: OPOB 03:42 → OBGYN 03:43
PROVIDERS: PCP Family Medicine; Visit Provider Family Medicine
DX: O26.899 Other specified pregnancy related conditions, unspecified trimester (principal); Z3A.00 Weeks of gestation of pregnancy not specified; R10.9 Unspecified abdominal pain
CPT/HCPCS: 81001; 87077; 87086; 87186; 96374; 99211; J0696; J2405; J7030

== ENCOUNTER 2021-11-10 06:19 | Outpatient (CLI) | payer MEDICAID, SELFPAY ==
[2021-11-10 06:19] VITALS: BMI 25.1
[2021-11-10 06:30] VITALS: BP 126/66; PULSE 96
[2021-11-10] MEDS: acetaminophen 325 mg Tablet 650 MG PO (06:56)
[2021-11-10 07:15] VITALS: BP 126/66; PULSE 96
== END 2021-11-10 07:21 | disposition home or self-care (01) ==
LOC: OPOB 06:21 → OBGYN 07:19
PROVIDERS: PCP Family Medicine; Visit Provider Family Medicine
DX: O26.899 Other specified pregnancy related conditions, unspecified trimester (principal); Z3A.00 Weeks of gestation of pregnancy not specified; R10.9 Unspecified abdominal pain; R51.9 Headache, unspecified; M79.605 Pain in left leg
CPT/HCPCS: 99211

== ENCOUNTER 2021-12-08 09:08 | Outpatient (CLI) | payer MEDICAID, SELFPAY ==
--- NOTE | 2021-12-08 09:22 | US_ITS ---
WS: [id number] ULTRASOUND OB LIMITED TECHNIQUE: Limited ultrasound examination of the fetus. CLINICAL INFORMATION: HX OF MACROSOMIA COMPARISON: September 17, 2021 FINDINGS: Cervix is long and closed measuring 4.1 cm. Single interuterine gestation. presentation is vertex Placental location is posterior fundal. Placenta grade: 1 heart rate 131 BPM. Polyhydramnios. LUIS FERNANDO 21.1 cm. This is greater than the median and less than the 95th percentile for ge stational age. Anatomy: BDP: 8.4 cm = 33w5d HC: 30.4 cm = 33w5d AC: 30.7 cm = 34w5d FEMUR LENGTH: 6.5 cm = 33w3d Estimated weight: 2364 g, 5 pounds 3 ounces EGA by ultrasound: 33w6d EMELIA by ultrasound: 01/20/2022 US/[place] [id number] IMPRESSION: 1. Single intrauterine gestation with vertex presentation. 2. Cervix is long and closed measuring 4.1 cm. 3. Polyhydramnios with LUIS FERNANDO measuring 21.1 CM. 4. Ultrasound gestational age 33 weeks 6 days with estimated delivery Septembe r 2021. 5. Estimated weight 5 lbs. 3 oz. at the 73rd percentile for estimated ge stational age
== END 2021-12-08 09:09 | disposition home or self-care (01) ==
LOC: RAD 09:09
PROVIDERS: PCP Family Medicine; Visit Provider Family Medicine
DX: Z36.3 Encounter for antenatal screening for malformations; Z3A.33 33 weeks gestation of pregnancy; O40.3XX0 Polyhydramnios, third trimester, not applicable or unspecified
CPT/HCPCS: 76816

== ENCOUNTER → 2021-12-24 18:26 | Outpatient (BNVA) | payer MEDICAID, SELFPAY | PROVIDERS: PCP Family Medicine; Visit Provider Registered Nurse Neonatal Intensive Care | DX: N39.0 Urinary tract infection, site not specified (principal); Z20.2 Contact with and (suspected) exposure to infections with a predominantly sexual mode of transmission | CPT/HCPCS: 81000; 87491; 87591; 87661 ==

== ENCOUNTER 2022-01-06 16:14 | Observation (INO) | payer MEDICAID, SELFPAY ==
[2022-01-06] VITALS (55 sets, daily range): BP systolic 98–118; BP diastolic 46–59; PULSE 89–115; RESP 18; TEMP 36.2; O2SAT 90–100; BMI 27.8
[2022-01-06] MEDS: lactated ringers 1,000 ML 999 ML IV (13:34)
[2022-01-06] MEDS: ondansetron 2 mg/ML SDV 2 mL 4 MG IVP (13:34)
[2022-01-06 14:11] LABS: Nitrazine Paper, PH Negative
[2022-01-06 14:17] LABS: Actim Prom Negative
[2022-01-06 14:26] LABS: Add Urine Microscopic? NO; Charge for UA Resulting for Rev
[2022-01-06 14:54] LABS: Bilirubin Urine Neg (Negative); Blood Urine Neg (Negative); Glucose Urine UA Norm (Normal); Ketones Urine 3+ (Negative); Leukocyte Esterase Urine Negative (Negative); Nitrate Urine Negative (Negative); Protein Urine Neg (Negative); Specific Gravity, Urine 1.015 (1.005-1.030); Urine Appearance Clear (CLEAR); Urine Color Dark Yellow (Yellow); Urobilinogen Urine Norm (Negative); pH Urine 7 (5-7)
[2022-01-06] MEDS: acetaminophen 500 mg Tablet 1000 MG PO (15:45)
--- NOTE | 2022-01-06 17:45 | PM.OBTRLD ---
OB L&D Triage Visit Information: Date of evaluation: 01/06/22 Comments/Additional reason(s) for visit: Contractions, lower back pain, possible leaking fluid. The patient complained of intermittent contractions and lower back pain overnight prior to coming to the hospital. She also complained of occasional leaking fluid. Evaluation: monitor accelerations: Present 15x15 station: -4 Laboratory results: Laboratory Tests 01/06/22 01/06/22 13:24 14:13 Insulin-like GF I Negative Urine Color Dark yellow Urine Appearance Clear Urine pH 7 Ur Specific Gravit y 1.015 Urine Protein Neg Urine Glucose (UA) Norm Urine Ketones 3+ H Urine Blood Neg Urine Nitrate Negative Urine Bilirubin Neg Urine Urobilinogen Norm Ur Leukocyte Kristin ase Negative Vital signs: Vital Signs - 24 hr 01/06/22 12:18 01/06/22 12:17 01/06/22 12:30 Temperature 97.2 F L Pulse Rate 115 H 95 Blood Pressure 107/53 Pulse Oximetry 98 01/06/22 12:35 01/06/22 12:40 01/06/22 12:45 Temperature Pulse Rate 96 114 H 106 H Blood Pressure Pulse Oximetry 98 99 98 01/06/22 12:50 01/06/22 12:55 01/06/22 13:00 Temperature Pulse Rate 106 H 99 104 H Blood Pressure Pulse Oximetry 98 100 100 01/06/22 13:05 01/06/22 13:10 01/06/22 13:20 Temperature Pulse Rate 90 93 92 Blood Pressure Pulse Oximetry 100 100 100 01/06/22 13:25 01/06/22 13:30 01/06/22 13:35 Temperature Pulse Rate 105 H 93 96 Blood Pressure Pulse Oximetry 100 100 100 01/06/22 13:40 01/06/22 13:42 01/06/22 13:45 Temperature Pulse Rate 98 94 101 H Blood Pressure Pulse Oximetry 100 92 100 01/06/22 13:50 01/06/22 13:55 01/06/22 13:59 Temperature Pulse Rate 100 99 97 Blood Pressure 116/59 Pulse Oximetry 100 100 01/06/22 14:00 01/06/22 14:12 01/06/22 14:17 Temperature Pulse Rate 105 H 101 H 101 H Blood Pressure Pulse Oximetry 100 100 100 01/06/22 14:20 01/06/22 14:22 01/06/22 14:27 Temperature Pulse Rate 89 96 101 H Blood Pressure 109/56 Pulse Oximetry 100 100 01/06/22 14:32 01/06/22 14:37 01/06/22 14:40 Temperature Pulse Rate 100 100 95 Blood Pressure 106/51 Pulse Oximetry 99 100 01/06/22 14:42 01/06/22 14:47 01/06/22 14:52 Temperature Pulse Rate 100 100 93 Blood Pressure Pulse Oximetry 100 100 100 01/06/22 14:57 01/06/22 15:00 01/06/22 15:02 Temperature Pulse Rate 98 96 93 Blood Pressure 113/53 Pulse Oximetry 100 100 01/06/22 15:07 01/06/22 15:12 01/06/22 15:17 Temperature Pulse Rate 97 104 H 101 H Blood Pressure Pulse Oximetry 100 100 99 01/06/22 15:20 01/06/22 15:21 01/06/22 15:22 Temperature Pulse Rate 89 101 H 102 H Blood Pressure 109/51 Pulse Oximetry 90 100 01/06/22 15:27 01/06/22 15:32 01/06/22 15:34 Temperature Pulse Rate 106 H 102 H 109 H Blood Pressure Pulse Oximetry 100 100 93 01/06/22 15:37 01/06/22 15:39 01/06/22 15:42 Temperature Pulse Rate 106 H 110 H 107 H Blood Pressure 109/51 Pulse Oximetry 100 100 01/06/22 16:37 01/06/22 16:57 01/06/22 17:18 Temperature Pulse Rate 92 89 90 Blood Pressure 98/46 102/47 107/51 Pulse Oximetry 01/06/22 17:38 Temperature Pulse Rate 100 Blood Pressure 103/52 Pulse Oximetry Final Diagnosis Final Diagnosis (1) Uterine contractions: Plan: While the patient has had contractions during her stay, they are starting to spread out. She did make some minor cervical change from a stretchy 1 to a stretchy 2, but continues to be 50% effaced. The baby is in a -5 station. Because her contractions are tapering off, both in frequency, and in strength, and due to her cervix not making any further change, the patient will be discharged home. Status: Acute Code(s): O47.9 - False labor, unspecified (2) Feared complaint without diagnosis: Plan: Thankfully, there is no sign of an amniotic fluid leak. Status: Acute Code(s): Z71.1 - Person with feared health complaint in whom no diagnosis is made Coding Level of Care Code Acute Smoking Pipe Coater for Chg Fwd Diagnoses Uterine contractions O47.9 Feared complaint without diagnosis Z71.1
== END 2022-01-06 18:42 | disposition home or self-care (01) ==
LOC: OPOB 16:14 → OBGYN 16:14
PROVIDERS: Absent Provider Family Medicine; Admitting Provider Family Medicine; PCP Family Medicine; Visit Provider Family Medicine
DX: O47.9 False labor, unspecified (principal); Z3A.00 Weeks of gestation of pregnancy not specified; Z71.1 Person with feared health complaint in whom no diagnosis is made
CPT/HCPCS: 12345; 81003; 83986; 84112; G0378; J2405

== ENCOUNTER 2022-01-15 02:52 | Inpatient (IN) | payer MEDICAID, SELFPAY ==
[2022-01-15] VITALS (63 sets, daily range): BP systolic 93–152; BP diastolic 42–72; PULSE 59–129; RESP 16–19; TEMP 35.9–36.8; BMI 28.5
[2022-01-15] MEDS: dextrose 5%-lactated ringers 1,000 ML 125 ML IV (02:16)
[2022-01-15] MEDS: ampicillin 2,000 MG in sodium chloride 0.9% (plus) 50 ML 100 MG IV (02:16)
[2022-01-15 02:24] LABS: Basophils % 0.2 %; Eosinophils # 0.1 10^3/uL (0.0-0.8); Eosinophils % 0.4 %; Hematocrit 33.1 % (37.0-47.0); Hemoglobin 10.8 g/dL (11.5-15.3); Lymphocytes # 2.1 10^3/uL (0.8-4.8); Lymphocytes % 11.6 %; Mean Corpuscular HGB Conc 32.6 g/dL (30.0-36.0); Mean Corpuscular Hemoglobin 29.6 pg (28.0-34.0); Mean Corpuscular Volume 90.7 fl (81-99); Mean Platelet Volume 10.4 fL (7.4-10.4); Monocytes # 1.7 10^3/uL (0.2-0.9); Monocytes % 9.7 %; Neutrophils # 13.45 10^3/uL (1.8-7.7); Nucleated Red Blood Cells % 0 %; Platelet Count 261 10^3/cmm (130-400); Red Blood Count 3.65 10^6/uL (4.1-5.3); Red Cell Distribution Width 13.3 % (12.1-15.1); White Blood Count 17.9 10^3/uL (4.0-10.0)
[2022-01-15] MEDS: ampicillin 1,000 MG in sodium chloride 0.9% (plus) 50 ML 100 MG IV ×3 (05:22→12:54)
[2022-01-15 07:52] LABS: Amphetamines Screen Urine Negative (Negative); Barbiturates Screen Urine Negative (Negative); Benzodiazepines Screen Urine Negative (Negative); Cocaine Screen Urine Negative (Negative); Opiate Screen Urine Negative (Negative); PCP Screen Urine Negative (Negative); THC Screen Urine Negative (Negative)
--- NOTE | 2022-01-15 07:58 | PM.OPHPUD ---
Labor & Delivery H&P Update Date of Procedure: January 15, 2022 Date H&P Performed: 01/14/22 Admission Diagnosis: 26-year-old 4 para 2-0-1-2 with an estimated gestational age of 38 weeks presenting to the hospital in active labor. Planned procedure: Spontaneous vaginal delivery Other information: The patient is a pleasant 26-year-old female who has had a relatively unremarkable who presented to the hospital in active labor. Cervical change was demonstrated. Otherwise she has no complaints. Her labs are notable for having a blood type that is O+. Her antibody screen was negative. She is GBS positive. Her drug screen was negative. We did receive an anonymous call that she was partying, including using alcohol and possibly other drugs earlier in her . That information was never corroborated. The remainder of her lab infectious disease profile was within normal limits. She is rubella immune. She passed her glucose screen. Related Problem List Diagnoses (1) 38 weeks gestation of : A&P Assessment and plan (1) 38 weeks gestation of : I anticipate routine labor and delivery. She is currently on group B strep protocol and has already received 2 doses. An amniotomy was performed this morning. Status: Acute
[2022-01-15] MEDS: oxytocin 30 UNIT/500 ML BAG IV (09:30)
[2022-01-15] MEDS: fentaNYL 50 mcg/mL INJ 2mL IVP (12:53)
[2022-01-15] MEDS: lactated ringers 1,000 ML 999 ML IV (12:54)
--- NOTE | 2022-01-15 14:24 | P.PCNOB_ITS ---
Delivery Note: Date of delivery: January 15, 2022 Pre-delivery diagnoses: 26-year-old 3 para 2-0-1-2 at 38 weeks presenting in active labor Post- delivery diagnoses: That is post continuous vaginal precipitous delivery Estimated blood loss (mL): 100 Pre-Delivery Course: The patient presented to the hospital in active labor the night prior to delivery. Gradually progressed. Her contractions began to slow down. An amniotomy was performed. Once again she had to spacing her contractions. As a result low-dose Pitocin was added. She progressed to 7 cm when I was contacted. I was then contacted again and told to come immediately. Delivery: DELIVERY: The patient began feeling pressure, the nurses then arrived in the room, she then delivered precipitously onto the bed with the nurses present. She delivered in a vertex position. Otherwise the position was unknown. She delivered a female with a weight of 7 pounds 5 ounces with Apgars of 8, 9. I then clamped and cut the cord about 2 minutes after delivery. There was no nuchal cord. There was no meconium. The placenta and 3 vessel cord were delivered intact shortly thereafter. The perineum and vaginal vault were carefully examined. No significant lacerations were noted. Both the mother and the baby were in stable condition. Post-Delivery Status: Stable History History History 2 Term 2 0 Miscarriages/Ectopic 0 Living Children 2 Past Pregnancies Del. Date GA/Weeks Outcome Route Wt Inf Gender Labor Lgth Comp. Anesth esia Location 01/13/17 39 live - full term Vaginal 9 lb Male Third degree laceration Shoulder dystocia [facility]- Dr. Clau kumar Delivery Date: 01/13/17 Last Updated by: Ginger Ross RN Dr. Darling A&P Assessment and plan (1) 38 weeks gestation of : Anticipate routine care. If all goes well, the patient should be able be discharged home tomorrow. Status: Acute (2) Precipitous delivery: Status: Acute Coding Level of Care Code Acute Physician Neonatology for Chg Fwd Diagnoses 38 weeks gestation of Z3A.38 Precipitous delivery O62.3
[2022-01-15] MEDS: benzocaine-menthol 78 gm Canister 1 SPRAY TOPICAL (15:52)
[2022-01-15] MEDS: HYDROcodone-acetaminophen 5-325 mg Tablet PO (15:52)
[2022-01-15] MEDS: ibuprofen 800 mg tablet PO (22:16)
[2022-01-15] MEDS: docusate sodium 100 mg Capsule PO (22:16)
[2022-01-16 04:24] LABS: Hematocrit 31.6 % (37.0-47.0); Mean Corpuscular HGB Conc 31.6 g/dL (30.0-36.0); Mean Corpuscular Hemoglobin 29.2 pg (28.0-34.0); Mean Corpuscular Volume 92.1 fl (81-99); Mean Platelet Volume 10.5 fL (7.4-10.4); Platelet Count 272 10^3/cmm (130-400); Red Blood Count 3.43 10^6/uL (4.1-5.3); Red Cell Distribution Width 13.4 % (12.1-15.1); White Blood Count 19.6 10^3/uL (4.0-10.0)
[2022-01-16 06:11] VITALS: BP 101/74; PULSE 67; RESP 16
[2022-01-16] MEDS: docusate sodium 100 mg Capsule PO (09:43)
[2022-01-16] MEDS: prenatal vitamin Capsule 1 CAP PO (09:43)
[2022-01-16] MEDS: ibuprofen 800 mg tablet PO (09:43)
[2022-01-16 09:45] VITALS: BP 100/67; PULSE 75; RESP 15; TEMP 36.6; TEMP 36.7
--- NOTE | 2022-01-16 12:28 | PM.OBGYDC ---
Discharge Providers PRIMARY COUNSELOR Date of Admission: 01/15/22 02:52 Date of Discharge: 01/16/22 Attending Provider at Admission: James Spivey MD Attending Provider at Discharge: James Spivey MD Primary Care Provider: Otoniel Gar MD Diagnoses at Discharge Discharge Diagnosis (1) 38 weeks gestation of : Status: Acute (2) Precipitous delivery: Status: Acute Reason for Visit Reason for Visit: CONTRACTIONS Hospital Course Hospital Course The patient presented to the hospital in active labor. An amniotomy was performed. Her contractions began to stall, and Pitocin was added to augment her labor. She then progressed to 7 cm. I was contacted at that point. 15 minutes later, I was contacted and told the patient was complete. She precipitously delivered to minutes later. The remainder of her hospital stay was unremarkable. Her bleeding was within normal limits. She bottle-fed her infant. Her pain was well controlled. There were no other concerns. Information Peripartum Data: Infant Delivery Method: Vaginal Physical Exam Narrative: The patient is alert. She appears comfortable. Her heart has a regular rate and rhythm with no murmurs appreciated. Lungs are clear to auscultation bilaterally. Her fundus is firm and below the umbilicus. History History History 4 Term 3 0 Miscarriages/Ectopic 1 Living Children 3 Past Pregnancies Del. Date GA/Weeks Outcome Route Wt Inf Gender Labor Lgth Comp. Anesthesia Location 01/13/17 39 live - full term Vaginal 9 lb Male Third degree laceration Shoulder dystocia [facility]- Dr. Darling Delivery Date: 01/13/17 Last Updated by: GENE Carey Dr. Discharge Data Studies Completed and Pending Laboratory Results WBC 19.6 10^3/uL (4.0-10.0) H 01/16/22 04:06 RBC 3.43 10^6/uL (4.1-5.3) L 01/16/22 04:06 Hgb 10.0 g/dL (11.5-15.3) L 01/16/22 04:06 Hct 31.6 % (37.0-47.0) L 01/16/22 04:06 MCV 92.1 fl (81-99) 01/16/22 04:06 MCH 29.2 pg (28.0-34.0) 01/16/22 04:06 MCHC 31.6 g/dL (30.0-36.0) 01/16/22 04:06 RDW 13.4 % (12.1-15.1) 01/16/22 04:06 Plt Count 272 10^3/cmm (130-400) 01/16/22 04:06 MPV 10.5 fL (7.4-10.4) H 01/16/22 04:06 Neut % (Auto) 75.0 % 01/15/22 02:00 Lymph % (Auto) 11.6 % 01/15/22 02:00 Appling % (Auto) 9.7 % 01/15/22 02:00 Eos % (Auto) 0.4 % 01/15/22 02:00 Baso % (Auto) 0.2 % 01/15/22 02:00 Neut # (Auto) 13.45 10^3/uL (1.8-7.7) H 01/15/22 02:00 Lymph # (Auto) 2.1 10^3/uL (0.8-4.8) 01/15/22 02:00 Appling # (Auto) 1.7 10^3/uL (0.2-0.9) H 01/15/22 02:00 Eos # (Auto) 0.1 10^3/uL (0.0-0.8) 01/15/22 02:00 Baso # (Auto) 0.0 10^3/uL (0.0-0.1) 01/15/22 02:00 Nucleated RBC % (auto) 0 % 01/15/22 02:00 Nucleated RBCs # 0.0 /100WBC 01/15/22 02:00 Urine Opiates Screen Negative ng/mL (Negative) 01/15/22 07:36 Ur Barbiturates Screen Negative ng/mL (Negative) 01/15/22 07:36 Ur Phencyclidine Scrn Negative ng/mL (Negative) 01/15/22 07:36 Ur Amphetamines Screen Negative ng/mL (Negative) 01/15/22 07:36 U Benzodiazepines Scrn Negative ng/mL (Negative) 01/15/22 07:36 Urine Cocaine Screen Negative ng/mL (Negative) 01/15/22 07:36 U Marijuana (THC) Screen Negative ng/mL (Negative) 01/15/22 07:36 Vitals Last Vital Signs Temp 98.0 F 01/16/22 09:45 Pulse 75 01/16/22 09:45 Resp 15 01/16/22 09:45 BP 100/67 01/16/22 09:45 O2 Del Method 01/15/22 01:07 Discharge Plan Discharge Patient Disposition: Home Condition: Stable Prescriptions: New ibuprofen 800 mg Tablet 800 mg PO TID Qty: 45 0RF Continued PNV 29-1 29 mg iron- 1 mg tablet 1 tab PO DAILY Qty: 90 2RF Discontinued ferrous sulfate 325 mg (65 mg iron) Tablet 325 mg PO TID Discharge Orders: Discharge Order (Routine); Ordered 01/16/22 Ordered By: James Spivey Referrals: Natalio Darling MD [Physician] - 1 week James Spivey MD [Physician] - 6 Weeks Discharge Diet: Usual diet Discharge Activity: Limit activity as instructed Patient Instructions: Depression (DC), Bleeding (DC), Preeclampsia and Eclampsia After Delivery (GEN), OB Discharge Report, OB Food/Drug Interaction Guide, Opioid Safety, OB Home Care, OB Vaginal Deliveries - [facility] Discharge Attestations PRIMARY COUNSELOR Time Spent in Discharge Care*: less than 30 min Coding Level of Care Code Acute Automotive Title Clerk for Chg Fwd Diagnoses 38 weeks gestation of Z3A.38 Precipitous delivery O62.3
[2022-01-16 16:00] VITALS: BP 111/66; PULSE 78; RESP 16; TEMP 36.7; O2SAT 99
== END 2022-01-16 16:05 | disposition home or self-care (01) | DRG 807 ==
LOC: OPOB 09:13
PROVIDERS: Admitting Provider Family Medicine; PCP Family Medicine; Visit Provider Family Medicine
DX: O99.824 Streptococcus B carrier state complicating childbirth (principal); Z37.0 Single live birth; O62.3 Precipitate labor; Z3A.38 38 weeks gestation of pregnancy
CPT/HCPCS: 12345; 36415; 59025; 59409; 80306; 85025; 85027; 99211; J0290; J3010

== ENCOUNTER 2022-05-06 21:30 | Emergency (ER) | payer MEDICAID, SELFPAY ==
[2022-05-06 21:35] VITALS: BP 124/80; PULSE 99; RESP 16; TEMP 36.7; O2SAT 97
--- NOTE | 2022-05-06 21:42 | XRR_ITS ---
PROCEDURE INFORMATION: Exam: XR Right Hand Exam date and time: 05/06/2022 9:47 PM Age: 26 years old Clinical indication: Pain; Hand; Right; Additional info: Injury TECHNIQUE: Imaging protocol: Radiologic exam of the Right hand. Views: 3 or more views. COMPARISON: No relevant prior studies available. FINDINGS: Bones/joints: Oblique displaced comminuted fracture in the mid to distal diaphysis of the 3rd metacarpal. The other bones are intact. Soft tissues: Normal. XR/XR hand RT min 3V* [id number] IMPRESSION: Third metacarpal fracture.
--- NOTE | 2022-05-06 22:50 | ED_ITS ---
HPI - Extremity Problem General: Chief complaint: Extremity Injury, Upper Stated complaint: Rt Hand Injury Time Seen by Provider: 05/06/22 21:59 History of Present Illness: 26-year-old female comes in today for injury to the right hand. Patient reports being upset and striking a window injuring her hand. Patient appears in mild to moderate pain. Patient has obvious swelling to the dorsal right hand. Patient reports tetanus is up-to-date. Patient denies any other problems or concerns. Review of Systems Musc: Reports: extremity pain (Right hand pain and injury) PFS ED PFSH: Medical History Anemia affecting in third trimester Anemia during , delivered, current hospitalization Chronic headache with normal neurologic examination Supervision of normal Term delivered Surgical History History of breast lump/mass excision (~02/28/14) -patient states it was a fibroadenoma. Preformed by Dr. Bashir. Previous back surgery (~2017) 2018--Pt reports blood clot in her spine [place] [facility] Family History Mother Diabetes Grandfather Diabetes Maternal Grandmother Diabetes Maternal Uterine cancer Maternal great grandmother Leukemia maternal grandmother Sister Thyroid condition Uterine cancer Endometriosis Social History Smoking and tobacco status: current every day smoker Quit status (tobacco): has quit using tobacco Year quit tobacco: 04/16/2019 Alcohol intake: never Female Reproductive History: Date of last menstrual period: 04/20/21 Physical Exam Const: COMMON NORMALS: alert HENMT: COMMON NORMALS: normocephalic HEAD & SCALP: normocephalic Neck/C-Spine: COMMON NORMALS: full ROM Resp: COMMON NORMALS: normal respiratory effort Cardio: COMMON NORMALS: regular rate RATE: regular rate Extremity: RIGHT UPPER EXTREMITY: Yes hand & digits (Dorsal tenderness and swelling of the right hand.) Right hand and digits: Yes inspection, Yes palpation and Yes ROM exam Neuro: SENSORIUM/ORIENTATION: Yes alert Skin: COMMON NORMALS: turgor normal GENERAL SKIN EXAM: turgor normal Course Vital Signs: Vital signs: Vital Signs Temperature 98.0 F 05/06/22 21:35 Pulse Rate 99 05/06/22 21:35 Respiratory Rate 16 05/06/22 21:35 Blood Pressure 124/80 05/06/22 21:35 Pulse Oximetry 97 05/06/22 21:35 Oxygen Delivery Me thod 05/06/22 21:35 MDM - Extremity (Nontraumatic) Medical Decision Making 26-year-old female comes in today with injury to the right hand. On exam there is swelling and tenderness to the dorsal mid right hand. Distal cap refill is intact. Limited range of motion of the hand due to pain. Differential diagnosis includes fracture, sprain, contusion. X-ray of the hand showed a third metacarpal fracture. Hand was placed in a splint with recommendations for further follow-up and treatment with orthopedics. Patient reported understanding agreed to plan. Lab Data Radiology Impressions Hand X-Ray 05/06/22 21:42 IMPRESSION: Third metacarpal fracture. Discharge Plan Discharge Clinical Impression: Metacarpal bone fracture Condition: Stable Prescriptions: No Action PNV 29-1 29 mg iron- 1 mg tablet 1 tab PO DAILY Qty: 90 2RF ibuprofen 800 mg Tablet 800 mg PO TID Qty: 45 0RF Referrals: Otoniel Gar MD [Primary Care Provider] - Coding Level of Care Code ED Peanut Shaker for Yajaira Salazar
--- NOTE | 2022-05-07 08:33 | DCPLANNER ---
Addendum entered by Melissa Martinez 05/14/22 13:03: wardrobe manager received the following message from the ortho clinic regarding follow up appointment: attempted to contact patient: i was unable to get ahold of her, but i left a voicemail asking her to call us back so we can schedule her with Dr. Urena. Original Note: wardrobe manager had message to schedule a follow up appointment for patient with ortho. wardrobe manager sent patients information to the front office staff at ortho. Patients information will be printed and reviewed. Clinic will call patient with appointment information.
== END 2022-05-07 00:12 | disposition home or self-care (01) ==
PROVIDERS: Emergency Provider Nurse Practitioner Family; PCP Family Medicine
DX: S62.302A Unspecified fracture of third metacarpal bone, right hand, initial encounter for closed fracture (principal); W22.09XA Striking against other stationary object, initial encounter; F17.210 Nicotine dependence, cigarettes, uncomplicated
CPT/HCPCS: 29125; 73130; 99283

== ENCOUNTER 2023-05-28 16:14 | Inpatient (IN) | payer MEDICAID, SELFPAY ==
[2023-05-28] VITALS (14 sets, daily range): BP systolic 112–148; BP diastolic 58–85; PULSE 81–123; RESP 16–17; TEMP 35.7–36.7; O2SAT 98; BMI 28.7
[2023-05-28] MEDS: ampicillin 2,000 MG in sodium chloride 0.9% (plus) 50 ML 100 MG IV (16:32)
[2023-05-28] MEDS: dextrose 5%-lactated ringers 1,000 ML 125 ML IV (16:32)
[2023-05-28 16:47] LABS: Basophils # 0.1 10^3/uL (0.0-0.1); Basophils % 0.4 %; Eosinophils % 0.2 %; Hematocrit 31.1 % (36-47); Lymphocytes # 2.4 10^3/uL (0.8-4.8); Lymphocytes % 14.3 %; Mean Corpuscular HGB Conc 30.5 g/dL (30-55); Mean Corpuscular Volume 78.5 fl (85-98); Mean Platelet Volume 11.5 fL (7.4-10.4); Monocytes # 1.7 10^3/uL (0.2-0.9); Neutrophils % 72.9 %; Nucleated Red Blood Cells % 0 %; Platelet Count 275 10^3/cmm (157-399); Red Blood Count 3.96 10^6/uL (3.85-5.65); Red Cell Distribution Width 14.7 % (12.1-15.1); White Blood Count 16.74 10^3/uL (3.29-11.43)
[2023-05-28 16:56] LABS: Amphetamines Screen Urine Negative (Negative); Barbiturates Screen Urine Negative (Negative); Benzodiazepines Screen Urine Negative (Negative); Cocaine Screen Urine Negative (Negative); Opiate Screen Urine Negative (Negative); PCP Screen Urine Negative (Negative); THC Screen Urine Negative (Negative)
[2023-05-28] MEDS: oxytocin 30 UNIT/500 ML BAG 600 UNIT IV (17:10)
[2023-05-28] MEDS: fentaNYL 50 mcg/mL INJ 2mL IVP (17:17)
--- NOTE | 2023-05-28 17:29 | P.PCNOB_ITS ---
Delivery Note: Date of delivery: May 28, 2023 Pre-delivery diagnoses: 1. 27-year-old 4 para 3-0-0-3 a t 40 weeks and 2 days presenting in active labor 2. Inadequate care 3. GBS status unknown Post-delivery diagnoses: Status post spontaneous vaginal delivery with shoulder dystocia Procedure: Vaginal delivery with shoulder dystocia Delivering Physician: James Spivey Estimated blood loss (mL): 100 Pre-Delivery Course: The patient presented to the hospital in active labor. She progressed from 6 cm to complete in about an hour. GBS protocol was started prior to that time. An amniotomy was performed just prior to delivery. Delivery: DELIVERY: The patient progressed to complete without difficulty. She delivered a female with a weight of 3805 g with Apgars of 2, 9. The baby was delivered from the ALMA position. A tight nuchal cord was present. It was clamped and cut before prior to delivering the shoulder. A shoulder dystocia was noted. aMrie, suprapubic pressure were attempted. I also attempted a Cobos crew maneuver. I ultimately delivered the posterior shoulder after which the baby was able to be delivered without difficulty. Light meconium was noted. The placenta and 3 vessel cord were delivered intact shortly thereafter. The perineum and vaginal vault were carefully examined. Multiple first-degree lacerations were noted. None were bleeding. Both the mother and the baby were in stable condition. Post-Delivery Status: Good History History History 4 Term 3 0 Miscarriages/Ectopic 1 Living Children 3 Past Pregnancies Del. Date GA/Weeks Outcome Route Wt Inf Gender Labor Lgth Comp. Anesth esia Location 01/13/17 39 live - full term Vaginal 9 lb Male Third degree laceration Shoulder dystocia [facility]- Dr. Clau kumar Delivery Date: 01/13/17 Last Updated by: GENE Carey Dr. A&P Assessment and plan (1) 40 weeks gestation of : I anticipate routine care. Her labs will be ordered since she did not have any blood work done during her . (2) Shoulder dystocia, delivered: (3) Vaginal delivery: (4) History of inadequate care: Coding Level of Care Code Acute Code for Chg Fwd Diagnoses 40 weeks gestation of Z3A.40 Shoulder dystocia, delivered O66.0 Vaginal delivery O80 History of inadequate care O09.30
--- NOTE | 2023-05-28 17:44 | P.HP_ITS ---
Providers/Chief Complaint 2 Admitting Physician: James Spievy MD Chief Complaint: Abdominal pain HPI PEDIATRIC ALLERGIST History of Present Illness Gris Garcia is a 27 year old female 5 para 3-0-1-3 who presented to the hospital in active labor. Her has been remarkable for having an adequate care. She has only rarely come to my office for evaluation. She never had her lab work performed. Despite multiple attempts to contact the patient she did not return to see us during the last several months of her . Review of Systems 2 General: Reports: 10 or more systems reviewed and unremarkable except in HPI and below Const: Reports: fatigue; Denies: fever(s) Eyes: Denies: change in vision Card: Denies: chest pain Musc: Reports: back pain Joni/Lymph: Denies: easy bruising Medications/Allergies Home Medications Medication Instructions Recorded Confirmed Last Taken Type ibuprofen 800 mg tablet 800 mg PO TID PRN Pain, Moderate 05/29/23 Unknown Rx #45 tabs multivitamin no.51-ferrous 1 cap PO DAILY #90 caps 05/29/23 Unknown Rx fumarate 106.5 mg-folic acid 1 mg capsule (-U) Allergies Allergy/AdvReac Type Severity Reaction Status Date / Time No Known Allergies Allergy Verified 05/06/22 21:39 PFSH PEDIATRIC ALLERGIST 2 PFSH: Medical History Chronic headache with normal neurologic examination Anemia during , delivered, current hospitalization Term delivered Supervision of normal Anemia affecting in third trimester Surgical History History of breast lump/mass excision (~02/28/14) -patient states it was a fibroadenoma. Preformed by Dr. Bashir. Previous back surgery (~2017) 2018--Pt reports blood clot in her spine [place] Family History Mother Diabetes Grandfather Diabetes Maternal Grandmother Diabetes Maternal Uterine cancer Maternal great grandmother Leukemia maternal grandmother Sister Thyroid disease Uterine cancer Endometriosis Social History Substance/Drug Use: never Other Female Reproductive History: Hx Age of Menarche: 14 Duration of menses: 3-5 days Cycle Length: regular, monthly Menstrual flow: normal/abnormal: heavy History History History 2 4 Term 3 0 Miscarriages/Ectopic 1 Living Children 3 Past Pregnancies Del. Date GA/Weeks Outcome Route Wt Inf Gender Labor Lgth Comp. Anesth esia Location 01/13/17 39 live - full term Vaginal 9 lb Male Third degree laceration Shoulder dystocia [facility]- Dr. Clau kumar Delivery Date: 01/13/17 Last Updated by: GENE Carey Dr. Vitals/I&O/Wt Last Vital Signs Temp 96.3 F L 05/28/23 16:26 Pulse 81 05/28/23 16:27 Resp 17 05/28/23 17:17 BP 128/79 05/28/23 16:27 Physical Exam 2 Const: COMMON NORMALS: patient oriented x3 and alert HENMT: COMMON NORMALS: moist oral mucous membranes HEAD & SCALP: normal to inspection Chest: COMMONS NORMALS: normal inspection of the chest Resp: COMMON NORMALS: clear to auscultation bilaterally AUSCULTATION: clear to auscultation bilaterally Cardio: COMMON NORMALS: regular rate and regular rhythm RATE: regular rate RHYTHM: regular rhythm GI: INSPECTION: Yes normal to inspection and Yes other (Gravid) Extremity: COMMON NORMALS: normal to inspection GENERAL: Yes edema (Trace) Neuro: COMMON NORMALS: patient oriented x3, moves all extremities and no sensory deficits noted SENSORIUM/ORIENTATION: Yes alert Psych: COMMON NORMALS: mental status grossly normal Skin: COMMON NORMALS: no rashes or lesions noted GENERAL SKIN EXAM: no rashes or lesions noted Data 05/29/23 05:18 Results Labs OB ([facility]): 2 Obstetrics US 02/23/23 Obstetrics US/Biophysical Profile Blood Type O Positive 05/28/23 Antibody Screen Negative 05/28/23 Hct 25.9 % (36-47) L 05/29/23 Hgb 8.00 g/dL (11.27-16.99) L 05/29/23 Rho(D) Type Rh positive 05/28/23 Plt Count 217 10^3/cmm (157-399) 05/29/23 Hep Bs Antigen Non-reactive (Nonreactive) 05/28/23 Rubella IgG Antibody 17.3 IU/mL (0.0-10.0) H 05/28/23 RPR Nonreactive (Nonreactive) 05/28/23 HIV 1&2 Ab & HIV 1 Ag Non-reactive (Non-Reactiv) 05/28/23 C.trachomatis RNA (TMA) Pending 05/29/23 N.gonorrhoeae RNA (TMA) Pending 05/29/23 Chlamydia/GC Comment Pending 05/29/23 Gest Glucose Tolerance 117 mg/dL 09/03/19 Ser , Semi-Qnt 14907.00 mIU/mL 06/08/21 HCG, Qual Negative (Negative) 04/02/21 Urine Opiates Screen Negative ng/mL (Negative) 05/28/23 Ur Barbiturates Screen Negative ng/mL (Negative) 05/28/23 Ur Phencyclidine Scrn Negative ng/mL (Negative) 05/28/23 Ur Amphetamines Screen Negative ng/mL (Negative) 05/28/23 U Benzodiazepines Scrn Negative ng/mL (Negative) 05/28/23 Urine Cocaine Screen Negative ng/mL (Negative) 05/28/23 U Marijuana (THC) Screen Negative ng/mL (Negative) 05/28/23 Micro Urine Specimen 12/24/21 A&P Assessment and plan (1) Uterine contractions: GBS status unknown. Poor care. She did not get bloodwork done during her . We will order that in the hospital. (2) 40 weeks gestation of : Attestations 2 Medical Necessity Statement*: I anticipate routine labor and course Coding Level of Care Code Acute Code for Chg Fwd Diagnoses Uterine contractions O47.9 40 weeks gestation of Z3A.40
[2023-05-28] MEDS: docusate sodium 100 mg Capsule PO (18:45)
[2023-05-28] MEDS: HYDROcodone-acetaminophen 5-325 mg Tablet PO (18:46)
--- NOTE | 2023-05-28 18:50 | PC.NURSE ---
Pt up to bathroom without difficulty. Void 200mL. Cintia care by pt. Pad and gown changed. Pt back to bed
[2023-05-28 18:55] LABS: HIV 1 & 2 Antibody Non-Reactive (Non-Reactiv); HIV 1 & 2 Antigen Non-Reactive (Non-Reactiv)
[2023-05-28] MEDS: ibuprofen 800 mg tablet PO (21:11)
[2023-05-28 21:33] LABS: Rapid Plasma Reagin Syphilis Nonreactive (Nonreactive)
[2023-05-28 21:34] LABS: Hepatitis B Surface Antigen Non-Reactive (Nonreactive)
[2023-05-28 22:02] LABS: Rubella IgG 17.3 IU/mL (0.0-10.0)
[2023-05-29 00:55] VITALS: BP 109/76; PULSE 88; RESP 16; TEMP 36.8; O2SAT 96
[2023-05-29 03:10] VITALS: BP 125/69; PULSE 88; RESP 15; TEMP 37; O2SAT 98
[2023-05-29] MEDS: HYDROcodone-acetaminophen 5-325 mg Tablet PO (05:10)
[2023-05-29 06:11] LABS: Hematocrit 25.9 % (36-47); Mean Corpuscular HGB Conc 30.9 g/dL (30-55); Mean Corpuscular Hemoglobin 24.8 pg (27-33); Mean Corpuscular Volume 80.2 fl (85-98); Mean Platelet Volume 11.4 fL (7.4-10.4); Platelet Count 217 10^3/cmm (157-399); Red Blood Count 3.23 10^6/uL (3.85-5.65); Red Cell Distribution Width 14.6 % (12.1-15.1); White Blood Count 19.74 10^3/uL (3.29-11.43)
[2023-05-29 07:15] VITALS: BP 114/60; PULSE 89; RESP 16; TEMP 37
[2023-05-29] MEDS: prenatal vitamin Capsule 1 CAP PO (08:37)
[2023-05-29] MEDS: docusate sodium 100 mg Capsule PO ×2 (08:37→17:34)
[2023-05-29] MEDS: ibuprofen 800 mg tablet PO ×2 (08:37→16:42)
--- NOTE | 2023-05-29 08:56 | PM.OBGYDC ---
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 She was found to be 6 cm dilated. She quickly progressed to complete. The patient had a 2-minute shoulder dystocia. As result of routine maneuvers the child was delivered without complications. Her course was unremarkable. Her pain was well-controlled. Her bleeding was within normal limits. The patient desired a Depo shot prior to discharge. She also desired a tubal ligation post delivery. Information Peripartum Data: Infant Delivery Method: Vaginal Physical Exam Narrative: The patient is alert. She appears comfortable. Her heart has a regular rate and rhythm with no murmurs appreciated. Lungs are clear to auscultation bilaterally. Her fundus is firm and below the umbilicus. History History History 4 Term 3 0 Miscarriages/Ectopic 1 Living Children 3 Past Pregnancies Del. Date GA/Weeks Outcome Route Wt Inf Gender Labor Lgth Comp. Anesthesia Location 01/13/17 39 live - full term Vaginal 9 lb Male Third degree laceration Shoulder dystocia [facility]- Dr. Darling Delivery Date: 01/13/17 Last Updated by: GENE Carey Dr. Discharge Data Studies Completed and Pending Pending at discharge Category Date Time Status Chlamydia/Gonorrh RNA,TMA URO Routine Lab 05/28/23 18:02 Received Laboratory Results WBC 19.74 10^3/uL (3.29-11.43) H 05/29/23 05:18 RBC 3.23 10^6/uL (3.85-5.65) L 05/29/23 05:18 Hgb 8.00 g/dL (11.27-16.99) L 05/29/23 05:18 Hct 25.9 % (36-47) L 05/29/23 05:18 MCV 80.2 fl (85-98) L 05/29/23 05:18 MCH 24.8 pg (27-33) L 05/29/23 05:18 MCHC 30.9 g/dL (30-55) 05/29/23 05:18 RDW 14.6 % (12.1-15.1) 05/29/23 05:18 Plt Count 217 10^3/cmm (157-399) 05/29/23 05:18 MPV 11.4 fL (7.4-10.4) H 05/29/23 05:18 Neut % (Auto) 72.9 % 05/28/23 16:39 Lymph % (Auto) 14.3 % 05/28/23 16:39 [place] % (Auto) 10.0 % 05/28/23 16:39 Eos % (Auto) 0.2 % 05/28/23 16:39 Baso % (Auto) 0.4 % 05/28/23 16:39 Neut # (Auto) 12.20 10^3/uL (1.8-7.7) H 05/28/23 16:39 Lymph # (Auto) 2.4 10^3/uL (0.8-4.8) 05/28/23 16:39 [place] # (Auto) 1.7 10^3/uL (0.2-0.9) H 05/28/23 16:39 Eos # (Auto) 0.0 10^3/uL (0.0-0.8) 05/28/23 16:39 Baso # (Auto) 0.1 10^3/uL (0.0-0.1) 05/28/23 16:39 Nucleated RBC % (auto) 0 % 05/28/23 16:39 Nucleated RBCs # 0.0 /100WBC 05/28/23 16:39 Urine Opiates Screen Negative ng/mL (Negative) 05/28/23 16:39 Ur Barbiturates Screen Negative ng/mL (Negative) 05/28/23 16:39 Ur Phencyclidine Scrn Negative ng/mL (Negative) 05/28/23 16:39 Ur Amphetamines Screen Negative ng/mL (Negative) 05/28/23 16:39 U Benzodiazepines Scrn Negative ng/mL (Negative) 05/28/23 16:39 Urine Cocaine Screen Negative ng/mL (Negative) 05/28/23 16:39 U Marijuana (THC) Screen Negative ng/mL (Negative) 05/28/23 16:39 RPR Nonreactive (Nonreactive) 05/28/23 18:05 Hep Bs Antigen Non-reactive (Nonreactive) 05/28/23 18:05 HIV 1&2 Ab & HIV 1 Ag Non-reactive (Non-Reactiv) 05/28/23 18:05 HIV 1&2 Antibody Non-reactive (Non-Reactiv) 05/28/23 18:05 Rubella IgG Antibody 17.3 IU/mL (0.0-10.0) H 05/28/23 18:05 Blood Type O Positive 05/28/23 16:21 Rho(D) Type Rh positive 05/28/23 16:21 Antibody Screen Negative 05/28/23 16:21 Vitals Last Vital Signs Temp 98.6 F 05/29/23 07:15 Pulse 89 05/29/23 07:15 Resp 16 05/29/23 07:15 BP 114/60 05/29/23 07:15 Pulse Ox 98 05/29/23 03:10 O2 Del Method Room Air 05/29/23 07:15 Results Labs OB ([facility]): Obstetrics US 02/23/23 Obstetrics US/Biophysical Profile 09/09/19 Blood Type O Positive 05/28/23 Antibody Screen Negative 05/28/23 Hct 25.9 % (36-47) L 05/29/23 Hgb 8.00 g/dL (11.27-16.99) L 05/29/23 Rho(D) Type Rh positive 05/28/23 Plt Count 217 10^3/cmm (157-399) 05/29/23 Hep Bs Antigen Non-reactive (Nonreactive) 05/28/23 Rubella IgG Antibody 17.3 IU/mL (0.0-10.0) H 05/28/23 RPR Nonreactive (Nonreactive) 05/28/23 HIV 1&2 Ab & HIV 1 Ag Non-reactive (Non-Reactiv) 05/28/23 C.trachomatis RNA (TMA) Pending 05/29/23 N.gonorrhoeae RNA (TMA) Pending 05/29/23 Chlamydia/GC Comment Pending 05/29/23 Gest Glucose Tolerance 117 mg/dL 09/03/19 Ser , Semi-Qnt 66275.00 mIU/mL 06/08/21 HCG, Qual Negative (Negative) 04/02/21 Urine Opiates Screen Negative ng/mL (Negative) 05/28/23 Ur Barbiturates Screen Negative ng/mL (Negative) 05/28/23 Ur Phencyclidine Scrn Negative ng/mL (Negative) 05/28/23 Ur Amphetamines Screen Negative ng/mL (Negative) 05/28/23 U Benzodiazepines Scrn Negative ng/mL (Negative) 05/28/23 Urine Cocaine Screen Negative ng/mL (Negative) 05/28/23 U Marijuana (THC) Screen Negative ng/mL (Negative) 05/28/23 Micro Urine Specimen 12/24/21 Discharge Plan Discharge Patient Disposition: Home Condition: Stable Prescriptions: New ibuprofen 800 mg Tablet 800 mg PO TID PRN (Reason: Pain, Moderate) Qty: 45 0RF -U 106.5-1 mg Capsule 1 cap PO DAILY Qty: 90 0RF Discharge Orders: Discharge Order (Routine); Ordered 05/29/23 Ordered By: James Spivey Referrals: James Spivey MD [Physician] - 6 Weeks Natalio Darling MD [Physician] - (For a laparoscopic tubal ligation) Discharge Diet: Usual diet Discharge Activity: Limit activity as instructed Patient Instructions: Ibuprofen (By mouth), Depression (GEN), Preeclampsia and Eclampsia After Delivery (GEN), Hemorrhage (GEN), OB Discharge Report, OB Food/Drug Interaction Guide, OB Care at Home, Opioid Safety, OB Proud Parent Packet, OB Vaginal Deliveries, Abnormal Bleeding Activity Restrictions/Additional Instructions: Please call [facility]([phone]) first thing Tuesday morning to schedule your [address] Spivey. Please call [facility]([phone]) to set up an appointment for Tubal Ligation consult. Discharge Attestations CEILING INSULATION BLOWER Time Spent in Discharge Care*: less than 30 min Coding Level of Care Code Acute Code for Chg Fwd Diagnoses Uterine contractions O47.9 40 weeks gestation of Z3A.40
[2023-05-29 11:10] VITALS: BP 146/79; PULSE 79; RESP 17
[2023-05-29 16:44] VITALS: BP 123/84; PULSE 89; RESP 15; TEMP 36.8
[2023-05-29 17:00] VITALS: BP 123/84; PULSE 89; RESP 15; TEMP 36.8
[2023-05-29] MEDS: medroxyprogesterone 150 mg/ml SDV 1 mL IM (17:34)
[2023-05-30 18:09] LABS: Chlamydia Trachomatis RNA TMA NOT DETECTED (NOT DETECTED); Neisseria Gonorrhoeae RNA, TMA NOT DETECTED (NOT DETECTED)
== END 2023-05-29 17:30 | disposition home or self-care (01) | DRG 807 ==
LOC: OPOB 05-29 07:41 → OBGYN 05-29 07:42
PROVIDERS: Admitting Provider Family Medicine; Visit Provider Family Medicine
DX: O48.0 Post-term pregnancy (principal); Z37.0 Single live birth; O66.0 Obstructed labor due to shoulder dystocia; O69.81X0 Labor and delivery complicated by cord around neck, without compression, not applicable or unspecified; O77.0 Labor and delivery complicated by meconium in amniotic fluid; O70.0 First degree perineal laceration during delivery; Z3A.40 40 weeks gestation of pregnancy
CPT/HCPCS: 36415; 59409; 80306; 85025; 85027; 86592; 86762; 86850; 86900; 87340; 87491; 87591; 87806; 96372; 96374; J0290; J1050; J2590; J3010; J7121

== ENCOUNTER 2023-08-31 00:44 | Emergency (ER) | payer MEDICAID, SELFPAY ==
[2023-08-31 00:45] VITALS: BP 128/100; PULSE 102; RESP 16; TEMP 36.8; O2SAT 96; BMI 23.1
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
[2023-08-31 03:23] VITALS: BP 128/100; PULSE 102; RESP 16; TEMP 36.8; O2SAT 96
== END 2023-08-31 03:23 | disposition home or self-care (01) ==
PROVIDERS: Emergency Provider Emergency Medicine
DX: R07.89 Other chest pain (principal); Y04.2XXA Assault by strike against or bumped into by another person, initial encounter
CPT/HCPCS: 71101; 99283

== ENCOUNTER 2024-06-26 00:45 | Inpatient (IN) | payer SELFPAY ==
[2024-06-25] VITALS (87 sets, daily range): BP systolic 155–187; BP diastolic 92–119; PULSE 64–100; RESP 16; O2SAT 77–100
--- NOTE | 2024-06-25 17:39 | USR_ITS ---
PROCEDURE INFORMATION: Exam: US , Limited Exam date and time: 06/25/2024 6:05 PM Age: 28 years old Clinical indication: Condition or disease; Lmp or gestational age (weeks): 30 weeks 1 day; Other: No hrt tones; 5th ; ; Additional info: Dating scan, possible demise LABS AND CLINICAL REPORTS: Last menstrual period start date: 11/19/2023 Gestational age (Established): 31 w 2 d Estimated due date (Established): 08/25/2024 TECHNIQUE: Imaging protocol: Real-time ultrasound of the maternal uterus with image documentation. Exam focused on the clinical indication. COMPARISON: [place] [id number] 02/23/2023 12:51 PM FINDINGS: Gestation: Intrauterine gestation. BIOMETRY: Femur length (FL): 5.76 cm. EGA (FL) is 30 w 1 d. 11.5 % percentile BIOPHYSICAL PROFILE: tone (BPP): No heart tones were detected. US/US OB limited [id number] IMPRESSION: demise at 31 weeks 2 days gestation.
[2024-06-25 17:58] LABS: Amphetamines Screen Urine Positive (Negative); Barbiturates Screen Urine Negative (Negative); Benzodiazepines Screen Urine Negative (Negative); Cocaine Screen Urine Negative (Negative); Opiate Screen Urine Negative (Negative); PCP Screen Urine Negative (Negative); THC Screen Urine Negative (Negative)
[2024-06-25] MEDS: labetalol 5 mg/mL SDV 20mL 20 MG IVP (18:37)
[2024-06-25] MEDS: NIFEdipine ER (24 hr) 30 mg Tablet PO (18:37)
[2024-06-25 19:04] LABS: Basophils % 0.3 %; Eosinophils # 0.1 10^3/uL (0.0-0.8); Eosinophils % 0.7 %; Hematocrit 31.3 % (36-47); Lymphocytes # 1.9 10^3/uL (0.8-4.8); Lymphocytes % 12.6 %; Mean Corpuscular Hemoglobin 22.2 pg (27-33); Monocytes # 1.5 10^3/uL (0.2-0.9); Monocytes % 9.8 %; Neutrophils # 11.55 10^3/uL (1.8-7.7); Neutrophils % 75.3 %; Nucleated Red Blood Cells % 0 %; Platelet Count 124 10^3/cmm (157-399); Red Blood Count 4.23 10^6/uL (3.85-5.65); Red Cell Distribution Width 15.8 % (12.1-15.1); White Blood Count 15.32 10^3/uL (3.29-11.43)
[2024-06-25 19:26] LABS: Alanine Aminotransferase 64 U/L (0-33); Albumin Level 2.4 g/dL (3.5-5.2); Alkaline Phosphatase 151 U/L (35-105); Anion Gap 12.5 (5-19); Aspartate Amino Transferase 93 U/L (0-32); Blood Urea Nitrogen 11 mg/dL (6-20); Calcium 7.9 mg/dL (8.5-10.5); Carbon Dioxide 20 mmol/L (22-29); Chloride 105 mmol/L (98-107); Globulin 2.4 g/dL (1.3-4.6); Glomerular Filtration Rate 149.1 mL/min (90-130); Glucose 84 mg/dL (65-115); Osmolality Calculated 277 mOsm/kg (285-295); Potassium 3.5 mmol/L (3.5-5.1); Sodium 134 mmol/L (136-145); Total Bilirubin 0.3 mg/dL (0.15-1.2); Total Protein 4.8 g/dL (6.6-8.7)
[2024-06-25] MEDS: dextrose 5%-lactated ringers 1,000 ML 125 ML IV (20:03)
[2024-06-25] MEDS: magnesium sulfate premix 4 GM/100 ML PREMIX IV (20:03)
[2024-06-25] MEDS: magnesium sulfate premix 20 GM/500 ML BAG IV (20:28)
[2024-06-25] MEDS: miSOPROStol 100 mcg tablet VAGINAL (20:45)
[2024-06-25 21:03] LABS: Bilirubin Urine Negative (Negative); Blood Urine 2+ (Negative); Glucose Urine UA Negative (Normal); Ketones Urine Negative (Negative); Leukocyte Esterase Urine Trace (Negative); Nitrate Urine Negative (Negative); Protein Urine 4+ (Negative); Specific Gravity, Urine 1.017 (1.005-1.030); Urine Appearance Clear (CLEAR); Urine Color Yellow (Yellow); Urobilinogen Urine 0.2 mg/dL (Negative); pH Urine 6.5 (5-7)
[2024-06-25 21:03] LABS: Rapid Plasma Reagin Syphilis Nonreactive (Nonreactive)
[2024-06-25 21:04] LABS: Hepatitis B Surface Antigen Non-Reactive (Nonreactive); Rubella IgG 13.5 IU/mL (0.0-10.0)
[2024-06-25 21:04] LABS: HIV 1 & 2 Antibody Non-Reactive (Non-Reactiv); HIV 1 & 2 Antigen Non-Reactive (Non-Reactiv)
[2024-06-25 21:19] LABS: Urine Creatinine 77 mg/dL (28-217)
[2024-06-25 21:30] LABS: Bacteria Urine TRACE /hpf; WBC Urine 0-4 /hpf (0-5)
[2024-06-25] MEDS: labetalol 5 mg/mL SDV 20mL 40 MG IVP (21:38)
[2024-06-25 21:44] LABS: UPRO/UCREAT Ratio 10.82 mg/mg CR; Urine Protein Random 833 mg/dL
[2024-06-25] MEDS: oxyCODONE-APAP 5-325 mg Tablet 1 TAB PO (22:16)
[2024-06-25 22:30] LABS: Chlamydia Trachomatis NOT DETECTED; Neisseria Gonorrhea NOT DETECTED
[2024-06-26] VITALS (206 sets, daily range): BP systolic 100–162; BP diastolic 59–110; PULSE 70–121; TEMP 36.6–36.7; O2SAT 89–100
--- NOTE | 2024-06-26 01:05 | PM.OBGYHP ---
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 ? EDC September 01, 2024 Approx. 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 Preformed by Dr. Bashir. Previous back surgery (~2017) 2018--Pt reports blood clot in her spine [place] Family History Mother Diabetes Grandfather Diabetes Maternal Grandmother Diabetes Maternal Uterine cancer Maternal great grandmother Leukemia maternal grandmother Sister Thyroid disease Uterine cancer Endometriosis Social History Smoking and tobacco/nicotine status: unknown if used tobacco/nicotine Substance/Drug Use: never Other Female Reproductive History: Hx Age of Menarche: 14 Duration of menses: 3-5 days Cycle Length: regular, monthly Menstrual flow: normal/abnormal: heavy History History History 4 Term 3 0 Miscarriages/Ectopic 1 Living Children 3 Past Pregnancies Del. Date GA/Weeks Outcome Route Wt Inf Gender Labor Lgth Comp. Anesthesia Location 01/13/17 39 live - full term Vaginal 9 lb Male Third degree laceration Shoulder dystocia [facility]- Dr. Darling Delivery Date: 01/13/17 Last Updated by: Ginger Ross RN Dr. Darling Vitals/I&O/Wt Last Vital Signs Temp 98.2 F 06/27/24 04:00 Pulse 78 06/27/24 13:55 Resp 16 06/25/24 22:16 BP 142/78 06/27/24 13:55 Pulse Ox 98 06/27/24 13:55 Physical Exam Narrative: Weight 164 lbs; 5?3? BP 187 / 105; 180 / 104 General comfortable, awake, alert Lungs: clear Cor: RRR Abd: soft, nontender Cervix: / 3 / posterior Ext: no edema OB sono single IUP No heart motion Femur length c/w 30 weeks gestation Blood type O + UDS + amphetamines Urinary Catheter Management: Freed: Cath Placed During This Visit: yes, but has since been removed by the nurse Reason for Continuing Indwelling Catheter: Decision to DC Catheter Urinary Catheter Date of Insertion: 06/25/24 Urinary Catheter Time of Insertion: 20:45 Date Urinary Catheter Removed: 06/26/24 Time Urinary Catheter Discontinued: 15:45 Data 06/26/24 18:25 06/25/24 18:20 Results Labs OB ([facility]): Obstetrics US 06/25/24 Blood Type O Positive 06/25/24 Antibody Screen Negative 06/25/24 Hct, (36-47) 27.2 % L 06/26/24 Hgb, (11.27-16.99) 8.30 g/dL L 06/26/24 Rho(D) Type Rh positive 06/25/24 Plt Count, (157-399) 82 10^3/cmm L Δ 06/26/24 Hep Bs Antigen, (Nonreactive) Non-reactive 06/25/24 Rubella IgG Antibody, (0.0-10.0) 13.5 IU/mL H 06/25/24 RPR, (Nonreactive) Nonreactive 06/25/24 HIV 1&2 Ab & HIV 1 Ag, (Non-Reactiv) Non-reactive 06/25/24 C.trachomatis RNA (TMA), (NOT DETECTED) Not detected 05/29/23 N.gonorrhoeae RNA (TMA), (NOT DETECTED) Not detected 05/29/23 Chlamydia/GC Comment See note 05/29/23 Urine Opiates Screen, (Negative) Negative ng/mL 06/25/24 Ur Barbiturates Screen, (Negative) Negative ng/mL 06/25/24 Ur Phencyclidine Scrn, (Negative) Negative ng/mL 06/25/24 Ur Amphetamines Screen, (Negative) Positive ng/mL H 06/25/24 U Benzodiazepines Scrn, (Negative) Negative ng/mL 06/25/24 Urine Cocaine Screen, (Negative) Negative ng/mL 06/25/24 U Marijuana (THC) Screen, (Negative) Negative ng/mL 06/25/24 A&P Assessment and plan (1) demise: Approximately 30-31 weeks gestation No care No heart tones No heart motion on ultrasound Intrauterine demise Elevated BPs Chronic methamphetamine abuse Severe pre-eclampsia vs. methamphetamine effect Plan start MgSO4, Procardia Plan Cytotec induction of labor PDMP PDMP Reviewed: Not Reviewed Attestations Medical Necessity Statement*: patient with no care, at approximately 30 weeks gestation, presented with abdominal pain. Coding Level of Care Code Acute Code for Chg Fwd Diagnoses demise
[2024-06-26 02:57] LABS: Magnesium Level (OB Only) 5.8 mg/dL (5.0-7.5)
--- NOTE | 2024-06-26 03:50 | P.PCNOB_ITS ---
Delivery Note: Date of delivery: June 26, 2024 Pre-delivery diagnoses: approximately 30 weeks gestation no care intrauterine demise detected on arrival to L&D + amphetamines on urine drug screen severe hypertension Post-delivery diagnoses: approximately 30 weeks gestation no care intrauterine demise detected on arrival to L&D + amphetamines on urine drug screen severe hypertension induction of labor vaginal delivery of non-viable fetus Procedure: induction of labor vaginal delivery of non-viable fetus Op report anesthesia: Other Delivering Physician: Hiren Blanco MD Estimated blood loss (mL): 200 Findings: , non-viable fetus, no vital signs + thrombosed umbilical cord No obvious gross anatomical anomalies + spontaneous delivery of placenta and c ord Placenta with grossly normal features No perineal / vaginal lacerations EBL: 200 cc Delivery: vaginal Post-Delivery Status: good History History History 4 Term 3 0 Miscarriages/Ectopic 1 Living Children 3 Past Pregnancies Del. Date GA/Weeks Outcome Route Wt Inf Gender Labor Lgth Comp. Anesth esia Location 01/13/17 39 live - full term Vaginal 9 lb Male Third degree laceration Shoulder dystocia [facility]- Dr. Clau kumar Delivery Date: 01/13/17 Last Updated by: Ginger Ross RN Dr. Darling A&P Assessment and plan (1) Vaginal delivery: PDMP PDMP Reviewed: Not Reviewed Coding Level of Care Code Acute Code for Chg Fwd Diagnoses Vaginal delivery O80 Time Spent (min) 60
[2024-06-26] MEDS: oxytocin 30 UNIT/500 ML BAG 600 UNIT IV (03:51)
--- NOTE | 2024-06-26 05:29 | PC.NURSE ---
0441 - [facility] notified of Demise. Pt not candidate for donation for MTS or Saving Site. Ref # [id number]
--- NOTE | 2024-06-26 05:30 | PC.NURSE ---
Kyle MARK [employer] Senior Sergeant notified pt demise. Per request of Varinder Thayer [employer] Senior Sergeant, pt is to be placed on hold for [employer] Senior Sergeant requested autopsy.
[2024-06-26] MEDS: magnesium sulfate premix 20 GM/500 ML BAG IV (06:29)
--- NOTE | 2024-06-26 08:16 | PC.NURSE ---
this nurse entered the patients room at 0325 and performed a SVE @0330, after obtaining the SVE this nurse notified the charge nurse and GROUNDSKEEPER of the SVE and began gathering supplies. this nurse and Jaki GROUNDSKEEPER began seetign up and getting supplies together when at 033 the patient SROM and the infant delivered spontaneously. The cord was then clamped at the perineum and infant was wrapped in a blanket per mothers request to not see the so the cord was then cut and the infant was taken to the nursery. The MD lizama was called at 0340 and arrived 0352 after placenta had spontaneously delivered at 0350 and placed into a basin on the sterile felid to be examined by him upon arrival.
[2024-06-26] MEDS: docusate sodium 100 mg Capsule PO (09:35)
[2024-06-26] MEDS: ibuprofen 800 mg tablet PO (09:35)
[2024-06-26] MEDS: NIFEdipine ER (24 hr) 30 mg Tablet PO (09:35)
[2024-06-26] MEDS: PRENATAL VIT NO.130/IRON/FOLIC 1 EACH TABLET PO (09:35)
[2024-06-26 18:32] LABS: Hematocrit 27.2 % (36-47); Mean Corpuscular HGB Conc 30.5 g/dL (30-55); Mean Corpuscular Hemoglobin 22.3 pg (27-33); Mean Corpuscular Volume 73.1 fl (85-98); Red Blood Count 3.72 10^6/uL (3.85-5.65); Red Cell Distribution Width 16.8 % (12.1-15.1); White Blood Count 14.27 10^3/uL (3.29-11.43)
[2024-06-26 18:52] LABS: Platelet Count 82 10^3/cmm (157-399)
[2024-06-27 01:36] VITALS: BP 129/71; PULSE 104
[2024-06-27 04:00] VITALS: TEMP 36.8
[2024-06-27 04:50] VITALS: BP 136/86; PULSE 109
[2024-06-27] MEDS: docusate sodium 100 mg Capsule PO (09:23)
[2024-06-27] MEDS: ibuprofen 800 mg tablet PO (09:23)
[2024-06-27] MEDS: PRENATAL VIT NO.130/IRON/FOLIC 1 EACH TABLET PO (09:23)
[2024-06-27] MEDS: NIFEdipine ER (24 hr) 30 mg Tablet PO (09:23)
[2024-06-27 09:24] VITALS: BP 126/63; PULSE 93
[2024-06-27 13:52] VITALS: BP 150/80; PULSE 112
[2024-06-27 13:55] VITALS: BP 142/78; PULSE 78; O2SAT 98
--- NOTE | 2024-06-27 14:05 | PM.OBGYDC ---
Discharge Providers TRAINING FACILITATOR Date of Admission: 06/26/24 00:45 Date of Discharge: 06/27/24 Attending Provider at Admission: Hiren Blanco MD Attending Provider at Discharge: Hiren Blanco MD Consults: none Diagnoses at Discharge Discharge Diagnosis (1) demise: Details from hospital stay: 29 y.o. no care at approximately 30 weeks gestation presented to L&D c/o abdominal pain admitted to daily methamphetamine use exam showed hypertension and intrauterine at approximately 30 weeks with no heart motion intrauterine demise was diagnosed patient had significantly elevated BPs, either from severe preeclampsia or from methamphetamine use She was started on MgSO4 for seizure prophylaxis and anti-hypertensive medications Labor was induced with cytotec patient progressed to vaginal delivery of non-viable fetus placenta delivered spontaneously there were no lacerations patient did well . Her BPs were normal following delivery She was discharged to home on the first day Status: Acute Reason for Visit Reason for Visit: Stomach pain, swelling in legs & feet Brief History: 29 y.o. no care at approximately 30 weeks gestation presented to L&D c/o abdominal pain admitted to daily methamphetamine use Hospital Course Hospital Course 29 y.o. no care at approximately 30 weeks gestation presented to L&D c/o abdominal pain admitted to daily methamphetamine use exam showed hypertension and intrauterine at approximately 30 weeks with no heart motion intrauterine demise was diagnosed patient had significantly elevated BPs, either from severe preeclampsia or from methamphetamine use She was started on MgSO4 for seizure prophylaxis and anti-hypertensive medications Labor was induced with cytotec patient progressed to vaginal delivery of non-viable fetus placenta delivered spontaneously there were no lacerations patient did well . Her BPs were normal following delivery She was discharged to home on the first day Information Peripartum Data: Delivery Method: Vaginal Laceration description: None Episiotomy description: None complications: none Physical Exam Narrative: Weight 168 lbs; 5?3? BP 140 / 80 General comfortable, awake, alert Lungs clear Cor: RRR Abd: soft, nontender Ext: no edema Urinary Catheter Management: Freed: Cath Placed During This Visit: yes, but has since been removed by the nurse Reason for Continuing Indwelling Catheter: Decision to DC Catheter Urinary Catheter Date of Insertion: 06/25/24 Urinary Catheter Time of Insertion: 20:45 Date Urinary Catheter Removed: 06/26/24 Time Urinary Catheter Discontinued: 15:45 History History History 4 Term 3 0 Miscarriages/Ectopic 1 Living Children 3 Past Pregnancies Del. Date GA/Weeks Outcome Route Wt Inf Gender Labor Lgth Comp. Anesthesia Location 01/13/17 39 live - full term Vaginal 9 lb Male Third degree laceration Shoulder dystocia [facility]- Dr. Darling Delivery Date: 01/13/17 Last Updated by: GENE Carey Dr. Discharge Data Studies Completed and Pending Completed Studies During Hospitalization Category Date Time Status US OB limited 11584 Stat Ultrasound 06/25/24 17:39 Completed Radiology Impressions Obstetrics Ultrasound 06/25/24 17:39 IMPRESSION: demise at 31 weeks 2 days gestation. ADDENDUM: 06/25/24 193 THIS REPORT CONTAINS FINDINGS THAT MAY BE CRITICAL TO PATIENT CARE. The findings were verbally communicated via telephone conference with Hiren Blanco at 7:29 PM ELECTRONIC OPERATOR on 06/25/2024. The findings were acknowledged and understood. Laboratory Results WBC 14.27 10^3/uL (3.29-11.43) H 06/26/24 18:25 RBC 3.72 10^6/uL (3.85-5.65) L 06/26/24 18:25 Hgb 8.30 g/dL (11.27-16.99) L 06/26/24 18:25 Hct 27.2 % (36-47) L 06/26/24 18:25 MCV 73.1 fl (85-98) L 06/26/24 18:25 MCH 22.3 pg (27-33) L 06/26/24 18:25 MCHC 30.5 g/dL (30-55) 06/26/24 18:25 RDW 16.8 % (12.1-15.1) H 06/26/24 18:25 Plt Count 82 10^3/cmm (157-399) L D 06/26/24 18:25 MPV TNP 06/26/24 18:25 Neut % (Auto) 75.3 % 06/25/24 18:20 Lymph % (Auto) 12.6 % 06/25/24 18:20 [place] % (Auto) 9.8 % 06/25/24 18:20 Eos % (Auto) 0.7 % 06/25/24 18:20 Baso % (Auto) 0.3 % 06/25/24 18:20 Neut # (Auto) 11.55 10^3/uL (1.8-7.7) H 06/25/24 18:20 Lymph # (Auto) 1.9 10^3/uL (0.8-4.8) 06/25/24 18:20 [place] # (Auto) 1.5 10^3/uL (0.2-0.9) H 06/25/24 18:20 Eos # (Auto) 0.1 10^3/uL (0.0-0.8) 06/25/24 18:20 Baso # (Auto) 0.0 10^3/uL (0.0-0.1) 06/25/24 18:20 Nucleated RBC % (auto) 0 % 06/25/24 18:20 Nucleated RBCs # 0.0 /100WBC 06/25/24 18:20 Sodium 134 mmol/L (136-145) L 06/25/24 18:20 Potassium 3.5 mmol/L (3.5-5.1) 06/25/24 18:20 Chloride 105 mmol/L (98-107) 06/25/24 18:20 Carbon Dioxide 20 mmol/L (22-29) L 06/25/24 18:20 Anion Gap 12.5 (5-19) 06/25/24 18:20 BUN 11 mg/dL (6-20) 06/25/24 18:20 Creatinine 0.5 mg/dL (0.5-0.9) 06/25/24 18:20 GFR Calculation 149.1 mL/min (90-130) H 06/25/24 18:20 Glucose 84 mg/dL (65-115) 06/25/24 18:20 Calculated Osmolality 277 mOsm/kg (285-295) L 06/25/24 18:20 Calcium 7.9 mg/dL (8.5-10.5) L 06/25/24 18:20 Magnesium 5.8 mg/dL (5.0-7.5) 06/26/24 01:16 Total Bilirubin 0.3 mg/dL (0.15-1.2) 06/25/24 18:20 AST 93 U/L (0-32) H 06/25/24 18:20 ALT 64 U/L (0-33) H 06/25/24 18:20 Alkaline Phosphatase 151 U/L (35-105) H 06/25/24 18:20 Total Protein 4.8 g/dL (6.6-8.7) L 06/25/24 18:20 Albumin 2.4 g/dL (3.5-5.2) L 06/25/24 18:20 Globulin 2.4 g/dL (1.3-4.6) 06/25/24 18:20 Urine Color Yellow (Yellow) 06/25/24 17:44 Urine Appearance Clear (CLEAR) 06/25/24 17:44 Urine pH 6.5 (5-7) 06/25/24 17:44 Ur Specific [place] 1.017 (1.005-1.030) 06/25/24 17:44 Urine Protein 4+ (Negative) A 06/25/24 17:44 Urine Glucose (UA) Negative (Normal) 06/25/24 17:44 Urine Ketones Negative (Negative) 06/25/24 17:44 Urine Blood 2+ (Negative) A 06/25/24 17:44 Urine Nitrate Negative (Negative) 06/25/24 17:44 Urine Bilirubin Negative (Negative) 06/25/24 17:44 Urine Urobilinogen 0.2 mg/dL (Negative) 06/25/24 17:44 Ur Leukocyte Esterase Trace (Negative) A 06/25/24 17:44 Urine RBC 5-10 /hpf (0-2) H 06/25/24 17:44 Urine WBC 0-4 /hpf (0-5) H 06/25/24 17:44 Ur Squamous Epith Cells 5-10 /hpf (0-5) H 06/25/24 17:44 Amorphous Sediment Not Reportable 06/25/24 17:44 Urine Bacteria Trace /hpf (NONE) 06/25/24 17:44 U Random Total Protein 833 mg/dL 06/25/24 17:44 Urine Creatinine 77 mg/dL (28-217) 06/25/24 17:44 Protein/Creatinin Ratio 10.82 mg/mg CR 06/25/24 17:44 Urine Opiates Screen Negative ng/mL (Negative) 06/25/24 17:44 Ur Barbiturates Screen Negative ng/mL (Negative) 06/25/24 17:44 Ur Phencyclidine Scrn Negative ng/mL (Negative) 06/25/24 17:44 Ur Amphetamines Screen Positive ng/mL (Negative) H 06/25/24 17:44 U Benzodiazepines Scrn Negative ng/mL (Negative) 06/25/24 17:44 Urine Cocaine Screen Negative ng/mL (Negative) 06/25/24 17:44 U Marijuana (THC) Screen Negative ng/mL (Negative) 06/25/24 17:44 RPR Nonreactive (Nonreactive) 06/25/24 20:00 C. trachomatis (PCR) Not detected 06/25/24 17:44 Hep Bs Antigen Non-reactive (Nonreactive) 06/25/24 18:20 HIV 1&2 Ab & HIV 1 Ag Non-reactive (Non-Reactiv) 06/25/24 20:00 HIV 1&2 Antibody Non-reactive (Non-Reactiv) 06/25/24 20:00 N. gonorrhoeae (PCR) Not detected 06/25/24 17:44 Rubella IgG Antibody 13.5 IU/mL (0.0-10.0) H 06/25/24 18:20 Blood Type O Positive 06/25/24 18:20 Rho(D) Type Rh positive 06/25/24 18:20 Antibody Screen Negative 06/25/24 18:20 Procedures Performed induction of labor vaginal delivery Vitals Last Vital Signs Temp 98.2 F 06/27/24 04:00 Pulse 78 06/27/24 13:55 Resp 16 06/25/24 22:16 BP 142/78 06/27/24 13:55 Pulse Ox 98 06/27/24 13:55 Results Labs OB ([facility]): Obstetrics US 06/25/24 Blood Type O Positive 06/25/24 Antibody Screen Negative 06/25/24 Hct, (36-47) 27.2 % L 06/26/24 Hgb, (11.27-16.99) 8.30 g/dL L 06/26/24 Rho(D) Type Rh positive 06/25/24 Plt Count, (157-399) 82 10^3/cmm L Δ 06/26/24 Hep Bs Antigen, (Nonreactive) Non-reactive 06/25/24 Rubella IgG Antibody, (0.0-10.0) 13.5 IU/mL H 06/25/24 RPR, (Nonreactive) Nonreactive 06/25/24 HIV 1&2 Ab & HIV 1 Ag, (Non-Reactiv) Non-reactive 06/25/24 C.trachomatis RNA (TMA), (NOT DETECTED) Not detected 05/29/23 N.gonorrhoeae RNA (TMA), (NOT DETECTED) Not detected 05/29/23 Chlamydia/GC Comment See note 05/29/23 Urine Opiates Screen, (Negative) Negative ng/mL 06/25/24 Ur Barbiturates Screen, (Negative) Negative ng/mL 06/25/24 Ur Phencyclidine Scrn, (Negative) Negative ng/mL 06/25/24 Ur Amphetamines Screen, (Negative) Positive ng/mL H 06/25/24 U Benzodiazepines Scrn, (Negative) Negative ng/mL 06/25/24 Urine Cocaine Screen, (Negative) Negative ng/mL 06/25/24 U Marijuana (THC) Screen, (Negative) Negative ng/mL 06/25/24 Discharge Plan Discharge Patient Disposition: Home Condition: Stable Prescriptions: No Action No Known Home Medications Discharge Orders: Discharge Order (Routine); Ordered 06/27/24 Ordered By: Hiren Blanco Referrals: Farida Underwood NP [Nurse Practitioner, TRAINING FACILITATOR] - 08/07/24 1:00 pm Discharge Diet: Usual diet Discharge Activity: Increase activity as tolerated Patient Instructions: Depression (DC), Opioid Safety (DC), Preeclampsia and Eclampsia After Delivery (GEN), Hemorrhage (DC), OB Discharge Report, OB Food/Drug Interaction Guide, Opioid Safety, OB Home Care, OB Vaginal Deliveries - [facility], Abnormal Bleeding Activity Restrictions/Additional Instructions: Return to see me within one week. Discharge Attestations TRAINING FACILITATOR Time Spent in Discharge Care*: less than 30 min Coding Level of Care Code Acute Code for Chg Fwd Diagnoses demise
== END 2024-06-27 13:55 | disposition home or self-care (01) | DRG 806 ==
LOC: OPOB 06:03 → OBGYN 06:03
PROVIDERS: Admitting Provider Obstetrics & Gynecology; Visit Provider Obstetrics & Gynecology
DX: O36.4XX0 Maternal care for intrauterine death, not applicable or unspecified (principal); O99.324 Drug use complicating childbirth; Z37.1 Single stillbirth; F15.10 Other stimulant abuse, uncomplicated; O14.14 Severe pre-eclampsia complicating childbirth; Z3A.30 30 weeks gestation of pregnancy
CPT/HCPCS: 36415; 51702; 59409; 76815; 80053; 80306; 81001; 82570; 83735; 84156; 85025; 85027; 86592; 86762; 86850; 86900; 87340; 87491; 87591; 87806; 99211; J2590; J3475; J3490; J7121; J9999

== ENCOUNTER 2025-04-04 01:32 | Emergency (ER) | payer SELFPAY ==
[2025-04-04] VITALS (8 sets, daily range): BP systolic 104–131; BP diastolic 65–72; PULSE 100–124; RESP 16; TEMP 36.9; O2SAT 98–100; BMI 23.8
--- OUTSIDE RECORDS SUMMARY | 2025-04-04 01:47 | XMS_ITS | Clinical Summary ---
Author Organization [employer] Address [address] [facility] Attn: Epic Prelude ADT ANTONIA LEON [address] Care Team Providers Care Kick Press Operator Name Role Phone Natalio Darling MD Primary Care Provider [phone] Allergies No known active allergies Medications nitrofurantoin (MACROBID) 100 mg capsule Take 100 mg by mouth daily. 05/18/2019 Active vit-iron fumarate-fa (FAUSTO ) 28 mg iron- 800 mcg Tablet Take 1 Tablet by mouth daily. 05/18/2019 Active Social History Tobacco Use Types Packs/Day Years Used Date Smoking Tobacco: Never Smokeless Tobacco: Never Alcohol Use Standard Drinks/Week Comments Never 0 (1 standard drink = 0.6 oz pur e alcohol) Comments Yes Sex and Gender Information Value Date Recorded Sex Assigned at Not on file Legal Sex Female 8:22 PM SERVICE DESK SPECIALIST Gender Identity Not on file Sexual Orientation Not on file Last Filed Vital Signs Vital Sign Reading Time Taken Comments Blood Pressure 106/45 05/18/2019 11:40 PM SERVICE DESK SPECIALIST Pulse 76 05/18/2019 9:44 PM SERVICE DESK SPECIALIST Temperature 36.7 C (98 F) 05/18/2019 11:40 PM SERVICE DESK SPECIALIST Respiratory Rate 20 05/18/2019 11:40 PM SERVICE DESK SPECIALIST Oxygen Saturation - - Inhaled Oxygen Concentration - - Weight 58.3 kg (128 lb 9.6 oz) 05/18/2019 8:41 P M SERVICE DESK SPECIALIST Height 160 cm (5' 3 ) 05/18/2019 8:41 PM SERVICE DESK SPECIALIST Body Mass Index 22.78 05/18/2019 8:41 PM SERVICE DESK SPECIALIST Plan of Treatment Health Maintenance Due Date Last Done Comments DTAP/TDAP/TD VACCINES (1 - Tdap) 2016 HEPATITIS B VACCINES (1 of 3 - 19+ 3-dose series) 08/2016 CERVICAL CANCER SCREENING 2018 HPV/Cotest (21-29) 2018 PAP SMEAR 2018 INFLUENZA VACCINE (#1) 2024 RSV VACCINE (60+ or ) (1 - 1-dose 75+ series) 2072 HPV VACCINES (No Doses Required) Completed Care Teams Kick Press Operator Relationship Specialty Start Date End Date Natalio Darling MD [address] [place] [phone] PCP - General Obstetrics and Gynecology 05/18/19
--- OUTSIDE RECORDS SUMMARY | 2025-04-04 01:47 | XMS_ITS | Clinical Summary ---
Author Organization [facility] Address [address] [address] Phone Care Team Providers Care Solar Sales Estimator Name Role Phone Natalio Darling MD Primary Care Provider [phone] Allergies No known active allergies Medications nitrofurantoin (MACROBID) 100 mg capsule Take 100 mg by mouth daily. Active vit-iron fumarate-fa (FAUSTO ) 28 mg iron- 800 mcg Tablet Take 1 Tablet by mouth daily. Active Social History Tobacco Use Types Packs/Day Years Used Date Smoking Tobacco: Never Smokeless Tobacco: Never Alcohol Use Standard Drinks/Week Comments Never 0 (1 standard drink = 0.6 oz pur e alcohol) Estimated Date of Delivery Comme nts Yes 11/26/2019 Sex and Gender Information Value Date Recorded Sex Assigned at Not on file Legal Sex Female 8:30 PM GAMING ASSOCIATE Gender Identity Not on file Sexual Orientation Not on file Last Filed Vital Signs Vital Sign Reading Time Taken Comments Blood Pressure 106/45 05/18/2019 11:40 PM GAMING ASSOCIATE Pulse 76 05/18/2019 9:44 PM GAMING ASSOCIATE Temperature 36.7 C (98 F) 05/18/2019 11:40 PM GAMING ASSOCIATE Respiratory Rate 20 05/18/2019 11:40 PM GAMING ASSOCIATE Oxygen Saturation 100% 05/18/2019 11:40 PM GAMING ASSOCIATE Inhaled Oxygen Concentration - - Weight 58.3 kg (128 lb 9.6 oz) 05/18/2019 8:41 P M GAMING ASSOCIATE Height 160 cm (5' 3 ) 05/18/2019 8:41 PM GAMING ASSOCIATE Body Mass Index 22.78 05/18/2019 8:41 PM GAMING ASSOCIATE Plan of Treatment Health Maintenance Due Date Last Done Comments DTAP/TDAP/TD VACCINES (1 - Tdap) 2016 HEPATITIS B VACCINES (1 of 3 - 19+ 3-dose series) 08/2016 CERVICAL CANCER SCREENING 2018 HPV/Cotest (21-29) 2018 PAP SMEAR 2018 INFLUENZA VACCINE (#1) 2024 RSV VACCINE (60+ or ) (1 - 1-dose 75+ series) 2072 HPV VACCINES (No Doses Required) Completed Insurance [facility] [employer] TJ Care Teams Solar Sales Estimator Relationship Specialty Start Date End Date Natalio Darling MD [address] [place] [address] PCP - General Obstetrics and Gynecology 05/18/19
--- NOTE | 2025-04-04 01:50 | ECG_ITS ---
[facility] Test Date: 2025-04-04 Pat Name: Gris Garcia Department: Room: Gender: Female Leaf Conditioner Helper: : 1995 Requested By: Tamie Alexis Order Number: [id number] Elaina MD: Kallie Chaudhari M.D. Measurements Intervals [place] Rate: 113 P: 67 [place]: 158 QRS: 51 QRSD: 94 T: 53 QT: 308 QTc: 423 Interpretive Statements SINUS TACHYCARDIA ABNORMAL RHYTHM ECG Compared to ECG 02/23/2021 02:39:54 Incomplete right bundle-branch block no longer present Electronically Signed On 04-04-2025 17:40:27 ASSISTANT NEWS DIRECTOR by Kallie Chaudhari M.D. [email or web address]
[2025-04-04 02:12] LABS: Glucose Urine UA Negative (Normal); HCG Qualitative Urine. Negative (Negative); Nitrate Urine Negative (Negative)
[2025-04-04 02:14] LABS: Add Urine Microscopic? YES
[2025-04-04 02:15] LABS: Specific Gravity, Urine 1.032 (1.005-1.030)
--- NOTE | 2025-04-04 02:16 | ED_ITS ---
HPI - General Adult 2 General: Chief complaint: Abdominal Pain Stated complaint: possible kidney stone, Fever, back pain Time Seen by Provider: 04/04/25 01:48 History of Present Illness: Patient is a 41-year-old female with a past medical history of previous kidney stone presents with a chief complaint of 3 days of acute right flank pain, fever at home with Tmax of 101, chills, malaise and burning with urination. Patient denies chest pain or shortness of breath or hemoptysis or pain with deep respirations. She denies hemoptysis or syncope. No abdominal pain, vomiting but she has been feeling nauseated. She has not noted blood in her urine. Patient denies abnormal pelvic discharge or pain with intercourse that is new. No change in bowel habits. Related Data Previous Rx's ?Medication ?Instructions ?Recorded sulfamethoxazole 800 1 tab PO BID #14 tabs mg-trimethoprim 160 mg tablet (Bactrim DS) Allergies Allergy/AdvReac Type Severity Reaction Status Date / Time No Known Allergies Allergy Verified 08/07/24 09:20 [facility] ED 2 PFS: Medical History (Updated 04/04/25 @ 04:57 by Tamie Alexis MD) History of inadequate care Chronic headache with normal neurologic examination Anemia during , delivered, current hospitalization Term delivered Supervision of normal Anemia affecting in third trimester Surgical History History of breast lump/mass excision (~02/28/14) -patient states it was a fibroadenoma. Preformed by Dr. Bashir. Previous back surgery (~2017) 2018--Pt reports blood clot in her spine [place] Family History Mother Diabetes Grandfather Diabetes Maternal Grandmother Diabetes Maternal Uterine cancer Maternal great grandmother Leukemia maternal grandmother Sister Thyroid disease Uterine cancer Endometriosis Social History Smoking and tobacco/nicotine status: unknown if used tobacco/nicotine Substance/Drug Use: never Physical Exam 2 Narrative: EXAM NARRATIVE: Vital signs were reviewed. Patient is alert and oriented. Patient is breathing comfortably, no increased WOB or accessory muscle use. SpO2 is above 95% on RA. Patient has clear lungs b/l, no rhonchi, wheezing or crackles. No hypotension or tachycardia. Abdomen is soft, nondistended and nontender. Patient has right sided CVA tenderness with percussion of the flank, no tenderness on the left. Patient is moving all extremities, no deformity or gross injury. No lower extremity edema or asymmetry. Course 2 Vital Signs: Vital signs: Vital Signs Temperature 98.4 F 04/04/25 01:40 Pulse Rate 102 H 04/04/25 04:07 Respiratory Rate 16 04/04/25 01:40 Blood Pressure 111/66 04/04/25 04:07 Pulse Oximetry 98 04/04/25 04:07 Oxygen Delivery Me thod Room Air 04/04/25 04:07 [facility] - General Adult Medical Decision Making 41-year-old female presenting with a chief complaint of 3 days of right flank pain, dysuria, fever and chills and malaise at home. Differential diagnose includes symptoms limited to, urinary tract infection, pyelonephritis, nephrolithiasis, nephrolithiasis complicated by infection, perinephric abscess, appendicitis, cervicitis, PID, other. On exam patient is hemodynamically stable and is afebrile. Patient was evaluated CBC, CMP, lipase, lactic acid, screen, UA and CT scan stone protocol. She was treated IV Dilaudid and Zofran. Patient has a normal white blood cell count and lactic acid. Patient is anemic but this is comparable to previous. Patient does not have any actionable electrolyte abnormalities, she has normal kidney function, liver function and she is not . UA is consistent with a urinary tract infection. Given fever, definitive CVA tenderness, presentation is most consistent with pyelonephritis. She was given a dose of ceftriaxone in the emergency department. After fluids, her heart rate has improved and I believe she is appropriate for outpatient therapy. CT does not show complicating stone or additional emergent pathology. I informed patient of incidental left adnexal mass, recommended not emergent ultrasound. Patient is agreeable with this plan. Lab Data 04/04/25 03:27 04/04/25 03:27 Radiology Impressions Abdomen/Pelvis CT 04/04/25 02:20 IMPRESSION: 1. Bilateral nonobstructing renal stones measuring 2-3 mm in size. No obstructive uropathy. 2. Decompressed urinary bladder, which is mildly thickened. Correlate for UTI. 3. Left adnexal lesion measures 3.4 x 2.9 cm, recommend nonemergent pelvic ultrasound. 4. Normal appendix. Laboratory Results WBC 9.71 10^3/uL (3.29-11.43) 04/04/25 03:27 RBC 3.73 10^6/uL (3.85-5.65) L 04/04/25 03:27 Hgb 8.20 g/dL (11.27-16.99) L 04/04/25 03:27 Hct 28.9 % (36-47) L 04/04/25 03:27 MCV 77.5 fl (85-98) L 04/04/25 03:27 MCH 22.0 pg (27-33) L 04/04/25 03:27 MCHC 28.4 g/dL (30-55) L 04/04/25 03:27 RDW 16.8 % (12.1-15.1) H 04/04/25 03:27 Plt Count 182 10^3/cmm (157-399) 04/04/25 03:27 MPV 9.6 fL (7.4-10.4) 04/04/25 03:27 Neut % (Auto) 69.6 % 04/04/25 03:27 Lymph % (Auto) 15.8 % 04/04/25 03:27 [place] % (Auto) 13.5 % 04/04/25 03:27 Eos % (Auto) 0.2 % 04/04/25 03:27 Baso % (Auto) 0.5 % 04/04/25 03:27 Neut # (Auto) 6.76 10^3/uL (1.8-7.7) 04/04/25 03:27 Lymph # (Auto) 1.5 10^3/uL (0.8-4.8) 04/04/25 03:27 [place] # (Auto) 1.3 10^3/uL (0.2-0.9) H 04/04/25 03:27 Eos # (Auto) 0.0 10^3/uL (0.0-0.8) 04/04/25 03:27 Baso # (Auto) 0.1 10^3/uL (0.0-0.1) 04/04/25 03:27 Nucleated RBC % (auto) 0 % 04/04/25 03:27 Nucleated RBCs # 0.0 /100WBC 04/04/25 03:27 Sodium 137 mmol/L (136-145) 04/04/25 03:27 Potassium 3.8 mmol/L (3.5-5.1) 04/04/25 03:27 Chloride 105 mmol/L (98-107) 04/04/25 03:27 Carbon Dioxide 25 mmol/L (22-29) 04/04/25 03:27 Anion Gap 10.8 (5-19) 04/04/25 03:27 BUN 10 mg/dL (6-20) 04/04/25 03:27 Creatinine 0.5 mg/dL (0.5-0.9) 04/04/25 03:27 GFR Calculation 148.0 mL/min (90-130) H 04/04/25 03:27 Glucose 108 mg/dL (65-115) 04/04/25 03:27 Calculated Osmolality 284 mOsm/kg (285-295) L 04/04/25 03:27 Lactic Acid 0.8 mmol/L (0.5-2.2) 04/04/25 03:27 Calcium 7.6 mg/dL (8.5-10.5) L 04/04/25 03:27 Total Bilirubin 0.2 mg/dL (0.15-1.2) 04/04/25 03:27 AST 9 U/L (0-32) 04/04/25 03:27 ALT 7 U/L (0-33) 04/04/25 03:27 Alkaline Phosphatase 75 U/L (35-105) 04/04/25 03:27 Total Protein 5.6 g/dL (6.6-8.7) L 04/04/25 03:27 Albumin 3.3 g/dL (3.5-5.2) L 04/04/25 03:27 Globulin 2.3 g/dL (1.3-4.6) 04/04/25 03:27 HCG, Qual Negative (Negative) 04/04/25 01:55 Urine Color Yellow (Yellow) 04/04/25 01:55 Urine Appearance Cloudy (CLEAR) A 04/04/25 01:55 Urine pH 6.5 (5-7) 04/04/25 01:55 Ur Specific [place] 1.032 (1.005-1.030) H 04/04/25 01:55 Urine Protein 1+ (Negative) A 04/04/25 01:55 Urine Glucose (UA) Negative (Normal) 04/04/25 01:55 Urine Ketones Trace (Negative) 04/04/25 01:55 Urine Blood Non-haemolysed trace (Negative) 04/04/25 01:55 Urine Nitrate Negative (Negative) 04/04/25 01:55 Urine Bilirubin Negative (Negative) 04/04/25 01:55 Urine Urobilinogen 1.0 mg/dL (Negative) 04/04/25 01:55 Ur Leukocyte Esterase 2+ (Negative) A 04/04/25 01:55 Urine RBC 3-5 /hpf (0-2) 04/04/25 01:55 Urine WBC >100 /hpf (0-5) H 04/04/25 01:55 Ur Squamous Epith Cells 6-10 /hpf (0-5) 04/04/25 01:55 Amorphous Sediment Not Reportable 04/04/25 01:55 Urine Bacteria Trace /hpf (NONE) 04/04/25 01:55 Hyaline Casts 2.05 /lpf 04/04/25 01:55 All radiology interpretation(s) finalized by discharge Discharge Plan Discharge Patient Disposition: Home Clinical Impression: Pyelonephritis, Adnexal mass Condition: Stable Prescriptions: New sulfamethoxazole-trimethoprim [Bactrim DS] 800-160 mg tablet 1 tab PO BID Qty: 14 0RF Discharge Orders: Discharge ED (Routine); Ordered 04/04/25 Ordered By: Tamie Alexis Patient Instructions: Abdominal Pain (ED), Opioid Safety, Pain Management, Patient Portal & Lyle Instructions, Pyelonephritis Activity Restrictions/Additional Instructions: Please start antibiotics as prescribed. If your condition worsens or additional concerns arise, please return probably to the emergency department. Specifically, please return to the emergency department if you have fever, chills, malaise, worsening pain longer than 48 hours despite starting antibiotics. Please make a follow-up appointment with your regular doctor early next week. Note that an incidental finding of adnexal mass/cyst has been noted in the left ovary region. This will require an outpatient follow-up pelvic ultrasound transvaginally. Talk to your doctor about these findings at your follow-up appointment and have your doctor to help you schedule an outpatient pelvic ultrasound. Print Language: Afghan Coding Level of Care Code ED Box Truck Driver for Yajaira Salazar
--- NOTE | 2025-04-04 02:20 | CTR_ITS ---
PROCEDURE INFORMATION: Exam: CT Abdomen And Pelvis Without Contrast Exam date and time: 04/04/2025 2:29 AM Age: 29 years old Clinical indication: Abdominal pain; Flank; Right; Additional info: R flank pain TECHNIQUE: Imaging protocol: Computed tomography of the abdomen and pelvis without contrast. Radiation optimization: All CT scans at this facility use at least one of these dose optimization techniques: automated exposure control; mA and/or kV adjustment per patient size (includes targeted exams where dose is matched to clinical indication); or iterative reconstruction. COMPARISON: CT kidney stone [id number] 01/09/2021 12:20 AM RADIATION DOSE METRICS: Total DLP (mGy-cm): 427.83 FINDINGS: Liver: Normal. No mass. Gallbladder and biliary ducts: Normal. No calcified stones. No ductal dilation. Pancreas: Normal. No ductal dilation. Spleen: Normal. No splenomegaly. Adrenal glands: Normal. No mass. Kidneys and ureters: Bilateral nonobstructing renal stones measuring 2-3 mm in size. No obstructive uropathy. Stomach and bowel: Unremarkable. No obstruction. No mucosal thickening. Appendix: Normal appendix. Intraperitoneal space: Unremarkable. No free air. No significant fluid collection. Vasculature: Unremarkable. No abdominal aortic aneurysm. Lymph nodes: Unremarkable. No enlarged lymph nodes. Urinary bladder: Decompressed urinary bladder, which is mildly thickened. Correlate for UTI. Reproductive: Left adnexal lesion measures 3.4 x 2.9 cm, recommend nonemergent pelvic ultrasound. Bones/joints: Unremarkable. No acute fracture. Soft tissues: Unremarkable. CT/CT abdomen pelvis wo con [id number] IMPRESSION: 1. Bilateral nonobstructing renal stones measuring 2-3 mm in size. No obstructive uropathy. 2. Decompressed urinary bladder, which is mildly thickened. Correlate for UTI. 3. Left adnexal lesion measures 3.4 x 2.9 cm, recommend nonemergent pelvic ultrasound. 4. Normal appendix.
[2025-04-04] MEDS: ondansetron 2 mg/ML SDV 2 mL 4 MG IVP (02:50)
[2025-04-04] MEDS: HYDROmorphone 0.5 MG/0.5 ML INJ 1 MG IVP (02:51)
[2025-04-04 03:44] LABS: Hematocrit 28.9 % (36-47); Hemoglobin 8.20 g/dL (11.27-16.99); Mean Corpuscular HGB Conc 28.4 g/dL (30-55); Mean Corpuscular Hemoglobin 22.0 pg (27-33); Mean Corpuscular Volume 77.5 fl (85-98); Nucleated Red Blood Cells % 0 %; Platelet Count 182 10^3/cmm (157-399); Red Blood Count 3.73 10^6/uL (3.85-5.65); White Blood Count 9.71 10^3/uL (3.29-11.43)
[2025-04-04 04:06] LABS: Alanine Aminotransferase 7 U/L (0-33); Albumin Level 3.3 g/dL (3.5-5.2); Alkaline Phosphatase 75 U/L (35-105); Anion Gap 10.8 (5-19); Aspartate Amino Transferase 9 U/L (0-32); Blood Urea Nitrogen 10 mg/dL (6-20); Calcium 7.6 mg/dL (8.5-10.5); Carbon Dioxide 25 mmol/L (22-29); Chloride 105 mmol/L (98-107); Globulin 2.3 g/dL (1.3-4.6); Glucose 108 mg/dL (65-115); Lactic Sepsis W/Reflex 0.8 mmol/L (0.5-2.2); Osmolality Calculated 284 mOsm/kg (285-295); Potassium 3.8 mmol/L (3.5-5.1); Sodium 137 mmol/L (136-145); Total Protein 5.6 g/dL (6.6-8.7)
[2025-04-04] MEDS: cefTRIAXone 1,000 mg SDV 1000 MG IVP (04:21)
[2025-04-04 06:36] LABS: Neisseria Gonorrhea NOT DETECTED (Negative)
== END 2025-04-04 05:11 | disposition home or self-care (01) ==
PROVIDERS: Emergency Provider Emergency Medicine
DX: N12 Tubulo-interstitial nephritis, not specified as acute or chronic (principal); R19.09 Other intra-abdominal and pelvic swelling, mass and lump
CPT/HCPCS: 36415; 74176; 80053; 81001; 81025; 83605; 85025; 87040; 87086; 87491; 87591; 93005; 96361; 96374; 96375; 99285; J0696; J1171; J2405; J7030